=== PATIENT | male | born 1950 | race Caucasian/White ===

== ENCOUNTER 2017-02-26 09:41 | Inpatient (IN) | payer BC, OTHER ==
[2017-02-26] MEDS ORDERED: FAMOTIDINE 20 MG/50 ML IVPB 50 ML IVPB ONE ×2 (09:57→10:01)
[2017-02-26] MEDS ORDERED: methylPREDNISolone NA SUCC 125 MG/2 ML VIAL IVPB ONE (09:57)
[2017-02-26] MEDS ORDERED: SODIUM CHLORIDE 1,000 ML IV ONE (09:58)
--- NOTE | 2017-02-26 09:58 | PDOC ---
History of Present Illness - General Chief Complaint: Allergic Reaction Stated Complaint: ALLERGIC REACTION Time Seen by Provider: 02/26/17 09:50 History Source: Patient Exam Limitations: No Limitations - History of Present Illness Initial Comments: 02/26/17 10:07 66y M hx of afib on coumadin, htn, hl, cad s/p CABG, presents with angioedema. The pt states that on wednesday with abdominal pain, he started to have some swelling around his eyes during the week, went to urgent care and got some steroids from urgent care. Yetserday the pt started to have swelling around his mouth/lips and this morning when he woke up the pain worsened significantly. The pt denies any voice changes, sob, cp, palpitations, abd pain, n/v. no known alelrgies pt was formerly on lisinopril but stopped 3 months ago was started on entresta (Valsartan/sacubitril) and has been on 3 months Past History - Past Medical History Allergies/Adverse Reactions: Allergies Allergy/AdvReac Type Severity Reaction Status Date / Time lisinopril Allergy Severe Verified 03/05/17 17:03 sacubitril [From Entresto] Allergy Severe Angioedema Verified 03/05/17 17:03 valsartan [From Entresto] Allergy Severe angioedema Verified 03/05/17 17:04 No Known Drug Allergies Allergy Verified 04/24/15 13:19 HAYFEVER Allergy Uncoded 04/24/15 13:09 Home Medications: Ambulatory Orders Aspirin [ASA -] 81 mg PO DAILY 06/30/14 Carvedilol 6.25 mg PO BID 06/30/14 Lisinopril [Prinivil -] 10 mg PO DAILY 06/30/14 Simvastatin [Zocor -] 20 mg PO HS 06/30/14 Warfarin Sodium [Coumadin] 3 mg PO ASDIR 06/30/14 Amlodipine Besylate [Norvasc -] 5 mg PO DAILY 04/24/15 Fish Oil/Borage/Flax/Om3,6,9#1 [[place] 3-6-9 Complex Softgel] 1 each PO DAILY Multivitamins [Multivit ([facility] Formulary)] 1 tab PO DAILY 04/24/15 Warfarin Sodium [Coumadin] 1.5 mg PO ASDIR 07/15/15 Docusate Sodium [Colace -] 100 mg PO TID #21 capsule 05/01/15 Ferrous Sulfate [Feosol] 325 mg PO TIDCM #30 ud 05/01/15 Anemia: Yes (TAKES IRON PILL) Asthma: No Cancer: No Cardiac Disorders: Yes (afib) CVA: No COPD: No CHF: No Dementia: No Diabetes: No GI Disorders: No Disorders: No HTN: Yes Hypercholesterolemia: No Liver Disease: No Seizures: No Thyroid Disease: No - Surgical History Abdominal Surgery: No Appendectomy: No Cardiac Surgery: Yes (pppmd,DIFIBRILLATOR 04/2014) Cholecystectomy: No Lung Surgery: No (11/2013 TRIPLE BYPASS) Neurologic Surgery: (LAMINECTOMY 5 YRS AGO) Orthopedic Surgery: No - Psycho/Social/Smoking Cessation Hx Anxiety: No Suicidal Ideation: No Smoking History: Never smoked Have you smoked in the past 12 months: No Hx Alcohol Use: No Drug/Substance Use Hx: No Substance Use Type: None Hx Substance Use Treatment: No Review of Systems - Review of Systems Comments:: 02/26/17 10:18 Constitutional - no reported Fever, Chills, HEENT: +facial swelling no reported vision changes, sore throat Respiratory: no reported cough, sob, hemoptysis Cardiac: no reported chest pain, palpitations, light headedness, leg swelling Abd/GI: no reported abd pain, nausea, vomiting, blood per rectum, melena, diarrhea : no reported dysuria, frequency, discharge Musculskelatal - no reported back pain, joint swelling skin - no reported bruising, erythema, rash neurological: no reported headache, numbness, focal weakness, tingling, ataxia, hematologic: no reported anemia, easy bruising, easy bleeding *Physical Exam - Physical Exam Comments: 02/26/17 10:26 GENERAL: The patient is awake, alert, and fully oriented, Nontoxic - in no acute distress. HEAD: Normocephalic, atraumatic. EYES: extraocular movements intact, sclera anicteric, conjunctiva clear. ENT: +angioedema of cheek/lips, airway patent, no tongue swelilng, no stridor, no respiratory distress, Normal voice, NECK: Normal range of motion, supple LUNGS: Breath sounds equal, clear to auscultation bilaterally. No wheezes, no rhonchi, no rales. HEART: Regular rate and rhythm, normal S1 and S2 without murmur, rub or gallop. ABDOMEN: Soft, nontender, normoactive bowel sounds. No guarding, no rebound. . No CVA tenderness EXTREMITIES: Normal range of motion, no edema. No clubbing or cyanosis. No cords, erythema, or tenderness. NEUROLOGICAL: No facial assymetry, Normal speech, PSYCH: Normal mood, normal affect. SKIN: Warm, Dry, normal turgor, Heart Score/ECG Review - ECG Impressions Comment:: 02/26/17 12:16 Twelve-lead EKG was performed and reviewed by me. Irregularly irregarul rate of 87 PVCs present twi in inferolateral leads ED Treatment Course - LABORATORY CBC & Chemistry Diagram: 03/09/17 06:00 03/09/17 06:00 Medical Decision Making - Medical Decision Making 02/26/17 10:28 66y M hx of afib on coumadin, htn, hl, cad presents with severe angioedema to the lip, protectoing airway, toleraing oral secretions, no voice changes vitals normal. pt does have some drooling, but it is due to the pts large lips he cannot close his mouth, there is no problem with swallowing or in his posteior pharynx pt given solumedrol, pepcid/benadryl consider epi but concern due to CAD prptecting airway, but will intubate if any concern of airway compromise. mallimpati 2 airway 02/26/17 10:58 airway unchanged inr elevated pt states he recently had coumadin changed due to subtherpeutic INR 1 month ago from alternating 1.5 and 3mg to 3mg daily will admit to ICU for further management 02/26/17 12:08 02/26/17 12:39 02/26/17 12:40 case dw CHIROPRACTIC PHYSICIAN Bhumika agree with amnagement will also start FFP will place in icu for obs Case discussed in detail with admitting physician including history, physical exam and ancillary studies. Admitting physician has assumed care for the patient, will follow all pending diagnostics and will complete the evaluation and treatment. accepted to ICU by dr. best CRITICAL CARE DOCUMENTATION: I spent ~35 minutes of Critical Care time, excluding separately billable procedures, involving high complexity decision making to assess, manipulate and support vital system function(s) to treat single or multiple vital organ system failure and/or to prevent further life threatening deterioration of the patient' s condition. *DC/Admit/Observation/Transfer Diagnosis at time of Disposition: Elevated INR Angioedema Qualifiers: Encounter type: initial encounter Qualified Code(s): T78.3XXA - Angioneurotic edema, initial encounter - Discharge Dispostion Admit: Yes
[2017-02-26] MEDS ORDERED: methylPREDNISolone NA SUCC 125 MG/2 ML VIAL ONE (10:01)
[2017-02-26 10:30] LABS: PROTHROMBIN TIME (PATIENT) 62.8 SEC (9.98-11.88)
[2017-02-26 10:44] LABS: ALBUMIN 2.9 g/dl (3.4-5.0); BILIRUBIN,TOTAL 0.9 mg/dL (0.2-1.0); CALCIUM 8.5 mg/dL (8.5-10.1); CREATININE 1.6 mg/dL (0.7-1.3); MCH 31.3 pg (25.7-33.7); MCHC 33.4 g/dl (32.0-35.9); MEAN CELL VOLUME 93.6 fl (80-96); MEAN PLT VOLUME 10.7 fl (7.5-11.1); PLATELET COUNT 144 K/MM3 (134-434); RDW 13.5 % (11.9-15.9); TOT PROT 7.3 g/dl (6.4-8.2); WHITE BLOOD COUNT 22.6 K/mm3 (4.0-10.0)
[2017-02-26 10:51] LABS: INR 5.51 (0.82-1.09)
[2017-02-26 11:29] LABS: PLATELET ESTIMATE SLT DECREASED (NORMAL)
[2017-02-26 11:36] VITALS: BMI 29.5
[2017-02-26] MEDS ORDERED: ONDANSETRON 4 MG/2 ML VIAL IVPB PRN (12:37)
--- NOTE | 2017-02-26 13:07 | HP ---
CHIEF COMPLAINT: Lip swelling PCP: Dr. Bolivar Refrigeration Installer: Dr. Ma HISTORY OF PRESENT ILLNESS: This is a 66-year-old male with a history pf Afib ( on Coumadin, CAD s/p CABG, systolic CHF s/p AICD, HTN, dyslipidemia who presents to the ED with angioedema. He previously took Lisinopril, but was switched to Entresto about 3 months ago. He first noted some abdominal pain and swelling around his eyes on Wednesday. The eye swelling became progressively worse , prompting him to present to Urgent Care on Wednesday. There, he was treated with prednisone. Yesterday, he noted marked lip swelling, which worsened today. He is having difficulty swallowing and reports that he was only able to take some of his medications this morning. He specifies that this is not because of throat tightness, but because he can't open his mouth fully because of lip swelling. 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 Smoking: None Alcohol: None Drugs: None Family History: No history of angioedema Allergies lisinopril Allergy (Verified 02/26/17 10:22) No Known Drug Allergies Allergy (Verified 04/24/15 13:19) HAYFEVER Allergy (Uncoded 04/24/15 13:09) HOME MEDICATIONS: Home Medications Medication Instructions Recorded Aspirin [ASA -] 81 mg PO DAILY 06/30/14 Carvedilol 6.25 mg PO BID 06/30/14 Lisinopril [Prinivil -] 10 mg PO DAILY 06/30/14 Simvastatin [Zocor -] 20 mg PO HS 06/30/14 Warfarin Sodium [Coumadin] 3 mg PO ASDIR 06/30/14 Amlodipine Besylate [Norvasc -] 5 mg PO DAILY 04/24/15 Fish Oil/Borage/Flax/Om3,6,9#1 1 each PO DAILY 04/24/15 [[place] 3-6-9 Complex Softgel] Multivitamins [Multivit ([facility] 1 tab PO DAILY 04/24/15 Formulary)] Warfarin Sodium [Coumadin] 1.5 mg PO ASDIR 04/24/15 Docusate Sodium [Colace -] 100 mg PO TID #21 capsule 05/01/15 Ferrous Sulfate [Feosol] 325 mg PO TIDCM #30 ud 05/01/15 REVIEW OF SYSTEMS CONSTITUTIONAL: Absent: fever, chills, diaphoresis, generalized weakness, malaise, loss of appetite, weight change HEENT: Lip swelling, swelling around eyes, difficulty opening mouth Absent: throat pain, throat swelling CARDIOVASCULAR: Absent: chest pain, syncope, palpitations, irregular heart rate, lightheadedness , peripheral edema RESPIRATORY: Absent: cough, shortness of breath, dyspnea with exertion, orthopnea, wheezing, stridor, hemoptysis GASTROINTESTINAL: Generalized abdominal pain, diarrhea x 1 wk Absent: abdominal distension, nausea, vomiting, constipation, melena, hematochezia GENITOURINARY: Absent: dysuria, frequency, urgency, hesitancy, hematuria, flank pain, genital pain MUSCULOSKELETAL: Absent: myalgia, arthralgia, joint swelling, back pain, neck pain SKIN: Absent: rash, itching, pallor HEMATOLOGIC/IMMUNOLOGIC: Absent: easy bleeding, easy bruising, lymphadenopathy, frequent infections ENDOCRINE: Absent: unexplained weight gain, unexplained weight loss, heat intolerance, cold intolerance NEUROLOGIC: Absent: headache, focal weakness or paresthesias, dizziness, unsteady gait, seizure, mental status changes, bladder or bowel incontinence PSYCHIATRIC: Absent: anxiety, depression, suicidal or homicidal ideation, hallucinations. PHYSICAL EXAMINATION Vital Signs - 24 hr 02/26/17 10:18 Temperature 98.8 F Pulse Rate 90 Respiratory 20 Rate Blood Pressure 119/82 O2 Sat by Pulse 95 Oximetry (%) GENERAL: Awake, alert, and fully oriented, drooling, appears uncomfortable. EYES: Pupils equal, round and reactive to light, extraocular movements intact, sclera anicteric, right conjunctiva injected. No lid lag. Mild periorbital edema bilaterally. EARS, NOSE, THROAT: Trismus. Marked lip swelling. No uvular edema, tongue swelling, or stridor. NECK: Submandibular/upper neck fullness. No lymphadenopathy, JVD, or masses. LUNGS: Breath sounds equal, clear to auscultation bilaterally. No wheezes, and no crackles. No accessory muscle use. HEART: Regular rate and rhythm, normal S1 and S2 without murmur, rub or gallop. ABDOMEN: Soft, nontender, not distended, normoactive bowel sounds, no guarding, no rebound, no masses. No hepatomegaly or splenomegaly. MUSCULOSKELETAL: Normal range of motion at all joints. No bony deformities or tenderness. No CVA tenderness. UPPER EXTREMITIES: 2+ pulses, warm, well-perfused. No cyanosis. No clubbing. No peripheral edema. LOWER EXTREMITIES: 2+ pulses, warm, well-perfused. No calf tenderness. No peripheral edema. NEUROLOGICAL: Cranial nerves II-XII intact. Normal speech. PSYCHIATRIC: Cooperative. Good eye contact. Appropriate mood and affect. SKIN: Warm, dry, normal turgor, no rashes or lesions noted, normal capillary refill. Laboratory Results - last 24 hr 02/26/17 02/26/17 02/26/17 10:05 10:05 10:05 WBC 22.6 H D RBC 6.10 H D Hgb 19.1 H D Hct 57.1 H D MCV 93.6 MCHC 33.4 RDW 13.5 Plt Count 144 D MPV 10.7 D Neutrophils % 81.0 Lymphocytes % 10.0 D Monocytes % 8.0 Band Neutrophils 1.0 Differential Comment Manual diff done Platelet Estimate Slt decreased INR 5.51 H* D Sodium 136 Potassium 4.2 Chloride 95 L Carbon Dioxide 29 Anion Gap 12 BUN 44 H D Creatinine 1.6 H D Creat Clearance w eGFR 43.74 Random Glucose 159 H D Calcium 8.5 Total Bilirubin 0.9 D AST 24 D ALT 29 D Alkaline Phosphatase 109 D Total Protein 7.3 D Albumin 2.9 L ASSESSMENT/PLAN: 66 year old male with angioedema, suspect ARB-induced. Problem List - Problem (1) Angioedema Assessment/Plan: -NPO -Urgent ENT evaluation -discussed with Dr. Olson -Transfuse 2 units FFP now -Continue Solu-Medrol, Pepcid, Benadryl -Supplemental O2 as needed -Monitor in ICU Code(s): T78.3XXA - ANGIONEUROTIC EDEMA, INITIAL ENCOUNTER Qualifiers: Encounter type: initial encounter Qualified Code(s): T78.3XXA - Angioneurotic edema, initial encounter (2) Elevated INR Assessment/Plan: -No signs of bleeding -Hold warfarin -Monitor Code(s): R79.1 - ABNORMAL COAGULATION PROFILE (3) HTN (hypertension) Assessment/Plan: -At goal -Resume Norvasc, Carvedilol when taking PO -Re-evaluate regimen in light of likely ARB adverse reaction Code(s): I10 - ESSENTIAL (PRIMARY) HYPERTENSION (4) HLD (hyperlipidemia) Assessment/Plan: -Resume Zocor, [place] 3 when taking PO Code(s): E78.5 - HYPERLIPIDEMIA, UNSPECIFIED (5) CAD (coronary artery disease) Assessment/Plan: -Resume ASA, statin when taking PO Code(s): I25.10 - ATHSCL HEART DISEASE OF [place] CORONARY ARTERY W/O ANG PCTRS Qualifiers: Coronary Disease-Associated Artery/Lesion type: bypass graft [place] vs. transplanted heart: [place] heart Associated angina: without angina Qualified Code(s): I25.810 - Atherosclerosis of coronary artery bypass graft( s) without angina pectoris (6) Atrial fibrillation Assessment/Plan: -Rate-controlled -Supratherapeutic on Coumadin; monitor INR and start heparin gtt if below 2 and still unable to tolerate PO Code(s): I48.91 - UNSPECIFIED ATRIAL FIBRILLATION Qualifiers: Atrial fibrillation type: permanent Qualified Code(s): I48.2 - Chronic atrial fibrillation (7) Leukocytosis Assessment/Plan: -No symptoms of infection -Suspect secondary to dehydration/hemoconcentration (H/H also high) from poor intake + outpatient steroids -Monitor Code(s): D72.829 - ELEVATED WHITE BLOOD CELL COUNT, UNSPECIFIED Qualifiers: Leukocytosis type: unspecified Qualified Code(s): D72.829 - Elevated white blood cell count, unspecified (8) Acute kidney injury Assessment/Plan: -Suspect secondary to dehydration, +/- ARB use -Follow Code(s): N17.9 - ACUTE KIDNEY FAILURE, UNSPECIFIED (9) DVT prophylaxis Assessment/Plan: -Supratherapeutic INR Code(s): [id number] - Visit type - Emergency Visit Emergency Visit: Yes ED Registration Date: 02/26/17 Care time: The patient presented to the Emergency Department on the above date and was hospitalized for further evaluation of their emergent condition. - New Patient This patient is new to me today: Yes Date on this admission: 02/26/17 - Critical Care Critical Care patient: Yes Total Critical Care Time (in minutes): 35 Critical Care Statement: The care of this patient involved high complexity decision making to prevent further life threatening deterioration of the patient 's condition and/or to evalute & treat vital organ system(s) failure or risk of failure.
--- NOTE | 2017-02-26 14:18 | CON.CARD ---
Consult Consult Specialty:: Cardiology Referred by:: Dr. Solares Reason for Consultation:: New onset angioedema - History of Present Illness Chief Complaint: facial and perioral swelling History of Present Illness: 66M with permanent AF on coumadin, ischemic CMs/p CABG w/ history of severe LV systolic dysfx s/p ICD presents to ER with 2-3 days progressive periorbital and perioral edema, drooling and facial pruritis. Symptoms significantly worsened overnight. Denies wheezing or SOB beyond baseline. In ER, has had modest improvement with IV steroid and benadryl, now able to open eyes. Patient had been maintained for several years on Lisinopril without any side effect but was switched to Entresto about three months ago due to persistent exertional fatigue and dyspnea and LE edema. He tolerated the transition well, stopped Lisinopril for 48 hours prior to initiation of Entresto and had improved dyspnea over the last 3 months. Current sx began about 3 days ago. Denies CP, palps, fevers or chills. +Diarrhea for the last week. Denies exposure to any new chemicals, soaps or any new suppliments. Recently returned from a trip to [place] about 2 weeks ago. - History Source History Provided By: Patient Limitations to Obtaining History: No Limitations - Past Medical History Cardio/Vascular: Yes: AFIB (on coumadin), CAD (s/p CABG), CHF (s/p ICD), HTN, Hyperlipdemia, Other (Severe LV systolic dysfunction, s/p ICD implantation) Pulmonary: No: Asthma, Bronchitis, Cancer, COPD, O2 Dependent, Pneumonia, Previously Intubated, Pulmonary Embolus, Pulmonary Fibrosis, Sleep Apnea, Other Gastrointestinal: Yes: Other (recent onset of diarrhea x 1 week) Hepatobiliary: No: Cirrhosis, Cholelithiasis, Cholecystitis, Choledocholithiasis , Hepatitis A, Hepatitis B, Hepatitis C, Other Renal/: No: Renal Failure, Renal Inusuff, BPH, Cancer, Hematuria, Hemodialysis , Neurogenic Bladder, Renal Calculi, UTI, Other Heme/Onc: No: Anemia, B12 Deficiency, Bleeding Disorder, Cancer, Current Chemotherapy, Current Radiation Therapy, Hemochromatosis, Hypercoaguable State, Myeloproliferative Synd, Sickle Cell Disease, Sickle Cell Trait, Thrombocytopenia, Other Infectious Disease: No: AIDS, C-Diff, Herpes Zoster, HIV, MRSA, STD's, Tuberculosis, VREF, Other Psych: No: Addictions, Anxiety, Bipolar, Depression, Panic, Psychosis, Schizophrenia, Other Musculoskeletal: No: Bursitis, Chronic low back pain, Hemiparesis, Hemiplegia, Osteoarthritis, Paraplegia, Other Rheumatology: No: Fibromyalgia, Gout, Lupus, Rheumatoid Arthritis, Sarcoidosis, Vasculitis, Other Endocrine: No: [place]'s Disease, Isadora's Disease, Diabetes Insipidus, Diabetes Mellitus, Hyperparathyroidism, Hyperthyroidism, Hypothyroidism, Osteopenia, SIADH, Other - Past Surgical History Past Surgical History: Yes: CABG Additional Surgical History: s/p ICD. Knee surgery - Alcohol/Substance Use Hx Alcohol Use: No History of Substance Use: reports: None - Smoking History Smoking history: Never smoked Have you smoked in the past 12 months: No - Social History ADL: Independent History of Recent Travel: Yes ([place]) Home Medications - Allergies Allergies/Adverse Reactions: Allergies Allergy/AdvReac Type Severity Reaction Status Date / Time lisinopril Allergy Verified 02/26/17 10:22 No Known Drug Allergies Allergy Verified 04/24/15 13:19 HAYFEVER Allergy Uncoded 04/24/15 13:09 - Home Medications Home Medications: Ambulatory Orders Aspirin [ASA -] 81 mg PO DAILY 06/30/14 Carvedilol 6.25 mg PO BID 06/30/14 Lisinopril [Prinivil -] 10 mg PO DAILY 06/30/14 Simvastatin [Zocor -] 20 mg PO HS 06/30/14 Warfarin Sodium [Coumadin] 3 mg PO ASDIR 06/30/14 Amlodipine Besylate [Norvasc -] 5 mg PO DAILY 04/24/15 Fish Oil/Borage/Flax/Om3,6,9#1 [[place] 3-6-9 Complex Softgel] 1 each PO DAILY Multivitamins [Multivit ([facility] Formulary)] 1 tab PO DAILY 04/24/15 Warfarin Sodium [Coumadin] 1.5 mg PO ASDIR 04/24/15 Docusate Sodium [Colace -] 100 mg PO TID #21 capsule 05/01/15 Ferrous Sulfate [Feosol] 325 mg PO TIDCM #30 ud 05/01/15 Family Disease History - Family Disease History Family History: Unremarkable (non-contributory to this presentation) Review of Systems Findings/Remarks: See HPI- progressive facial edema, pruritis c/w new onset angioedema No new exposures, per patient. Transitioned from Lisinopril to Entresto 3 months ago - Review of Systems Constitutional: reports: Other (perioral and periorbital edema, pruritis) Eyes: reports: Other (see above) HENT: reports: Mouth Swelling Neck: reports: No Symptoms Cardiovascular: reports: No Symptoms Respiratory: reports: No Symptoms Gastrointestinal: reports: No Symptoms Genitourinary: reports: No Symptoms Breasts: reports: No Symptoms Reported Musculoskeletal: reports: No Symptoms Integumentary: reports: No Symptoms Neurological: reports: No Symptoms Endocrine: reports: No Symptoms Hematology/Lymphatic: reports: No Symptoms Psychiatric: reports: No Symptoms - Risk Factors Known Risk Factors: Yes: Hypercholesterolemia, Hypertension, Other (Known CAD s/ p CABG) Vital Signs: Vital Signs Temperature 98.8 F 02/26/17 10:18 Pulse Rate 90 02/26/17 10:18 Respiratory Rate 20 02/26/17 10:18 Blood Pressure 119/82 02/26/17 10:18 O2 Sat by Pulse Oximetry (%) 95 02/26/17 10:18 Eyes: Yes: Other (periorbital edema b/l) HENT: Yes: Other (perioral edema, lip swelling) Neck: Yes: Supple Respiratory: Yes: Other (clear withour stridor or wheezing) Gastrointestinal: Yes: Soft (non-tender) Renal/: Yes: WNL, Urethral Discharge JVD: No Carotid Bruit: No PMI: Non-Displaced Heart Sounds: Yes: S1, S2 (irregular, no murmurs) Extremities: Yes: WNL Edema: Yes (see above) Peripheral Pulses WNL: Yes Neurological: Yes: Alert, Oriented ...Motor Strength: WNL Psychiatric: Yes: WNL - Other Data Labs, Other Data: INR, PTT INR 5.51 (0.82-1.09) H* D 02/26/17 10:05 Laboratory Tests 02/26/17 02/26/17 02/26/17 10:05 10:05 10:05 WBC 22.6 H D Hgb 19.1 H D Hct 57.1 H D Plt Count 144 D Neutrophils % 81.0 Monocytes % 8.0 Band Neutrophils 1.0 INR 5.51 H* D Potassium 4.2 Creatinine 1.6 H D Calcium 8.5 Total Bilirubin 0.9 D AST 24 D ALT 29 D Alkaline Phosphatase 109 D Prior Cardiac Procedures: CABG, Other (ICD) Ejection Fraction %: LVEF < 40 % Imaging - Results X-ray: Image Reviewed EKG: Image Reviewed (AF, intermittent Pacing. IVCD c/w RBBB. NSST changes) Problem List - Problems (1) Angioedema Assessment/Plan: -new onset, suspected due to Entresto Code(s): T78.3XXA - ANGIONEUROTIC EDEMA, INITIAL ENCOUNTER Qualifiers: Encounter type: initial encounter Qualified Code(s): T78.3XXA - Angioneurotic edema, initial encounter (2) Atrial fibrillation Code(s): I48.91 - UNSPECIFIED ATRIAL FIBRILLATION Qualifiers: Atrial fibrillation type: permanent Qualified Code(s): I48.2 - Chronic atrial fibrillation (3) CAD (coronary artery disease) Code(s): I25.10 - ATHSCL HEART DISEASE OF [place] CORONARY ARTERY W/O ANG PCTRS Qualifiers: Coronary Disease-Associated Artery/Lesion type: bypass graft [place] vs. transplanted heart: [place] heart Associated angina: without angina Qualified Code(s): I25.810 - Atherosclerosis of coronary artery bypass graft( s) without angina pectoris (4) Elevated INR Code(s): R79.1 - ABNORMAL COAGULATION PROFILE (5) Leukocytosis Code(s): D72.829 - ELEVATED WHITE BLOOD CELL COUNT, UNSPECIFIED Qualifiers: Leukocytosis type: unspecified Qualified Code(s): D72.829 - Elevated white blood cell count, unspecified (6) Chronic systolic (congestive) heart failure Code(s): I50.22 - CHRONIC SYSTOLIC (CONGESTIVE) HEART FAILURE (7) ICD (implantable cardioverter-defibrillator) in place Code(s): Z95.810 - PRESENCE OF AUTOMATIC (IMPLANTABLE) CARDIAC DEFIBRILLATOR (8) Renal insufficiency Code(s): N28.9 - DISORDER OF KIDNEY AND URETER, UNSPECIFIED Assessment/Plan IMP: 1. New onset angioedema 2. Permanent AF with supratherapeutic INR 3. CAD s/p CABG 4. Ischemic cardiomyopathy s/p ICD 5. Renal insufficiency REC: 1. Angioedema: -in the absence of any new exposures to chemicals, foods or suppliments suspect secondary to Entresto Unusual as he started it 3 months ago with no symptoms and had previously tolerated Lisinopril well -Agree with ENT eval and monitoring in ICU -Continue steroids and Benadryl as per Critical Care team and ENT -Hold Entresto and all TUAN/ARB for now -Try to obtain further detailed history about any new exposures although on initial questioning denied any previous food allergies and does not seem to have any other recent exposures to allergens or new contacts with pets/soaps/ perfumes etc. 2. Permanent AF: -Supratherapeutic INR -Hold warfarin until INR falls within range 2-3 and then resume with adjusted dose -Check INR daily -Continue home beta britta 3. CAD s/p CABG: -Asymptomatic without anginal symptoms -Stress MPI performed in office within the last 2 years has shown scarring and reduced LV systolic function with no significant ischemia - ASA 81mg daily 4. Ischemic CM s/p ICD: -intermittently pacing appropriately on ECG -Compliant with routine office interrogations -Recent echos have shown slight improvement in LV function (previously severe, now moderate to severe) -Holding Entresto, TUAN/ARB -Continue home beta britta 5. Renal insufficiency: -unclear if acute or acute on chronic -Possible effect of ARB component of Entresto (Valsartan) -Holding Entresto -Follow renal function
--- NOTE | 2017-02-26 16:14 | EKG ---
Test Reason : Blood Pressure : / mmHG Vent. Rate : 087 BPM Atrial Rate : 104 BPM P-R Int : 000 ms QRS Dur : 108 ms QT Int : 390 ms P-R-T Axes : 000 -23 257 degrees QTc Int : 469 ms ATRIAL FIBRILLATION WITH OCCASIONAL ventricular-paced complexes AND WITH PREMATURE VENTRICULAR OR ABERRANTLY CONDUCTED COMPLEXES MINIMAL VOLTAGE CRITERIA FOR LVH, MAY BE NORMAL VARIANT INFERIOR INFARCT , AGE UNDETERMINED ANTEROSEPTAL INFARCT , AGE UNDETERMINED ABNORMAL ECG WHEN COMPARED WITH ECG OF 13-NOV-2014 17:05, ELECTRONIC VENTRICULAR PACEMAKER HAS REPLACED ELECTRONIC ATRIAL PACEMAKER Confirmed by CARLITOS SANCHEZ MD ([id number]) on 02/26/2017 4:13:38 PM Referred By: Confirmed By:CARLITOS SANCHEZ MD
--- NOTE | 2017-02-26 16:28 | CONSULT ---
Consult Consult Specialty:: PULM/CCM Referred by:: JULIETTE Reason for Consultation:: Angioedema - History of Present Illness Chief Complaint: swelling of the lips History of Present Illness: 66 M P. Afib (on Coumadin), CAD s/p CABG, systolic CHF s/p AICD, HTN, and dyslipidemia. Patient was started on Entresto about 3 months ago. Of note, he was an TUAN I prior. About 1 week ago he noted some mild non-specific abdominal discomfort. On Wednesday he developed swelling around his eyes. He was given Prednisone at an urgent care. Due to worsening edema he came to the ER. In the ER he was given Solumedrol, H1 & H2 blockers, and FFP was ordered. Patient is awake and alert and appears to be in no respiratory distress. There is no pooling of saliva and he can manage his secretions. CXR: Cardiomegaly / clear - History Source History Provided By: Patient Limitations to Obtaining History: No Limitations - Past Medical History Cardio/Vascular: Yes: AFIB (on coumadin), CAD (s/p CABG), CHF (s/p ICD), HTN, Hyperlipdemia, Other (Severe LV systolic dysfunction, s/p ICD implantation) Pulmonary: No: Asthma, Bronchitis, Cancer, COPD, O2 Dependent, Pneumonia, Previously Intubated, Pulmonary Embolus, Pulmonary Fibrosis, Sleep Apnea, Other Gastrointestinal: Yes: Other (recent onset of diarrhea x 1 week) Hepatobiliary: No: Cirrhosis, Cholelithiasis, Cholecystitis, Choledocholithiasis , Hepatitis A, Hepatitis B, Hepatitis C, Other Renal/: No: Renal Failure, Renal Inusuff, BPH, Cancer, Hematuria, Hemodialysis , Neurogenic Bladder, Renal Calculi, UTI, Other Infectious Disease: No: AIDS, C-Diff, Herpes Zoster, HIV, MRSA, STD's, Tuberculosis, VREF, Other Psych: No: Addictions, Anxiety, Bipolar, Depression, Panic, Psychosis, Schizophrenia, Other Musculoskeletal: No: Bursitis, Chronic low back pain, Hemiparesis, Hemiplegia, Osteoarthritis, Paraplegia, Other Rheumatology: No: Fibromyalgia, Gout, Lupus, Rheumatoid Arthritis, Sarcoidosis, Vasculitis, Other Endocrine: No: Isreal's Disease, Isadora's Disease, Diabetes Insipidus, Diabetes Mellitus, Hyperparathyroidism, Hyperthyroidism, Hypothyroidism, Osteopenia, SIADH, Other - Past Surgical History Past Surgical History: Yes: CABG Additional Surgical History: s/p ICD. Knee surgery - Alcohol/Substance Use Hx Alcohol Use: No History of Substance Use: reports: None - Smoking History Smoking history: Never smoked Have you smoked in the past 12 months: No - Social History ADL: Independent History of Recent Travel: Yes ([place]) Home Medications - Allergies Allergies/Adverse Reactions: Allergies Allergy/AdvReac Type Severity Reaction Status Date / Time lisinopril Allergy Verified 02/26/17 10:22 No Known Drug Allergies Allergy Verified 04/24/15 13:19 HAYFEVER Allergy Uncoded 04/24/15 13:09 - Home Medications Home Medications: Ambulatory Orders Aspirin [ASA -] 81 mg PO DAILY 06/30/14 Carvedilol 6.25 mg PO BID 06/30/14 Lisinopril [Prinivil -] 10 mg PO DAILY 06/30/14 Simvastatin [Zocor -] 20 mg PO HS 06/30/14 Warfarin Sodium [Coumadin] 3 mg PO ASDIR 06/30/14 Amlodipine Besylate [Norvasc -] 5 mg PO DAILY 04/24/15 Fish Oil/Borage/Flax/Om3,6,9#1 [[place] 3-6-9 Complex Softgel] 1 each PO DAILY Multivitamins [Multivit ([facility] Formulary)] 1 tab PO DAILY 04/24/15 Warfarin Sodium [Coumadin] 1.5 mg PO ASDIR 04/24/15 Docusate Sodium [Colace -] 100 mg PO TID #21 capsule 05/01/15 Ferrous Sulfate [Feosol] 325 mg PO TIDCM #30 ud 05/01/15 Physical Exam Vital Signs: Vital Signs Temperature 98.3 F 02/26/17 15:43 Pulse Rate 77 02/26/17 15:43 Respiratory Rate 20 02/26/17 15:43 Blood Pressure 120/60 02/26/17 15:43 O2 Sat by Pulse Oximetry (%) 98 02/26/17 15:43 Constitutional: Yes: No Distress Eyes: Yes: Other (edema) HENT: Yes: Other (significant external oral swelling). No: Drooling, Epistaxis , Hoarseness, Pharyngeal Erythema Neck: Yes: Supple, Trachea Midline Cardiovascular: Yes: Regular Rate and Rhythm Respiratory: Yes: CTA Bilaterally. No: Accessory Muscle Use, Rales, Rhonchi, SOB, Stridor, Wheezes Gastrointestinal: Yes: Normal Bowel Sounds, Soft ...Rectal Exam: Yes: Deferred Renal/: Yes: WNL Musculoskeletal: Yes: WNL Extremities: Yes: WNL Edema: Yes Peripheral Pulses WNL: Yes Integumentary: Yes: Erythema, Skin Tear Neurological: Yes: Alert, Oriented ...Motor Strength: WNL Psychiatric: Yes: WNL, Alert, Oriented Imaging - Results Chest X-ray: Report Reviewed, Image Reviewed Problem List - Problems (1) Angioedema Code(s): T78.3XXA - ANGIONEUROTIC EDEMA, INITIAL ENCOUNTER Qualifiers: Encounter type: initial encounter Qualified Code(s): T78.3XXA - Angioneurotic edema, initial encounter (2) Atrial fibrillation Code(s): I48.91 - UNSPECIFIED ATRIAL FIBRILLATION Qualifiers: Atrial fibrillation type: permanent Qualified Code(s): I48.2 - Chronic atrial fibrillation (3) CAD (coronary artery disease) Code(s): I25.10 - ATHSCL HEART DISEASE OF [place] CORONARY ARTERY W/O ANG PCTRS Qualifiers: Coronary Disease-Associated Artery/Lesion type: bypass graft [place] vs. transplanted heart: [place] heart Associated angina: without angina Qualified Code(s): I25.810 - Atherosclerosis of coronary artery bypass graft( s) without angina pectoris (4) Chronic systolic (congestive) heart failure Code(s): I50.22 - CHRONIC SYSTOLIC (CONGESTIVE) HEART FAILURE (5) Elevated INR Code(s): R79.1 - ABNORMAL COAGULATION PROFILE (6) HLD (hyperlipidemia) Code(s): E78.5 - HYPERLIPIDEMIA, UNSPECIFIED (7) HTN (hypertension) Code(s): I10 - ESSENTIAL (PRIMARY) HYPERTENSION (8) ICD (implantable cardioverter-defibrillator) in place Code(s): Z95.810 - PRESENCE OF AUTOMATIC (IMPLANTABLE) CARDIAC DEFIBRILLATOR (9) Leukocytosis Code(s): D72.829 - ELEVATED WHITE BLOOD CELL COUNT, UNSPECIFIED Qualifiers: Leukocytosis type: unspecified Qualified Code(s): D72.829 - Elevated white blood cell count, unspecified Assessment/Plan Solumedrol H1&H2 britta FFP as ordered NPO for now O2 as needed No indication for intubation at this time. ICU monitoring Dr Sherwood CCTime 35"
[2017-02-26] MEDS ORDERED: SODIUM CHLORIDE NASAL SPRAY 44 ML BOTTLE NS PRN (16:39)
[2017-02-26] MEDS: methylPREDNISolone NA SUCC 40 MG/1 ML VIAL IVPB SCH (18:00)
[2017-02-26] MEDS ORDERED: ACETAMINOPHEN 1000 MG/100 ML VIAL (NON FORMULARY) IVPB ONE (18:38)
--- NOTE | 2017-02-26 19:25 | CON.ENT ---
Consult Consult Specialty:: ENT Reason for Consultation:: angioedema - History of Present Illness Chief Complaint: severe facial swelling History of Present Illness: 66 yo M with hx A fib, HTN, CAD, allergic rhinitis on Entresto x several months (Dr. Ma) ~24 hours ago had sudden onset of facial swelling, began around eyes, then to midface, then lips, cheeks and neck did not have tongue swelling presented to [facility] ER dx angioedema felt secondary to Entresto, immediately discontinued, Dr. Ma has evaluated pt and alternate medical therapy in progress pt admitted, rx IV fluids, steroids, Benadryl and FFP he is reporting improvement since coming to ER no dyspnea PMD includes allergic rhinitis (perennial) occasional medications, no formal testing also right eye irritated prior nasal septoplasty years ago recent travel to [facility] ([place], [place], [place]) - History Source History Provided By: Patient, Medical Record Limitations to Obtaining History: No Limitations - Past Medical History Cardio/Vascular: Yes: AFIB (on coumadin), CAD (s/p CABG), CHF (s/p ICD), HTN, Hyperlipdemia, Other (Severe LV systolic dysfunction, s/p ICD implantation) Pulmonary: No: Asthma, Bronchitis, Cancer, COPD, O2 Dependent, Pneumonia, Previously Intubated, Pulmonary Embolus, Pulmonary Fibrosis, Sleep Apnea, Other Gastrointestinal: Yes: Other (recent onset of diarrhea x 1 week) Hepatobiliary: No: Cirrhosis, Cholelithiasis, Cholecystitis, Choledocholithiasis , Hepatitis A, Hepatitis B, Hepatitis C, Other Renal/: No: Renal Failure, Renal Inusuff, BPH, Cancer, Hematuria, Hemodialysis , Neurogenic Bladder, Renal Calculi, UTI, Other Infectious Disease: No: AIDS, C-Diff, Herpes Zoster, HIV, MRSA, STD's, Tuberculosis, VREF, Other Psych: No: Addictions, Anxiety, Bipolar, Depression, Panic, Psychosis, Schizophrenia, Other Musculoskeletal: No: Bursitis, Chronic low back pain, Hemiparesis, Hemiplegia, Osteoarthritis, Paraplegia, Other Rheumatology: No: Fibromyalgia, Gout, Lupus, Rheumatoid Arthritis, Sarcoidosis, Vasculitis, Other Endocrine: No: [place]'s Disease, [place]'s Disease, Diabetes Insipidus, Diabetes Mellitus, Hyperparathyroidism, Hyperthyroidism, Hypothyroidism, Osteopenia, SIADH, Other - Past Surgical History Past Surgical History: Yes: CABG Additional Surgical History: s/p ICD. Knee surgery - Alcohol/Substance Use Hx Alcohol Use: No History of Substance Use: reports: None - Smoking History Smoking history: Never smoked Have you smoked in the past 12 months: No - Social History ADL: Independent History of Recent Travel: Yes ([place]) Home Medications - Allergies Allergies/Adverse Reactions: Allergies Allergy/AdvReac Type Severity Reaction Status Date / Time lisinopril Allergy Verified 02/26/17 10:22 No Known Drug Allergies Allergy Verified 04/24/15 13:19 HAYFEVER Allergy Uncoded 04/24/15 13:09 - Home Medications Home Medications: Ambulatory Orders Aspirin [ASA -] 81 mg PO DAILY 06/30/14 Carvedilol 6.25 mg PO BID 06/30/14 Lisinopril [Prinivil -] 10 mg PO DAILY 06/30/14 Simvastatin [Zocor -] 20 mg PO HS 06/30/14 Warfarin Sodium [Coumadin] 3 mg PO ASDIR 06/30/14 Amlodipine Besylate [Norvasc -] 5 mg PO DAILY 04/24/15 Fish Oil/Borage/Flax/Om3,6,9#1 [[place] 3-6-9 Complex Softgel] 1 each PO DAILY Multivitamins [Multivit ([facility] Formulary)] 1 tab PO DAILY 04/24/15 Warfarin Sodium [Coumadin] 1.5 mg PO ASDIR 04/24/15 Docusate Sodium [Colace -] 100 mg PO TID #21 capsule 05/01/15 Ferrous Sulfate [Feosol] 325 mg PO TIDCM #30 ud 05/01/15 Physical Exam-ENT Vital Signs: Vital Signs Temperature 99.4 F 02/26/17 18:00 Pulse Rate 74 02/26/17 18:00 Respiratory Rate 12 02/26/17 18:00 Blood Pressure 159/80 02/26/17 18:00 O2 Sat by Pulse Oximetry (%) 99 02/26/17 18:15 Constitutional: Yes: Well Nourished, No Distress, Calm Head: Yes: WNL Face: Yes: Angioedema, Other (significant swellling especially upper and lower lips, midface and upper neck) Eyes: Yes: Other (periorbital swelling, right conjunctiva injected.) Nose: Yes: Septum Deviated Nasal Passage: Yes: Other (dry, no bleeding) Oral/Pharynx: Yes: WNL, Other (tongue normal, voice clear, (sl hyponasal) no stridor or respiratory distress. handling secretions well) Outer Ear: Yes: Edema Ear Canal: Yes: Cerumen (minimal dry cerumen) Neck: Yes: Other (firm swelling submandibular, sl tender, skin intact, no fluctuance) Respiratory: Yes: WNL Extremities: Yes: WNL Neurological: Yes: WNL Imaging - Results Chest X-ray: Report Reviewed, Image Reviewed (lungs clear PPM) Problem List - Problems (1) Allergic rhinitis Assessment/Plan: chronic perennial allergic rhinitis recommend: outpatient evaluation, suggest formal allergy consultation with testing . Code(s): J30.9 - ALLERGIC RHINITIS, UNSPECIFIED Qualifiers: Allergic rhinitis trigger: unspecified Allergic rhinitis seasonality: non-seasonal Qualified Code(s): J30.89 - Other allergic rhinitis (2) Conjunctivitis Assessment/Plan: ?allergic vs other etiology Recommend: ophthalmology consultation Code(s): H10.9 - UNSPECIFIED CONJUNCTIVITIS Qualifiers: Conjunctivitis type: acute Acute conjunctivitis type: unspecified Laterality: right Qualified Code(s): H10.31 - Unspecified acute conjunctivitis, right eye (3) Angioedema Assessment/Plan: acute severe angioedema, felt secondary to Entresto improving with medical therapy airway stable oral cavity and oropharynx clear most marked in lips and lower face Dr. Ma already changing his medications Recommend: continue medical therapy ok for full liquids as tolerated activity may be OOB to chair and more as tolerated. hope for continued improvement discharge when meets criteria as per medical team outpatient follow-up Thank you for consultation, Onofre Olson MD FACS Code(s): T78.3XXA - ANGIONEUROTIC EDEMA, INITIAL ENCOUNTER Qualifiers: Encounter type: initial encounter Qualified Code(s): T78.3XXA - Angioneurotic edema, initial encounter
--- NOTE | 2017-02-26 20:18 | CONSULT ---
Consultation: REQUESTING PROVIDER: CONSULT REQUEST: We have been asked to medically evaluate this patient for angioedema/ICU admission. HISTORY OF PRESENT ILLNESS: 66 yr old man BIBEMS for progressively worsening facial edema starting Wednesday around his eyes then down to his chin this morning. Edema was progressive, yesterday he was unable to swallow, this morning he has been constantly drooling. Was seen by urgent care on wednesday and given oral steriods which did not provide any relief. 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 He recently returned 02/05 from a one week trip to [place]. also c/o dry right eye, nasal congestion and mild left shoulder pain (12/18) with movement. denies bug bites, new foods, new lotions/creams/soaps/shampoo, contact with animals or plants to his face, previous episodes, previous allergy testing, nausea, vomiting, fever, changes in his vision/hearing, sob/difficulty breathing , chest pain. REVIEW OF SYSTEMS: CONSTITUTIONAL: Absent: fever, chills, diaphoresis, generalized weakness, malaise, loss of appetite, weight change HEENT: present: throat swelling, difficulty swallowing, mouth swelling, Absent: rhinorrhea, nasal congestion, throat pain, ear pain, eye pain, visual changes CARDIOVASCULAR: Absent: chest pain, syncope, palpitations, irregular heart rate, lightheadedness RESPIRATORY: Absent: cough, shortness of breath, dyspnea with exertion, orthopnea, wheezing, stridor, hemoptysis GASTROINTESTINAL: Absent: abdominal pain, abdominal distension, nausea, vomiting, diarrhea, constipation, melena, hematochezia GENITOURINARY: Absent: dysuria, frequency, urgency, hesitancy, hematuria, flank pain, genital pain MUSCULOSKELETAL: Absent: myalgia, arthralgia, joint swelling, back pain, neck pain SKIN: Absent: rash, itching, pallor HEMATOLOGIC/IMMUNOLOGIC: Absent: easy bleeding, easy bruising, lymphadenopathy, frequent infections ENDOCRINE: Absent: unexplained weight gain, unexplained weight loss, heat intolerance, cold intolerance NEUROLOGIC: Absent: headache, focal weakness or paresthesias, dizziness, unsteady gait, seizure, mental status changes, bladder or bowel incontinence PSYCHIATRIC: Absent: anxiety, depression, suicidal or homicidal ideation, hallucinations. PHYSICAL EXAMINATION Vital Signs - 24 hr 02/26/17 02/26/17 02/26/17 14:31 14:51 15:43 Temperature 98.3 F 98.3 F 98.3 F Pulse Rate Pulse Rate [ 62 80 77 Left Radial] Respiratory 20 20 20 Rate Blood Pressure Blood Pressure 132/90 131/70 120/60 [Left Arm] O2 Sat by Pulse 98 98 98 Oximetry (%) 02/26/17 02/26/17 02/26/17 16:00 17:15 17:25 Temperature 99.5 F 99.5 F Pulse Rate 75 75 Pulse Rate [ Left Radial] Respiratory 14 14 14 Rate Blood Pressure 150/83 150/83 Blood Pressure [Left Arm] O2 Sat by Pulse 98 Oximetry (%) 02/26/17 02/26/17 18:00 18:15 Temperature 99.4 F Pulse Rate 74 Pulse Rate [ Left Radial] Respiratory 12 Rate Blood Pressure 159/80 Blood Pressure [Left Arm] O2 Sat by Pulse 99 Oximetry (%) GENERAL: Awake, alert, and fully oriented, in no acute distress. HEAD: generalized facial edema. EYES: Pupils equal, round and reactive to light, right eye with conjuctival erythema, extraocular movements intact, sclera anicteric, conjunctiva clear. No lid lag. eyelids are edematous. EARS, NOSE, THROAT: Ears normal, nares patent with deviated septum, swelling of nose, oropharynx clear without exudates. no tongue swelling, uvula midline, upper and lower lips swollen with left lower lip with multiple 1mm serous fluid filled vesicles, Moist mucous membranes. NECK: Normal range of motion, supple without lymphadenopathy, JVD, or masses. ttp around throat., with edema. LUNGS: Breath sounds equal, clear to auscultation bilaterally. No wheezes, and no crackles. No accessory muscle use. HEART: afib, normal S1 and S2 without murmur, rub or gallop. ABDOMEN: Soft, nontender, not distended, normoactive bowel sounds, no guarding, no rebound, no masses. No hepatomegaly or splenomegaly. MUSCULOSKELETAL: Normal range of motion at all joints. No bony deformities or tenderness. No CVA tenderness. left shoulder without edema/erythema/skin intact/ from, nontender to palpation. UPPER EXTREMITIES: 2+ pulses, warm, well-perfused. No cyanosis. No clubbing. No peripheral edema. LOWER EXTREMITIES: 2+ pulses, warm, well-perfused. No calf tenderness. No peripheral edema. NEUROLOGICAL: Cranial nerves II-XII intact. facial sensation intact throughout , facial swelling mildly L>R. Normal speech, speaking in full sentences without difficulty. PSYCHIATRIC: Cooperative. Good eye contact. Appropriate mood and affect. Laboratory Results - last 24 hr 02/26/17 02/26/17 12:45 12:59 Blood Type A POSITIVE A POSITIVE Antibody Screen Negative Active Medications Generic Name Dose Route Start Last Admin Trade Name Freq PRN Reason Stop Dose Admin Chlorhexidine Gluconate 1 applic 02/26/17 22:00 Hibiclens For Decolonization - TP HS POLLY Diphenhydramine HCl 25 mg 02/26/17 13:30 02/26/17 13:34 Benadryl Injection - IVPUSH 25 mg Q8H POLLY Administration Famotidine/Sodium Chloride 50 mls @ 100 mls/hr 02/26/17 22:00 Pepcid 20 Mg Premixed Ivpb - IVPB BID POLLY Methylprednisolone Sodium Succinate 40 mg 02/26/17 18:00 02/26/17 18:00 Solu-Medrol - IVPB 40 mg Q8H-IV POLLY Administration Mupirocin 1 applic 02/26/17 22:00 Bactroban Ointment (For Decolonization) - NS 03/03/17 21:59 BID POLLY Ondansetron HCl 4 mg 02/26/17 12:37 Zofran Injection IVPB Q6H PRN NAUSEA Sodium Chloride 2 spray 02/26/17 16:39 [place]al [place] - NS BID PRN NASAL CONGESTION ASSESSMENT/PLAN: 66 yr old man with afib on coumadin, HTN, Afib, CAD s/p CABG admitted for angioedema to the lip. Immunological angioedema likely secondary to entresto currently protecting airway, pending ENT evaluation solumedrol 40mg IVpb q8hr benadryl 25 mg IVpush q8hr FFP 2 units pending low threshold for intubation nasal cannula o2, maintain sat >90% hold oral medications for now Cardiovascular afib; rate controlled, ICD intermittently paced HTN - controlled, consider Iv meds, as he is currently NPO Avoid all ACEI and ARB medications continue beta-britta systoic CHF - currently no signs of acute exacerbation consult: dr. abarca Hematological supratherapeutic INR - no overt signs of bleeding, hold coumadin for now. consider heparin if continued NPO status and AC is needed leucocytosis - likely due to acute reaction, pt afebrile, monitor for fevers and off abx for now. Renal JEREMY, suspected pre-renal cause due to poor po intake and ARB use monitor urine output GI pepcid for GI prophylaxis DVT: supratherpeutic INR diet: NPO for now Dispo: We will continue to follow the patient. Thank you for this consultative opportunity. Visit type - Emergency Visit Emergency Visit: No - New Patient This patient is new to me today: Yes Date on this admission: 02/26/17 - Critical Care Critical Care patient: Yes Total Critical Care Time (in minutes): 40 Critical Care Statement: The care of this patient involved high complexity decision making to prevent further life threatening deterioration of the patient 's condition and/or to evalute & treat vital organ system(s) failure or risk of failure.
[2017-02-26] MEDS ORDERED: ARTIFICIAL TEARS (POLYVINYL ALCOHOL 1.4%) OPTH DROPS OU PRN (20:20)
[2017-02-26] MEDS: FAMOTIDINE 20 MG/50 ML IVPB 50 ML IVPB SCH (21:52)
[2017-02-26] MEDS: MUPIROCIN 2% TOPICAL OINTMENT FOR DECOLONIZATION NS SCH (21:52)
[2017-02-26] MEDS ORDERED: CHLORHEXIDINE GLUCONATE 4% CLEANSER FOR DECOLONIZATION TP SCH (22:00)
[2017-02-26] MEDS ORDERED: morphine CARPU-JECT 2 MG/1 ML DISP.SYRIN IVPUSH ONE (22:42)
[2017-02-26] MEDS ORDERED: LIDOCAINE 5% TOPICAL PATCH TP ONE (23:21)
[2017-02-27] MEDS: methylPREDNISolone NA SUCC 40 MG/1 ML VIAL IVPB SCH ×3 (01:39→17:19)
[2017-02-27 06:11] LABS: BASOPHIL 0.1 % (0-2.0); MCH 30.9 pg (25.7-33.7); MCHC 32.7 g/dl (32.0-35.9); MEAN CELL VOLUME 94.5 fl (80-96); MEAN PLT VOLUME 10.6 fl (7.5-11.1); NEUTROPHILS 94.5 % (42.8-82.8); PLATELET COUNT 174 K/MM3 (134-434)
[2017-02-27 06:33] LABS: PROTHROMBIN TIME (PATIENT) 53.9 SEC (9.98-11.88)
[2017-02-27 06:35] LABS: ALBUMIN 2.8 g/dl (3.4-5.0); BILIRUBIN,TOTAL 0.8 mg/dL (0.2-1.0); CALCIUM 8.1 mg/dL (8.5-10.1); COCKROFT - GAULT 73.65; CREATININE 1.3 mg/dL (0.7-1.3); TOT PROT 7.1 g/dl (6.4-8.2)
[2017-02-27 07:43] LABS: INR 4.75 (0.82-1.09)
--- NOTE | 2017-02-27 09:34 | PN ---
Progress Note, Physician History of Present Illness: seen and examined today in nad. swelling improved. feeling better. no overnight events. no new complaints. - Current Medication List Current Medications: Active Medications Artificial Tears (Artificial Tears) 1 drop OU QID PRN PRN Reason: DRY EYES Last Admin: 02/26/17 21:52 Dose: 1 drop Chlorhexidine Gluconate (Hibiclens For Decolonization -) 1 applic TP HS POLLY Last Admin: 02/26/17 21:52 Dose: 1 applic Diphenhydramine HCl (Benadryl Injection -) 25 mg IVPUSH Q8H POLLY Last Admin: 02/27/17 06:36 Dose: 25 mg Famotidine/Sodium Chloride (Pepcid 20 Mg Premixed Ivpb -) 50 mls @ 100 mls/hr IVPB BID POLLY Last Admin: 02/26/17 21:52 Dose: 100 mls/hr Methylprednisolone Sodium Succinate (Solu-Medrol -) 40 mg IVPB Q8H-IV POLLY Last Admin: 02/27/17 01:39 Dose: 40 mg Mupirocin (Bactroban Ointment (For Decolonization) -) 1 applic NS BID [facility] Stop: 03/03/17 21:59 Last Admin: 02/26/17 21:52 Dose: 1 applic Ondansetron HCl (Zofran Injection) 4 mg IVPB Q6H PRN PRN Reason: NAUSEA Sodium Chloride ([place] Nasal [place] -) 2 spray NS BID PRN PRN Reason: NASAL CONGESTION Last Admin: 02/26/17 21:53 Dose: 2 spray - Objective Vital Signs: Vital Signs Temperature 98.6 F 02/27/17 02:00 Pulse Rate 81 02/27/17 06:00 Respiratory Rate 15 02/27/17 06:00 Blood Pressure 163/81 02/27/17 06:00 O2 Sat by Pulse Oximetry (%) 92 L 02/26/17 20:25 Constitutional: Yes: Well Nourished, No Distress, Calm Eyes: Yes: Conjunctiva Clear, EOM Intact, Other (angioedema) HENT: Yes: Other (angioedema of face and lips). No: Atraumatic, Normocephalic, Drooling, Epistaxis, Hoarseness, Nasal Congestion, Pharyngeal Erythema, Rhinnorhea, Thrush, Tonsillar Exudate Neck: Yes: WNL, Supple, Trachea Midline Cardiovascular: Yes: Pulse Irregular, S1, S2. No: Bradycardia, Tachycardia, Bruit, JVD, Gallop, Murmur, Rub, S3, S4, Varicosities Respiratory: Yes: WNL, Regular, CTA Bilaterally. No: Rales, Rhonchi, Wheezes Gastrointestinal: Yes: WNL, Normal Bowel Sounds, Soft. No: Distention, Tenderness Musculoskeletal: Yes: WNL Extremities: Yes: WNL Edema: No Peripheral Pulses WNL: Yes Peripheral Pulses: Left Doralis Pedis: 2+, Right Dorsalis Pedis: 2+ Integumentary: Yes: WNL Neurological: Yes: WNL, Alert, Oriented, Cran Nerves II-XII Intact ...Motor Strength: WNL Psychiatric: Yes: WNL, Alert, Oriented Labs: CBC, BMP 02/27/17 05:15 02/27/17 05:15 INR, PTT INR 4.75 (0.82-1.09) H* 02/27/17 05:15 - ....Imaging Chest X-ray: Report Reviewed, Image Reviewed EKG: Report Reviewed, Image Reviewed Other: Report Reviewed, Image Reviewed (tele-AFib, Vpaced) Assessment/Plan IMP: 1. New onset angioedema 2. Permanent AF with supratherapeutic INR 3. CAD s/p CABG 4. Ischemic cardiomyopathy s/p ICD 5. Renal insufficiency REC: 1. Angioedema:improving -suspect secondary to Entresto -ENT evaluation appreciated, airway clear -Cont steroids and Benadryl as per CCM -will need to avoid entresto and all TUAN-I/ARBs going forward given high risk of recurrent angioedema -does not appear to have any other new allergen exposures that may have precipitated this thus making entresto more likely 2. Permanent AF: HR adequately controlled -Supratherapeutic INR on admission -Hold warfarin until INR falls within range 2-3 and then resume with adjusted dose -Monitor INR daily, still supratherapeutic today -resume home bblocker 3. CAD s/p CABG: stable -resume ASA 81mg daily, home bblocker, and statin -outpatient follow up 4. Ischemic CM s/p ICD: improvement in LV function as on last echo, currently stable and euvolemic -intermittently pacing appropriately on tele -resume home bblocker -will need to avoid any TUAN-I/ARB including Entresto going forward 5.AILYN: improved -hydration as needed -Possible effect of ARB component of Entresto (Valsartan) vs dehydration -Holding Entresto -Monitor renal function
[2017-02-27] MEDS ORDERED: ENOXAPARIN NA (PORCINE) 40 MG/0.4 ML DISP.SYRIN SQ SCH (10:00)
--- NOTE | 2017-02-27 11:23 | PN ---
Progress Note (short form) - Note Progress Note: PULM/CCM Pt seen and examined in the ICU CC: angioedema/facial swelling 24HR: facial swelling improved INR still elevated, little oozing from lip no airway compromise/no new complaints wbc still elevated but suspect due to steroids rather than infectious process, afebrile Vital Signs Temp 98.6 F 02/27/17 02:00 Pulse 81 02/27/17 06:00 Resp 15 02/27/17 06:00 BP 163/81 02/27/17 06:00 Pulse Ox 92 L 02/26/17 20:25 Intake & Output 02/26/17 02/26/17 02/27/17 11:59 23:59 11:59 Intake Total 518 800 Output Total 400 500 Balance 118 300 Weight 90.718 kg 90.718 kg 98 kg Intake: IVPB 250 Oral 800 Fresh Frozen Plasma 268 Output: Urine 400 500 Void 400 500 Other: Voiding Method Urinal # Unmeasured Voids Void 2 Height 5 ft 9 in 5 ft 9 in Body Mass Index (BMI) 29.5 29.5 Weight Measurement Method Stated by Patient Built in [facility] Weight Measurement Method Est/Stated by Patient CBC, BMP 02/27/17 05:15 02/27/17 05:15 Active Medications Artificial Tears (Artificial Tears) 1 drop OU QID PRN PRN Reason: DRY EYES Last Admin: 02/26/17 21:52 Dose: 1 drop Chlorhexidine Gluconate (Hibiclens For Decolonization -) 1 applic TP HS POLLY Last Admin: 02/26/17 21:52 Dose: 1 applic Diphenhydramine HCl (Benadryl Injection -) 25 mg IVPUSH Q8H POLLY Last Admin: 02/27/17 06:36 Dose: 25 mg Famotidine/Sodium Chloride (Pepcid 20 Mg Premixed Ivpb -) 50 mls @ 100 mls/hr IVPB BID POLLY Last Admin: 02/26/17 21:52 Dose: 100 mls/hr Methylprednisolone Sodium Succinate (Solu-Medrol -) 40 mg IVPB Q8H-IV POLLY Last Admin: 02/27/17 01:39 Dose: 40 mg Mupirocin (Bactroban Ointment (For Decolonization) -) 1 applic NS BID POLLY Stop: 03/03/17 21:59 Last Admin: 02/26/17 21:52 Dose: 1 applic Ondansetron HCl (Zofran Injection) 4 mg IVPB Q6H PRN PRN Reason: NAUSEA Sodium Chloride ([place] Nasal [place] -) 2 spray NS BID PRN PRN Reason: NASAL CONGESTION Last Admin: 02/26/17 21:53 Dose: 2 spray Constitutional: Yes: No Distress, awake, eating Eyes: Yes: Other (edema) HENT: Yes: Other (significant external oral swelling) some oozing lower lip but minimal. No: Drooling, Epistaxis, Hoarseness, Pharyngeal Erythema, no stridor Neck: Yes: Supple, Trachea Midline Cardiovascular: Yes: Regular Rate and Rhythm Respiratory: Yes: CTA Bilaterally. No: Accessory Muscle Use, Rales, Rhonchi, SOB, Stridor, Wheezes Gastrointestinal: Yes: Normal Bowel Sounds, Soft ...Rectal Exam: Yes: Deferred Renal/: Yes: WNL Musculoskeletal: Yes: WNL Extremities: Yes: WNL Edema: Yes Peripheral Pulses WNL: Yes Integumentary: Yes: Erythema, Skin Tear Neurological: Yes: Alert, Oriented ...Motor Strength: WNL Psychiatric: Yes: WNL, Alert, Oriented, good spirits Imaging - Results Chest X-ray: no cxr today or indicated Problem List - Problems (1) Angioedema Code(s): T78.3XXA - ANGIONEUROTIC EDEMA, INITIAL ENCOUNTER Qualifiers: Encounter type: initial encounter Qualified Code(s): T78.3XXA - Angioneurotic edema, initial encounter (2) Atrial fibrillation Code(s): I48.91 - UNSPECIFIED ATRIAL FIBRILLATION Qualifiers: Atrial fibrillation type: permanent Qualified Code(s): I48.2 - Chronic atrial fibrillation (3) CAD (coronary artery disease) Code(s): I25.10 - ATHSCL HEART DISEASE OF [place] CORONARY ARTERY W/O ANG PCTRS Qualifiers: Coronary Disease-Associated Artery/Lesion type: bypass graft [place] vs. transplanted heart: [place] heart Associated angina: without angina Qualified Code(s): I25.810 - Atherosclerosis of coronary artery bypass graft( s) without angina pectoris (4) Chronic systolic (congestive) heart failure Code(s): I50.22 - CHRONIC SYSTOLIC (CONGESTIVE) HEART FAILURE (5) Elevated INR Code(s): R79.1 - ABNORMAL COAGULATION PROFILE (6) HLD (hyperlipidemia) Code(s): E78.5 - HYPERLIPIDEMIA, UNSPECIFIED (7) HTN (hypertension) Code(s): I10 - ESSENTIAL (PRIMARY) HYPERTENSION (8) ICD (implantable cardioverter-defibrillator) in place Code(s): Z95.810 - PRESENCE OF AUTOMATIC (IMPLANTABLE) CARDIAC DEFIBRILLATOR (9) Leukocytosis Code(s): D72.829 - ELEVATED WHITE BLOOD CELL COUNT, UNSPECIFIED Qualifiers: Leukocytosis type: unspecified Qualified Code(s): D72.829 - Elevated white blood cell count, unspecified Assessment/Plan Solumedrol , can begin to taper H1&H2 britta FFP as ordered clears and advance as tolerated O2 as needed ok for floor bed in med/surg Bert Colón ACNP [id number]
--- NOTE | 2017-02-27 12:06 | EKG ---
Test Reason : Blood Pressure : / mmHG Vent. Rate : 073 BPM Atrial Rate : 090 BPM P-R Int : 000 ms QRS Dur : 170 ms QT Int : 470 ms P-R-T Axes : 000 -65 106 degrees QTc Int : 517 ms Ventricular-paced rhythm WITH OCCASIONAL and consecutive sinus complexes AND WITH OCCASIONAL PREMATURE VENTRICULAR COMPLEXES ATRIAL FIBRILLATION ABNORMAL ECG Confirmed by MD PABLO, DENTON ([id number]) on 02/27/2017 12:05:51 PM Referred By: Confirmed By:DENTON SHAH MD
[2017-02-27] MEDS: MUPIROCIN 2% TOPICAL OINTMENT FOR DECOLONIZATION NS SCH (12:53)
[2017-02-27] MEDS: FAMOTIDINE 20 MG/50 ML IVPB 50 ML IVPB SCH (12:53)
[2017-02-27] MEDS ORDERED: oxyCODONE HCL 5 MG TABLET PO ONE ×2 (15:21→21:54)
[2017-02-27] MEDS ORDERED: SODIUM CHLORIDE NASAL SPRAY 44 ML BOTTLE NS PRN (16:06)
[2017-02-27] MEDS ORDERED: ARTIFICIAL TEARS (POLYVINYL ALCOHOL 1.4%) OPTH DROPS OU PRN (16:06)
[2017-02-27] MEDS ORDERED: ONDANSETRON 4 MG/2 ML VIAL IVPB PRN (16:06)
--- NOTE | 2017-02-27 17:04 | PN ---
Progress Note (short form) - Note Progress Note: Subjective: The patient was seen and examined at the bedside, he remains with lip and facial swelling. He is reporting right knee pain after sleeping "badly" on his knee. INR remains elevated Current Medications Generic Name Dose Route Start Last Admin Trade Name Freq PRN Reason Stop Dose Admin Artificial Tears 1 drop 02/27/17 16:06 Artificial Tears OU Q6H PRN DRY EYES Chlorhexidine Gluconate 1 applic 02/27/17 22:00 Hibiclens For Decolonization - TP HS POLLY Diphenhydramine HCl 25 mg 02/27/17 21:30 Benadryl Injection - IVPUSH Q8H POLLY Famotidine/Sodium Chloride 50 mls @ 100 mls/hr 02/27/17 22:00 Pepcid 20 Mg Premixed Ivpb - IVPB BID POLLY Methylprednisolone Sodium Succinate 40 mg 02/27/17 18:00 Solu-Medrol - IVPB Q8H-IV POLLY Mupirocin 1 applic 02/27/17 22:00 Bactroban Ointment (For Decolonization) - NS 03/03/17 21:59 BID POLLY Ondansetron HCl 4 mg 02/27/17 16:06 Zofran Injection IVPB Q6H PRN NAUSEA Sodium Chloride 2 spray 02/27/17 16:06 [place] Nasal [place] - NS BID PRN NASAL CONGESTION Objective: Vital Signs Period Temp Pulse Resp BP Sys/[place] Pulse Ox Last 24 Hr 97.8 F-99.5 F 70-96 12-24 148-171/65-94 92-99 Physical Exam: General: NAD, A&Ox3 HEENT: periorbital edema. significant external oral swelling, small amount of oozing from the lower lip. No drooling, hoarseness noted Lungs: CTA bilaterall, no stridor or wheezing noted Heart: RRR, S1S2 Abd: Soft, non-tender, non-distended. Normoactive bowel sounds Ext: Warm, well-perfused. 2+ DP/PT bilaterally Neuro: Unable to assess CN due to facial swelling CBCD WBC 23.0 K/mm3 (4.0-10.0) H 02/27/17 05:15 RBC 4.76 M/mm3 (4.00-5.60) D 02/27/17 05:15 Hgb 14.7 GM/dL (11.7-16.9) D 02/27/17 05:15 Hct 45.0 % (35.4-49) D 02/27/17 05:15 MCV 94.5 fl (80-96) 02/27/17 05:15 MCHC 32.7 g/dl (32.0-35.9) 02/27/17 05:15 RDW 14.0 % (11.9-15.9) 02/27/17 05:15 Plt Count 174 K/MM3 (134-434) D 02/27/17 05:15 MPV 10.6 fl (7.5-11.1) 02/27/17 05:15 CMP Sodium 138 mmol/L (136-145) 02/27/17 05:15 Potassium 3.9 mmol/L (3.5-5.1) 02/27/17 05:15 Chloride 96 mmol/L (98-107) L 02/27/17 05:15 Carbon Dioxide 29 mmol/L (21-32) 02/27/17 05:15 Anion Gap 13 (8-16) 02/27/17 05:15 BUN 32 mg/dL (7-18) H D 02/27/17 05:15 Creatinine 1.3 mg/dL (0.7-1.3) 02/27/17 05:15 Creat Clearance w eGFR 55.58 (>60) 02/27/17 05:15 Random Glucose 181 mg/dL (74-106) H 02/27/17 05:15 Calcium 8.1 mg/dL (8.5-10.1) L 02/27/17 05:15 Total Bilirubin 0.8 mg/dL (0.2-1.0) 02/27/17 05:15 AST 18 U/L (15-37) D 02/27/17 05:15 ALT 24 U/L (12-78) 02/27/17 05:15 Alkaline Phosphatase 103 U/L (45-117) 02/27/17 05:15 Total Protein 7.1 g/dl (6.4-8.2) 02/27/17 05:15 Albumin 2.8 g/dl (3.4-5.0) L 02/27/17 05:15 CARDIAC ENZYMES Troponin I < 0.02 ng/ml (0.00-0.05) 02/27/17 00:00 Laboratory Tests 02/27/17 05:15 INR 4.75 H* Assessment: This is a 66 year old male with PMHx of Afib (on Coumadin), CAD s/p CABG, systolic CHF s/p AICD, HTN, dyslipidemia who presents to the ED with angioedema. Plan: 1) Angioedema: - Likely 2/2 Entresto - S/p FFP - Continue Solu-medrol at current dose - Continue Benadryl - Continue Famotidine - Patent airway - Full liquid diet as tolerated - Appreciate ENT consult 2) Cardiology: A.fib - Supratherapeutic INR, continue to hold Coumadin CAD s/p CABG - Continue statin - Continue ASA HTN - Resume Norvasc - Resume Carvedilol Ischemic cardiomyopathy s/p ICD - Currently appears euvolemic - Will need to avoid all acei/arb - Appreciate cardiology consult 3) : JEREMY - Resolved 4) F/E/N: - Monitor electrolytes - Full liquid diet 5) Prophylaxis: - OOB ambulating - Hold all chemical DVT prophylaxis 2/2 supratherapeutic INR 6) Dispo: - Requires continued inpatient care - Will need referral to museum educator upon discharge CODE STATUS: FULL CODE Visit type - Emergency Visit Emergency Visit: Yes ED Registration Date: 02/26/17 Care time: The patient presented to the Emergency Department on the above date and was hospitalized for further evaluation of their emergent condition. - New Patient This patient is new to me today: Yes Date on this admission: 02/27/17 - Critical Care Critical Care patient: No
[2017-02-27] MEDS ORDERED: FERROUS SO4 325 MG TABLET (FP) PO SCH (17:30)
[2017-02-27] MEDS ORDERED: DOCUSATE SODIUM 100 MG CAPSULE (FP) PO SCH (22:00)
[2017-02-27] MEDS ORDERED: MUPIROCIN 2% TOPICAL OINTMENT FOR DECOLONIZATION NS SCH (22:00)
[2017-02-27] MEDS ORDERED: CHLORHEXIDINE GLUCONATE 4% CLEANSER FOR DECOLONIZATION TP SCH (22:00)
[2017-02-27] MEDS ORDERED: CARVEDILOL 6.25 MG TABLET (FP) PO SCH (22:00)
[2017-02-27] MEDS ORDERED: FAMOTIDINE 20 MG/50 ML IVPB 50 ML IVPB SCH (22:00)
[2017-02-27] MEDS ORDERED: ATORVASTATIN CA 10 MG TABLET (FP) PO SCH (22:00)
[2017-02-27] MEDS ORDERED: PATIENT'S OWN MEDICATION (NON-FORMULARY) (Simvastatin 20 MG) PO SCH (22:00)
[2017-02-27] MEDS ORDERED: PIPERACILLIN/TAZOB 2.25 GM 2.25 GM in DEXTROSE 5%-WATER - 50 ML IVPB ONE (23:44)
[2017-02-27] MEDS ORDERED: PIPERACILLIN/TAZOB 3.375 GM/50 ML PRE-DOCKED IVPB ONE (23:45)
[2017-02-27] MEDS ORDERED: VANCOMYCIN 1,250 MG in DEXTROSE 5%-WATER - 250 ML IVPB ONE (23:45)
[2017-02-27] MEDS ORDERED: morphine CARPU-JECT 2 MG/1 ML DISP.SYRIN IVPUSH ONE (23:45)
[2017-02-27] MEDS ORDERED: PIPERACILLIN/TAZOB 3.375 GM 3.375 GM in DEXTROSE 5%-WATER - 50 ML IVPB ONE (23:50)
[2017-02-27] MEDS ORDERED: morphine CARPU-JECT 2 MG/1 ML DISP.SYRIN IVPUSH PRN (23:51)
--- NOTE | 2017-02-27 23:55 | HOSP ---
Subjective - Review of Symptoms Events since last encounter: 1o/1o knee pain, rigors, fever 103.2 Subjective: patient was complaining of mild r knee pain and had low grade fever this am. asmitted for angioedema due to entresto w/o airway compromise. Now 10/10 pain in r Knee, unable to move it, fever 103.2, rigors. mild sob. R knee slightly warm, slightly edematous. BP 180 systolic, tachycardic, O2 sat 95 ra . beta britta was held tonight. General: Yes: Chills, Night Sweats, Malaise HEENT: No: Head Aches Pulmonary: Yes: Dyspnea. No: Cough Cardiovascular: No: Chest Pain, Palpitations, Orthopnea Gastrointestinal: No: Nausea, Vomiting, Abdominal Pain Genitourinary: No: Dysuria Musculoskeletal: Yes: Joint Pain (r knee). No: Extremity Pain (no calf pain ) Neurological: Yes: Weakness Physical Examination Vital Signs: Vital Signs Temperature 100.6 F H 02/27/17 17:05 Pulse Rate 96 H 02/27/17 17:05 Respiratory Rate 25 H 02/27/17 17:05 Blood Pressure 163/96 02/27/17 17:05 O2 Sat by Pulse Oximetry (%) 95 02/27/17 09:00 Constitutional: Yes: Severe Distress (rigors) Eyes: Yes: Conjunctiva Clear, EOM Intact, PERRL HENT: Yes: Atraumatic Neck: Yes: Supple Cardiovascular: Yes: Tachycardia (regular), S1, S2 Respiratory: Yes: CTA Bilaterally Gastrointestinal: Yes: Normal Bowel Sounds, Soft Extremities: Yes: Other (r knee slightly warm, 10/10 pain behind knee, no calf tenderness) Peripheral Pulses: Left Radial: 2+, Right Radial: 2+ Neurological: Yes: Alert, Oriented Labs: CBC, BMP 02/27/17 05:15 02/27/17 05:15 Hospitalist Encounter Assessment: sepsis -R knee source (knee replacement 2 yrs ago) -posterior R knee 10/10 pain, slight edema and warm, fever 103.2 -duplex RLE done, appears negatove for dvt but no official read. PE suspicion low -CXR no change -stat blood and urine cultures -zosyn, vanco, tylenol -ID consult -X ray R knee ordered -morphine given -ponce, strict i and o -stat cbc, bmp, lactic acid, esr, crp -after analgesia bp 130 systolic; lactic acid >2, NS@125 started, AM CXR ordered -patient xferred to tele -informed that patient is not periodically lethargic and O2 sat 88 on ventimask , still fever 103 -transfer to ICU Visit type - Emergency Visit Emergency Visit: Yes ED Registration Date: 02/26/17 Care time: The patient presented to the Emergency Department on the above date and was hospitalized for further evaluation of their emergent condition. - New Patient This patient is new to me today: Yes Date on this admission: 02/28/17 - Critical Care Critical Care patient: No
[2017-02-28 00:33] LABS: MCH 30.7 pg (25.7-33.7); MEAN CELL VOLUME 93.1 fl (80-96); MEAN PLT VOLUME 11.1 fl (7.5-11.1); PLATELET COUNT 172 K/MM3 (134-434); RDW 13.7 % (11.9-15.9); WHITE BLOOD COUNT 18.3 K/mm3 (4.0-10.0)
[2017-02-28] MEDS ORDERED: ACETAMINOPHEN 325 MG TABLET (FP) PO PRN ×2 (00:37→04:07)
[2017-02-28] MEDS ORDERED: SODIUM CHLORIDE 1,000 ML IV SCH (01:15)
[2017-02-28 02:32] LABS: URINE APPEARANCE CLEAR; URINE BILIRUBIN NEGATIVE (NEGATIVE); URINE COLOR YELLOW; URINE GLUCOSE (UA) 1+ (NEGATIVE); URINE KETONE NEGATIVE (NEGATIVE); URINE LEUK ESTERASE NEGATIVE (NEGATIVE); URINE NITRITE NEGATIVE (NEGATIVE); URINE UROBILINOGEN NEGATIVE E.U./dl (0.2-1.0)
[2017-02-28 03:01] LABS: URINE BLOOD 2+ (NEGATIVE); URINE PROTEIN 3+ (NEGATIVE)
[2017-02-28 03:02] LABS: GRANULAR CASTS 1 /lpf; URINE MUCUS RARE; URINE RBC 1 /hpf (0-3); URINE WBC 2 /hpf (3-5)
[2017-02-28] MEDS: SODIUM CHLORIDE 1,000 ML IV SCH (04:00)
[2017-02-28] MEDS ORDERED: ARTIFICIAL TEARS (POLYVINYL ALCOHOL 1.4%) OPTH DROPS OU PRN (04:07)
[2017-02-28] MEDS ORDERED: SODIUM CHLORIDE NASAL SPRAY 44 ML BOTTLE NS PRN (04:07)
[2017-02-28] MEDS ORDERED: ONDANSETRON 4 MG/2 ML VIAL IVPB PRN (04:07)
[2017-02-28] MEDS ORDERED: morphine CARPU-JECT 2 MG/1 ML DISP.SYRIN IVPUSH PRN (04:07)
[2017-02-28] MEDS ORDERED: VANCOMYCIN 1,250 MG in DEXTROSE 5%-WATER - 250 ML IVPB ONE (04:07)
[2017-02-28] MEDS: methylPREDNISolone NA SUCC 40 MG/1 ML VIAL IVPB SCH ×3 (04:13→21:40)
[2017-02-28 05:37] LABS: MCH 30.5 pg (25.7-33.7); MCHC 32.4 g/dl (32.0-35.9); MEAN CELL VOLUME 94.2 fl (80-96); PLATELET COUNT 160 K/MM3 (134-434); RDW 13.8 % (11.9-15.9)
--- NOTE | 2017-02-28 05:42 | PN ---
Progress Note (short form) - Note Progress Note: PULM/CCM PULM/CCM Pt seen and examined in the ICU CC: angioedema/facial swelling, now knee pain with fever 24HR: -left ICU yesterday with improving angioedema, no new active complaints, ambulating around unit -returns to ICU overnight with new fever to 102, and R knee pain (states slept with it hanging off bed railing yesterday) -given morphine overnight for new knee pain with occasional obstruction/ desating requiring ventimask -started on empiric abx (vanco/Piptaz), UA negative, blood cxl sent. Vital Signs Temp 102.1 F H 02/28/17 03:53 Pulse 81 02/28/17 03:53 Resp 21 02/28/17 03:53 BP 113/85 02/28/17 03:53 Pulse Ox 95 02/27/17 21:00 Intake & Output 02/27/17 02/27/17 02/28/17 11:59 23:59 11:59 Intake Total 800 1200 Output Total 500 Balance 300 1200 Weight 98 kg Intake: IVPB 250 Oral 800 950 Output: Urine 500 Void 500 Other: Voiding Method Urinal Incontinent # Unmeasured Voids Void 2 4 Weight Measurement Method Built in [facility] CBC, BMP 02/28/17 00:08 02/27/17 05:15 02/27/17 02/27/17 02/27/17 05:15 05:15 05:15 WBC 23.0 H RBC 4.76 D Hgb 14.7 D Hct 45.0 D MCV 94.5 MCHC 32.7 RDW 14.0 Plt Count 174 D Neutrophils % 94.5 H Lymphocytes % 3.0 L D Monocytes % 2.4 L Eosinophils % 0.0 D Basophils % 0.1 INR 4.75 H* Sodium 138 Potassium 3.9 Chloride 96 L Carbon Dioxide 29 Anion Gap 13 BUN 32 H D Creatinine 1.3 02/28/17 00:08 WBC 18.3 H RBC 4.76 Hgb 14.6 Hct 44.3 MCV 93.1 MCHC 33.0 RDW 13.7 Plt Count 172 Neutrophils % Lymphocytes % Monocytes % Eosinophils % Basophils % INR Sodium Potassium Chloride Carbon Dioxide Anion Gap BUN Creatinine 02/28/17 00:05 Blood Culture - Pending Blood - Peripheral Venous 02/28/17 00:05 Blood Culture - Pending Blood - Peripheral Venous Active Medications Acetaminophen (Tylenol -) 650 mg PO Q4H PRN PRN Reason: FEVER OR PAIN Artificial Tears (Artificial Tears) 1 drop OU Q6H PRN PRN Reason: DRY EYES Aspirin (Asa -) 81 mg PO DAILY [facility] Atorvastatin Calcium (Lipitor -) 10 mg PO HS [facility] Carvedilol (Coreg -) 6.25 mg PO BID [facility] Chlorhexidine Gluconate (Hibiclens For Decolonization -) 1 applic TP HS [facility] Chlorhexidine Gluconate (Hibiclens For Decolonization -) 1 applic TP HS [facility] Diphenhydramine HCl (Benadryl Injection -) 25 mg IVPUSH Q8H [facility] Docusate Sodium (Colace -) 100 mg PO TID [facility] Ferrous Sulfate (Feosol -) 325 mg PO TIDCM [facility] Famotidine/Sodium Chloride (Pepcid 20 Mg Premixed Ivpb -) 50 mls @ 100 mls/hr IVPB BID [facility] Sodium Chloride (Normal Saline -) 1,000 mls @ 125 mls/hr IV ASDIR [facility] Vancomycin HCl 1,250 mg/ (Dextrose) 250 mls @ 166.667 mls/hr IVPB ONCE ONE PRN Reason: Protocol Stop: 02/28/17 05:36 Last Admin: 02/28/17 04:12 Dose: Not Given Piperacillin Sod/Tazobactam (Sod 3.375 gm/ Dextrose) 50 mls @ 100 mls/hr IVPB ONCE ONE PRN Reason: Protocol Stop: 02/28/17 06:29 Methylprednisolone Sodium Succinate (Solu-Medrol -) 40 mg IVPB Q8H-IV [facility] Morphine Sulfate (Morphine Injection -) 2 mg IVPUSH Q4H PRN PRN Reason: PAIN Multivitamins/Minerals/Vitamin C (Tab-A-Vit -) 1 tab PO DAILY [facility] Mupirocin (Bactroban Ointment (For Decolonization) -) 1 applic NS BID [facility] Stop: 03/03/17 21:59 Mupirocin (Bactroban Ointment (For Decolonization) -) 1 applic NS BID [facility] Stop: 03/05/17 09:59 [id number] Ethyl Esters (Lovaza -) 1 gm PO DAILY [facility] Ondansetron HCl (Zofran Injection) 4 mg IVPB Q6H PRN PRN Reason: NAUSEA Sodium Chloride ([place] Nasal [place] -) 2 spray NS BID PRN PRN Reason: NASAL CONGESTION Tele: afib variable rate 80-100, no ectopy Constitutional: Yes: No Distress, awake, eating Eyes: Yes: Other (edema, improving) HENT: Yes: Other improving lip swelling, no stridor, phonates well Neck: Yes: Supple, Trachea Midline Cardiovascular: Yes: Regular Rate and Rhythm Respiratory: Yes: CTA Bilaterally. No: Accessory Muscle Use, Rales, Rhonchi, SOB, Stridor, Wheezes Gastrointestinal: Yes: Normal Bowel Sounds, Soft ...Rectal Exam: Yes: Deferred Renal/: Yes: WNL Musculoskeletal: Yes: R knee with new swelling, warm, mildly erythematous. no external trauma or skin break. painful with movement, distal sensation/pulses intact Extremities: as above, no other apparent injury Edema: Yes Peripheral Pulses WNL: Yes Integumentary: no rash Neurological: Yes: Alert, Oriented, non focal ...Motor Strength: WNL Psychiatric: Yes: WNL, Alert, Oriented, good spirits Imaging - Results Chest X-ray: pending R knee imaging pending Problem List - Problems (1) Angioedema Code(s): T78.3XXA - ANGIONEUROTIC EDEMA, INITIAL ENCOUNTER Qualifiers: Encounter type: initial encounter Qualified Code(s): T78.3XXA - Angioneurotic edema, initial encounter (2) Atrial fibrillation Code(s): I48.91 - UNSPECIFIED ATRIAL FIBRILLATION Qualifiers: Atrial fibrillation type: permanent Qualified Code(s): I48.2 - Chronic atrial fibrillation (3) CAD (coronary artery disease) Code(s): I25.10 - ATHSCL HEART DISEASE OF [place] CORONARY ARTERY W/O ANG PCTRS Qualifiers: Coronary Disease-Associated Artery/Lesion type: bypass graft [place] vs. transplanted heart: [place] heart Associated angina: without angina Qualified Code(s): I25.810 - Atherosclerosis of coronary artery bypass graft( s) without angina pectoris (4) Chronic systolic (congestive) heart failure Code(s): I50.22 - CHRONIC SYSTOLIC (CONGESTIVE) HEART FAILURE (5) Elevated INR Code(s): R79.1 - ABNORMAL COAGULATION PROFILE (6) HLD (hyperlipidemia) Code(s): E78.5 - HYPERLIPIDEMIA, UNSPECIFIED (7) HTN (hypertension) Code(s): I10 - ESSENTIAL (PRIMARY) HYPERTENSION (8) ICD (implantable cardioverter-defibrillator) in place Code(s): Z95.810 - PRESENCE OF AUTOMATIC (IMPLANTABLE) CARDIAC DEFIBRILLATOR (9) Leukocytosis Code(s): D72.829 - ELEVATED WHITE BLOOD CELL COUNT, UNSPECIFIED Qualifiers: Leukocytosis type: unspecified Qualified Code(s): D72.829 - Elevated white blood cell count, unspecified Assessment/Plan 66 y/o man with ARB induced angioedema, improving with medrol and famotidine, d/ c from ICU yesterday now returning with fever and R knee pain, increase lactate and hypoventilation after morphine Suspect R knee pain is from bleeding/hematoma in setting of supertherapeutic INR rather than infected joint space/hardware. -obtain plain film of R knee -monitor INR, vit K if not < 2.5 today -hold asa today -agree with empiric abx, recent JEREMY so Vanco by level -ortho consult if doesn't improve rapidly or evidence of infected hardware -taper steroids as angioedema improving -cont antihypertensives -pain control -monitor ICU today -scd, famotidine Bert Colón [facility] [id number] Problem List - Problems (1) Acute kidney injury Code(s): N17.9 - ACUTE KIDNEY FAILURE, UNSPECIFIED (2) Angioedema Code(s): T78.3XXA - ANGIONEUROTIC EDEMA, INITIAL ENCOUNTER Qualifiers: Encounter type: initial encounter Qualified Code(s): T78.3XXA - Angioneurotic edema, initial encounter (3) Atrial fibrillation Code(s): I48.91 - UNSPECIFIED ATRIAL FIBRILLATION Qualifiers: Atrial fibrillation type: permanent Qualified Code(s): I48.2 - Chronic atrial fibrillation (4) HTN (hypertension) Code(s): I10 - ESSENTIAL (PRIMARY) HYPERTENSION (5) Leukocytosis Code(s): D72.829 - ELEVATED WHITE BLOOD CELL COUNT, UNSPECIFIED Qualifiers: Leukocytosis type: unspecified Qualified Code(s): D72.829 - Elevated white blood cell count, unspecified (6) Knee pain, acute Code(s): M25.569 - PAIN IN UNSPECIFIED KNEE Qualifiers: Laterality: right Qualified Code(s): M25.561 - Pain in right knee
[2017-02-28 05:58] LABS: PROTHROMBIN TIME (PATIENT) 64.8 SEC (9.98-11.88)
[2017-02-28] MEDS ORDERED: PIPERACILLIN/TAZOB 3.375 GM 3.375 GM in DEXTROSE 5%-WATER - 50 ML IVPB ONE (06:00)
[2017-02-28 06:01] LABS: BILIRUBIN,TOTAL 1.4 mg/dL (0.2-1.0); CALCIUM 7.5 mg/dL (8.5-10.1); CREATININE 1.9 mg/dL (0.7-1.3); TOT PROT 5.6 g/dl (6.4-8.2)
[2017-02-28 06:23] LABS: ERYTHROCYTE SEDIMENTATION RATE 61 mm/hr (0-20)
[2017-02-28] MEDS ORDERED: PIPERACILLIN/TAZOB 3.375 GM/50 ML PRE-DOCKED IVPB ONE (07:00)
[2017-02-28 07:34] LABS: WHITE BLOOD COUNT 30.5 K/mm3 (4.0-10.0)
[2017-02-28] MEDS: DOCUSATE SODIUM 100 MG CAPSULE (FP) PO SCH ×3 (07:58→21:40)
[2017-02-28] MEDS ORDERED: PIPERACILLIN/TAZOB 3.375 GM 50 ML IVPB ONE (07:59)
--- NOTE | 2017-02-28 08:35 | PN ---
Progress Note (short form) - Note Progress Note: Subjective: The patient was seen and examined at the bedside, he has complaints of 10/10 posterior right knee pain and swelling that began yesterday evening. Tmax 103 overnight, with rigors Lactic acid 2.925-> 1.814 WBC 30.5 Given Vancomycin and Zosyn Ortho consult, f/u CT right knee to r/o bleed given supratherapeutic INR ID consult placed Current Medications Generic Name Dose Route Start Last Admin Trade Name Freq PRN Reason Stop Dose Admin Acetaminophen 650 mg 02/28/17 04:07 Tylenol - PO Q4H PRN FEVER OR PAIN Artificial Tears 1 drop 02/28/17 04:07 Artificial Tears OU Q6H PRN DRY EYES Atorvastatin Calcium 10 mg 02/28/17 22:00 Lipitor - PO HS [facility] Carvedilol 6.25 mg 02/28/17 10:00 Coreg - PO BID [facility] Chlorhexidine Gluconate 1 applic 02/28/17 22:00 Hibiclens For Decolonization - TP HS [facility] Diphenhydramine HCl 25 mg 02/28/17 05:30 02/28/17 08:11 Benadryl Injection - IVPUSH Not Given Q8H [facility] Docusate Sodium 100 mg 02/28/17 06:00 02/28/17 07:58 Colace - PO 100 mg TID POLLY Administration Ferrous Sulfate 325 mg 02/28/17 08:00 Feosol - PO TIDCM [facility] Famotidine/Sodium Chloride 50 mls @ 100 mls/hr 02/28/17 10:00 Pepcid 20 Mg Premixed Ivpb - IVPB BID [facility] Sodium Chloride 1,000 mls @ 125 mls/hr 02/28/17 04:07 02/28/17 04:00 Normal Saline - IV 125 mls/hr ASDIR POLLY Administration Methylprednisolone Sodium Succinate 40 mg 02/28/17 10:00 Solu-Medrol - IVPB Q12H [facility] Morphine Sulfate 2 mg 02/28/17 04:07 Morphine Injection - IVPUSH Q4H PRN PAIN Multivitamins/Minerals/Vitamin C 1 tab 02/28/17 10:00 Tab-A-Vit - PO DAILY [facility] Mupirocin 1 applic 02/28/17 10:00 Bactroban Ointment (For Decolonization) - NS 03/05/17 09:59 BID POLLY Wnhqq-2-Omlo Ethyl Esters 1 gm 02/28/17 10:00 Lovaza - PO DAILY [facility] Ondansetron HCl 4 mg 02/28/17 04:07 Zofran Injection IVPB Q6H PRN NAUSEA Sodium Chloride 2 spray 02/28/17 04:07 [place] Nasal [place] - NS BID PRN NASAL CONGESTION Objective: Vital Signs Period Temp Pulse Resp BP Sys/Juarez Pulse Ox Last 24 Hr 97.8 F-103 F 77-111 16-27 113-181/65-96 95-100 Physical Exam: General: NAD, A&Ox3 HEENT: periorbital edema. external oral swelling, small amount of oozing from the lower lip with crusting. No drooling, hoarseness noted Lungs: CTA bilaterall, no stridor or wheezing noted Heart: RRR, S1S2 Abd: Soft, non-tender, non-distended. Normoactive bowel sounds Ext: Warm, well-perfused. 2+ DP/PT bilaterally Neuro: Unable to assess CN due to facial swelling MSK: Right knee swelling with posterior tenderness. Limited ROM. Left shoulder lidocaine patch, limited ROM CBCD WBC 30.5 K/mm3 (4.0-10.0) H* D 02/28/17 05:10 RBC 4.45 M/mm3 (4.00-5.60) 02/28/17 05:10 Hgb 13.6 GM/dL (11.7-16.9) 02/28/17 05:10 Hct 41.9 % (35.4-49) 02/28/17 05:10 MCV 94.2 fl (80-96) 02/28/17 05:10 MCHC 32.4 g/dl (32.0-35.9) 02/28/17 05:10 RDW 13.8 % (11.9-15.9) 02/28/17 05:10 Plt Count 160 K/MM3 (134-434) 02/28/17 05:10 MPV 11.0 fl (7.5-11.1) 02/28/17 05:10 CMP Sodium 139 mmol/L (136-145) 02/28/17 05:10 Potassium 3.9 mmol/L (3.5-5.1) 02/28/17 05:10 Chloride 100 mmol/L (98-107) 02/28/17 05:10 Carbon Dioxide 28 mmol/L (21-32) 02/28/17 05:10 Anion Gap 11 (8-16) 02/28/17 05:10 BUN 42 mg/dL (7-18) H D 02/28/17 05:10 Creatinine 1.9 mg/dL (0.7-1.3) H D 02/28/17 05:10 Creat Clearance w eGFR 35.87 (>60) 02/28/17 05:10 Random Glucose 203 mg/dL (74-106) H 02/28/17 05:10 Calcium 7.5 mg/dL (8.5-10.1) L 02/28/17 05:10 Total Bilirubin 1.4 mg/dL (0.2-1.0) H D 02/28/17 05:10 AST 25 U/L (15-37) D 02/28/17 05:10 ALT 21 U/L (12-78) 02/28/17 05:10 Alkaline Phosphatase 92 U/L (45-117) 02/28/17 05:10 Total Protein 5.6 g/dl (6.4-8.2) L D 02/28/17 05:10 Albumin 2.0 g/dl (3.4-5.0) L D 02/28/17 05:10 CARDIAC ENZYMES Troponin I < 0.02 ng/ml (0.00-0.05) 02/27/17 00:00 Microbiology 02/28/17 00:05 Blood - Peripheral Venous Blood Culture - Preliminary Pending Organism- Gram Positive Cocci in Chains 02/28/17 00:05 Blood - Peripheral Venous Blood Culture - Preliminary Pending Organism- Gram Positive Cocci in Chains Assessment: This is a 66 year old male with PMHx of Afib (on Coumadin), CAD s/p CABG, systolic CHF s/p AICD, HTN, dyslipidemia who presents to the ED with angioedema. Plan: 1) ID: Severe sepsis 2/2 probable infected right knee joint/left shoulder joint , mouth source?, gram positive bacteremia - Tmax 103 - Lactic acidosis resolved - Blood culture 2/2 bottles positive for gram positive cocci in chains - Repeat blood cultures tomorrow - F/u ECHO to r/o vegetation - WBC trending up - Abx switched to Vancomyin and Ceftriaxone - Given supratherapeutic INR, could be blood in knee joint. F/u CT right knee and left shoulder - F/u ortho consult for right knee joint aspiration to r/o infectious process and possible left shoulder aspiration - F/u ID consult 2) Angioedema: - Likely 2/2 Entresto - S/p FFP on admission - Continue Solu-medrol - Continue Benadryl - Continue Famotidine - Patent airway - Full liquid diet as tolerated - Appreciate ENT consult 2) Cardiology: A.fib - Supratherapeutic INR (5.69), continue to hold Coumadin. Will give Vitamin K 5 mg po today CAD s/p CABG - Continue statin - Continue ASA HTN - Continue Norvasc - Continue Carvedilol Ischemic cardiomyopathy s/p ICD - Currently appears euvolemic - Will need to avoid all acei/arb - Appreciate cardiology consult 3) : JEREMY - Worsening likely 2/2 sepsis - Continue to monitor 4) F/E/N: - Monitor electrolytes - Full liquid diet 5) Prophylaxis: - OOB ambulating - Hold all chemical DVT prophylaxis 2/2 supratherapeutic INR 6) Dispo: - Requires continued inpatient care - Will need referral to aircraft [employer] upon discharge CODE STATUS: FULL CODE Visit type - Emergency Visit Emergency Visit: Yes ED Registration Date: 02/26/17 Care time: The patient presented to the Emergency Department on the above date and was hospitalized for further evaluation of their emergent condition. - New Patient This patient is new to me today: Yes Date on this admission: 02/28/17 - Critical Care Critical Care patient: Yes Total Critical Care Time (in minutes): 45 Critical Care Statement: The care of this patient involved high complexity decision making to prevent further life threatening deterioration of the patient 's condition and/or to evalute & treat vital organ system(s) failure or risk of failure.
[2017-02-28] MEDS ORDERED: PHYTONADIONE 5 MG TABLET PO ONE ×3 (08:42→09:30)
[2017-02-28 08:43] LABS: INR 5.69 (0.82-1.09)
--- NOTE | 2017-02-28 08:50 | PN ---
Progress Note, Physician History of Present Illness: seen and examined this am in nad. pt transferred to floor yesterday but then developed severe R knee pain, swelling, fever, tachycardia, sent back to ICU - Current Medication List Current Medications: Active Medications Acetaminophen (Tylenol -) 650 mg PO Q4H PRN PRN Reason: FEVER OR PAIN Artificial Tears (Artificial Tears) 1 drop OU Q6H PRN PRN Reason: DRY EYES Atorvastatin Calcium (Lipitor -) 10 mg PO HS [facility] Carvedilol (Coreg -) 6.25 mg PO BID [facility] Chlorhexidine Gluconate (Hibiclens For Decolonization -) 1 applic TP HS [facility] Diphenhydramine HCl (Benadryl Injection -) 25 mg IVPUSH Q8H [facility] Last Admin: 02/28/17 08:11 Dose: Not Given Docusate Sodium (Colace -) 100 mg PO TID [facility] Last Admin: 02/28/17 07:58 Dose: 100 mg Ferrous Sulfate (Feosol -) 325 mg PO TIDCM [facility] Famotidine/Sodium Chloride (Pepcid 20 Mg Premixed Ivpb -) 50 mls @ 100 mls/hr IVPB BID [facility] Sodium Chloride (Normal Saline -) 1,000 mls @ 125 mls/hr IV ASDIR [facility] Last Admin: 02/28/17 04:00 Dose: 125 mls/hr Methylprednisolone Sodium Succinate (Solu-Medrol -) 40 mg IVPB Q12H [facility] Morphine Sulfate (Morphine Injection -) 2 mg IVPUSH Q4H PRN PRN Reason: PAIN Multivitamins/Minerals/Vitamin C (Tab-A-Vit -) 1 tab PO DAILY [facility] Mupirocin (Bactroban Ointment (For Decolonization) -) 1 applic NS BID [facility] Stop: 03/05/17 09:59 Owaaj-3-Bbtn Ethyl Esters (Lovaza -) 1 gm PO DAILY [facility] Ondansetron HCl (Zofran Injection) 4 mg IVPB Q6H PRN PRN Reason: NAUSEA Phytonadione (Mephyton -) 2.5 mg PO ONCE ONE Stop: 02/28/17 09:31 Sodium Chloride ([place] Nasal [place] -) 2 spray NS BID PRN PRN Reason: NASAL CONGESTION - Objective Vital Signs: Vital Signs Temperature 99.8 F H 02/28/17 06:00 Pulse Rate 82 02/28/17 08:00 Respiratory Rate 22 02/28/17 08:00 Blood Pressure 122/78 02/28/17 08:00 O2 Sat by Pulse Oximetry (%) 100 02/28/17 03:45 Constitutional: Yes: Well Nourished, No Distress, Calm Eyes: Yes: Conjunctiva Clear, EOM Intact, PERRL HENT: Yes: Other (improving angioedema) Neck: Yes: Supple, Trachea Midline Cardiovascular: Yes: Pulse Irregular, S1, S2. No: Bradycardia, Tachycardia, Bruit, JVD, Gallop, Murmur, Rub, S3, S4, Varicosities Respiratory: Yes: Regular, Diminished, On Venti-Mask. No: Rales, Rhonchi, Wheezes Gastrointestinal: Yes: WNL, Normal Bowel Sounds, Soft. No: Distention, Tenderness Musculoskeletal: Yes: Other (R knee swollen, tender to palpation) Extremities: Yes: Other (R knee swollen, tender to palpation) Edema: No Peripheral Pulses WNL: Yes Peripheral Pulses: Left Doralis Pedis: 2+, Right Dorsalis Pedis: 2+ Integumentary: Yes: WNL Neurological: Yes: Alert, Oriented Psychiatric: Yes: Alert, Oriented Labs: CBC, BMP 02/28/17 05:10 02/28/17 05:10 INR, PTT INR 5.69 (0.82-1.09) H* 02/28/17 05:10 - ....Imaging Chest X-ray: Report Reviewed, Image Reviewed EKG: Report Reviewed, Image Reviewed Other: Report Reviewed, Image Reviewed (tele-Afib, HR controlled, PVCs, intermittent Vpaced, 8 beats nsvt, 3 beats nsvt) Assessment/Plan IMP: Angioedema Permanent AF with supratherapeutic INR CAD s/p CABG Ischemic cardiomyopathy s/p ICD Renal insufficiency R knee swelling, fever, elevated WBC, possible sepsis REC: Angioedema:improving -suspect secondary to Entresto but may also be related to infectious process involving R knee -ENT evaluation appreciated, airway clear -Cont steroids and Benadryl as per CCM -will need to avoid entresto and all TUAN-I/ARBs going forward given high risk of recurrent angioedema -infectious work up and treatment started R knee swelling/pain- h/o R TKR-fever and elevated WBC, being evaluated for septic joint -pt has noted swelling in R knee for past few days -also with supratherapeutic INR, could be blood in joint -ortho to evaluate, likely needs additional imaging -being given Vit K to reverse INR due to possible blood in joint Permanent AF: HR adequately controlled -Supratherapeutic INR on admission -Hold warfarin for now until INR drops and until further evaluation of R knee -Vit K being given as above -resume carvedilol 6.25mg bid NSVT-short episodes overnight -resume carvedilol 6.25mg bid -monitor on tele in ICU CAD s/p CABG: stable -resume ASA 81mg daily when INR improves and only after confirm no bleeding -resume Coreg -resume home simvastatin 20mg daily -outpatient follow up Ischemic CM s/p ICD: improvement in LV function as on last echo, currently stable and euvolemic -intermittently pacing appropriately on tele -resume coreg -will need to avoid any TUAN-I/ARB including Entresto going forward -plan to use likely hydralazine/isosorbide in place of TUAN-I/ARB AILYN: secondary to ARB effect vs sepsis vs dehydration -hydration as needed -Avoid all TUAN-I/ARB's -Monitor renal function
[2017-02-28 09:39] LABS: PLATELET ESTIMATE ADEQUATE (NORMAL)
[2017-02-28 09:40] LABS: TOXIC GRANULATION 2+
[2017-02-28] MEDS ORDERED: OMEGA-3 ACID ETHYL ESTERS (FATTY-ACIDS) 1 GM CAPSULE (FP) PO SCH (10:00)
[2017-02-28] MEDS ORDERED: ASPIRIN 81 MG CHEWABLE TABLETS PO SCH ×2 (10:00)
[2017-02-28] MEDS ORDERED: MUPIROCIN 2% TOPICAL OINTMENT FOR DECOLONIZATION NS SCH (10:00)
[2017-02-28] MEDS ORDERED: methylPREDNISolone NA SUCC 40 MG/1 ML VIAL IVPB SCH (10:00)
[2017-02-28] MEDS ORDERED: MULTIVITAMINS (DAILY MVI) TABLET (FP) PO SCH (10:00)
--- NOTE | 2017-02-28 10:11 | PN ---
Progress Note (short form) - Note Progress Note: ID consult
--- NOTE | 2017-02-28 10:27 | PN ---
Progress Note (short form) - Note Progress Note: ID consult dictated imp/reccd 66 year old man with PMH of CAD- s/p cabg 2013, aicd 2013, left TKR 2104, admitted with facial swellling and abdominal pain that started one week ago, "diarrhea"- one loose BM daily that has resolved seen in urgicenter on Wednesday and started on prednisone, swelling worsened and he came to ED on Wednesday he was continued on steroids and followed in ICU- seen by ENT he reports improvement in his swelling and swallowing last night he had sudden onset of fever and chills with left knee pain- now unable to stand up due to pain-reports he has had some pin in the knee last several days but now much worse (was ambulating yesterday) also notes left shoulder pain which is new as well received vancomycin and zosyn this am 2/4 blood cultures are growing GPC in chains ponce was placed for retention, UA is negative right knee is warm with +effusion left shoulder is painful to palpation anteriorly sepsis gram positive bacteremia-AICD/Right TKR vancomycin and rocephin ?source-possible infected knee worsening wells over last several days with swelling noted on exam (+warmth) ?mouth- poor oral hygeine no signs pneumonia, no abdominal pain repeat blood cultures in am repeat vanco trough now, redose less then 15 follow vanco level daily echo ct scan knee and shoulder (new shoulder pain) JEREMY- ponce placed, will need daily vanco levels with changing renal function andioedema- improving cad- s/p cabg/AICD s/p Right TKR elevated INR d/w patient and friend as bedside over 45 minutes spent in the care of this care of this critically ill patient reviewing chart/examining patient/speaking with family/hospitalist/food quality tester /micro lab Problem List - Problems (1) Sepsis Code(s): A41.9 - SEPSIS, UNSPECIFIED ORGANISM (2) Bacteremia Code(s): R78.81 - BACTEREMIA (3) Knee pain, acute Code(s): M25.569 - PAIN IN UNSPECIFIED KNEE Qualifiers: Laterality: right Qualified Code(s): M25.561 - Pain in right knee (4) ICD (implantable cardioverter-defibrillator) in place Code(s): Z95.810 - PRESENCE OF AUTOMATIC (IMPLANTABLE) CARDIAC DEFIBRILLATOR (5) Angioedema Code(s): T78.3XXA - ANGIONEUROTIC EDEMA, INITIAL ENCOUNTER Qualifiers: Encounter type: initial encounter Qualified Code(s): T78.3XXA - Angioneurotic edema, initial encounter (6) Elevated INR Code(s): R79.1 - ABNORMAL COAGULATION PROFILE
[2017-02-28] MEDS: FAMOTIDINE 20 MG/50 ML IVPB 50 ML IVPB SCH ×2 (10:29→21:46)
[2017-02-28] MEDS: CARVEDILOL 6.25 MG TABLET (FP) PO SCH ×2 (10:30→21:40)
[2017-02-28] MEDS: MULTIVITAMINS (DAILY MVI) TABLET (FP) PO SCH (10:30)
[2017-02-28] MEDS: MUPIROCIN 2% TOPICAL OINTMENT FOR DECOLONIZATION NS SCH ×2 (10:30→21:43)
[2017-02-28] MEDS: OMEGA-3 ACID ETHYL ESTERS (FATTY-ACIDS) 1 GM CAPSULE (FP) PO SCH (10:30)
[2017-02-28] MEDS: FERROUS SO4 325 MG TABLET (FP) PO SCH ×3 (10:30→18:09)
[2017-02-28] MEDS ORDERED: VANCOMYCIN 1 GRAM (PRE-DOCKED) 1,000 MG/250 ML BAG IVPB ONE (11:45)
[2017-02-28] MEDS ORDERED: cefTRIAXone 2 GM/100 ML BAG (PRE-DOCKED) IVPB SCH (12:00)
[2017-02-28] MEDS ORDERED: PT OWN MED DRAWER 7, Y5N ONE (16:50)
[2017-02-28 17:24] LABS: URINE MARIJUANA THC POSITIVE ng/ml (CUTOFF=50)
--- NOTE | 2017-02-28 18:46 | CONS ---
DATE OF CONSULTATION: DATE OF DICTATION: 02/28/2017 REQUESTED BY: Hospitalist service. This is a 66-year-old man who was originally admitted on the . He has a history of coronary artery disease and atrial fibrillation. He is status post CABG. He has an AICD as well. He presented on the to the emergency room. Since the previous Wednesday, he had had facial swelling and lip swelling that had progressively worsened. This was also accompanied by abdominal pain and what he reported as diarrhea which was actually a daily loose bowel movement that was dark and non-bloody. These symptoms started on Wednesday. On Wednesday he went to an urgi-center, where he was given steroids. On , he noted that he had continued lip swelling, which worsened. He was having difficulty swallowing and he came to the emergency room. He denied throat tightness but said he could not open his mouth. In the emergency room, he was noted to have a white count of 22.6, an INR of 5.5, and a BUN of and creatinine of 44 and 1.6. He was admitted to the ICU, where he was given steroids and he was felt to have angioedema and he was treated with Solu-Medrol, Pepcid and Benadryl, and he was evaluated by ENT, who felt that airway was intact. He was given FFP due to the elevated INR. His symptoms improved and yesterday on the he was transferred to the floor. Yesterday evening the hospitalist service was contacted because he developed fever of 103.2, with chills and rigors. He had some mild shortness of breath. He was now having severe pain in his right knee, where he had undergone a total knee replacement 2 years previously. Given his tachycardia and elevated lactic acid, he was transferred to the ICU for close monitoring. I am asked to see him because blood cultures that were drawn last night, 2 of 4 bottles are now positive with gram-positive cocci in chains. He was given vancomycin and Zosyn. He is currently awake and alert. He reports his swallowing is much improved. He is now able to drink juice. He does not have any trouble with medications. He notes that he has had been having some recent discomfort with his knee, which he states was going on prior to his admission in the hospital but markedly worsening yesterday. As well, he has new left-sided shoulder pain, which he reports he developed with this fever yesterday. His abdominal pain is completely resolved, as well as his diarrhea. He, prior to admission, has not been taking any antibiotics. His last admission to the hospital was 2 years ago for his knee replacement. His past medical history is notable for atrial fibrillation, coronary artery disease, congestive heart failure, hypertension, and dyslipidemia. Surgical history is notable for CABG, which was done in 2013, ICD, which was placed several months after the CABG, right total knee replacement that was done in April of 2015. Ten years ago he had laminectomy to his back and as a child he had a tonsillectomy. FAMILY HISTORY: There is no history of angioedema. He is allergic to LISINOPRIL. No known drug allergies. His medications at home prior to admission included aspirin Coreg, Prinivil, Zocor, Coumadin, amlodipine, Colace, iron. He apparently was switched to Entresto 3 months ago and is felt that perhaps his allergy is related to the ARB. SOCIAL HISTORY: He lives alone. He has a very close friend. 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 He recently traveled to [place] 2 weeks ago to visit family and look for a job. He was mainly in [place] and [place]. There is no history of any cigarette or substance use. REVIEW OF SYSTEMS: He is unable to stand up. He walked to the bathroom yesterday due to his knee pain. He denies any back pain whatsoever and he has pain on anterior palpation of his left shoulder. PHYSICAL EXAMINATION: General: He is a 66-year-old man in no distress. Vital Signs: His T-max is 103, current temperature is 99.8, pulse of 82, blood pressure is 122/78, respiratory rate is 22. He weighs 206 pounds. HEENT: He is normocephalic. He has conjunctivitis of his right eye. This was noted on the ENT consultation, which noted his lips are still somewhat swollen. He has some bleeding from the left side. As well, he has very poor oral hygiene. There is no notable thrush. His tongue is blackened. He has some fullness and swelling of the lower submandibular area. There is no fluctuance but he has palpable adenopathy. Neck: Supple. Lungs: Clear to auscultation. Heart: Regular rate and rhythm. Chest: He has a well-healed midline sternal incision. He has a well healed left AICD scar. There is no associated erythema or fluctuance. Abdomen: His abdomen is soft, nontender. Extremities: Without edema. He has swelling of his right knee, which is warmer than his left. He appears to have an effusion. There is no visible erythema but the knee is warm compared to the left side. As well, he had palpable pain anteriorly on his left shoulder and appears to have some diminished range of motion of the left shoulder. Labs are notable for a white count of 30,000, hemoglobin is 13.6, platelets 160, sedimentation rate is 61, INR is 5.6, BUN 42, creatinine 1.9. His lactic acid was 2.9, is now 1.8. LFTs are notable for a total bilirubin of 1.4, otherwise normal. CRP is 47, urinalysis had 2 white cells. Blood cultures, 2 of 4 bottles, are growing gram-positive cocci in chains. In summary, this is a 66-year-old man with high-grade gram-positive bacteremia, who has both an AICD and a right total knee replacement. He was given vancomycin and Zosyn. I would switch him to vancomycin and Rocephin at this time. Clearly the source may very well be his knee, which he does report he had some discomfort with prior to admission and he is now unable to stand; possibly as well his mouth: he has very poor oral hygiene at this time. There are no signs of pneumonia or intraabdominal process. He has no abdominal pain. Would repeat his blood cultures in the morning. Would repeat a vancomycin trough now, re-dose if less than 15. Would follow vancomycin levels daily. Would check an echo and an EKG. Would CT scan his knee and his shoulder. Given his acute kidney injury, would place a Stock. Will need daily vancomycin level for change in renal function. Angioedema appears to be improving. Coronary artery disease, status post CABG, AICD, status post right total knee replacement. An orthopedics evaluation has been called for his knee as well. As well, his INR is markedly elevated and needs to be monitored. All of this was discussed with the patient, with the family, the hospitalist service, as well as cardiology. I spoke with the Micro lab as well regarding his culture results. Over 45 minutes was spent in the care of this critically ill patient. Vinayak FARLEY/[id number]
[2017-02-28] MEDS ORDERED: CHLORHEXIDINE GLUCONATE 4% CLEANSER FOR DECOLONIZATION TP SCH ×2 (22:00)
[2017-02-28] MEDS ORDERED: ATORVASTATIN CA 10 MG TABLET (FP) PO SCH (22:00)
[2017-03-01] MEDS: SODIUM CHLORIDE 1,000 ML IV SCH ×2 (04:00→21:15)
[2017-03-01] MEDS: DOCUSATE SODIUM 100 MG CAPSULE (FP) PO SCH ×3 (06:25→21:14)
[2017-03-01 06:34] LABS: MCH 30.7 pg (25.7-33.7); MCHC 32.6 g/dl (32.0-35.9); MEAN CELL VOLUME 94.2 fl (80-96); MEAN PLT VOLUME 11.7 fl (7.5-11.1); PLATELET COUNT 140 K/MM3 (134-434); RDW 14.1 % (11.9-15.9)
[2017-03-01 06:45] LABS: PROTHROMBIN TIME (PATIENT) 76.6 SEC (9.98-11.88)
[2017-03-01 06:49] LABS: MAGNESIUM 2.4 mg/dL (1.8-2.4)
[2017-03-01 06:55] LABS: CALCIUM 7.3 mg/dL (8.5-10.1); COCKROFT - GAULT 66.07; CREATININE 1.5 mg/dL (0.7-1.3)
[2017-03-01 06:56] LABS: ALBUMIN 1.6 g/dl (3.4-5.0); BILIRUBIN,TOTAL 0.6 mg/dL (0.2-1.0); TOT PROT 4.9 g/dl (6.4-8.2)
[2017-03-01 07:03] LABS: INR 6.7 (0.82-1.09)
[2017-03-01] MEDS ORDERED: PHYTONADIONE 5 MG TABLET PO ONE ×3 (07:08→09:00)
--- NOTE | 2017-03-01 07:57 | PN ---
Progress Note, Physician Chief Complaint: ID ICU follow up for this this 66 year old man who presented with facial angiodema thought to be drug induced Entesto. During the evaluation he had fever 103. Notes that he describes onset of right knee pain while in [place] over a month ago which current is excruciating and he cannot move the knee. He has a right knee prosthesis in that knee 2 years old. Currently he has positive blood cultures gram positive cocci. He also notes dental extraction for "rotten " tooth many months ago and apparently was not given prophylaxis with antibiotics. He has defibrillator. No other recent procedures. In addition describes new left shoulder pain with some limitation of ROM. No pets HIV negative Travel to [facility] and [facility] not [place]" - Current Medication List Current Medications: Active Medications Acetaminophen (Tylenol -) 650 mg PO Q4H PRN PRN Reason: FEVER OR PAIN Artificial Tears (Artificial Tears) 1 drop OU Q6H PRN PRN Reason: DRY EYES Last Admin: 02/28/17 10:31 Dose: 1 drop Atorvastatin Calcium (Lipitor -) 10 mg PO HS [facility] Last Admin: 02/28/17 21:40 Dose: 10 mg Carvedilol (Coreg -) 6.25 mg PO BID [facility] Last Admin: 02/28/17 21:40 Dose: 6.25 mg Ceftriaxone Sodium (Rocephin 2gm Ivpb (Pre-Docked)) 2 gm IVPB DAILY [facility] PRN Reason: Protocol Last Admin: 02/28/17 12:06 Dose: 2 gm Chlorhexidine Gluconate (Hibiclens For Decolonization -) 1 applic TP HS [facility] Last Admin: 02/28/17 21:40 Dose: 1 applic Docusate Sodium (Colace -) 100 mg PO TID [facility] Last Admin: 03/01/17 06:25 Dose: 100 mg Ferrous Sulfate (Feosol -) 325 mg PO TIDCM [facility] Last Admin: 02/28/17 18:09 Dose: 325 mg Famotidine/Sodium Chloride (Pepcid 20 Mg Premixed Ivpb -) 50 mls @ 100 mls/hr IVPB BID [facility] Last Admin: 02/28/17 21:46 Dose: 100 mls/hr Sodium Chloride (Normal Saline -) 1,000 mls @ 125 mls/hr IV ASDIR [facility] Last Admin: 03/01/17 04:00 Dose: 125 mls/hr Methylprednisolone Sodium Succinate (Solu-Medrol -) 40 mg IVPB Q12H [facility] Last Admin: 02/28/17 21:40 Dose: 40 mg Morphine Sulfate (Morphine Injection -) 2 mg IVPUSH Q4H PRN PRN Reason: PAIN Multivitamins/Minerals/Vitamin C (Tab-A-Vit -) 1 tab PO DAILY [facility] Last Admin: 02/28/17 10:30 Dose: 1 tab Mupirocin (Bactroban Ointment (For Decolonization) -) 1 applic NS BID [facility] Stop: 03/05/17 09:59 Last Admin: 02/28/17 21:43 Dose: 1 applic Jhbna-6-Feno Ethyl Esters (Lovaza -) 1 gm PO DAILY [facility] Last Admin: 02/28/17 10:30 Dose: 1 gm Ondansetron HCl (Zofran Injection) 4 mg IVPB Q6H PRN PRN Reason: NAUSEA Sodium Chloride ([place]al [place] -) 2 spray NS BID PRN PRN Reason: NASAL CONGESTION - Objective Vital Signs: Vital Signs Temperature 98 F 03/01/17 06:00 Pulse Rate 77 03/01/17 06:00 Respiratory Rate 27 H 03/01/17 06:00 Blood Pressure 129/71 03/01/17 06:00 O2 Sat by Pulse Oximetry (%) 100 02/28/17 22:00 Constitutional: Yes: Well Nourished, No Distress Eyes: Yes: Other (Conjunctival hemmorages Injection of the right eye) HENT: Yes: Other (labial edema with some ulceration) Respiratory: Yes: WNL, Regular, CTA Bilaterally Gastrointestinal: Yes: WNL, Normal Bowel Sounds, Soft. No: Hepatomegaly, Splenomegaly, Tenderness, Tenderness, Rebound Extremities: Yes: Other (Right knee swollen tender unable to move it Warm to touch Left shoulder limited ROM) Labs: CBC, BMP 03/01/17 05:30 03/01/17 05:30 INR, PTT INR 6.70 (0.82-1.09) H* 03/01/17 05:30 Assessment/Plan Microbiology 02/28/17 00:05 Blood - Peripheral Venous Blood Culture - Preliminary Pending Organism Laboratory Tests 02/28/17 02/28/17 02/28/17 00:08 00:08 01:20 WBC Hgb Plt Count Neutrophils % Lymphocytes % Monocytes % Band Neutrophils ESR 61 H INR BUN Creatinine Creat Clearance w eGFR Lactic Acid 2.925 H* Total Bilirubin AST ALT Alkaline Phosphatase Total Protein Albumin Urine Protein 3+ H Urine Blood 2+ H Urine RBC 1 Urine WBC 2 Opiates Screen U Marijuana (THC) Screen 02/28/17 02/28/17 03/01/17 05:10 15:00 05:30 WBC Hgb Plt Count Neutrophils % 91.0 H Lymphocytes % 1.0 L D Monocytes % 4.0 Band Neutrophils 3.0 D ESR INR BUN 47 H Creatinine 1.5 H D Creat Clearance w eGFR 47.12 Lactic Acid Total Bilirubin 0.6 D AST 28 ALT 23 Alkaline Phosphatase 77 Total Protein 4.9 L Albumin 1.6 L Urine Protein Urine Blood Urine RBC Urine WBC Opiates Screen Positive U Marijuana (THC) Screen Positive 03/01/17 03/01/17 05:30 05:30 WBC 23.0 H Hgb 12.3 Plt Count 140 Neutrophils % Lymphocytes % Monocytes % Band Neutrophils ESR INR 6.70 H* BUN Creatinine Creat Clearance w eGFR Lactic Acid Total Bilirubin AST ALT Alkaline Phosphatase Total Protein Albumin Urine Protein Urine Blood Urine RBC Urine WBC Opiates Screen U Marijuana (THC) Screen ASSESSMENT This 66 year old 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 Clearly he has infection of the right knee with the aspirate this morning purulent. Blood cultures positive beta hemolytic strep to be identified. Addition concerns include knee prosthesis and endovascular device. Currently on Vancomycin. He also has renal insufficiency and I question glomerulonephritis from endocarditis. Tooth extraction months ago with no antibiotic prophylaxis. Angioedema ? drug induced. He denies IVDA but admits to other drug use. Plan Case discussed reviewed at length with Dr Madden Aspiration of knee performed pus ICD device ? endocarditis so will ECHO Repeat the blood cultures and await the final reports TO go to OR for washout procedure Vnacomycin Ampiciilin 40 minutes ICU critical care time spent today Mary BILLINGS
--- NOTE | 2017-03-01 08:25 | CONSULT ---
Consult - text type - Consultation Consultation Note: FULL CONSULTATION DICTATED IMP: SEPTIC RIGHT TOTAL KNEE REPLACEMENT PLAN: TAP--> 30 CC OF CLOUDY FLUID SENT TO LAB, IV ABX, --> LATER TODAY FOR WASHOUT
--- NOTE | 2017-03-01 08:29 | PN ---
Progress Note (short form) - Note Progress Note: Subjective: The patient was seen and examined at the bedside, his right knee was just tapped by ortho. To be taken to the OR today for arthroscopy/washout. INR remains supratherapeutic. For 2u FFP before on way to OR. Discussed with Dr. Teixeira who recommends Vitamin K 5 mg po Current Medications Generic Name Dose Route Start Last Admin Trade Name Freq PRN Reason Stop Dose Admin Acetaminophen 650 mg 02/28/17 04:07 Tylenol - PO Q4H PRN FEVER OR PAIN Artificial Tears 1 drop 02/28/17 04:07 02/28/17 10:31 Artificial Tears OU 1 drop Q6H PRN Administration DRY EYES Atorvastatin Calcium 10 mg 02/28/17 22:00 02/28/17 21:40 Lipitor - PO 10 mg HS POLLY Administration Carvedilol 6.25 mg 02/28/17 10:00 02/28/17 21:40 Coreg - PO 6.25 mg BID POLLY Administration Chlorhexidine Gluconate 1 applic 02/28/17 22:00 02/28/17 21:40 Hibiclens For Decolonization - TP 1 applic HS POLLY Administration Docusate Sodium 100 mg 02/28/17 06:00 03/01/17 06:25 Colace - PO 100 mg TID POLLY Administration Ferrous Sulfate 325 mg 02/28/17 08:00 02/28/17 18:09 Feosol - PO 325 mg TIDCM POLLY Administration Famotidine/Sodium Chloride 50 mls @ 100 mls/hr 02/28/17 10:00 02/28/17 21:46 Pepcid 20 Mg Premixed Ivpb - IVPB 100 mls/hr BID PO[facility] Administration Sodium Chloride 1,000 mls @ 125 mls/hr 02/28/17 04:07 03/01/17 04:00 Normal Saline - IV 125 mls/hr ASDIR POLLY Administration Vancomycin HCl 1,250 mg/ 250 mls @ 166.667 mls/hr 03/01/17 09:10 Dextrose IVPB 03/01/17 10:39 ONCE ONE Protocol Ampicillin Sodium 2 gm/ Sodium 100 mls @ 200 mls/hr 03/01/17 09:00 Chloride IVPB Q6H-IV POLLY Methylprednisolone Sodium Succinate 40 mg 02/28/17 10:00 02/28/17 21:40 Solu-Medrol - IVPB 40 mg Q12H POLLY Administration Morphine Sulfate 2 mg 02/28/17 04:07 Morphine Injection - IVPUSH Q4H PRN PAIN Multivitamins/Minerals/Vitamin C 1 tab 02/28/17 10:00 02/28/17 10:30 Tab-A-Vit - PO 1 tab DAILY PO[facility] Administration Mupirocin 1 applic 02/28/17 10:00 02/28/17 21:43 Bactroban Ointment (For Decolonization) - NS 03/05/17 09:59 1 applic BID POLLY Administration Xsqgc-0-Fawl Ethyl Esters 1 gm 02/28/17 10:00 02/28/17 10:30 Lovaza - PO 1 gm DAILY PO[facility] Administration Ondansetron HCl 4 mg 02/28/17 04:07 Zofran Injection IVPB Q6H PRN NAUSEA Phytonadione 5 mg 03/01/17 09:00 Mephyton - PO 03/01/17 09:01 ONCE ONE Sodium Chloride 2 spray 02/28/17 04:07 [place] Nasal [place] - NS BID PRN NASAL CONGESTION Objective: Vital Signs Period Temp Pulse Resp BP Sys/Juarez Pulse Ox Last 24 Hr 97.5 F-100 F 70-78 18-27 99-135/49-84 95-100 Physical Exam: General: NAD, A&Ox3 HEENT: Upper lip swelling resolved. Lower lip with left sided crusting and small amount of oozing. No drooling, hoarseness noted Lungs: CTA bilaterally, no stridor or wheezing noted Heart: RRR, S1S2 Abd: Soft, non-tender, non-distended. Normoactive bowel sounds Ext: Warm, well-perfused. 2+ DP/PT bilaterally Neuro: Unable to assess CN due to facial swelling MSK: Right knee swelling with posterior tenderness. Lateral bandaid present s/p tap. Limited ROM. Left shoulder lidocaine patch, limited ROM CBCD WBC 23.0 K/mm3 (4.0-10.0) H 03/01/17 05:30 RBC 4.00 M/mm3 (4.00-5.60) 03/01/17 05:30 Hgb 12.3 GM/dL (11.7-16.9) 03/01/17 05:30 Hct 37.7 % (35.4-49) 03/01/17 05:30 MCV 94.2 fl (80-96) 03/01/17 05:30 MCHC 32.6 g/dl (32.0-35.9) 03/01/17 05:30 RDW 14.1 % (11.9-15.9) 03/01/17 05:30 Plt Count 140 K/MM3 (134-434) 03/01/17 05:30 MPV 11.7 fl (7.5-11.1) H 03/01/17 05:30 CMP Sodium 142 mmol/L (136-145) 03/01/17 05:30 Potassium 4.0 mmol/L (3.5-5.1) 03/01/17 05:30 Chloride 104 mmol/L (98-107) 03/01/17 05:30 Carbon Dioxide 28 mmol/L (21-32) 03/01/17 05:30 Anion Gap 10 (8-16) 03/01/17 05:30 BUN 47 mg/dL (7-18) H 03/01/17 05:30 Creatinine 1.5 mg/dL (0.7-1.3) H D 03/01/17 05:30 Creat Clearance w eGFR 47.12 (>60) 03/01/17 05:30 Random Glucose 185 mg/dL (74-106) H 03/01/17 05:30 Calcium 7.3 mg/dL (8.5-10.1) L 03/01/17 05:30 Total Bilirubin 0.6 mg/dL (0.2-1.0) D 03/01/17 05:30 AST 28 U/L (15-37) 03/01/17 05:30 ALT 23 U/L (12-78) 03/01/17 05:30 Alkaline Phosphatase 77 U/L (45-117) 03/01/17 05:30 Total Protein 4.9 g/dl (6.4-8.2) L 03/01/17 05:30 Albumin 1.6 g/dl (3.4-5.0) L 03/01/17 05:30 CARDIAC ENZYMES Troponin I < 0.02 ng/ml (0.00-0.05) 02/27/17 00:00 Microbiology 02/28/17 00:05 Blood - Peripheral Venous Blood Culture - Preliminary Beta Hem Streptococcus Group C 02/28/17 00:05 Blood - Peripheral Venous Blood Culture - Preliminary Beta Hem Streptococcus Group C Assessment: This is a 66 year old male with PMHx of Afib (on Coumadin), CAD s/p CABG, systolic CHF s/p AICD, HTN, dyslipidemia who presents to the ED with angioedema. Plan: 1) ID: Severe sepsis 2/2 probable infected right knee joint/left shoulder joint , mouth source?, Group C strept bacteremia - Patient reports removal of tooth 6 months ago, he did not receive antibiotics at that time - S/p tap this AM with ortho, pus present. For washout today - F/u right knee fluid cultures - Repeat blood cultures today - Concern for endocarditis given blood cultures: ECHO to r/o vegetation, has AICD present - Continue Vancomyin (day 3) - Started on Ampicillin (Day 1) - Appreciate ortho consult - Appreciate ID consult 2) Angioedema: - Likely 2/2 Entresto - S/p FFP on admission - Continue Solu-medrol, taper - Continue Benadryl - Continue Famotidine - Patent airway - NPO for washout today - Appreciate ENT consult 2) Cardiology: A.fib - Supratherapeutic INR (6.7) after receiving Vitamin K 5mg po yesterday. Discussed with Dr. Teixeira. Will give 5mg vitamin K and FFP on way to OR CAD s/p CABG - Continue statin - Continue ASA HTN - Continue Norvasc - Continue Carvedilol Ischemic cardiomyopathy s/p ICD - Currently appears euvolemic - Will need to avoid all acei/arb - Appreciate cardiology consult 3) : JEREMY - Improving today - Continue to monitor 4) F/E/N: - Monitor electrolytes - NPO for washout today 5) Prophylaxis: - OOB ambulating - Hold all chemical DVT prophylaxis 2/2 supratherapeutic INR 6) Dispo: - Requires continued inpatient care - Will need referral to monotype caster upon discharge CODE STATUS: FULL CODE Visit type - Emergency Visit Emergency Visit: Yes ED Registration Date: 02/26/17 Care time: The patient presented to the Emergency Department on the above date and was hospitalized for further evaluation of their emergent condition. - New Patient This patient is new to me today: No - Critical Care Critical Care patient: Yes Total Critical Care Time (in minutes): 45 Critical Care Statement: The care of this patient involved high complexity decision making to prevent further life threatening deterioration of the patient 's condition and/or to evalute & treat vital organ system(s) failure or risk of failure.
[2017-03-01] MEDS ORDERED: VANCOMYCIN 1,250 MG in DEXTROSE 5%-WATER - 250 ML IVPB ONE (09:10)
[2017-03-01] MEDS: FERROUS SO4 325 MG TABLET (FP) PO SCH ×3 (09:58→18:50)
[2017-03-01] MEDS: FAMOTIDINE 20 MG/50 ML IVPB 50 ML IVPB SCH ×2 (09:58→21:15)
[2017-03-01] MEDS: MUPIROCIN 2% TOPICAL OINTMENT FOR DECOLONIZATION NS SCH ×2 (09:59→21:16)
[2017-03-01] MEDS: methylPREDNISolone NA SUCC 40 MG/1 ML VIAL IVPB SCH ×2 (10:00→21:41)
[2017-03-01] MEDS: AMPICILLIN - 2 GM in SODIUM CHLORIDE 100 ML IVPB SCH ×3 (10:00→22:15)
[2017-03-01] MEDS: CARVEDILOL 6.25 MG TABLET (FP) PO SCH ×2 (10:00→21:15)
[2017-03-01] MEDS: OMEGA-3 ACID ETHYL ESTERS (FATTY-ACIDS) 1 GM CAPSULE (FP) PO SCH (10:00)
[2017-03-01] MEDS: MULTIVITAMINS (DAILY MVI) TABLET (FP) PO SCH (10:00)
[2017-03-01] MEDS ORDERED: PT OWN MED DRAWER 7, Y5N ONE ×2 (10:17→18:46)
--- NOTE | 2017-03-01 10:28 | EKG ---
Test Reason : Blood Pressure : / mmHG Vent. Rate : 074 BPM Atrial Rate : 120 BPM P-R Int : 000 ms QRS Dur : 174 ms QT Int : 484 ms P-R-T Axes : 000 -69 095 degrees QTc Int : 537 ms Ventricular-paced rhythm WITH OCCASIONAL supraventricular complexes AND WITH OCCASIONAL PREMATURE VENTRICULAR COMPLEXES ABNORMAL ECG WHEN COMPARED WITH ECG OF 26-FEB-2017 23:37, NO SIGNIFICANT CHANGE WAS FOUND Confirmed by MD PABLO, DENTON ([id number]) on 03/01/2017 10:27:23 AM Referred By: MIGDALIA MCKNIGHT Confirmed By:DENTON SHAH MD
[2017-03-01 10:35] LABS: GLUCOSE,SYNOVIAL FLUID 63 mg/dL; TOTAL PROTEIN,SYNOVIAL FLUID 4 gm/dL
[2017-03-01 10:40] LABS: CRYSTALS,SYNOVIAL FLUID NEGATIVE
--- NOTE | 2017-03-01 10:51 | CONS ---
DATE OF CONSULTATION: 03/01/2017 TIME OF CONSULTATION: 7 a.m. HISTORY: The patient is a 66-year-old male status post right total knee replacement by Dr. Alvarez 2 years ago admitted to the hospital with swelling in his face and generalized malaise. He was found to have a white count of 22.6 upon admission and was having leg pain as well with "angioedema". His condition in his right knee going well necessitating orthopaedic consultation. The patient was also evaluated by Infectious Disease and was found to have positive blood cultures and was transferred to the ICU and placed on IV antibiotics. Orthopaedic consultation was called to evaluate his knee as his knee pain going well over this period of time during the day. He did not have any pain in his knee prior to 3 days ago. On admission, it was noted that the patient had an elevated INR greater than 6. The facial swelling was evaluated by ENT, and nothing further needed to be done for that condition. The patient was placed on vancomycin and Zosyn. The patient gives a questionable history of a teeth infection about 6 months ago that was extracted at [facility]. When questioned he does not remember being on any antibiotics at this time. PHYSICAL EXAMINATION: The patient has swelling in his right knee. It is held in 30 degrees of flexion. No erythema or increased warmth from the surrounding part of the extremity but very painful to range of motion. Good motion hip, ankle, and toes and, otherwise, neurovascularly intact. DIAGNOSTIC DATA: The patient underwent radiological studies with x-ray of his right knee revealing a well-seated right total knee replacement. No evidence of any osteolysis or loosening of the components. IMPRESSION: Probable infected right total knee, question of how long this has been infected in a patient who also has bacteremia and probably endocarditis now on IV antibiotics. An aspiration of the knee was performed under sterile conditions in the ICU, and 30 mL of cloudy fluid was obtained and was sent to the laboratory for cultures and sensitivity as well as for cell count. The patient will be booked for later this afternoon for a washout of his knee. The options are whether to do this arthroscopically or to formally open it and change his polyethylene. The patient's INR is 6. We are going to give him 2 units of FFP to help normalize that situation, and we will discuss the options with the patient this afternoon and decide on a final course prior to the operative intervention. As the infection may be only an acute prior as he has only had pain for 3-4 days, I would make every attempt to try to save the prosthesis and not to explant the entire total knee replacement, but the patient realizes that this may be a very distinct possibility. We will see what the organism is as well as its sensitivity before making any definitive recommendations in that regard. OMAR GREER M.D. CARLOS/[id number]
--- NOTE | 2017-03-01 10:52 | PN ---
Progress Note, Physician History of Present Illness: seen and examined today in nad. s/p R knee aspiration this am, planned for washout today. feeling better overall. - Current Medication List Current Medications: Active Medications Acetaminophen (Tylenol -) 650 mg PO Q4H PRN PRN Reason: FEVER OR PAIN Artificial Tears (Artificial Tears) 1 drop OU Q6H PRN PRN Reason: DRY EYES Last Admin: 02/28/17 10:31 Dose: 1 drop Atorvastatin Calcium (Lipitor -) 10 mg PO [facility] Last Admin: 02/28/17 21:40 Dose: 10 mg Carvedilol (Coreg -) 6.25 mg PO BID [facility] Last Admin: 03/01/17 10:00 Dose: 6.25 mg Chlorhexidine Gluconate (Hibiclens For Decolonization -) 1 applic TP [facility] Last Admin: 02/28/17 21:40 Dose: 1 applic Docusate Sodium (Colace -) 100 mg PO TID [facility] Last Admin: 03/01/17 06:25 Dose: 100 mg Ferrous Sulfate (Feosol -) 325 mg PO TIDCM [facility] Last Admin: 03/01/17 09:58 Dose: 325 mg Famotidine/Sodium Chloride (Pepcid 20 Mg Premixed Ivpb -) 50 mls @ 100 mls/hr IVPB BID [facility] Last Admin: 03/01/17 09:58 Dose: 100 mls/hr Sodium Chloride (Normal Saline -) 1,000 mls @ 125 mls/hr IV ASDIR [facility] Last Admin: 03/01/17 04:00 Dose: 125 mls/hr Ampicillin Sodium 2 gm/ Sodium (Chloride) 100 mls @ 200 mls/hr IVPB Q6H-IV [facility] Last Admin: 03/01/17 10:00 Dose: 200 mls/hr Methylprednisolone Sodium Succinate (Solu-Medrol -) 40 mg IVPB Q12H [facility] Last Admin: 03/01/17 10:00 Dose: 40 mg Morphine Sulfate (Morphine Injection -) 2 mg IVPUSH Q4H PRN PRN Reason: PAIN Multivitamins/Minerals/Vitamin C (Tab-A-Vit -) 1 tab PO DAILY [facility] Last Admin: 03/01/17 10:00 Dose: 1 tab Mupirocin (Bactroban Ointment (For Decolonization) -) 1 applic NS BID [facility] Stop: 03/05/17 09:59 Last Admin: 03/01/17 09:59 Dose: 1 applic [id number]-2-[id number] Ethyl Esters (Lovaza -) 1 gm PO DAILY [facility] Last Admin: 03/01/17 10:00 Dose: 1 gm Ondansetron HCl (Zofran Injection) 4 mg IVPB Q6H PRN PRN Reason: NAUSEA Sodium Chloride ([place] Nasal [place] -) 2 spray NS BID PRN PRN Reason: NASAL CONGESTION - Objective Vital Signs: Vital Signs Temperature 97.5 F L 03/01/17 08:00 Pulse Rate 78 03/01/17 08:00 Respiratory Rate 27 H 03/01/17 08:26 Blood Pressure 99/49 03/01/17 08:00 O2 Sat by Pulse Oximetry (%) 99 03/01/17 08:37 Constitutional: Yes: Well Nourished, No Distress, Calm Eyes: Yes: Conjunctiva Clear, EOM Intact, PERRL HENT: Yes: Other (angioedema improving daily) Neck: Yes: Supple, Trachea Midline Cardiovascular: Yes: Pulse Irregular, S1, S2. No: Bradycardia, Tachycardia, Bruit, JVD, Gallop, Murmur, Rub, S3, S4, Varicosities Respiratory: Yes: Regular, CTA Bilaterally. No: Rales, Rhonchi, Wheezes Gastrointestinal: Yes: Normal Bowel Sounds, Soft. No: Distention, Tenderness Musculoskeletal: Yes: Joint Stiffness, Joint Swelling Extremities: Yes: Other (R knee swollen, tender) Edema: No Peripheral Pulses WNL: Yes Neurological: Yes: Alert, Oriented Psychiatric: Yes: Alert, Oriented Labs: CBC, BMP 03/01/17 05:30 03/01/17 05:30 INR, PTT INR 6.70 (0.82-1.09) H* 03/01/17 05:30 - ....Imaging Chest X-ray: Report Reviewed, Image Reviewed EKG: Report Reviewed, Image Reviewed Other: Report Reviewed, Image Reviewed (tele-Afib, HR adequately controlled, PVCs, intermittently Vpaced) Assessment/Plan IMP: Angioedema Permanent AF with supratherapeutic INR CAD s/p CABG Ischemic cardiomyopathy s/p ICD Renal insufficiency R knee swelling, fever, elevated WBC, possible sepsis REC: Angioedema:improving significantly -suspect secondary to Entresto but may also be related to infectious process involving R knee -ENT evaluation appreciated, airway clear -Cont steroids and Benadryl as per CCM -will need to avoid entresto and all TUAN-I/ARBs going forward given high risk of recurrent angioedema -infectious work up and treatment started R knee swelling/pain- h/o R TKR-fever and elevated WBC, being evaluated for septic joint -knee aspiration done today, planned for washout -f/up cultures -cont Abxs -no cardiac contraindication to the planned urgent procedure Permanent AF: HR adequately controlled -Supratherapeutic INR on admission, likely secondary to sepsis -Holding warfarin -given Vit K and now planned for FFP prior to procedure -plan to resume warfarin after procedures completed and after confirm no bleeding -resume carvedilol 6.25mg bid NSVT-short episodes during admission, improved with bblocker -resume carvedilol 6.25mg bid -cont to monitor on tele in ICU CAD s/p CABG: stable -holding ASA for now, resume when possible -cont Coreg -resume home simvastatin 20mg daily before discharge -outpatient follow up Ischemic CM s/p ICD: improvement in LV function as on last echo, currently stable and euvolemic -intermittently pacing appropriately on tele -cont coreg -will need to avoid any TUAN-I/ARB including Entresto going forward -going forward plan to use likely hydralazine/isosorbide in place of TUAN-I/ARB, hold off for now AILYN: secondary to ARB effect vs sepsis vs dehydration -hydration as needed -Avoid all TUAN-I/ARB's -Monitor renal function
--- NOTE | 2017-03-01 11:20 | PN ---
Physical Exam: SUBJECTIVE: Patient seen and examined. angioedema improved. became febrile with right knee pain and difficulty breathing on Wednesday, found to have elevated wbc and fluid in the suprapatellar bursa. OBJECTIVE: Vital Signs Period Temp Pulse Resp BP Sys/Juarez Pulse Ox Last 24 Hr 97.5 F-100 F 70-78 18-27 99-135/49-84 95-100 GENERAL: Awake, alert, and fully oriented, in no acute distress. HEAD: generalized facial edema - improved since previous exam, not yet back to baseline. EYES: Pupils equal, round and reactive to light, extraocular movements intact, sclera anicteric, conjunctiva clear. No lid lag. eyelids are edematous. EARS, NOSE, THROAT: Ears normal, nares patent, swelling of nose, oropharynx clear without exudates. no tongue swelling, uvula midline, upper and lower lips swollen with left lower lip with ruptured vesicles now with dried ulcerations, Moist mucous membranes. NECK: Normal range of motion, supple without lymphadenopathy, JVD, or masses. decreased edema. LUNGS: Breath sounds equal, clear to auscultation bilaterally. No wheezes, and no crackles. No accessory muscle use. HEART: afib, normal S1 and S2 without murmur, rub or gallop. ABDOMEN: Soft, nontender, not distended, normoactive bowel sounds, no guarding, no rebound, no masses. MUSCULOSKELETAL: No CVA tenderness. Right lower extremity: decreased range of motion in right knee secondary to pain and edema. warm at knee. well healed scar. no erythema, skin intact. ttp at joint - not thigh or posada, no calf tenderness, ankle with FROM, + DP pulse, 5 /5 strength on dorsi/planter flexion. UPPER EXTREMITIES: 2+ radial pulses, warm, well-perfused. No cyanosis. No clubbing. No peripheral edema. LEFT LOWER EXTREMITY: 2+ dorsalis pulses, warm, well-perfused. No calf tenderness. No peripheral edema. NEUROLOGICAL: Cranial nerves II-XII intact. facial sensation intact throughout , facial swelling, Normal speech, speaking in full sentences without difficulty , was able to swallow without difficulty. Laboratory Results - last 24 hr 02/28/17 02/28/17 03/01/17 10:37 15:00 05:30 WBC RBC Hgb Hct MCV MCHC RDW Plt Count MPV Neutrophils % Lymphocytes % INR Sodium 142 Potassium 4.0 Chloride 104 Carbon Dioxide 28 Anion Gap 10 BUN 47 H Creatinine 1.5 H D Creat Clearance w eGFR 47.12 Random Glucose 185 H Hemoglobin A1c % Calcium 7.3 L Magnesium 2.4 Total Bilirubin 0.6 D AST 28 ALT 23 Alkaline Phosphatase 77 Total Protein 4.9 L Albumin 1.6 L Fluid Source Fluid WBC Fluid RBC Synovial Crystals Synovial Glucose Synovial Total Protein Synovial Albumin Synovial Uric Acid Synovial Amylase Synovial Cholesterol Random Vancomycin 11.049 9.155 Opiates Screen Positive Methadone Screen Negative Barbiturate Screen Negative Phencyclidine Screen Negative Ur Amphetamines Screen Negative MDMA (Ecstasy) Screen Negative Benzodiazepines Screen Negative Cocaine Screen Negative U Marijuana (THC) Screen Positive 03/01/17 03/01/17 03/01/17 05:30 05:30 05:30 WBC 23.0 H RBC 4.00 Hgb 12.3 Hct 37.7 MCV 94.2 MCHC 32.6 RDW 14.1 Plt Count 140 MPV 11.7 H Neutrophils % Y Lymphocytes % Y INR 6.70 H* Sodium Potassium Chloride Carbon Dioxide Anion Gap BUN Creatinine Creat Clearance w eGFR Random Glucose Hemoglobin A1c % 6.5 H Calcium Magnesium Total Bilirubin AST ALT Alkaline Phosphatase Total Protein Albumin Fluid Source Fluid WBC Fluid RBC Synovial Crystals Synovial Glucose Synovial Total Protein Synovial Albumin Synovial Uric Acid Synovial Amylase Synovial Cholesterol Random Vancomycin Opiates Screen Methadone Screen Barbiturate Screen Phencyclidine Screen Ur Amphetamines Screen MDMA (Ecstasy) Screen Benzodiazepines Screen Cocaine Screen U Marijuana (THC) Screen 03/01/17 07:56 WBC RBC Hgb Hct MCV MCHC RDW Plt Count MPV Neutrophils % Lymphocytes % INR Sodium Potassium Chloride Carbon Dioxide Anion Gap BUN Creatinine Creat Clearance w eGFR Random Glucose Hemoglobin A1c % Calcium Magnesium Total Bilirubin AST ALT Alkaline Phosphatase Total Protein Albumin Fluid Source Right knee Fluid WBC 325,717 Fluid RBC 44,306 Synovial Crystals Negative Synovial Glucose 63 Synovial Total Protein 4 Synovial Albumin 1 Synovial Uric Acid 4 Synovial Amylase 32 Synovial Cholesterol < 50 Random Vancomycin Opiates Screen Methadone Screen Barbiturate Screen Phencyclidine Screen Ur Amphetamines Screen MDMA (Ecstasy) Screen Benzodiazepines Screen Cocaine Screen U Marijuana (THC) Screen Active Medications Generic Name Dose Route Start Last Admin Trade Name Freq PRN Reason Stop Dose Admin Acetaminophen 650 mg 02/28/17 04:07 Tylenol - PO Q4H PRN FEVER OR PAIN Artificial Tears 1 drop 02/28/17 04:07 02/28/17 10:31 Artificial Tears OU 1 drop Q6H PRN Administration DRY EYES Atorvastatin Calcium 10 mg 02/28/17 22:00 02/28/17 21:40 Lipitor - PO 10 mg HS [facility] Administration Carvedilol 6.25 mg 02/28/17 10:00 03/01/17 10:00 Coreg - PO 6.25 mg BID [facility] Administration Chlorhexidine Gluconate 1 applic 02/28/17 22:00 02/28/17 21:40 Hibiclens For Decolonization - TP 1 applic HS [facility] Administration Docusate Sodium 100 mg 02/28/17 06:00 03/01/17 06:25 Colace - PO 100 mg TID [facility] Administration Ferrous Sulfate 325 mg 02/28/17 08:00 03/01/17 09:58 Feosol - PO 325 mg TIDCM [facility] Administration Famotidine/Sodium Chloride 50 mls @ 100 mls/hr 02/28/17 10:00 03/01/17 09:58 Pepcid 20 Mg Premixed Ivpb - IVPB 100 mls/hr BID [facility] Administration Sodium Chloride 1,000 mls @ 125 mls/hr 02/28/17 04:07 03/01/17 04:00 Normal Saline - IV 125 mls/hr ASDIR [facility] Administration Ampicillin Sodium 2 gm/ Sodium 100 mls @ 200 mls/hr 03/01/17 09:00 03/01/17 10: 00 Chloride IVPB 200 mls/hr Q6H-IV [facility] Administration Methylprednisolone Sodium Succinate 40 mg 02/28/17 10:00 03/01/17 10:00 Solu-Medrol - IVPB 40 mg Q12H [facility] Administration Morphine Sulfate 2 mg 02/28/17 04:07 Morphine Injection - IVPUSH Q4H PRN PAIN Multivitamins/Minerals/Vitamin C 1 tab 02/28/17 10:00 03/01/17 10:00 Tab-A-Vit - PO 1 tab DAILY [facility] Administration Mupirocin 1 applic 02/28/17 10:00 03/01/17 09:59 Bactroban Ointment (For Decolonization) - NS 03/05/17 09:59 1 applic BID [facility] Administration [id number]-4-[id number] Ethyl Esters 1 gm 02/28/17 10:00 03/01/17 10:00 Lovaza - PO 1 gm DAILY [facility] Administration Ondansetron HCl 4 mg 02/28/17 04:07 Zofran Injection IVPB Q6H PRN NAUSEA Sodium Chloride 2 spray 02/28/17 04:07 [place] Nasal [place] - NS BID PRN NASAL CONGESTION ASSESSMENT/PLAN: 66 yr old man with afib on coumadin, HTN, Afib, CAD s/p CABG admitted for angioedema to the lip which has improved, now in the ICU for sepsis secondary to gram + bacteremia and septic right knee. Infectious Disease - sepsis secondary to septic joint right knee joint aspirated revealing thick pus, fluid studies pending beta hemolytic group c strep in bld cx pending OR for wash out and insert replacement by Dr. Madden transfuse 2 units ffp and vitamin K 5mg po for INR reversal prior to OR vanc + zosyn IV echo to r/o endocarditis - no vegetations reported on TTE, will plan for SANGITA if blood cx do not clear or symptoms worsen. Ideally do not want to irritate airway with SANGITA in current septic state consult: Dr. Diehl Immunological angioedema likely secondary to entresto currently protecting airway solumedrol 40mg IVpb q12hr low threshold for intubation nasal cannula o2, maintain sat >90% hold oral medications for now Cardiovascular afib; rate controlled, ICD intermittently paced HTN - coreg 6.25 po BID Avoid all ACEI and ARB medications systoic CHF - currently no signs of acute exacerbation consult: dr. abarca Hematological supratherapeutic INR - reversal with po vitamin K yesterday, 2 units ffp + adidtional po vitamin K today consider heparin if continued NPO status and AC is needed leucocytosis from sepsis, trending down - afebrile today, monitor for fevers. Renal JEREMY, suspected pre-renal cause due to poor po intake and ARB use monitor urine output trend BMP GI pepcid for GI prophylaxis DVT: supratherpeutic INR diet: NPO for now pending OR Visit type - Emergency Visit Emergency Visit: No - New Patient This patient is new to me today: No - Critical Care Critical Care patient: Yes Total Critical Care Time (in minutes): 40 Critical Care Statement: The care of this patient involved high complexity decision making to prevent further life threatening deterioration of the patient 's condition and/or to evalute & treat vital organ system(s) failure or risk of failure.
[2017-03-01 11:21] LABS: GLUCOSE,BODY FLUID 63 mg/dl
[2017-03-01 11:42] LABS: PLATELET ESTIMATE ADEQUATE (NORMAL)
[2017-03-01 14:06] LABS: BODY FLUID LYMPHS 2 %; BODY FLUID NEUTROPHILS 98 %
--- NOTE | 2017-03-01 14:22 | PN ---
Teaching Attending Note Name of Resident: Nereyda Quiroz ATTENDING PHYSICIAN STATEMENT I saw and evaluated the patient. I reviewed the resident's note and discussed the case with the resident. I agree with the resident's findings and plan as documented. SUBJECTIVE: Patient seen and examined in the ICU. Awake and alert. Noted elevated INR. (+) bacteremia ECHO : no vegetation. Intake & Output 02/26/17 02/27/17 02/28/17 03/01/17 23:59 23:59 23:59 23:59 Intake Total 518 2000 3415 1120 Output Total 803 281 7640 500 Balance 118 1500 1665 620 Weight 200 lb 216 lb 0.848 oz 206 lb 9.6 oz 207 lb Last Vital Signs Temp Pulse Resp BP Pulse Ox 97.5 F L 78 27 H 99/49 99 03/01/17 08:00 03/01/17 08:00 03/01/17 08:26 03/01/17 08:00 03/01/17 08:37 Active Medications Acetaminophen (Tylenol -) 650 mg PO Q4H PRN PRN Reason: FEVER OR PAIN Artificial Tears (Artificial Tears) 1 drop OU Q6H PRN PRN Reason: DRY EYES Last Admin: 02/28/17 10:31 Dose: 1 drop Atorvastatin Calcium (Lipitor -) 10 mg PO HS [facility] Last Admin: 02/28/17 21:40 Dose: 10 mg Carvedilol (Coreg -) 6.25 mg PO BID [facility] Last Admin: 03/01/17 10:00 Dose: 6.25 mg Chlorhexidine Gluconate (Hibiclens For Decolonization -) 1 applic TP HS [facility] Last Admin: 02/28/17 21:40 Dose: 1 applic Docusate Sodium (Colace -) 100 mg PO TID [facility] Last Admin: 03/01/17 06:25 Dose: 100 mg Ferrous Sulfate (Feosol -) 325 mg PO TIDCM [facility] Last Admin: 03/01/17 09:58 Dose: 325 mg Famotidine/Sodium Chloride (Pepcid 20 Mg Premixed Ivpb -) 50 mls @ 100 mls/hr IVPB BID [facility] Last Admin: 03/01/17 09:58 Dose: 100 mls/hr Sodium Chloride (Normal Saline -) 1,000 mls @ 125 mls/hr IV ASDIR [facility] Last Admin: 03/01/17 04:00 Dose: 125 mls/hr Ampicillin Sodium 2 gm/ Sodium (Chloride) 100 mls @ 200 mls/hr IVPB Q6H-IV [facility] Last Admin: 03/01/17 10:00 Dose: 200 mls/hr Methylprednisolone Sodium Succinate (Solu-Medrol -) 40 mg IVPB Q12H [facility] Last Admin: 03/01/17 10:00 Dose: 40 mg Morphine Sulfate (Morphine Injection -) 2 mg IVPUSH Q4H PRN PRN Reason: PAIN Multivitamins/Minerals/Vitamin C (Tab-A-Vit -) 1 tab PO DAILY [facility] Last Admin: 03/01/17 10:00 Dose: 1 tab Mupirocin (Bactroban Ointment (For Decolonization) -) 1 applic NS BID [facility] Stop: 03/05/17 09:59 Last Admin: 03/01/17 09:59 Dose: 1 applic [id number] Ethyl Esters (Lovaza -) 1 gm PO DAILY [facility] Last Admin: 03/01/17 10:00 Dose: 1 gm Ondansetron HCl (Zofran Injection) 4 mg IVPB Q6H PRN PRN Reason: NAUSEA Sodium Chloride ([place] Nasal [place] -) 2 spray NS BID PRN PRN Reason: NASAL CONGESTION Constitutional: Yes: No Distress Eyes: Yes: Less edema HENT: Yes: Less external oral swelling. No: Drooling, Epistaxis, Hoarseness, Pharyngeal Erythema Neck: Yes: Supple, Trachea Midline Cardiovascular: Yes: Regular Rate and Rhythm Respiratory: Yes: CTA Bilaterally. No: Accessory Muscle Use, Rales, Rhonchi, SOB, Stridor, Wheezes Gastrointestinal: Yes: Normal Bowel Sounds, Soft ...Rectal Exam: Yes: Deferred Renal/: Yes: WNL Musculoskeletal: Yes: WNL Extremities: Yes: WNL Edema: Yes Peripheral Pulses WNL: Yes Integumentary: Yes: Erythema, Skin Tear Neurological: Yes: Alert, Oriented ...Motor Strength: WNL Psychiatric: Yes: WNL, Alert, Oriented Laboratory Results - last 24 hr 02/28/17 03/01/17 03/01/17 15:00 05:30 05:30 WBC RBC Hgb Hct MCV MCHC RDW Plt Count MPV Neutrophils % Lymphocytes % Band Neutrophils Differential Comment Platelet Estimate INR Sodium 142 Potassium 4.0 Chloride 104 Carbon Dioxide 28 Anion Gap 10 BUN 47 H Creatinine 1.5 H D Creat Clearance w eGFR 47.12 Random Glucose 185 H Hemoglobin A1c % 6.5 H Calcium 7.3 L Magnesium 2.4 Total Bilirubin 0.6 D AST 28 ALT 23 Alkaline Phosphatase 77 Total Protein 4.9 L Albumin 1.6 L Fluid Source Fluid WBC Fluid RBC Fluid Neutrophils Fluid Lymphocytes Fluid Other Cells Fluid Glucose Fluid Total Protein LDH Serum/Fluid Ratio Fluid Amylase Synovial Crystals Synovial Glucose Synovial Total Protein Synovial Albumin Synovial Uric Acid Synovial LDH Synovial Amylase Synovial Cholesterol Random Vancomycin 9.155 Opiates Screen Positive Methadone Screen Negative Barbiturate Screen Negative Phencyclidine Screen Negative Ur Amphetamines Screen Negative MDMA (Ecstasy) Screen Negative Benzodiazepines Screen Negative Cocaine Screen Negative U Marijuana (THC) Screen Positive 03/01/17 03/01/17 03/01/17 05:30 05:30 07:56 WBC 23.0 H RBC 4.00 Hgb 12.3 Hct 37.7 MCV 94.2 MCHC 32.6 RDW 14.1 Plt Count 140 MPV 11.7 H Neutrophils % Y Lymphocytes % 3.0 L D Band Neutrophils 3.0 Differential Comment Manual diff done Platelet Estimate Adequate INR 6.70 H* Sodium Potassium Chloride Carbon Dioxide Anion Gap BUN Creatinine Creat Clearance w eGFR Random Glucose Hemoglobin A1c % Calcium Magnesium Total Bilirubin AST ALT Alkaline Phosphatase Total Protein Albumin Fluid Source Right knee Fluid WBC 325,717 Fluid RBC 44,306 Fluid Neutrophils 98 Fluid Lymphocytes 2 Fluid Other Cells Many syn.lining cell Fluid Glucose 63 Fluid Total Protein 4.0 LDH Serum/Fluid Ratio 48647 Fluid Amylase 32 Synovial Crystals Negative Synovial Glucose 63 Synovial Total Protein 4 Synovial Albumin 1 Synovial Uric Acid 4 Synovial LDH 01714 Synovial Amylase 32 Synovial Cholesterol < 50 Random Vancomycin Opiates Screen Methadone Screen Barbiturate Screen Phencyclidine Screen Ur Amphetamines Screen MDMA (Ecstasy) Screen Benzodiazepines Screen Cocaine Screen U Marijuana (THC) Screen Problem List - Problems (1) Angioedema Code(s): T78.3XXA - ANGIONEUROTIC EDEMA, INITIAL ENCOUNTER Qualifiers: Encounter type: initial encounter Qualified Code(s): T78.3XXA - Angioneurotic edema, initial encounter (2) Atrial fibrillation Code(s): I48.91 - UNSPECIFIED ATRIAL FIBRILLATION Qualifiers: Atrial fibrillation type: permanent Qualified Code(s): I48.2 - Chronic atrial fibrillation (3) CAD (coronary artery disease) Code(s): I25.10 - ATHSCL HEART DISEASE OF [place] CORONARY ARTERY W/O ANG PCTRS Qualifiers: Coronary Disease-Associated Artery/Lesion type: bypass graft [place] vs. transplanted heart: [place] heart Associated angina: without angina Qualified Code(s): I25.810 - Atherosclerosis of coronary artery bypass graft( s) without angina pectoris (4) Chronic systolic (congestive) heart failure Code(s): I50.22 - CHRONIC SYSTOLIC (CONGESTIVE) HEART FAILURE (5) Elevated INR Code(s): R79.1 - ABNORMAL COAGULATION PROFILE (6) HLD (hyperlipidemia) Code(s): E78.5 - HYPERLIPIDEMIA, UNSPECIFIED (7) HTN (hypertension) Code(s): I10 - ESSENTIAL (PRIMARY) HYPERTENSION (8) ICD (implantable cardioverter-defibrillator) in place Code(s): Z95.810 - PRESENCE OF AUTOMATIC (IMPLANTABLE) CARDIAC DEFIBRILLATOR (9) Leukocytosis Code(s): D72.829 - ELEVATED WHITE BLOOD CELL COUNT, UNSPECIFIED Qualifiers: Leukocytosis type: unspecified Qualified Code(s): D72.829 - Elevated white blood cell count, unspecified Assessment/Plan Solumedrol taper NPO for now O2 as needed For OR Dr Sherwood critical care time spent in reviewing chart, evaluating patient and formulating plan 40 min Problem List - Problems (1) Angioedema Code(s): T78.3XXA - ANGIONEUROTIC EDEMA, INITIAL ENCOUNTER Qualifiers: Encounter type: initial encounter Qualified Code(s): T78.3XXA - Angioneurotic edema, initial encounter (2) Atrial fibrillation Code(s): I48.91 - UNSPECIFIED ATRIAL FIBRILLATION Qualifiers: Atrial fibrillation type: permanent Qualified Code(s): I48.2 - Chronic atrial fibrillation (3) CAD (coronary artery disease) Code(s): I25.10 - ATHSCL HEART DISEASE OF [place] CORONARY ARTERY W/O ANG PCTRS Qualifiers: Coronary Disease-Associated Artery/Lesion type: bypass graft [place] vs. transplanted heart: [place] heart Associated angina: without angina Qualified Code(s): I25.810 - Atherosclerosis of coronary artery bypass graft( s) without angina pectoris (4) Chronic systolic (congestive) heart failure Code(s): I50.22 - CHRONIC SYSTOLIC (CONGESTIVE) HEART FAILURE (5) Elevated INR Code(s): R79.1 - ABNORMAL COAGULATION PROFILE (6) HLD (hyperlipidemia) Code(s): E78.5 - HYPERLIPIDEMIA, UNSPECIFIED (7) HTN (hypertension) Code(s): I10 - ESSENTIAL (PRIMARY) HYPERTENSION (8) ICD (implantable cardioverter-defibrillator) in place Code(s): Z95.810 - PRESENCE OF AUTOMATIC (IMPLANTABLE) CARDIAC DEFIBRILLATOR (9) Leukocytosis Code(s): D72.829 - ELEVATED WHITE BLOOD CELL COUNT, UNSPECIFIED Qualifiers: Leukocytosis type: unspecified Qualified Code(s): D72.829 - Elevated white blood cell count, unspecified
[2017-03-01] MEDS ORDERED: PROPOFOL 20 ML ONE (14:45)
[2017-03-01] MEDS ORDERED: SUCCINYLCHOLINE CHLORIDE 200 MG/10 ML VIAL ONE (14:46)
[2017-03-01] MEDS ORDERED: VANCOMYCIN 1,000 MG VIAL (RESTRICTED TO ID ONLY) ONE (15:03)
[2017-03-01] MEDS ORDERED: HYDROmorphone HCL/PF 1 MG/ML VIAL (FOR PYXIS CHARGING ONLY) ONE ×2 (15:11→15:23)
[2017-03-01 15:15] LABS: INR 2.77 (0.82-1.09); PROTHROMBIN TIME (PATIENT) 31.1 SEC (9.98-11.88)
[2017-03-01] MEDS ORDERED: DEXAMETHASONE SOD PHOSPHATE 4 MG/1 ML VIAL ONE (15:20)
[2017-03-01] MEDS ORDERED: ONDANSETRON 4 MG/2 ML VIAL ONE (15:20)
[2017-03-01] MEDS ORDERED: BACITRACIN 50,000 UNITS VIAL TP ONE ×2 (15:22→15:38)
[2017-03-01] MEDS ORDERED: MINERAL OIL/PETROLATUM,WHITE 3.5 GM TUBE ONE (15:29)
--- NOTE | 2017-03-01 16:25 | OP ---
Operative Note - Note: Operative Date: 03/01/17 ([facility]) Pre-Operative Diagnosis: right knee septic TKR Operation: right knee I & D, poly exchange Post-Operative Diagnosis: Same as Pre-op Surgeon: Earle Madden Profiling Machine Setup Operator: Adam Burns Anesthesiologist/DRILL SHARPENER OPERATOR: Ana Amin Anesthesia: General Specimens Removed: poly Estimated Blood Loss (mls): 5 (tourniquet) Operative Report Dictated: Yes
--- NOTE | 2017-03-01 18:36 | PN ---
Progress Note (short form) - Note Progress Note: ENT facial swelling markedly improved, near resolved was able to eat yesterday had septic right TKR, just returned from OR this afternoon after surgical treatment awake alert eyes WNL, no lid swelling sl residual lower lip swelling but face almost normal voice clear. no stridor or respiratory distress right leg splint on Impression: angioedema, near resolved s/p right knee washout Recommend: continue present management diet as tolerated (check actual postop orders) Onofre Olson MD FACS Problem List - Problems (1) Allergic rhinitis Code(s): J30.9 - ALLERGIC RHINITIS, UNSPECIFIED Qualifiers: Allergic rhinitis trigger: unspecified Allergic rhinitis seasonality: non-seasonal Qualified Code(s): J30.89 - Other allergic rhinitis (2) Conjunctivitis Code(s): H10.9 - UNSPECIFIED CONJUNCTIVITIS Qualifiers: Conjunctivitis type: acute Acute conjunctivitis type: unspecified Laterality: right Qualified Code(s): H10.31 - Unspecified acute conjunctivitis, right eye (3) Angioedema Code(s): T78.3XXA - ANGIONEUROTIC EDEMA, INITIAL ENCOUNTER Qualifiers: Encounter type: initial encounter Qualified Code(s): T78.3XXA - Angioneurotic edema, initial encounter
[2017-03-01] MEDS ORDERED: ACETAMINOPHEN 325 MG TABLET (FP) PO PRN (19:31)
[2017-03-01] MEDS ORDERED: morphine CARPU-JECT 2 MG/1 ML DISP.SYRIN IVPUSH PRN (19:31)
[2017-03-01] MEDS ORDERED: SODIUM CHLORIDE NASAL SPRAY 44 ML BOTTLE NS PRN (19:31)
[2017-03-01] MEDS ORDERED: ARTIFICIAL TEARS (POLYVINYL ALCOHOL 1.4%) OPTH DROPS OU PRN (19:31)
[2017-03-01] MEDS ORDERED: ONDANSETRON 4 MG/2 ML VIAL IVPB PRN (19:31)
[2017-03-01] MEDS: ATORVASTATIN CA 10 MG TABLET (FP) PO SCH (21:12)
[2017-03-01] MEDS: CHLORHEXIDINE GLUCONATE 4% CLEANSER FOR DECOLONIZATION TP SCH (21:15)
[2017-03-02] MEDS: AMPICILLIN - 2 GM in SODIUM CHLORIDE 100 ML IVPB SCH ×6 (03:02→20:50)
[2017-03-02 06:01] LABS: BASOPHIL 0.1 % (0-2.0); MCH 30.8 pg (25.7-33.7); MCHC 32.7 g/dl (32.0-35.9); MEAN CELL VOLUME 94.2 fl (80-96); MEAN PLT VOLUME 11.8 fl (7.5-11.1); NEUTROPHILS 92.9 % (42.8-82.8); PLATELET COUNT 139 K/MM3 (134-434); RDW 14.1 % (11.9-15.9); WHITE BLOOD COUNT 17.8 K/mm3 (4.0-10.0)
[2017-03-02 06:21] LABS: PROTHROMBIN TIME (PATIENT) 48.4 SEC (9.98-11.88)
[2017-03-02 06:45] LABS: INR 4.27 (0.82-1.09)
[2017-03-02] MEDS: DOCUSATE SODIUM 100 MG CAPSULE (FP) PO SCH ×3 (07:09→21:17)
--- NOTE | 2017-03-02 07:54 | PN ---
Physical Exam: SUBJECTIVE: Patient seen and examined feels better today. has pain in his right knee with movement. c/o "gasy" stomach, and mild constipation since admission. tolerated OOB to chair and physical therapy today in bed. Denies abdominal pain, chest pain, palpitations, difficulty swallowing, fevers, sob. OBJECTIVE: Vital Signs Period Temp Pulse Resp BP Sys/Juarez Pulse Ox Last 24 Hr 97.5 F-98.8 F 70-83 13-27 99-159/49-98 99-99 GENERAL: Awake, alert, and fully oriented, in no acute distress. HEAD: generalized facial edema - improved since previous exam, not yet back to baseline. forehead back to baseline. EYES: Pupils equal, round and reactive to light, extraocular movements intact, sclera anicteric, conjunctiva clear. No lid lag. eyelids are edematous - decreased from yesterday. EARS, NOSE, THROAT: Ears normal, nares patent, swelling of nose, oropharynx clear without exudates. no tongue swelling, uvula midline, upper and lower lips swollen with left lower lip with ruptured vesicles now with demuted skin on inner mucosa of lip with thick saliva, left lip>right lip. Moist mucous membranes. NECK: Normal range of motion, supple without lymphadenopathy, JVD, or masses. decreased edema, mild ttp. LUNGS: Breath sounds equal, clear to auscultation bilaterally. No wheezes, and no crackles. No accessory muscle use. HEART: afib, normal S1 and S2 without murmur, rub or gallop. ABDOMEN: Soft, nontender, not distended, normoactive bowel sounds, no guarding, no rebound, no masses. MUSCULOSKELETAL: No CVA tenderness. Right lower extremity: in knee immobilizer. ankle with FROM, + DP pulse, 5/5 strength on dorsi/planter flexion. UPPER EXTREMITIES: 2+ radial pulses, warm, well-perfused. No cyanosis. No clubbing. No peripheral edema. LEFT LOWER EXTREMITY: 2+ dorsalis pulses, warm, well-perfused. No calf tenderness. No peripheral edema. NEUROLOGICAL: Cranial nerves II-XII intact. facial sensation intact throughout , facial swelling, Normal speech, speaking in full sentences without difficulty , was able to swallow/breathe without difficulty. Laboratory Results - last 24 hr 03/01/17 03/01/17 03/01/17 05:30 05:30 07:56 WBC RBC Hgb Hct MCV MCHC RDW Plt Count MPV Neutrophils % Lymphocytes % 3.0 L D Monocytes % Eosinophils % Basophils % Band Neutrophils 3.0 Differential Comment Manual diff done Platelet Estimate Adequate INR Hemoglobin A1c % 6.5 H Fluid Source Right knee Fluid WBC 325,717 Fluid RBC 44,306 Fluid Neutrophils 98 Fluid Lymphocytes 2 Fluid Other Cells Many syn.lining cell Fluid Glucose 63 Fluid Total Protein 4.0 LDH Serum/Fluid Ratio 77460 Fluid Amylase 32 Synovial Source Right knee Synovial WBC Synovial RBC Synovial Neutrophils Synovial Lymphocytes Synovial Monocytes Synovial Histocytes Synovial Plasma Cells Synovial LE Cells Synovial Macrophages Synovial Other Cells Synovial Diff Comment Synovial Crystals Negative Synovial Glucose 63 Synovial Total Protein 4 Synovial Albumin 1 Synovial Uric Acid 4 Synovial LDH 91410 Synovial Amylase 32 Synovial Cholesterol < 50 03/01/17 03/01/17 03/02/17 08:00 14:20 05:20 WBC 17.8 H RBC 3.52 L Hgb 10.8 L D Hct 33.2 L MCV 94.2 MCHC 32.7 RDW 14.1 Plt Count 139 MPV 11.8 H Neutrophils % 92.9 H Lymphocytes % 3.1 L Monocytes % 3.9 Eosinophils % 0.0 Basophils % 0.1 Band Neutrophils Differential Comment Platelet Estimate INR 2.77 H D Hemoglobin A1c % Fluid Source Fluid WBC Fluid RBC Fluid Neutrophils Fluid Lymphocytes Fluid Other Cells Fluid Glucose Fluid Total Protein LDH Serum/Fluid Ratio Fluid Amylase Synovial Source Cancelled Synovial WBC Cancelled Synovial RBC Cancelled Synovial Neutrophils Cancelled Synovial Lymphocytes Cancelled Synovial Monocytes Cancelled Synovial Histocytes Cancelled Synovial Plasma Cells Cancelled Synovial LE Cells Cancelled Synovial Macrophages Cancelled Synovial Other Cells Cancelled Synovial Diff Comment Cancelled Synovial Crystals Synovial Glucose Cancelled Synovial Total Protein Cancelled Synovial Albumin Synovial Uric Acid Synovial LDH Cancelled Synovial Amylase Cancelled Synovial Cholesterol 03/02/17 05:20 WBC RBC Hgb Hct MCV MCHC RDW Plt Count MPV Neutrophils % Lymphocytes % Monocytes % Eosinophils % Basophils % Band Neutrophils Differential Comment Platelet Estimate INR 4.27 H* D Hemoglobin A1c % Fluid Source Fluid WBC Fluid RBC Fluid Neutrophils Fluid Lymphocytes Fluid Other Cells Fluid Glucose Fluid Total Protein LDH Serum/Fluid Ratio Fluid Amylase Synovial Source Synovial WBC Synovial RBC Synovial Neutrophils Synovial Lymphocytes Synovial Monocytes Synovial Histocytes Synovial Plasma Cells Synovial LE Cells Synovial Macrophages Synovial Other Cells Synovial Diff Comment Synovial Crystals Synovial Glucose Synovial Total Protein Synovial Albumin Synovial Uric Acid Synovial LDH Synovial Amylase Synovial Cholesterol Active Medications Generic Name Dose Route Start Last Admin Trade Name Freshant PRN Reason Stop Dose Admin Acetaminophen 650 mg 03/01/17 19:31 Tylenol - PO Q4H PRN FEVER OR PAIN Artificial Tears 1 drop 03/01/17 19:31 Artificial Tears OU Q6H PRN DRY EYES Atorvastatin Calcium 10 mg 03/01/17 22:00 03/01/17 21:12 Lipitor - PO Not Given HS POLLY Carvedilol 6.25 mg 03/01/17 22:00 03/01/17 21:15 Coreg - PO 6.25 mg BID POLLY Administration Chlorhexidine Gluconate 1 applic 03/01/17 22:00 03/01/17 21:15 Hibiclens For Decolonization - TP 1 applic HS POLLY Administration Docusate Sodium 100 mg 03/01/17 22:00 03/02/17 07:09 Colace - PO 100 mg TID POLLY Administration Ferrous Sulfate 325 mg 03/02/17 08:00 Feosol - PO TIDCM POLLY Ampicillin Sodium 2 gm/ Sodium 100 mls @ 200 mls/hr 03/01/17 21:00 03/02/17 03: 02 Chloride IVPB 200 mls/hr Q6H-IV POLLY Administration Famotidine/Sodium Chloride 50 mls @ 100 mls/hr 03/01/17 22:00 03/01/17 21:15 Pepcid 20 Mg Premixed Ivpb - IVPB 100 mls/hr BID POLLY Administration Sodium Chloride 1,000 mls @ 125 mls/hr 03/01/17 19:31 03/01/17 21:15 Normal Saline - IV 125 mls/hr ASDIR POLLY Administration Methylprednisolone Sodium Succinate 40 mg 03/01/17 22:00 03/01/17 21:41 Solu-Medrol - IVPB 40 mg BID POLLY Administration Morphine Sulfate 2 mg 03/01/17 19:31 Morphine Injection - IVPUSH Q4H PRN PAIN Multivitamins/Minerals/Vitamin C 1 tab 03/02/17 10:00 Tab-A-Vit - PO DAILY PO[facility] Mupirocin 1 applic 03/01/17 22:00 03/01/17 21:16 Bactroban Ointment (For Decolonization) - NS 03/05/17 09:59 1 applic BID POLLY Administration Fgrfk-1-Yfri Ethyl Esters 1 gm 03/02/17 10:00 Lovaza - PO DAILY [facility] Ondansetron HCl 4 mg 03/01/17 19:31 Zofran Injection IVPB Q6H PRN NAUSEA Sodium Chloride 2 spray 03/01/17 19:31 [place] Nasal [place] - NS Q12H PRN NASAL CONGESTION ASSESSMENT/PLAN: 66 yr old man with afib on coumadin, HTN, Afib, CAD s/p CABG admitted for angioedema to the lip which has improved, now in the ICU for sepsis secondary to gram + bacteremia and septic right knee. - would like to go to [facility] for rehab at time of discharge Infectious Disease - sepsis secondary to septic joint beta hemolytic group c strep in bld cx and wound cx ampicillin 2gm q4h echo to r/o endocarditis -- no vegetations reported on TTE, plan for SANGITA tomorrow consult: Dr. Diehl Immunological angioedema likely secondary to entresto - improving currently protecting airway, tolerating po solumedrol 40mg IVpb q12hr nasal cannula o2, maintain sat >90% Cardiovascular afib; rate controlled, ICD intermittently paced HTN - coreg 6.25 po BID Avoid all ACEI and ARB medications systoic CHF - currently no signs of acute exacerbation plan for SANGITA tomorrow consult: dr. abarca Hematological supratherapeutic INR - hold coumadin consider heparin if continued NPO status and AC is needed leucocytosis from sepsis, trending down - afebrile today, monitor for fevers. Renal JEREMY, suspected pre-renal cause due to poor po intake and ARB use monitor urine output trend BMP GI pepcid for GI prophylaxis Endocrine HbA1c 6.5; new onset Diabetes mellitus BGM and NISS ACHS recommend outpatient f/u with pcp for repeat testing DVT: supratherpeutic INR diet: sodium controlled diabetic diet Visit type - Emergency Visit Emergency Visit: No - New Patient This patient is new to me today: No - Critical Care Critical Care patient: Yes Total Critical Care Time (in minutes): 40 Critical Care Statement: The care of this patient involved high complexity decision making to prevent further life threatening deterioration of the patient 's condition and/or to evalute & treat vital organ system(s) failure or risk of failure.
[2017-03-02 08:01] LABS: ALBUMIN 1.7 g/dl (3.4-5.0); BILIRUBIN,TOTAL 0.7 mg/dL (0.2-1.0); CALCIUM 7.1 mg/dL (8.5-10.1); COCKROFT - GAULT 76.23; CREATININE 1.3 mg/dL (0.7-1.3); MAGNESIUM 2.5 mg/dL (1.8-2.4); PHOSPHOROUS 3.3 mg/dL (2.5-4.9); TOT PROT 5.2 g/dl (6.4-8.2)
[2017-03-02] MEDS ORDERED: PT OWN MED DRAWER 7, Y5N ONE (08:06)
--- NOTE | 2017-03-02 08:41 | OP ---
DATE OF OPERATION: 03/01/2017 PREOPERATIVE DIAGNOSIS: Infected right total knee replacement. POSTOPERATIVE DIAGNOSIS: Infected right total knee replacement. PROCEDURE: Arthrotomy, right knee, irrigation and debridement, removal of polyethylene liner and replacement with new polyethylene liner. SURGICAL ATTENDING: Earle Madden MD BRANCH SERVICE LEADER: SHIRLENE Wellington ANESTHESIA: General with endotracheal intubation. CLOSURE: No. 1 Vicryl fascia, 0 and 2-0 subcutaneous, and emy for skin. ESTIMATED BLOOD LOSS: Negligible. TOURNIQUET TIME: Less than an hour. COMPLICATIONS: None. CONDITION: To recovery room in stable condition. INDICATIONS OF OPERATIVE PROCEDURE: Patient is a 66-year-old male who was admitted with angioedema and elevated white count. Upon his admission, patient began complaining of pain in his right knee. He said that had begun 2 days prior. Evaluation by the attending staff revealed swollen knee, and orthopedic consultation was requested. Patient also gives a history of an infected tooth about 6 months ago, which was excised at another institution and reportedly no antibiotics were given. Patient denies any pain in the interim 6 months. Patient also has an increased INR of greater than 6. Orthopedic evaluation revealed tapped knee and revealed greater than 300,000 white cells indicating sepsis. Patient also had positive blood cultures with beta hemolytic streptococcus as the organism. Risks, benefits, and alternatives were discussed with the patient, with family. At this time, we have elected to do a formal open irrigation and debridement, removal of polyethylene liner, further irrigation and debridement, exchange to a new polyethylene liner, and then antibiotic powder and enclosure over drains in an attempt to stem the infection. If this is a more acute infection than this course of action has the ability to eradicate the infection, patient realizes that if this is a more chronic infection, that ability is diminished, and patient may require explant of the components, but at this time, e family really requested that we try to save the components at all costs. DESCRIPTION OF PROCEDURE: Patient was taken to the operating room on March 01, 2017. General anesthesia with endotracheal intubation was administered by the anesthesiologist. IV antibiotics had already been administered by the infectious disease doctors prior to the procedure. A well-padded pneumatic tourniquet was placed on the right proximal femur. The right lower extremity was prepped and draped in the usual sterile fashion. The leg was exsanguinated with an Esmarch bandage. The tourniquet was inflated to 275 mmHg. Utilizing the previous incision, which was a curved longitudinal incision, the knee was incised down to the level of the extensor mechanism with sufficient flaps medialized to perform the procedure. A medial parapatellar arthrotomy was then performed. A large amount of cloudy fluid was encountered. This fluid was again sent to the laboratory for culture and sensitivity. The medial parapatellar arthrotomy was then carried all the way down into the knee. Any fibrinous material inside the knee was debrided. The rest of the fluid was suctioned out of the knee. Scar tissue around the knee was opened in order to mobilize the patella and extensor mechanism laterally to expose the component. The components both on the femoral and on the tibial sides appeared to be intact and stable as was the patella. The polyethylene liner clip was removed, and this allowed us to deliver the polyethylene liner out of the wound. Fibrinous material in and around the component was debrided using a rongeur and curette. The knee was pulse antibiotic irrigated with 9 L of antibiotic irrigation. When the knee was thoroughly irrigated and all fibrinous material in the knee was debrided, the knee was dried thoroughly. Gloves and suction were changed. The new component up to the polyethylene component of the identical size, which was a size 87/91 with a 10-mm thickness was chosen, which was exactly what was taken out. This was inserted and clipped into place. Stability revealed good stability to valgus to varus stress, did have some opening, but did come to a firm end-point with a few millimeters of opening. The vancomycin powder was placed in the knee. A medium Hemovac was placed exiting superolaterally. The medial parapatellar arthrotomy was then closed using No. 1 Vicryl interrupted suture, 0 and 2-0 subcutaneous, and emy for skin. A sterile pressure dressing was placed over the knee. Patient was placed in the knee immobilizer. Tourniquet was deflated. Total tourniquet time was approximately an hour. No complications. Vinayak [id number]
--- NOTE | 2017-03-02 08:55 | PN ---
Progress Note (short form) - Note Progress Note: s/p washout of knee with poly exchange yesterday swelling of face much improved no fevers eating breakfast Vital Signs Period Temp Pulse Resp BP Sys/Juarez Pulse Ox Last 24 Hr 97.8 F-98.8 F 70-83 13-26 135-159/82-98 99-99 cor-rrr lungs clear able to raise left arm today, has pain on palpation of left clavicle/ sternoclaviular joint +aicd nontender abd soft,nt ext immmobilizer left knee CBC, BMP 03/02/17 05:20 03/02/17 05:20 Microbiology 03/01/17 05:40 Blood - Peripheral Venous Blood Culture - Preliminary NO GROWTH OBTAINED AFTER 24 HOURS, INCUBATION TO CONTINUE FOR 4 DAYS. 03/01/17 05:30 Blood - Peripheral Venous Blood Culture - Preliminary NO GROWTH OBTAINED AFTER 24 HOURS, INCUBATION TO CONTINUE FOR 4 DAYS. 02/28/17 00:05 Blood - Peripheral Venous Blood Culture - Preliminary Beta Hem Streptococcus Group C 02/28/17 00:05 Blood - Peripheral Venous Blood Culture - Preliminary Beta Hem Streptococcus Group C 02/28/17 06:30 Urine - Urine Stock Urine Culture - Final NO GROWTH OBTAINED a/p sepsis group c strep bacteremia infected TKR- s/p surgery yesterday pod #1 r/o endocarditis/aicd infection f/u cultures, repeat so far negative continue ampicillin and vancomycin adjust levels for improved renal function echo unrevealing given left clavicular pain will get chest ct to evaluate (aicd present) JEREMY- improved andioedema- improving-steroid taper cad- s/p cabg/AICD d/w patient at bedside Problem List - Problems (1) Sepsis Code(s): A41.9 - SEPSIS, UNSPECIFIED ORGANISM (2) Bacteremia Code(s): R78.81 - BACTEREMIA (3) Knee pain, acute Code(s): M25.569 - PAIN IN UNSPECIFIED KNEE Qualifiers: Laterality: right Qualified Code(s): M25.561 - Pain in right knee (4) ICD (implantable cardioverter-defibrillator) in place Code(s): Z95.810 - PRESENCE OF AUTOMATIC (IMPLANTABLE) CARDIAC DEFIBRILLATOR (5) Angioedema Code(s): T78.3XXA - ANGIONEUROTIC EDEMA, INITIAL ENCOUNTER Qualifiers: Encounter type: initial encounter Qualified Code(s): T78.3XXA - Angioneurotic edema, initial encounter (6) Elevated INR Code(s): R79.1 - ABNORMAL COAGULATION PROFILE
[2017-03-02] MEDS: CARVEDILOL 6.25 MG TABLET (FP) PO SCH ×2 (08:59→21:17)
[2017-03-02] MEDS: FERROUS SO4 325 MG TABLET (FP) PO SCH ×3 (08:59→17:38)
[2017-03-02] MEDS: methylPREDNISolone NA SUCC 40 MG/1 ML VIAL IVPB SCH ×2 (09:01→21:18)
[2017-03-02] MEDS: MUPIROCIN 2% TOPICAL OINTMENT FOR DECOLONIZATION NS SCH ×2 (09:01→21:25)
[2017-03-02] MEDS: FAMOTIDINE 20 MG/50 ML IVPB 50 ML IVPB SCH ×2 (09:02→21:17)
[2017-03-02] MEDS: OMEGA-3 ACID ETHYL ESTERS (FATTY-ACIDS) 1 GM CAPSULE (FP) PO SCH (09:06)
[2017-03-02] MEDS: MULTIVITAMINS (DAILY MVI) TABLET (FP) PO SCH (09:06)
--- NOTE | 2017-03-02 09:24 | PN ---
Progress Note, Physician Chief Complaint: TELE: No sustained arrhythmias. AF w/ intermittent pacing. - Current Medication List Current Medications: Active Medications Acetaminophen (Tylenol -) 650 mg PO Q4H PRN PRN Reason: FEVER OR PAIN Artificial Tears (Artificial Tears) 1 drop OU Q6H PRN PRN Reason: DRY EYES Atorvastatin Calcium (Lipitor -) [address] [facility] Last Admin: 03/01/17 21:12 Dose: Not Given Carvedilol (Coreg -) 6.25 mg PO BID [facility] Last Admin: 03/02/17 08:59 Dose: 6.25 mg Chlorhexidine Gluconate (Hibiclens For Decolonization -) [address] [facility] Last Admin: 03/01/17 21:15 Dose: 1 applic Docusate Sodium (Colace -) 100 mg PO TID [facility] Last Admin: 03/02/17 07:09 Dose: 100 mg Ferrous Sulfate (Feosol -) 325 mg PO TIDCM [facility] Last Admin: 03/02/17 08:59 Dose: 325 mg Famotidine/Sodium Chloride (Pepcid 20 Mg Premixed Ivpb -) 50 mls @ 100 mls/hr IVPB BID [facility] Last Admin: 03/02/17 09:02 Dose: 100 mls/hr Sodium Chloride (Normal Saline -) 1,000 mls @ 125 mls/hr IV ASDIR [facility] Last Admin: 03/01/17 21:15 Dose: 125 mls/hr Ampicillin Sodium 2 gm/ Sodium (Chloride) 100 mls @ 200 mls/hr IVPB Q4H [facility] Last Admin: 03/02/17 09:01 Dose: 200 mls/hr Vancomycin HCl 1,250 mg/ (Dextrose) 250 mls @ 250 mls/hr IVPB BID [facility] PRN Reason: Protocol Methylprednisolone Sodium Succinate (Solu-Medrol -) 40 mg IVPB BID [facility] Last Admin: 03/02/17 09:01 Dose: 40 mg Morphine Sulfate (Morphine Injection -) 2 mg IVPUSH Q4H PRN PRN Reason: PAIN Multivitamins/Minerals/Vitamin C (Tab-A-Vit -) 1 tab PO DAILY [facility] Last Admin: 03/02/17 09:06 Dose: 1 tab Mupirocin (Bactroban Ointment (For Decolonization) -) 1 applic NS BID [facility] Stop: 03/05/17 09:59 Last Admin: 05/23/17 09:01 Dose: 1 applic Etekb-3-Faey Ethyl Esters (Lovaza -) 1 gm PO DAILY [facility] Last Admin: 03/02/17 09:06 Dose: 1 gm Ondansetron HCl (Zofran Injection) 4 mg IVPB Q6H PRN PRN Reason: NAUSEA Sodium Chloride ([place] Nasal [place] -) 2 spray NS Q12H PRN PRN Reason: NASAL CONGESTION - Objective Vital Signs: Vital Signs Temperature 98.6 F 03/02/17 06:00 Pulse Rate 72 03/02/17 08:00 Respiratory Rate 23 03/02/17 08:43 Blood Pressure 153/95 03/02/17 08:00 O2 Sat by Pulse Oximetry (%) 99 03/02/17 08:50 Constitutional: Yes: Calm HENT: Yes: Other (Angioedema much improved.) Cardiovascular: Yes: Pulse Irregular (no murmurs) Respiratory: Yes: CTA Bilaterally Gastrointestinal: Yes: Soft (non-tender.) Edema: (s/p R. knee I&D) Peripheral Pulses WNL: Yes Neurological: Yes: Alert, Oriented Labs: CBC, BMP 03/02/17 05:20 03/02/17 05:20 INR, PTT INR 4.27 (0.82-1.09) H* D 03/02/17 05:20 Microbiology 03/01/17 05:40 Blood - Peripheral Venous Blood Culture - Preliminary NO GROWTH OBTAINED AFTER 24 HOURS, INCUBATION TO CONTINUE FOR 4 DAYS. 03/01/17 05:30 Blood - Peripheral Venous Blood Culture - Preliminary NO GROWTH OBTAINED AFTER 24 HOURS, INCUBATION TO CONTINUE FOR 4 DAYS. 02/28/17 00:05 Blood - Peripheral Venous Blood Culture - Preliminary Beta Hem Streptococcus Group C 02/28/17 00:05 Blood - Peripheral Venous Blood Culture - Preliminary Beta Hem Streptococcus Group C Laboratory Tests 03/02/17 03/02/17 03/02/17 05:20 05:20 05:20 WBC 17.8 H Hgb 10.8 L D Plt Count 139 INR 4.27 H* D Sodium 144 Potassium 4.4 BUN 47 H Creatinine 1.3 Phosphorus 3.3 Magnesium 2.5 H Total Bilirubin 0.7 - ....Imaging EKG: Image Reviewed Other: Image Reviewed (TTE: Moderately reduced LV function No vegetations visualized.) Problem List - Problems (1) Angioedema Code(s): T78.3XXA - ANGIONEUROTIC EDEMA, INITIAL ENCOUNTER Qualifiers: Encounter type: initial encounter Qualified Code(s): T78.3XXA - Angioneurotic edema, initial encounter (2) Atrial fibrillation Code(s): I48.91 - UNSPECIFIED ATRIAL FIBRILLATION Qualifiers: Atrial fibrillation type: permanent Qualified Code(s): I48.2 - Chronic atrial fibrillation (3) CAD (coronary artery disease) Code(s): I25.10 - ATHSCL HEART DISEASE OF [place] CORONARY ARTERY W/O ANG PCTRS Qualifiers: Coronary Disease-Associated Artery/Lesion type: bypass graft [place] vs. transplanted heart: [place] heart Associated angina: without angina Qualified Code(s): I25.810 - Atherosclerosis of coronary artery bypass graft( s) without angina pectoris (4) Elevated INR Code(s): R79.1 - ABNORMAL COAGULATION PROFILE (5) Leukocytosis Code(s): D72.829 - ELEVATED WHITE BLOOD CELL COUNT, UNSPECIFIED Qualifiers: Leukocytosis type: unspecified Qualified Code(s): D72.829 - Elevated white blood cell count, unspecified (6) Chronic systolic (congestive) heart failure Code(s): I50.22 - CHRONIC SYSTOLIC (CONGESTIVE) HEART FAILURE (7) ICD (implantable cardioverter-defibrillator) in place Code(s): Z95.810 - PRESENCE OF AUTOMATIC (IMPLANTABLE) CARDIAC DEFIBRILLATOR (8) Renal insufficiency Code(s): N28.9 - DISORDER OF KIDNEY AND URETER, UNSPECIFIED Assessment/Plan IMP: Strep bacteremia with infected R. knee, s/p I&D Angioedema, improved- presumed secondary to Entresto Ischemic Cardiomyopathy s/p CABG and ICD REC: 1. Hemodynamically stable s/p R. knee I &D with serial blood cultures negative to date. TTE without gross vegetation. If blood cultures remain +, can perform SANGITA. 2. Angioedema much improved: would not resume Entresto nor any TUAN/ARB. In future, will transition to Imdur + Hydralazine. 3. Daily INR for goal 2-3 (AF).
[2017-03-02] MEDS ORDERED: VANCOMYCIN 1,250 MG in DEXTROSE 5%-WATER - 250 ML IVPB SCH (10:00)
--- NOTE | 2017-03-02 11:03 | PN ---
Progress Note (short form) - Note Progress Note: Subjective: The patient was seen and examined at the bedside, he states his right knee pain is 0 at rest and 10/10 with movement Current Medications Generic Name Dose Route Start Last Admin Trade Name Freq PRN Reason Stop Dose Admin Acetaminophen 650 mg 03/01/17 19:31 Tylenol - PO Q4H PRN FEVER OR PAIN Artificial Tears 1 drop 03/01/17 19:31 Artificial Tears OU Q6H PRN DRY EYES Atorvastatin Calcium 10 mg 03/01/17 22:00 03/01/17 21:12 Lipitor - PO Not Given HS POLLY Carvedilol 6.25 mg 03/01/17 22:00 03/02/17 08:59 Coreg - PO 6.25 mg BID POLLY Administration Chlorhexidine Gluconate 1 applic 03/01/17 22:00 03/01/17 21:15 Hibiclens For Decolonization - TP 1 applic HS POLLY Administration Docusate Sodium 100 mg 03/01/17 22:00 03/02/17 07:09 Colace - PO 100 mg TID POLLY Administration Ferrous Sulfate 325 mg 03/02/17 08:00 03/02/17 08:59 Feosol - PO 325 mg TIDCM POLLY Administration Famotidine/Sodium Chloride 50 mls @ 100 mls/hr 03/01/17 22:00 03/02/17 09:02 Pepcid 20 Mg Premixed Ivpb - IVPB 100 mls/hr BID POLLY Administration Sodium Chloride 1,000 mls @ 125 mls/hr 03/01/17 19:31 03/01/17 21:15 Normal Saline - IV 125 mls/hr ASDIR POLLY Administration Ampicillin Sodium 2 gm/ Sodium 100 mls @ 200 mls/hr 03/02/17 08:45 03/02/17 09: 01 Chloride IVPB 200 mls/hr Q4H POLLY Administration Vancomycin HCl 1,250 mg/ 250 mls @ 166.667 mls/hr 03/02/17 10:00 03/02/17 10:49 Dextrose IVPB 166.667 mls/hr BID POLLY Administration Protocol Insulin Aspart 1 vial 03/02/17 16:30 Novolog Vial Sliding Scale - SQ ACHS POLLY Protocol Methylprednisolone Sodium Succinate 40 mg 03/01/17 22:00 03/02/17 09:01 Solu-Medrol - IVPB 40 mg BID POLLY Administration Morphine Sulfate 2 mg 03/01/17 19:31 Morphine Injection - IVPUSH Q4H PRN PAIN Multivitamins/Minerals/Vitamin C 1 tab 03/02/17 10:00 03/02/17 09:06 Tab-A-Vit - PO 1 tab DAILY POLLY Administration Mupirocin 1 applic 03/01/17 22:00 03/02/17 09:01 Bactroban Ointment (For Decolonization) - NS 03/05/17 09:59 1 applic BID POLLY Administration Obpos-9-Hxnm Ethyl Esters 1 gm 03/02/17 10:00 03/02/17 09:06 Lovaza - PO 1 gm DAILY POLLY Administration Ondansetron HCl 4 mg 03/01/17 19:31 Zofran Injection IVPB Q6H PRN NAUSEA Sodium Chloride 2 spray 03/01/17 19:31 Olmitz Collison Nasal Collison - NS Q12H PRN NASAL CONGESTION Objective: Vital Signs Period Temp Pulse Resp BP Sys/Juarez Pulse Ox Last 24 Hr 97.8 F-98.6 F 70-83 13-26 135-159/82-98 99-99 Physical Exam: General: NAD, A&Ox3 HEENT: Upper lip swelling resolved. Lower lip with left sided crusting and small amount of oozing. No drooling, hoarseness noted Lungs: CTA bilaterally, no stridor or wheezing noted Heart: RRR, S1S2 Abd: Soft, non-tender, non-distended. Normoactive bowel sounds Ext: Warm, well-perfused. 2+ DP/PT bilaterally Neuro: Unable to assess CN due to facial swelling MSK: Right knee brace CBCD WBC 17.8 K/mm3 (4.0-10.0) H 03/02/17 05:20 RBC 3.52 M/mm3 (4.00-5.60) L 03/02/17 05:20 Hgb 10.8 GM/dL (11.7-16.9) L D 03/02/17 05:20 Hct 33.2 % (35.4-49) L 03/02/17 05:20 MCV 94.2 fl (80-96) 03/02/17 05:20 MCHC 32.7 g/dl (32.0-35.9) 03/02/17 05:20 RDW 14.1 % (11.9-15.9) 03/02/17 05:20 Plt Count 139 K/MM3 (134-434) 03/02/17 05:20 MPV 11.8 fl (7.5-11.1) H 03/02/17 05:20 CMP Sodium 144 mmol/L (136-145) 03/02/17 05:20 Potassium 4.4 mmol/L (3.5-5.1) 03/02/17 05:20 Chloride 106 mmol/L (98-107) 03/02/17 05:20 Carbon Dioxide 28 mmol/L (21-32) 03/02/17 05:20 Anion Gap 10 (8-16) 03/02/17 05:20 BUN 47 mg/dL (7-18) H 03/02/17 05:20 Creatinine 1.3 mg/dL (0.7-1.3) 03/02/17 05:20 Creat Clearance w eGFR 55.58 (>60) 03/02/17 05:20 Random Glucose 183 mg/dL (74-106) H 03/02/17 05:20 Calcium 7.1 mg/dL (8.5-10.1) L 03/02/17 05:20 Total Bilirubin 0.7 mg/dL (0.2-1.0) 03/02/17 05:20 AST 21 U/L (15-37) D 03/02/17 05:20 ALT 23 U/L (12-78) 03/02/17 05:20 Alkaline Phosphatase 78 U/L (45-117) 03/02/17 05:20 Total Protein 5.2 g/dl (6.4-8.2) L 03/02/17 05:20 Albumin 1.7 g/dl (3.4-5.0) L 03/02/17 05:20 CARDIAC ENZYMES Troponin I < 0.02 ng/ml (0.00-0.05) 02/27/17 00:00 Microbiology 02/28/17 00:05 Blood - Peripheral Venous Blood Culture - Preliminary Beta Hem Streptococcus Group C 03/01/17 07:56 Synovial Fluid - Knee Body Fluid Culture - Preliminary Beta Hem Streptococcus Group C 02/28/17 00:05 Blood - Peripheral Venous Blood Culture - Preliminary Beta Hem Streptococcus Group C 03/01/17 05:40 Blood - Peripheral Venous Blood Culture - Preliminary NO GROWTH OBTAINED AFTER 24 HOURS, INCUBATION TO CONTINUE FOR 4 DAYS. 03/01/17 05:30 Blood - Peripheral Venous Blood Culture - Preliminary NO GROWTH OBTAINED AFTER 24 HOURS, INCUBATION TO CONTINUE FOR 4 DAYS. 02/28/17 06:30 Urine - Urine Stock Urine Culture - Final NO GROWTH OBTAINED Assessment: This is a 66 year old male with PMHx of Afib (on Coumadin), CAD s/p CABG, systolic CHF s/p AICD, HTN, dyslipidemia who presents to the ED with angioedema. Plan: 1) ID: Severe sepsis 2/2 group C strept right knee joint, Group C strept bacteremia - Patient reports removal of tooth 6 months ago, he did not receive antibiotics at that time - S/p Right knee washout and poly exchange on 03/01 - Repeat blood cultures on 03/01 with NGTD - Concern for endocarditis given blood cultures: ECHO with no evidence of vegetation, for SANGITA tomorrow - Continue Vancomyin (day 4) - Started on Ampicillin (Day 2) - Appreciate ortho consult - Appreciate ID consult 2) Angioedema: - Likely 2/2 Entresto - S/p FFP on admission - Continue Solu-medrol, taper - Continue Benadryl - Continue Famotidine - Patent airway - Appreciate ENT consult 2) Cardiology: A.fib - Supratherapeutic INR CAD s/p CABG - Continue statin - Continue ASA HTN - Continue Norvasc - Continue Carvedilol Ischemic cardiomyopathy s/p ICD - Currently appears euvolemic - Will need to avoid all acei/arb - Appreciate cardiology consult 3) : JEREMY - Improving today - Continue to monitor 4) Endocrine: Steroid induced hyperglycemia - Hgb A1c 6.5. New onset diabetes? 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 - New Patient This patient is new to me today: No - Critical Care Critical Care patient: Yes Total Critical Care Time (in minutes): 55 Critical Care Statement: The care of this patient involved high complexity decision making to prevent further life threatening deterioration of the patient 's condition and/or to evalute & treat vital organ system(s) failure or risk of failure.
--- NOTE | 2017-03-02 12:16 | PN ---
Teaching Attending Note Name of Resident: Nereyda Quiroz ATTENDING PHYSICIAN STATEMENT I saw and evaluated the patient. I reviewed the resident's note and discussed the case with the resident. I agree with the resident's findings and plan as documented. SUBJECTIVE: Patient seen and examined in the ICU. Awake and alert. S/P arthroscopy with washout yesterday. Reports pain is better at rest but a 10 /10 with movement. Further improvement in angioedema. Intake & Output 02/27/17 02/28/17 03/01/17 03/02/17 23:59 23:59 23:59 23:59 Intake Total 1999 3415 1420 1600 Output Total 500 1750 1835 700 Balance 1500 1665 -415 900 Weight 216 lb 0.848 oz 206 lb 9.6 oz 207 lb 207 lb Last Vital Signs Temp Pulse Resp BP Pulse Ox 97.8 F 71 19 155/96 99 03/02/17 10:00 03/02/17 10:00 03/02/17 10:00 03/02/17 10:00 03/02/17 08:50 Active Medications Acetaminophen (Tylenol -) 650 mg PO Q4H PRN PRN Reason: FEVER OR PAIN Artificial Tears (Artificial Tears) 1 drop OU Q6H PRN PRN Reason: DRY EYES Atorvastatin Calcium (Lipitor -) 10 mg PO HS [facility] Last Admin: 03/01/17 21:12 Dose: Not Given Carvedilol (Coreg -) 6.25 mg PO BID [facility] Last Admin: 03/02/17 08:59 Dose: 6.25 mg Chlorhexidine Gluconate (Hibiclens For Decolonization -) 1 applic TP HS [facility] Last Admin: 03/01/17 21:15 Dose: 1 applic Docusate Sodium (Colace -) 100 mg PO TID [facility] Last Admin: 03/02/17 07:09 Dose: 100 mg Ferrous Sulfate (Feosol -) 325 mg PO TIDCM [facility] Last Admin: 03/02/17 08:59 Dose: 325 mg Famotidine/Sodium Chloride (Pepcid 20 Mg Premixed Ivpb -) 50 mls @ 100 mls/hr IVPB BID [facility] Last Admin: 03/02/17 09:02 Dose: 100 mls/hr Sodium Chloride (Normal Saline -) 1,000 mls @ 125 mls/hr IV ASDIR [facility] Last Admin: 03/01/17 21:15 Dose: 125 mls/hr Ampicillin Sodium 2 gm/ Sodium (Chloride) 100 mls @ 200 mls/hr IVPB Q4H [facility] Last Admin: 03/02/17 09:01 Dose: 200 mls/hr Vancomycin HCl 1,250 mg/ (Dextrose) 250 mls @ 166.667 mls/hr IVPB BID [facility] PRN Reason: Protocol Last Admin: 03/02/17 10:49 Dose: 166.667 mls/hr Methylprednisolone Sodium Succinate (Solu-Medrol -) 40 mg IVPB BID [facility] Last Admin: 03/02/17 09:01 Dose: 40 mg Morphine Sulfate (Morphine Injection -) 2 mg IVPUSH Q4H PRN PRN Reason: PAIN Multivitamins/Minerals/Vitamin C (Tab-A-Vit -) 1 tab PO DAILY [facility] Last Admin: 03/02/17 09:06 Dose: 1 tab Mupirocin (Bactroban Ointment (For Decolonization) -) 1 applic NS BID [facility] Stop: 03/05/17 09:59 Last Admin: 03/02/17 09:01 Dose: 1 applic Aaupt-1-Nefk Ethyl Esters (Lovaza -) 1 gm PO DAILY [facility] Last Admin: 03/02/17 09:06 Dose: 1 gm Ondansetron HCl (Zofran Injection) 4 mg IVPB Q6H PRN PRN Reason: NAUSEA Sodium Chloride ([place] Cornell Nasal Cornell -) 2 spray NS Q12H PRN PRN Reason: NASAL CONGESTION Constitutional: Yes: No Distress Eyes: Yes: Less edema HENT: Yes: Less external oral swelling. No: Drooling, Epistaxis, Hoarseness, Pharyngeal Erythema Neck: Yes: Supple, Trachea Midline Cardiovascular: Yes: Regular Rate and Rhythm Respiratory: Yes: CTA Bilaterally. No: Accessory Muscle Use, Rales, Rhonchi, SOB, Stridor, Wheezes Gastrointestinal: Yes: Normal Bowel Sounds, Soft ...Rectal Exam: Yes: Deferred Renal/: Yes: WNL Musculoskeletal: Yes: WNL Extremities: Yes: WNL Edema: Yes Peripheral Pulses WNL: Yes Integumentary: Yes: Erythema, Skin Tear Neurological: Yes: Alert, Oriented ...Motor Strength: WNL Psychiatric: Yes: WNL, Alert, Oriented Laboratory Results - last 24 hr 03/01/17 03/01/17 03/01/17 07:56 08:00 14:20 WBC RBC Hgb Hct MCV MCHC RDW Plt Count MPV Neutrophils % Lymphocytes % Monocytes % Eosinophils % Basophils % INR 2.77 H D Sodium Potassium Chloride Carbon Dioxide Anion Gap BUN Creatinine Creat Clearance w eGFR Random Glucose Calcium Phosphorus Magnesium Total Bilirubin AST ALT Alkaline Phosphatase Total Protein Albumin Fluid Neutrophils 98 Fluid Lymphocytes 2 Fluid Other Cells Many syn.lining cell Synovial Source Right knee Cancelled Synovial WBC Cancelled Synovial RBC Cancelled Synovial Neutrophils Cancelled Synovial Lymphocytes Cancelled Synovial Monocytes Cancelled Synovial Histocytes Cancelled Synovial Plasma Cells Cancelled Synovial LE Cells Cancelled Synovial Macrophages Cancelled Synovial Other Cells Cancelled Synovial Diff Comment Cancelled Synovial Glucose Cancelled Synovial Total Protein Cancelled Synovial LDH Cancelled Synovial Amylase Cancelled 03/02/17 03/02/17 03/02/17 05:20 05:20 05:20 WBC 17.8 H RBC 3.52 L Hgb 10.8 L D Hct 33.2 L MCV 94.2 MCHC 32.7 RDW 14.1 Plt Count 139 MPV 11.8 H Neutrophils % 92.9 H Lymphocytes % 3.1 L Monocytes % 3.9 Eosinophils % 0.0 Basophils % 0.1 INR 4.27 H* D Sodium 144 Potassium 4.4 Chloride 106 Carbon Dioxide 28 Anion Gap 10 BUN 47 H Creatinine 1.3 Creat Clearance w eGFR 55.58 Random Glucose 183 H Calcium 7.1 L Phosphorus 3.3 Magnesium 2.5 H Total Bilirubin 0.7 AST 21 D ALT 23 Alkaline Phosphatase 78 Total Protein 5.2 L Albumin 1.7 L Fluid Neutrophils Fluid Lymphocytes Fluid Other Cells Synovial Source Synovial WBC Synovial RBC Synovial Neutrophils Synovial Lymphocytes Synovial Monocytes Synovial Histocytes Synovial Plasma Cells Synovial LE Cells Synovial Macrophages Synovial Other Cells Synovial Diff Comment Synovial Glucose Synovial Total Protein Synovial LDH Synovial Amylase Problem List - Problems (1) Angioedema Code(s): T78.3XXA - ANGIONEUROTIC EDEMA, INITIAL ENCOUNTER Qualifiers: Encounter type: initial encounter Qualified Code(s): T78.3XXA - Angioneurotic edema, initial encounter (2) Atrial fibrillation Code(s): I48.91 - UNSPECIFIED ATRIAL FIBRILLATION Qualifiers: Atrial fibrillation type: permanent Qualified Code(s): I48.2 - Chronic atrial fibrillation (3) CAD (coronary artery disease) Code(s): I25.10 - ATHSCL HEART DISEASE OF [place] CORONARY ARTERY W/O ANG PCTRS Qualifiers: Coronary Disease-Associated Artery/Lesion type: bypass graft [place] vs. transplanted heart: [place] heart Associated angina: without angina Qualified Code(s): I25.810 - Atherosclerosis of coronary artery bypass graft( s) without angina pectoris (4) Chronic systolic (congestive) heart failure Code(s): I50.22 - CHRONIC SYSTOLIC (CONGESTIVE) HEART FAILURE (5) Elevated INR Code(s): R79.1 - ABNORMAL COAGULATION PROFILE (6) HLD (hyperlipidemia) Code(s): E78.5 - HYPERLIPIDEMIA, UNSPECIFIED (7) HTN (hypertension) Code(s): I10 - ESSENTIAL (PRIMARY) HYPERTENSION (8) ICD (implantable cardioverter-defibrillator) in place Code(s): Z95.810 - PRESENCE OF AUTOMATIC (IMPLANTABLE) CARDIAC DEFIBRILLATOR (9) Leukocytosis Code(s): D72.829 - ELEVATED WHITE BLOOD CELL COUNT, UNSPECIFIED Qualifiers: Leukocytosis type: unspecified Qualified Code(s): D72.829 - Elevated white blood cell count, unspecified Assessment/Plan Solumedrol taper PO as tolerated ABX per ID Agree with SANGITA O2 as needed Telemetry monitoring Dr Sherwood critical care time spent in reviewing chart, evaluating patient and formulating plan 40 min Problem List - Problems (1) Angioedema Code(s): T78.3XXA - ANGIONEUROTIC EDEMA, INITIAL ENCOUNTER Qualifiers: Encounter type: initial encounter Qualified Code(s): T78.3XXA - Angioneurotic edema, initial encounter (2) Atrial fibrillation Code(s): I48.91 - UNSPECIFIED ATRIAL FIBRILLATION Qualifiers: Atrial fibrillation type: permanent Qualified Code(s): I48.2 - Chronic atrial fibrillation (3) CAD (coronary artery disease) Code(s): I25.10 - ATHSCL HEART DISEASE OF [place] CORONARY ARTERY W/O ANG PCTRS Qualifiers: Coronary Disease-Associated Artery/Lesion type: bypass graft [place] vs. transplanted heart: [place] heart Associated angina: without angina Qualified Code(s): I25.810 - Atherosclerosis of coronary artery bypass graft( s) without angina pectoris (4) Chronic systolic (congestive) heart failure Code(s): I50.22 - CHRONIC SYSTOLIC (CONGESTIVE) HEART FAILURE (5) Elevated INR Code(s): R79.1 - ABNORMAL COAGULATION PROFILE (6) HLD (hyperlipidemia) Code(s): E78.5 - HYPERLIPIDEMIA, UNSPECIFIED (7) HTN (hypertension) Code(s): I10 - ESSENTIAL (PRIMARY) HYPERTENSION (8) ICD (implantable cardioverter-defibrillator) in place Code(s): Z95.810 - PRESENCE OF AUTOMATIC (IMPLANTABLE) CARDIAC DEFIBRILLATOR (9) Leukocytosis Code(s): D72.829 - ELEVATED WHITE BLOOD CELL COUNT, UNSPECIFIED Qualifiers: Leukocytosis type: unspecified Qualified Code(s): D72.829 - Elevated white blood cell count, unspecified
--- NOTE | 2017-03-02 13:24 | PN ---
Progress Note (short form) - Note Progress Note: Anesthesia postop note 66 y/o M s/p GA for right knee washout and replacement of spacer POD#1, vss, aaox3, feeling better than yesterday, still in ICU No anesthesia complications.
--- NOTE | 2017-03-02 16:06 | PN ---
Progress Note (short form) - Note Progress Note: AVSS COMFORTABLE CALF SOFT AND NT NVI MODERATE DRAINAGE FROM THE HEMOVAC IMP: ORTHOPEDICALLY STABLE PLAN: CONTINUE IV ABX PER ID, PIC LINE PATIENT WILL NEED 6 WEEKS ABX, WILL DC HEMOVAC TOMORROW
[2017-03-02] MEDS: INSULIN SLIDING SCALE (NOVOLOG) 1 VIAL SQ SCH ×2 (18:47→22:02)
[2017-03-02] MEDS: SODIUM CHLORIDE 1,000 ML IV SCH (19:27)
[2017-03-02] MEDS: CHLORHEXIDINE GLUCONATE 4% CLEANSER FOR DECOLONIZATION TP SCH (21:17)
[2017-03-02] MEDS: ATORVASTATIN CA 10 MG TABLET (FP) PO SCH ×2 (21:17→21:27)
[2017-03-03] MEDS ORDERED: PT OWN MED DRAWER 7, Y5N ONE ×4 (00:31→21:43)
[2017-03-03] MEDS: AMPICILLIN - 2 GM in SODIUM CHLORIDE 100 ML IVPB SCH ×6 (00:50→21:46)
[2017-03-03 05:48] LABS: BASOPHIL 0.2 % (0-2.0); MCH 31.1 pg (25.7-33.7); MCHC 33.1 g/dl (32.0-35.9); MEAN CELL VOLUME 93.9 fl (80-96); MEAN PLT VOLUME 11.6 fl (7.5-11.1); NEUTROPHILS 91.9 % (42.8-82.8); PLATELET COUNT 147 K/MM3 (134-434); RDW 13.7 % (11.9-15.9); WHITE BLOOD COUNT 13.4 K/mm3 (4.0-10.0)
[2017-03-03 05:59] LABS: PROTHROMBIN TIME (PATIENT) 47.3 SEC (9.98-11.88)
[2017-03-03 06:13] LABS: ALBUMIN 1.5 g/dl (3.4-5.0); ANION GAP 9 (8-16); CALCIUM 7.3 mg/dL (8.5-10.1); CO2 27 mmol/L (21-32); GLUCOSE,RANDOM 167 mg/dL (74-106); MAGNESIUM 2.3 mg/dL (1.8-2.4)
[2017-03-03 06:17] LABS: ALK PHOS 70 U/L (45-117); BILIRUBIN,TOTAL 0.7 mg/dL (0.2-1.0); CREATININE 1.1 mg/dL (0.7-1.3); PHOSPHOROUS 3.3 mg/dL (2.5-4.9); SGOT/AST 20 U/L (15-37); SGPT/ALT 21 U/L (12-78); TOT PROT 5.2 g/dl (6.4-8.2)
[2017-03-03 06:27] LABS: INR 4.18 (0.82-1.09)
[2017-03-03] MEDS: DOCUSATE SODIUM 100 MG CAPSULE (FP) PO SCH ×3 (06:40→21:46)
[2017-03-03] MEDS: INSULIN SLIDING SCALE (NOVOLOG) 1 VIAL SQ SCH ×4 (06:58→21:38)
--- NOTE | 2017-03-03 07:19 | PN ---
Physical Exam: SUBJECTIVE: Patient seen and examined lying comfortably in bed swelling of face decreased patient is afebrile drain in right knee in situ s/p washout of knee with poly exchange left shoulder pain improved but, complains of pain on abduction chest wall pain improved INR elevated Group C Strep bacteremia OBJECTIVE: Vital Signs Period Temp Pulse Resp BP Sys/Juarez Pulse Ox Last 24 Hr 97.7 F-98.6 F 69-81 17-30 136-155/78-97 99-100 GENERAL: The patient is awake, alert, and fully oriented, in no acute distress. HEAD: EYES: splinter haemorrhage present in right eye, Left eye improved ENT: lips swollen and ulcers present, LUNGS: Breath sounds equal, clear to auscultation bilaterally, HEART: Regular rate and rhythm, S1, S2 without murmur, EXTREMITIES: 2+ pulses, warm, no jeneva lesions, no osler lymphnodes, right knee drain in situ Laboratory Results - last 24 hr 03/02/17 03/02/17 03/02/17 05:20 16:55 18:39 WBC RBC Hgb Hct MCV MCHC RDW Plt Count MPV Neutrophils % Lymphocytes % Monocytes % Eosinophils % Basophils % INR Sodium 144 Potassium 4.4 Chloride 106 Carbon Dioxide 28 Anion Gap 10 BUN 47 H Creatinine 1.3 Creat Clearance w eGFR 55.58 POC Glucometer [phone] Random Glucose 183 H Calcium 7.1 L Phosphorus 3.3 Magnesium 2.5 H Total Bilirubin 0.7 AST 21 D ALT 23 Alkaline Phosphatase 78 Total Protein 5.2 L Albumin 1.7 L Stool Occult Blood Positive 03/02/17 03/03/17 03/03/17 22:01 05:05 05:05 WBC 13.4 H RBC 3.44 L Hgb 10.7 L Hct 32.3 L MCV 93.9 MCHC 33.1 RDW 13.7 Plt Count 147 MPV 11.6 H Neutrophils % 91.9 H Lymphocytes % 5.2 L D Monocytes % 2.7 L Eosinophils % 0.0 Basophils % 0.2 INR 4.18 H* Sodium Potassium Chloride Carbon Dioxide Anion Gap BUN Creatinine Creat Clearance w eGFR POC Glucometer [phone] Random Glucose Calcium Phosphorus Magnesium Total Bilirubin AST ALT Alkaline Phosphatase Total Protein Albumin Stool Occult Blood 03/03/17 03/03/17 05:05 06:57 WBC RBC Hgb Hct MCV MCHC RDW Plt Count MPV Neutrophils % Lymphocytes % Monocytes % Eosinophils % Basophils % INR Sodium 143 Potassium 4.6 Chloride 107 Carbon Dioxide 27 Anion Gap 9 BUN 46 H Creatinine 1.1 Creat Clearance w eGFR > 60 POC Glucometer [phone] Random Glucose 167 H Calcium 7.3 L Phosphorus 3.3 Magnesium 2.3 Total Bilirubin 0.7 AST 20 ALT 21 Alkaline Phosphatase 70 Total Protein 5.2 L Albumin 1.5 L Stool Occult Blood Active Medications Generic Name Dose Route Start Last Admin Trade Name Freq PRN Reason Stop Dose Admin Acetaminophen 650 mg 03/01/17 19:31 Tylenol - PO Q4H PRN FEVER OR PAIN Artificial Tears 1 drop 03/01/17 19:31 Artificial Tears OU Q6H PRN DRY EYES Atorvastatin Calcium 10 mg 03/01/17 22:00 03/02/17 21:27 Lipitor - PO Not Given HS POLLY Carvedilol 6.25 mg 03/01/17 22:00 03/02/17 21:17 Coreg - PO 6.25 mg BID PO[facility] Administration Chlorhexidine Gluconate 1 applic 03/01/17 22:00 03/02/17 21:17 Hibiclens For Decolonization - TP 1 applic HS PO[facility] Administration Docusate Sodium 100 mg 03/01/17 22:00 03/03/17 06:40 Colace - PO Not Given TID POLLY Ferrous Sulfate 325 mg 03/02/17 08:00 03/02/17 17:38 Feosol - PO 325 mg TIDCM PO[facility] Administration Famotidine/Sodium Chloride 50 mls @ 100 mls/hr 03/01/17 22:00 03/02/17 21:17 Pepcid 20 Mg Premixed Ivpb - IVPB 100 mls/hr BID PO[facility] Administration Sodium Chloride 1,000 mls @ 125 mls/hr 03/01/17 19:31 03/02/17 19:27 Normal Saline - IV 125 mls/hr ASDIR PO[facility] Administration Ampicillin Sodium 2 gm/ Sodium 100 mls @ 200 mls/hr 03/02/17 08:45 03/03/17 04: 50 Chloride IVPB 200 mls/hr Q4H PO[facility] Administration Insulin Aspart 1 vial 03/02/17 16:30 03/03/17 06:58 Novolog Vial Sliding Scale - SQ Not Given ACHS [facility] Protocol Methylprednisolone Sodium Succinate 40 mg 03/01/17 22:00 03/02/17 21:18 Solu-Medrol - IVPB 40 mg BID PO[facility] Administration Morphine Sulfate 2 mg 03/01/17 19:31 Morphine Injection - IVPUSH Q4H PRN PAIN Multivitamins/Minerals/Vitamin C 1 tab 03/02/17 10:00 03/02/17 09:06 Tab-A-Vit - PO 1 tab DAILY [facility] Administration Mupirocin 1 applic 03/01/17 22:00 03/02/17 21:25 Bactroban Ointment (For Decolonization) - NS 03/05/17 09:59 1 applic BID PO[facility] Administration Jwrrq-4-Ylll Ethyl Esters 1 gm 03/02/17 10:00 03/02/17 09:06 Lovaza - PO 1 gm DAILY [facility] Administration Ondansetron HCl 4 mg 03/01/17 19:31 Zofran Injection IVPB Q6H PRN NAUSEA Sodium Chloride 2 spray 03/01/17 19:31 [place] Nasal [place] - NS Q12H PRN NASAL CONGESTION ASSESSMENT/PLAN: Group C Strep bacteremia ? endocarditis Septic arthritis of right knee hematogenous in origin INR elevated, patient use to take coumadin Post CABG surgery ICD device ulcers on lips could be, Labial herpes infection Plan continue with ampicillin Follow ESR and CRP SANGITA today Add Valtrex 500mg bid need picline for half-way antibiotic correct INR nicole improved Visit type - Emergency Visit Emergency Visit: Yes ED Registration Date: 02/26/17 Care time: The patient presented to the Emergency Department on the above date and was hospitalized for further evaluation of their emergent condition. - New Patient This patient is new to me today: Yes Date on this admission: 03/03/17 - Critical Care Critical Care patient: Yes Total Critical Care Time (in minutes): 45 Critical Care Statement: The care of this patient involved high complexity decision making to prevent further life threatening deterioration of the patient 's condition and/or to evalute & treat vital organ system(s) failure or risk of failure.
--- NOTE | 2017-03-03 07:22 | PN ---
Progress Note, Physician Chief Complaint: ID ICU follow up for this 66 year old male with sepsis on admission related to Group C Strep bacteremia possible oral source from prior extraction. Course complicated by septic arthritis of the right knee. Now S/P partial removal of knee prosthesis. Feeling better overall Offers no complaints. Scheduled for SANGITA. Now on Ampicillin 2 grs q4H - Current Medication List Current Medications: Active Medications Acetaminophen (Tylenol -) 650 mg PO Q4H PRN PRN Reason: FEVER OR PAIN Artificial Tears (Artificial Tears) 1 drop OU Q6H PRN PRN Reason: DRY EYES Atorvastatin Calcium (Lipitor -) 10 mg PO HS [facility] Last Admin: 03/02/17 21:27 Dose: Not Given Carvedilol (Coreg -) 6.25 mg PO BID [facility] Last Admin: 03/02/17 21:17 Dose: 6.25 mg Chlorhexidine Gluconate (Hibiclens For Decolonization -) 1 applic TP [facility] Last Admin: 03/02/17 21:17 Dose: 1 applic Docusate Sodium (Colace -) 100 mg PO TID [facility] Last Admin: 03/03/17 06:40 Dose: Not Given Ferrous Sulfate (Feosol -) 325 mg PO TIDCM [facility] Last Admin: 03/02/17 17:38 Dose: 325 mg Famotidine/Sodium Chloride (Pepcid 20 Mg Premixed Ivpb -) 50 mls @ 100 mls/hr IVPB BID [facility] Last Admin: 03/02/17 21:17 Dose: 100 mls/hr Sodium Chloride (Normal Saline -) 1,000 mls @ 125 mls/hr IV ASDIR [facility] Last Admin: 03/02/17 19:27 Dose: 125 mls/hr Ampicillin Sodium 2 gm/ Sodium (Chloride) 100 mls @ 200 mls/hr IVPB Q4H [facility] Last Admin: 03/03/17 04:50 Dose: 200 mls/hr Insulin Aspart (Novolog Vial Sliding Scale -) 1 vial SQ ACHS [facility] PRN Reason: Protocol Last Admin: 03/03/17 06:58 Dose: Not Given Methylprednisolone Sodium Succinate (Solu-Medrol -) 40 mg IVPB BID [facility] Last Admin: 03/02/17 21:18 Dose: 40 mg Morphine Sulfate (Morphine Injection -) 2 mg IVPUSH Q4H PRN PRN Reason: PAIN Multivitamins/Minerals/Vitamin C (Tab-A-Vit -) 1 tab PO DAILY [facility] Last Admin: 03/02/17 09:06 Dose: 1 tab Mupirocin (Bactroban Ointment (For Decolonization) -) 1 applic NS BID [facility] Stop: 03/05/17 09:59 Last Admin: 03/02/17 21:25 Dose: 1 applic Ubsig-8-Okrh Ethyl Esters (Lovaza -) 1 gm PO DAILY [facility] Last Admin: 03/02/17 09:06 Dose: 1 gm Ondansetron HCl (Zofran Injection) 4 mg IVPB Q6H PRN PRN Reason: NAUSEA Sodium Chloride ([place] Nasal [place] -) 2 spray NS Q12H PRN PRN Reason: NASAL CONGESTION - Objective Vital Signs: Vital Signs Temperature 98.6 F 03/02/17 20:00 Pulse Rate 70 03/03/17 04:00 Respiratory Rate 17 03/03/17 04:00 Blood Pressure 146/88 03/03/17 04:00 O2 Sat by Pulse Oximetry (%) 100 03/02/17 22:00 Constitutional: Yes: Well Nourished, No Distress Eyes: Yes: Other (right hemorage conjuctiva) HENT: Yes: Other (swelling of lips better labial ulcerations) Cardiovascular: Yes: Regular Rate and Rhythm, S1. No: Gallop, Murmur Respiratory: Yes: WNL, Regular, CTA Bilaterally. No: Rales, Rhonchi Gastrointestinal: Yes: WNL, Normal Bowel Sounds, Soft. No: Splenomegaly, Tenderness, Tenderness, Rebound Extremities: No: Cold, Cool, Cyanosis Edema: No Labs: CBC, BMP 03/03/17 05:05 03/03/17 05:05 INR, PTT INR 4.18 (0.82-1.09) H* 03/03/17 05:05 Problem List - Problems (1) Bacteremia Code(s): R78.81 - BACTEREMIA (2) Septic arthritis Code(s): M00.9 - PYOGENIC ARTHRITIS, UNSPECIFIED (3) Endocarditis Code(s): I38 - ENDOCARDITIS, VALVE UNSPECIFIED Assessment/Plan Microbiology 03/01/17 07:56 Synovial Fluid - Knee Gram Stain - Final 02/28/17 06:30 Urine - Urine Stock Urine Culture - Final NO GROWTH OBTAINED 03/01/17 07:56 Synovial Fluid - Knee Body Fluid Culture - Preliminary Beta Hem Streptococcus Group C 03/01/17 05:40 Blood - Peripheral Venous Blood Culture - Preliminary NO GROWTH OBTAINED AFTER 48 HOURS, INCUBATION TO CONTINUE FOR 3 DAYS. 03/01/17 05:30 Blood - Peripheral Venous Blood Culture - Preliminary NO GROWTH OBTAINED AFTER 48 HOURS, INCUBATION TO CONTINUE FOR 3 DAYS. 02/28/17 00:05 Blood - Peripheral Venous Blood Culture - Preliminary Beta Hem Streptococcus Group C 02/28/17 00:05 Blood - Peripheral Venous Blood Culture - Preliminary Beta Hem Streptococcus Group C Laboratory Tests 02/28/17 03/02/17 03/03/17 00:08 05:20 05:05 WBC 17.8 H 13.4 H Hgb 10.7 L Hct 32.3 L Plt Count 147 ESR 61 H INR 03/03/17 05:05 WBC Hgb Hct Plt Count ESR INR 4.18 H* Assessment Sepsis syndrome Group C Strep bacteremia ruling ut endocarditis Septic arthritis of the knee hematogenous in origin CT scan showing some ant chest wall inflammation but he has no tenderness or findings so etiology of this unclear Coagulopathy Coumadin related Post CABG surgery ICD device Labial herpes simplex infection Plan Switch to Ampicillin for now Will need PICC line for home infusion possibly Ceftriaxone 2 grs daily Follow ESR and CRP SANGITA today Add Valtrex 500mg bid 40 minutes critical care time spent with patient Mary BILLINGS
[2017-03-03] MEDS ORDERED: PROPOFOL 20 ML ONE ×2 (07:53)
[2017-03-03] MEDS ORDERED: LIDOCAINE HCL/PF 2% SDV 5ML VIAL ONE (07:53)
[2017-03-03] MEDS ORDERED: PHENYLEPHRINE HCL 10 MG/1 ML SINGLE DOSE VIAL ONE (07:54)
--- NOTE | 2017-03-03 08:47 | PN ---
Progress Note (short form) - Note Progress Note: SANGITA performed this am. Pt tolerated procedure well without complications. Full report to follow. There is no echocardiographic evidence of vegetation or abscess to suggest endocarditis. The mitral, tricuspid, and aortic valves were well visualized. The pulmonic valve was not well visualized but grossly normal. The right atrial and right ventricular device wires were nearly completely visualized with no evidence of vegetation. -Keep pt NPO for 2 hours post procedure until 1030 at which time check gag reflex and if positive gag reflex can resume previous diet.
--- NOTE | 2017-03-03 08:57 | PN ---
Physical Exam: SUBJECTIVE: Patient seen and examined. s/p SANGITA - without vegetations. tired, easily arousable. c/o feeling thirsty. He has been on iron tablets since he was a child due to mild anemia his entire life. denies hx of GI bleed or gi ulcers. OBJECTIVE: Vital Signs Period Temp Pulse Resp BP Sys/Juarez Pulse Ox Last 24 Hr 97.7 F-98.8 F 69-81 17-30 123-155/78-99 100-100 HEAD: generalized facial edema - improved since previous exam, not yet back to baseline. forehead and orbital swelling signigicantly reduced. EYES: Pupils equal, round and reactive to light, extraocular movements intact, sclera anicteric, conjunctiva clear. No lid lag. eyelids without edema. EARS, NOSE, THROAT: Ears normal, nares patent, swelling of nose, oropharynx clear without exudates. no tongue swelling, uvula midline, upper and lower lips swollen with left lower lip with ruptured vesicles now with demuted skin on inner mucosa of lip with thick saliva, left lip>right lip. Moist mucous membranes. NECK: Normal range of motion, supple without lymphadenopathy, JVD, or masses. decreased edema, mild ttp. LUNGS: Breath sounds equal, clear to auscultation bilaterally. No wheezes, and no crackles. No accessory muscle use. HEART: afib, normal S1 and S2 without murmur, rub or gallop. ABDOMEN: Soft, nontender, not distended, normoactive bowel sounds, no guarding, no rebound, no masses. MUSCULOSKELETAL: No CVA tenderness. Right lower extremity: in knee immobilizer. UPPER EXTREMITIES: 2+ radial pulses, warm, well-perfused. No cyanosis. No clubbing. No peripheral edema. LEFT LOWER EXTREMITY: 2+ dorsalis pulses, warm, well-perfused. No calf tenderness. No peripheral edema. NEUROLOGICAL: Normal speech, speaking in full sentences without difficulty, able to swallow/breathe without difficulty. Laboratory Results - last 24 hr 03/02/17 03/02/17 03/02/17 16:55 18:39 22:01 WBC RBC Hgb Hct MCV MCHC RDW Plt Count MPV Neutrophils % Lymphocytes % Monocytes % Eosinophils % Basophils % INR Sodium Potassium Chloride Carbon Dioxide Anion Gap BUN Creatinine Creat Clearance w eGFR POC Glucometer [phone] Random Glucose Calcium Phosphorus Magnesium Total Bilirubin AST ALT Alkaline Phosphatase Total Protein Albumin Stool Occult Blood Positive 03/03/17 03/03/17 03/03/17 05:05 05:05 05:05 WBC 13.4 H RBC 3.44 L Hgb 10.7 L Hct 32.3 L MCV 93.9 MCHC 33.1 RDW 13.7 Plt Count 147 MPV 11.6 H Neutrophils % 91.9 H Lymphocytes % 5.2 L D Monocytes % 2.7 L Eosinophils % 0.0 Basophils % 0.2 INR 4.18 H* Sodium 143 Potassium 4.6 Chloride 107 Carbon Dioxide 27 Anion Gap 9 BUN 46 H Creatinine 1.1 Creat Clearance w eGFR > 60 POC Glucometer Random Glucose 167 H Calcium 7.3 L Phosphorus 3.3 Magnesium 2.3 Total Bilirubin 0.7 AST 20 ALT 21 Alkaline Phosphatase 70 Total Protein 5.2 L Albumin 1.5 L Stool Occult Blood 03/03/17 06:57 WBC RBC Hgb Hct MCV MCHC RDW Plt Count MPV Neutrophils % Lymphocytes % Monocytes % Eosinophils % Basophils % INR Sodium Potassium Chloride Carbon Dioxide Anion Gap BUN Creatinine Creat Clearance w eGFR POC Glucometer [phone] Random Glucose Calcium Phosphorus Magnesium Total Bilirubin AST ALT Alkaline Phosphatase Total Protein Albumin Stool Occult Blood Active Medications Generic Name Dose Route Start Last Admin Trade Name Freq PRN Reason Stop Dose Admin Acetaminophen 650 mg 03/01/17 19:31 Tylenol - PO Q4H PRN FEVER OR PAIN Artificial Tears 1 drop 03/01/17 19:31 Artificial Tears OU Q6H PRN DRY EYES Atorvastatin Calcium 10 mg 03/01/17 22:00 03/02/17 21:27 Lipitor - PO Not Given HS [facility] Carvedilol 6.25 mg 03/01/17 22:00 03/02/17 21:17 Coreg - PO 6.25 mg BID [facility] Administration Chlorhexidine Gluconate 1 applic 03/01/17 22:00 03/02/17 21:17 Hibiclens For Decolonization - TP 1 applic HS [facility] Administration Docusate Sodium 100 mg 03/01/17 22:00 03/03/17 06:40 Colace - PO Not Given TID [facility] Ferrous Sulfate 325 mg 03/02/17 08:00 03/02/17 17:38 Feosol - PO 325 mg TIDCM [facility] Administration Famotidine/Sodium Chloride 50 mls @ 100 mls/hr 03/01/17 22:00 03/02/17 21:17 Pepcid 20 Mg Premixed Ivpb - IVPB 100 mls/hr BID [facility] Administration Sodium Chloride 1,000 mls @ 125 mls/hr 03/01/17 19:31 03/02/17 19:27 Normal Saline - IV 125 mls/hr ASDIR [facility] Administration Ampicillin Sodium 2 gm/ Sodium 100 mls @ 200 mls/hr 03/02/17 08:45 03/03/17 04: 50 Chloride IVPB 200 mls/hr Q4H [facility] Administration Insulin Aspart 1 vial 03/02/17 16:30 03/03/17 06:58 Novolog Vial Sliding Scale - SQ Not Given ACHS [facility] Protocol Methylprednisolone Sodium Succinate 40 mg 03/01/17 22:00 03/02/17 21:18 Solu-Medrol - IVPB 40 mg BID [facility] Administration Morphine Sulfate 2 mg 03/01/17 19:31 Morphine Injection - IVPUSH Q4H PRN PAIN Multivitamins/Minerals/Vitamin C 1 tab 03/02/17 10:00 03/02/17 09:06 Tab-A-Vit - PO 1 tab DAILY [facility] Administration Mupirocin 1 applic 03/01/17 22:00 03/02/17 21:25 Bactroban Ointment (For Decolonization) - NS 03/05/17 09:59 1 applic BID [facility] Administration Piicd-2-Puhb Ethyl Esters 1 gm 03/02/17 10:00 03/02/17 09:06 Lovaza - PO 1 gm DAILY [facility] Administration Ondansetron HCl 4 mg 03/01/17 19:31 Zofran Injection IVPB Q6H PRN NAUSEA Sodium Chloride 2 spray 03/01/17 19:31 [place] Nasal [place] - NS Q12H PRN NASAL CONGESTION ASSESSMENT/PLAN: 66 yr old man with afib on coumadin, HTN, Afib, CAD s/p CABG admitted for angioedema to the lip which has improved, now in the ICU for sepsis secondary to gram + bacteremia and septic right knee. - would like to go to [facility] for rehab at time of discharge Infectious Disease - sepsis secondary to septic joint beta hemolytic group c strep in bld cx and wound cx ampicillin 2gm q4h echo to r/o endocarditis -- no vegetations reported on TTE, SANGITA without vegetations consult: Dr. Diehl Immunological angioedema likely secondary to entresto - improving currently protecting airway, tolerating po solumedrol 40mg IVpb daily starting 03/04 - steroid course: -- 40mg q8h 02/26- (3 days), 40mg q12hr 03/01- (3 days) nasal cannula o2, maintain sat >90% Cardiovascular afib; rate controlled, ICD intermittently paced HTN - coreg 6.25 po BID Avoid all ACEI and ARB medications systoic CHF - currently no signs of acute exacerbation consult: dr. abarca Hematological supratherapeutic INR - hold coumadin consider heparin if continued NPO status and AC is needed leucocytosis from sepsis, trending down - afebrile today, monitor for fevers. decrease in H/H, fobt positive yesterday afternoon. h/h stable today, repeat fobt today Renal JEREMY resolved, encourage oral intake dc ponce trend BMP GI pepcid for GI prophylaxis while on steroids Endocrine HbA1c 6.5; new onset Diabetes mellitus BGM and NISS ACHS recommend outpatient f/u with pcp for repeat testing Orthopedic - POD #2 from knee insert replacement - tolerated physical therapy and OOB to chair yesterday. - continue PT, encourage OOB to chair and baker souci due to patient's preference for rehab DVT: supratherpeutic INR diet: sodium controlled diabetic diet dispo: can be monitored on Telemetry Visit type - Emergency Visit Emergency Visit: No - New Patient This patient is new to me today: No - Critical Care Critical Care patient: Yes Total Critical Care Time (in minutes): 35 Critical Care Statement: The care of this patient involved high complexity decision making to prevent further life threatening deterioration of the patient 's condition and/or to evalute & treat vital organ system(s) failure or risk of failure.
[2017-03-03] MEDS: FERROUS SO4 325 MG TABLET (FP) PO SCH ×3 (09:19→18:42)
--- NOTE | 2017-03-03 09:21 | PN ---
Progress Note (short form) - Note Progress Note: Subjective: The patient was seen and examined at the bedside, he just arrived back in the ICU from [facility]. He reports feeling "groggy" SANGITA: no echocardiographic evidence of vegetation or abscess to suggest endocarditis Current Medications Generic Name Dose Route Start Last Admin Trade Name Freq PRN Reason Stop Dose Admin Acetaminophen 650 mg 03/01/17 19:31 Tylenol - PO Q4H PRN FEVER OR PAIN Artificial Tears 1 drop 03/01/17 19:31 Artificial Tears OU Q6H PRN DRY EYES Atorvastatin Calcium 10 mg 03/01/17 22:00 03/02/17 21:27 Lipitor - PO Not Given HS [facility] Carvedilol 6.25 mg 03/01/17 22:00 03/02/17 21:17 Coreg - PO 6.25 mg BID [facility] Administration Chlorhexidine Gluconate 1 applic 03/01/17 22:00 03/02/17 21:17 Hibiclens For Decolonization - TP 1 applic HS [facility] Administration Docusate Sodium 100 mg 03/01/17 22:00 03/03/17 06:40 Colace - PO Not Given TID [facility] Ferrous Sulfate 325 mg 03/02/17 08:00 03/02/17 17:38 Feosol - PO 325 mg TIDCM [facility] Administration Famotidine/Sodium Chloride 50 mls @ 100 mls/hr 03/01/17 22:00 03/02/17 21:17 Pepcid 20 Mg Premixed Ivpb - IVPB 100 mls/hr BID [facility] Administration Sodium Chloride 1,000 mls @ 125 mls/hr 03/01/17 19:31 03/02/17 19:27 Normal Saline - IV 125 mls/hr ASDIR [facility] Administration Ampicillin Sodium 2 gm/ Sodium 100 mls @ 200 mls/hr 03/02/17 08:45 03/03/17 04: 50 Chloride IVPB 200 mls/hr Q4H [facility] Administration Insulin Aspart 1 vial 03/02/17 16:30 03/03/17 06:58 Novolog Vial Sliding Scale - SQ Not Given ACHS [facility] Protocol Methylprednisolone Sodium Succinate 40 mg 03/01/17 22:00 03/02/17 21:18 Solu-Medrol - IVPB 40 mg BID [facility] Administration Morphine Sulfate 2 mg 03/01/17 19:31 Morphine Injection - IVPUSH Q4H PRN PAIN Multivitamins/Minerals/Vitamin C 1 tab 03/02/17 10:00 03/02/17 09:06 Tab-A-Vit - PO 1 tab DAILY [facility] Administration Mupirocin 1 applic 03/01/17 22:00 03/02/17 21:25 Bactroban Ointment (For Decolonization) - NS 03/05/17 09:59 1 applic BID [facility] Administration Ljkbu-8-Tcys Ethyl Esters 1 gm 03/02/17 10:00 03/02/17 09:06 Lovaza - PO 1 gm DAILY [facility] Administration Ondansetron HCl 4 mg 03/01/17 19:31 Zofran Injection IVPB Q6H PRN NAUSEA Sodium Chloride 2 spray 03/01/17 19:31 [place] Nasal [place] - NS Q12H PRN NASAL CONGESTION Objective: Vital Signs Period Temp Pulse Resp BP Sys/Juarez Pulse Ox Last 24 Hr 97.7 F-98.8 F 69-81 17-30 123-155/78-99 100-100 Physical Exam: General: NAD, A&Ox3 HEENT: Upper lip swelling resolved. Lower lip with left sided crusting and small amount of oozing. No drooling, hoarseness noted Lungs: CTA bilaterally, no stridor or wheezing noted Heart: RRR, S1S2 Abd: Soft, non-tender, non-distended. Normoactive bowel sounds Ext: Warm, well-perfused. 2+ DP/PT bilaterally Neuro: Unable to assess CN due to facial swelling MSK: Right knee brace, right knee drain CBCD WBC 13.4 K/mm3 (4.0-10.0) H 03/03/17 05:05 RBC 3.44 M/mm3 (4.00-5.60) L 03/03/17 05:05 Hgb 10.7 GM/dL (11.7-16.9) L 03/03/17 05:05 Hct 32.3 % (35.4-49) L 03/03/17 05:05 MCV 93.9 fl (80-96) 03/03/17 05:05 MCHC 33.1 g/dl (32.0-35.9) 03/03/17 05:05 RDW 13.7 % (11.9-15.9) 03/03/17 05:05 Plt Count 147 K/MM3 (134-434) 03/03/17 05:05 MPV 11.6 fl (7.5-11.1) H 03/03/17 05:05 CMP Sodium 143 mmol/L (136-145) 03/03/17 05:05 Potassium 4.6 mmol/L (3.5-5.1) 03/03/17 05:05 Chloride 107 mmol/L (98-107) 03/03/17 05:05 Carbon Dioxide 27 mmol/L (21-32) 03/03/17 05:05 Anion Gap 9 (8-16) 03/03/17 05:05 BUN 46 mg/dL (7-18) H 03/03/17 05:05 Creatinine 1.1 mg/dL (0.7-1.3) 03/03/17 05:05 Creat Clearance w eGFR > 60 (>60) 03/03/17 05:05 Random Glucose 167 mg/dL (74-106) H 03/03/17 05:05 Calcium 7.3 mg/dL (8.5-10.1) L 03/03/17 05:05 Total Bilirubin 0.7 mg/dL (0.2-1.0) 03/03/17 05:05 AST 20 U/L (15-37) 03/03/17 05:05 ALT 21 U/L (12-78) 03/03/17 05:05 Alkaline Phosphatase 70 U/L (45-117) 03/03/17 05:05 Total Protein 5.2 g/dl (6.4-8.2) L 03/03/17 05:05 Albumin 1.5 g/dl (3.4-5.0) L 03/03/17 05:05 CARDIAC ENZYMES Troponin I < 0.02 ng/ml (0.00-0.05) 02/27/17 00:00 Microbiology 03/01/17 05:40 Blood - Peripheral Venous Blood Culture - Preliminary NO GROWTH OBTAINED AFTER 48 HOURS, INCUBATION TO CONTINUE FOR 3 DAYS. 03/01/17 05:30 Blood - Peripheral Venous Blood Culture - Preliminary NO GROWTH OBTAINED AFTER 48 HOURS, INCUBATION TO CONTINUE FOR 3 DAYS. 03/01/17 07:56 Synovial Fluid - Knee Gram Stain - Final 03/01/17 07:56 Synovial Fluid - Knee Body Fluid Culture - Preliminary Beta Hem Streptococcus Group C 02/28/17 00:05 Blood - Peripheral Venous Blood Culture - Preliminary Beta Hem Streptococcus Group C 02/28/17 00:05 Blood - Peripheral Venous Blood Culture - Preliminary Beta Hem Streptococcus Group C 02/28/17 06:30 Urine - Urine Stock Urine Culture - Final NO GROWTH OBTAINED Assessment: This is a 66 year old male with PMHx of Afib (on Coumadin), CAD s/p CABG, systolic CHF s/p AICD, HTN, dyslipidemia who presents to the ED with angioedema. Plan: 1) ID: Severe sepsis 2/2 group C strept right knee joint, Group C strept bacteremia - Patient reports removal of tooth 6 months ago, he did not receive antibiotics at that time - S/p Right knee washout and poly exchange on 03/01 - Repeat blood cultures on 03/01 with NGTD - SANGITA with no echocardiographic evidence of vegetation or abscess to suggest endocarditis - Continue on Ampicillin (03/01- ) - Vancomyin (02/27-03/02) - Appreciate ortho consult - Appreciate ID consult 2) Angioedema: - Resolved - Likely 2/2 Entresto - S/p FFP on admission - Continue Solu-medrol, taper - Continue Famotidine - Appreciate ENT consult 2) Cardiology: A.fib - Supratherapeutic INR, continue to hold Coumadin CAD s/p CABG - Continue statin - Continue ASA HTN - Continue Norvasc - Continue Carvedilol Ischemic cardiomyopathy s/p ICD - Currently appears euvolemic - Will need to avoid all acei/arb - Appreciate cardiology consult 3) : JEREMY - Resolved - Continue to monitor 4) Endocrine: Steroid induced hyperglycemia - Hgb A1c 6.5. New onset diabetes? vs. steroid induced - BGM ACHS - ISS ACHS 5) F/E/N: - Monitor electrolytes - Sodium controlled, diabetic diet 6) Prophylaxis: - OOB ambulating - Hold all chemical DVT prophylaxis 2/2 supratherapeutic INR - PT: weight bearing as tolerated 7) Dispo: - Requires continued inpatient care - Will need referral to customs investigator upon discharge - Will need SNF placement CODE STATUS: FULL CODE Visit type - Emergency Visit Emergency Visit: Yes ED Registration Date: 02/26/17 Care time: The patient presented to the Emergency Department on the above date and was hospitalized for further evaluation of their emergent condition. - New Patient This patient is new to me today: No - Critical Care Critical Care patient: Yes Total Critical Care Time (in minutes): 38 Critical Care Statement: The care of this patient involved high complexity decision making to prevent further life threatening deterioration of the patient 's condition and/or to evalute & treat vital organ system(s) failure or risk of failure.
--- NOTE | 2017-03-03 09:40 | PN ---
Progress Note, Physician Chief Complaint: s/p SANGITA earlier this AM No vegetation seen History of Present Illness: alert and oriented No distress Angioedema much improved Blood cultures 03/01, follow up cultures, NGTD TELE: Underlying AF with intermittent V-pacing. - Current Medication List Current Medications: Active Medications Acetaminophen (Tylenol -) 650 mg PO Q4H PRN PRN Reason: FEVER OR PAIN Artificial Tears (Artificial Tears) 1 drop OU Q6H PRN PRN Reason: DRY EYES Atorvastatin Calcium (Lipitor -) 10 mg PO [facility] Last Admin: 03/02/17 21:27 Dose: Not Given Carvedilol (Coreg -) 6.25 mg PO BID [facility] Last Admin: 03/02/17 21:17 Dose: 6.25 mg Chlorhexidine Gluconate (Hibiclens For Decolonization -) 1 applic TP [facility] Last Admin: 03/02/17 21:17 Dose: 1 applic Docusate Sodium (Colace -) 100 mg PO TID [facility] Last Admin: 03/03/17 06:40 Dose: Not Given Ferrous Sulfate (Feosol -) 325 mg PO TIDCM [facility] Last Admin: 03/03/17 09:19 Dose: Not Given Famotidine/Sodium Chloride (Pepcid 20 Mg Premixed Ivpb -) 50 mls @ 100 mls/hr IVPB BID [facility] Last Admin: 03/02/17 21:17 Dose: 100 mls/hr Sodium Chloride (Normal Saline -) 1,000 mls @ 125 mls/hr IV ASDIR [facility] Last Admin: 03/02/17 19:27 Dose: 125 mls/hr Ampicillin Sodium 2 gm/ Sodium (Chloride) 100 mls @ 200 mls/hr IVPB Q4H [facility] Last Admin: 03/03/17 04:50 Dose: 200 mls/hr Insulin Aspart (Novolog Vial Sliding Scale -) 1 vial SQ ACHS [facility] PRN Reason: Protocol Last Admin: 03/03/17 06:58 Dose: Not Given Methylprednisolone Sodium Succinate (Solu-Medrol -) 40 mg IVPB BID [facility] Last Admin: 03/02/17 21:18 Dose: 40 mg Morphine Sulfate (Morphine Injection -) 2 mg IVPUSH Q4H PRN PRN Reason: PAIN Multivitamins/Minerals/Vitamin C (Tab-A-Vit -) 1 tab PO DAILY [facility] Last Admin: 03/02/17 09:06 Dose: 1 tab Mupirocin (Bactroban Ointment (For Decolonization) -) 1 applic NS BID [facility] Stop: 03/05/17 09:59 Last Admin: 03/02/17 21:25 Dose: 1 applic Zmqvb-2-Xuvw Ethyl Esters (Lovaza -) 1 gm PO DAILY [facility] Last Admin: 03/02/17 09:06 Dose: 1 gm Ondansetron HCl (Zofran Injection) 4 mg IVPB Q6H PRN PRN Reason: NAUSEA Sodium Chloride ([place] Nasal [place] -) 2 spray NS Q12H PRN PRN Reason: NASAL CONGESTION - Objective Vital Signs: Vital Signs Temperature 98.2 F 03/03/17 09:13 Pulse Rate 70 03/03/17 09:13 Respiratory Rate 26 H 03/03/17 09:13 Blood Pressure 145/79 03/03/17 09:13 O2 Sat by Pulse Oximetry (%) 100 03/03/17 09:00 Constitutional: Yes: No Distress HENT: Yes: Other (resolving angioedema) Cardiovascular: Yes: Pulse Irregular, Other (no murmurs) Respiratory: Yes: CTA Bilaterally (no rales or wheezing) Gastrointestinal: Yes: Soft (non-tender) Edema: No Neurological: Yes: Alert, Oriented ...Motor Strength: WNL Labs: CBC, BMP 03/03/17 05:05 03/03/17 05:05 INR, PTT INR 4.18 (0.82-1.09) H* 03/03/17 05:05 Laboratory Tests 03/03/17 03/03/17 03/03/17 05:05 05:05 05:05 WBC 13.4 H Hgb 10.7 L Hct 32.3 L Plt Count 147 INR 4.18 H* Sodium 143 Potassium 4.6 BUN 46 H Creatinine 1.1 - ....Imaging EKG: Image Reviewed Problem List - Problems (1) Angioedema Code(s): T78.3XXA - ANGIONEUROTIC EDEMA, INITIAL ENCOUNTER Qualifiers: Encounter type: initial encounter Qualified Code(s): T78.3XXA - Angioneurotic edema, initial encounter (2) Atrial fibrillation Code(s): I48.91 - UNSPECIFIED ATRIAL FIBRILLATION Qualifiers: Atrial fibrillation type: permanent Qualified Code(s): I48.2 - Chronic atrial fibrillation (3) CAD (coronary artery disease) Code(s): I25.10 - ATHSCL HEART DISEASE OF [place] CORONARY ARTERY W/O ANG PCTRS Qualifiers: Coronary Disease-Associated Artery/Lesion type: bypass graft [place] vs. transplanted heart: [place] heart Associated angina: without angina Qualified Code(s): I25.810 - Atherosclerosis of coronary artery bypass graft( s) without angina pectoris (4) Elevated INR Code(s): R79.1 - ABNORMAL COAGULATION PROFILE (5) Leukocytosis Code(s): D72.829 - ELEVATED WHITE BLOOD CELL COUNT, UNSPECIFIED Qualifiers: Leukocytosis type: unspecified Qualified Code(s): D72.829 - Elevated white blood cell count, unspecified (6) Chronic systolic (congestive) heart failure Code(s): I50.22 - CHRONIC SYSTOLIC (CONGESTIVE) HEART FAILURE (7) ICD (implantable cardioverter-defibrillator) in place Code(s): Z95.810 - PRESENCE OF AUTOMATIC (IMPLANTABLE) CARDIAC DEFIBRILLATOR (8) Renal insufficiency Code(s): N28.9 - DISORDER OF KIDNEY AND URETER, UNSPECIFIED Assessment/Plan IMP: Strep bacteremia with infected R. knee, s/p I&D Angioedema, improved- presumed secondary to Entresto Ischemic Cardiomyopathy s/p CABG and ICD REC: 1. Hemodynamically stable s/p R. knee I &D with serial blood cultures negative to date. SANGITA negative for vegetation. Antibiotics as per ID. 2. Angioedema resolving: would not resume Entresto nor any TUAN/ARB. In future, will transition to Imdur + Hydralazine. 3. Daily INR for goal 2-3 (AF). Hold coumadin as INR remains slightly supratherapeutic. Likely interaction with antibiotics/ effect of infection.
[2017-03-03] MEDS: FAMOTIDINE 20 MG/50 ML IVPB 50 ML IVPB SCH (10:02)
[2017-03-03] MEDS: methylPREDNISolone NA SUCC 40 MG/1 ML VIAL IVPB SCH ×2 (10:02→21:47)
--- NOTE | 2017-03-03 10:12 | PN ---
Progress Note (short form) - Note Progress Note: AVSS COMFORTABLE MINIMAL DRAINAGE FROM HEMOVAC ---> DCED CALF SOFT AND NT WBC=13 IMP: IMPROVING PLAN: IV ABX PER ID, PIC LINE, 6 WEEKS ABX
[2017-03-03] MEDS: MUPIROCIN 2% TOPICAL OINTMENT FOR DECOLONIZATION NS SCH (10:34)
--- NOTE | 2017-03-03 11:21 | PATH ---
Surgical Pathology Report Patient Name: MOO CARBONE Med. Rec. #: [id number] /Age/Gender: 1950 (Age: 66) / M Account: [id number] Location: ICU MANAGER REGULATORY Taken: 03/02/2017 Received: 03/02/2017 Reported: 03/03/2017 Physicians: Earle Madden M.D. Specimen(s) Received FOREIGN BODY REMOVED RIGHT KNEE POLYLINER Clinical History Right knee replacement section Final Diagnosis ORTHOPEDIC HARDWARE, RIGHT KNEE, REMOVAL: PORTION OF KNEE PROSTHESIS (GROSS ONLY). Electronically Signed Alvaro Torres M.D. Gross Description Received fresh labeled "removal right knee polyliner," is an 8.5 x 5.5 x 3.0 cm white, plastic device, consistent with hardware from the knee. Also received within the same container is a 5.0 x 2.1 x 0.3 cm [place] metallic portion of hardware. No soft tissue is present. No sections are submitted, gross only. /03/02[facility]2017 [facility]
--- NOTE | 2017-03-03 12:01 | PN ---
Teaching Attending Note Name of Resident: Nereyda Quiroz ATTENDING PHYSICIAN STATEMENT I saw and evaluated the patient. I reviewed the resident's note and discussed the case with the resident. I agree with the resident's findings and plan as documented. SUBJECTIVE: Pt seen and examined in the ICU. s/p SANGITA this AM which did not show evidence of vegetations. No fevers or chills. OBJECTIVE: Gen: somnolent but arousable Heart: RRR Lung: decreased breath sounds at the bases Abd: soft, nontender Ext: right leg in immobilizer CBC, BMP 03/03/17 05:05 03/03/17 05:05 Active Medications Acetaminophen (Tylenol -) 650 mg PO Q4H PRN PRN Reason: FEVER OR PAIN Artificial Tears (Artificial Tears) 1 drop OU Q6H PRN PRN Reason: DRY EYES Atorvastatin Calcium (Lipitor -) 10 mg PO HS [facility] Last Admin: 03/02/17 21:27 Dose: Not Given Carvedilol (Coreg -) 6.25 mg PO BID [facility] Last Admin: 03/02/17 21:17 Dose: 6.25 mg Chlorhexidine Gluconate (Hibiclens For Decolonization -) 1 applic TP HS [facility] Last Admin: 03/02/17 21:17 Dose: 1 applic Docusate Sodium (Colace -) 100 mg PO TID [facility] Last Admin: 03/03/17 06:40 Dose: Not Given Ferrous Sulfate (Feosol -) 325 mg PO TIDCM [facility] Last Admin: 03/03/17 09:19 Dose: Not Given Famotidine/Sodium Chloride (Pepcid 20 Mg Premixed Ivpb -) 50 mls @ 100 mls/hr IVPB BID [facility] Last Admin: 03/03/17 10:02 Dose: 100 mls/hr Sodium Chloride (Normal Saline -) 1,000 mls @ 125 mls/hr IV ASDIR [facility] Last Admin: 03/02/17 19:27 Dose: 125 mls/hr Ampicillin Sodium 2 gm/ Sodium (Chloride) 100 mls @ 200 mls/hr IVPB Q4H [facility] Last Admin: 03/03/17 11:07 Dose: 200 mls/hr Insulin Aspart (Novolog Vial Sliding Scale -) 1 vial SQ ACHS [facility] PRN Reason: Protocol Last Admin: 03/03/17 06:58 Dose: Not Given Methylprednisolone Sodium Succinate (Solu-Medrol -) 40 mg IVPB BID [facility] Last Admin: 03/03/17 10:02 Dose: 40 mg Morphine Sulfate (Morphine Injection -) 2 mg IVPUSH Q4H PRN PRN Reason: PAIN Multivitamins/Minerals/Vitamin C (Tab-A-Vit -) 1 tab PO DAILY [facility] Last Admin: 03/02/17 09:06 Dose: 1 tab Mupirocin (Bactroban Ointment (For Decolonization) -) 1 applic NS BID [facility] Stop: 03/05/17 09:59 Last Admin: 03/03/17 10:34 Dose: 1 applic [id number]-6-[id number] Ethyl Esters (Lovaza -) 1 gm PO DAILY [facility] Last Admin: 03/02/17 09:06 Dose: 1 gm Ondansetron HCl (Zofran Injection) 4 mg IVPB Q6H PRN PRN Reason: NAUSEA Sodium Chloride ([place] Nasal [place] -) 2 spray NS Q12H PRN PRN Reason: NASAL CONGESTION ASSESSMENT AND PLAN: Angioedema Septic Arthritis Strep Bacteremia Angioedema resolved Atrial Fibrillation LV Systolic Dysfunction CAD s/p CABG HTN Hyperlipidemia - continue antibiotics per ID - wound care - beta britta, statin - rate controlled - continue anticoagulation - taper medrol - rehab/PT - can monitor on telemetry critical care time spent in reviewing chart, evaluating patient and formulating plan 35 min
[2017-03-03] MEDS: OMEGA-3 ACID ETHYL ESTERS (FATTY-ACIDS) 1 GM CAPSULE (FP) PO SCH (14:23)
[2017-03-03] MEDS: MULTIVITAMINS (DAILY MVI) TABLET (FP) PO SCH (14:23)
[2017-03-03] MEDS: CARVEDILOL 6.25 MG TABLET (FP) PO SCH ×2 (14:24→21:46)
[2017-03-03] MEDS ORDERED: ONDANSETRON 4 MG/2 ML VIAL IVPB PRN (17:50)
[2017-03-03] MEDS ORDERED: ARTIFICIAL TEARS (POLYVINYL ALCOHOL 1.4%) OPTH DROPS OU PRN (17:50)
[2017-03-03] MEDS ORDERED: SODIUM CHLORIDE NASAL SPRAY 44 ML BOTTLE NS PRN (17:50)
[2017-03-03] MEDS ORDERED: morphine CARPU-JECT 2 MG/1 ML DISP.SYRIN IVPUSH PRN (17:50)
[2017-03-03] MEDS: ATORVASTATIN CA 10 MG TABLET (FP) PO SCH (21:46)
[2017-03-03] MEDS: SODIUM CHLORIDE 1,000 ML IV SCH (21:49)
[2017-03-03] MEDS ORDERED: methylPREDNISolone NA SUCC 40 MG/1 ML VIAL IVPB ONE (22:00)
[2017-03-04] MEDS ORDERED: PT OWN MED DRAWER 7, Y5N ONE (02:24)
[2017-03-04] MEDS: AMPICILLIN - 2 GM in SODIUM CHLORIDE 100 ML IVPB SCH ×3 (02:25→10:00)
[2017-03-04] MEDS: DOCUSATE SODIUM 100 MG CAPSULE (FP) PO SCH ×3 (05:38→21:23)
[2017-03-04] MEDS: SODIUM CHLORIDE 1,000 ML IV SCH ×2 (05:46→17:53)
[2017-03-04] MEDS: INSULIN SLIDING SCALE (NOVOLOG) 1 VIAL SQ SCH ×4 (06:03→21:25)
[2017-03-04 06:41] LABS: BASOPHIL 0.1 % (0-2.0); MCH 31.3 pg (25.7-33.7); MCHC 33.2 g/dl (32.0-35.9); MEAN CELL VOLUME 94.2 fl (80-96); MEAN PLT VOLUME 10.8 fl (7.5-11.1); NEUTROPHILS 89.5 % (42.8-82.8); PLATELET COUNT 188 K/MM3 (134-434); RDW 13.6 % (11.9-15.9); WHITE BLOOD COUNT 10.6 K/mm3 (4.0-10.0)
[2017-03-04 06:55] LABS: CALCIUM 7.3 mg/dL (8.5-10.1); COCKROFT - GAULT 90.18; CREATININE 1.1 mg/dL (0.7-1.3)
--- NOTE | 2017-03-04 09:05 | PN ---
Progress Note, Physician Chief Complaint: alert and oriented No chest pain or SOB TELE: AF, average rate controlled. Rare blips to 120s, self limited 3 beat run NSVT - Current Medication List Current Medications: Active Medications Acetaminophen (Tylenol -) 650 mg PO Q4H PRN PRN Reason: FEVER OR PAIN Artificial Tears (Artificial Tears) 1 drop OU Q6H PRN PRN Reason: DRY EYES Atorvastatin Calcium (Lipitor -) 10 mg PO HS [facility] Last Admin: 03/03/17 21:46 Dose: Not Given Carvedilol (Coreg -) 6.25 mg PO BID [facility] Last Admin: 03/03/17 21:46 Dose: 6.25 mg Docusate Sodium (Colace -) 100 mg PO TID [facility] Last Admin: 03/04/17 05:38 Dose: 100 mg Ferrous Sulfate (Feosol -) 325 mg PO TIDCM [facility] Ampicillin Sodium 2 gm/ Sodium (Chloride) 100 mls @ 200 mls/hr IVPB Q4H-IV [facility] Last Admin: 03/04/17 05:38 Dose: 200 mls/hr Sodium Chloride (Normal Saline -) 1,000 mls @ 125 mls/hr IV ASDIR [facility] Last Admin: 03/04/17 05:46 Dose: 125 mls/hr Insulin Aspart (Novolog Vial Sliding Scale -) 1 vial SQ ACHS [facility] PRN Reason: Protocol Last Admin: 03/04/17 06:03 Dose: Not Given Methylprednisolone Sodium Succinate (Solu-Medrol -) 40 mg IVPB DAILY [facility] Morphine Sulfate (Morphine Injection -) 2 mg IVPUSH Q4H PRN PRN Reason: PAIN Multivitamins/Minerals/Vitamin C (Tab-A-Vit -) 1 tab PO DAILY [facility] [id number] Ethyl Esters (Lovaza -) 1 gm PO DAILY [facility] Ondansetron HCl (Zofran Injection) 4 mg IVPB Q6H PRN PRN Reason: NAUSEA Sodium Chloride ([place] Nasal [place] -) 2 spray NS Q12H PRN PRN Reason: NASAL CONGESTION - Objective Vital Signs: Vital Signs Temperature 97.8 F 03/04/17 06:00 Pulse Rate 70 03/04/17 06:00 Respiratory Rate 20 03/04/17 06:00 Blood Pressure 154/93 03/04/17 06:00 O2 Sat by Pulse Oximetry (%) 96 03/03/17 21:00 Constitutional: Yes: Calm Eyes: Yes: Conjunctiva Clear Cardiovascular: Yes: Pulse Irregular Respiratory: Yes: CTA Bilaterally Gastrointestinal: Yes: Soft Edema: No Labs: CBC, BMP 03/04/17 05:35 03/04/17 05:35 INR, PTT INR 4.18 (0.82-1.09) H* 03/03/17 05:05 Laboratory Tests 03/04/17 03/04/17 03/04/17 05:35 05:35 05:35 WBC 10.6 H Hgb 10.4 L Plt Count 188 D INR Pending Sodium 142 Potassium 4.7 BUN 41 H Creatinine 1.1 Problem List - Problems (1) Angioedema Code(s): T78.3XXA - ANGIONEUROTIC EDEMA, INITIAL ENCOUNTER Qualifiers: Encounter type: initial encounter Qualified Code(s): T78.3XXA - Angioneurotic edema, initial encounter (2) Atrial fibrillation Code(s): I48.91 - UNSPECIFIED ATRIAL FIBRILLATION Qualifiers: Atrial fibrillation type: permanent Qualified Code(s): I48.2 - Chronic atrial fibrillation (3) CAD (coronary artery disease) Code(s): I25.10 - ATHSCL HEART DISEASE OF [place] CORONARY ARTERY W/O ANG PCTRS Qualifiers: Coronary Disease-Associated Artery/Lesion type: bypass graft [place] vs. transplanted heart: [place] heart Associated angina: without angina Qualified Code(s): I25.810 - Atherosclerosis of coronary artery bypass graft( s) without angina pectoris (4) Elevated INR Code(s): R79.1 - ABNORMAL COAGULATION PROFILE (5) Leukocytosis Code(s): D72.829 - ELEVATED WHITE BLOOD CELL COUNT, UNSPECIFIED Qualifiers: Leukocytosis type: unspecified Qualified Code(s): D72.829 - Elevated white blood cell count, unspecified (6) Chronic systolic (congestive) heart failure Code(s): I50.22 - CHRONIC SYSTOLIC (CONGESTIVE) HEART FAILURE (7) ICD (implantable cardioverter-defibrillator) in place Code(s): Z95.810 - PRESENCE OF AUTOMATIC (IMPLANTABLE) CARDIAC DEFIBRILLATOR (8) Renal insufficiency Code(s): N28.9 - DISORDER OF KIDNEY AND URETER, UNSPECIFIED Assessment/Plan IMP: Strep bacteremia with infected R. knee, s/p I&D Angioedema, improved- presumed secondary to Entresto Ischemic Cardiomyopathy s/p CABG and ICD REC: 1. Hemodynamically stable s/p R. knee I &D with serial blood cultures negative to date. SANGITA negative for vegetation. Antibiotics as per ID, will need PICC line. 2. Angioedema resolving: would not resume Entresto nor any TUAN/ARB. In future, will transition to Imdur + Hydralazine, as outpatient. 3. Daily INR for goal 2-3 (AF). -adjust dose as needed. -INR has been supratherapeutic last few days likely due to infxn and abx effect
--- NOTE | 2017-03-04 09:15 | PN ---
Physical Exam: SUBJECTIVE: Patient seen and examined at bedside. Denies nausea, vomiting, fevers, pain, cough, SOB, chest pain or dizziness. Patient is eager for PT session today to get OOB more frequently. OBJECTIVE: Vital Signs 3 Period Temp Pulse Resp BP Sys/[place] Pulse Ox Last 24 Hr 97.8 F-98.7 F 65-75 18-26 137-167/76-98 96 GENERAL: The patient is awake, alert, and fully oriented, in no acute distress. HEAD: Normal with no signs of trauma. EYES: PERRL, extraocular movements intact, sclera anicteric, conjunctiva clear. No ptosis. ENT: Ears normal, nares patent, oropharynx clear without exudates, moist mucous membranes. Minor swelling present to lower lip. NECK: Trachea midline, full range of motion, supple. LUNGS: Breath sounds equal, clear to auscultation bilaterally, no wheezes, no crackles, no accessory muscle use. HEART: Iregular rate and rhythm, S1, S2 without murmur, rub or gallop. ABDOMEN: Soft, nontender, nondistended, normoactive bowel sounds, no guarding, no rebound, no hepatosplenomegaly, no masses. EXTREMITIES: 2+ pulses, warm, well-perfused, no edema. RLE in immobilizer. Dressing with minimal serosanguinous drainage present. No calf tenderness present. Strength 5/5 and equal in BLE. NEUROLOGICAL: Cranial nerves II through XII grossly intact. Normal speech, gait not observed. PSYCH: Normal mood, normal affect. SKIN: Warm, dry, normal turgor, no rashes or lesions noted Laboratory Results - last 24 hr 3 03/03/17 03/03/17 03/03/17 11:39 17:04 21:37 WBC RBC Hgb Hct MCV MCHC RDW Plt Count MPV Neutrophils % Lymphocytes % Monocytes % Eosinophils % Basophils % Sodium Potassium Chloride Carbon Dioxide Anion Gap BUN Creatinine POC Glucometer 175.53790 203.27468 132 Random Glucose Calcium 3 03/04/17 03/04/17 03/04/17 05:31 05:35 05:35 WBC 10.6 H RBC 3.33 L Hgb 10.4 L Hct 31.4 L MCV 94.2 MCHC 33.2 RDW 13.6 Plt Count 188 D MPV 10.8 Neutrophils % 89.5 H Lymphocytes % 6.8 L D Monocytes % 3.6 L Eosinophils % 0.0 Basophils % 0.1 Sodium 142 Potassium 4.7 Chloride 106 Carbon Dioxide 28 Anion Gap 8 BUN 41 H Creatinine 1.1 POC Glucometer 161 Random Glucose 176 H Calcium 7.3 L Active Medications 3 Generic Name Dose Route Start Last Admin Trade Name Freq PRN Reason Stop Dose Admin Acetaminophen 650 mg 03/03/17 17:50 Tylenol - PO Q4H PRN FEVER OR PAIN Artificial Tears 1 drop 03/03/17 17:50 Artificial Tears OU Q6H PRN DRY EYES Atorvastatin Calcium 10 mg 03/03/17 22:00 03/03/17 21:46 Lipitor - PO Not Given HS [facility] Carvedilol 6.25 mg 03/03/17 22:00 03/03/17 21:46 Coreg - PO 6.25 mg BID [facility] Administration Docusate Sodium 100 mg 03/03/17 22:00 03/04/17 05:38 Colace - PO 100 mg TID [facility] Administration Ferrous Sulfate 325 mg 03/04/17 08:00 Feosol - PO TIDCM [facility] Ampicillin Sodium 2 gm/ Sodium 100 mls @ 200 mls/hr 03/03/17 22:00 03/04/17 05: 38 Chloride IVPB 200 mls/hr Q4H-IV [facility] Administration Sodium Chloride 1,000 mls @ 125 mls/hr 03/03/17 17:50 03/04/17 05:46 Normal Saline - IV 125 mls/hr ASDIR [facility] Administration Insulin Aspart 1 vial 03/03/17 22:00 03/04/17 06:03 Novolog Vial Sliding Scale - SQ Not Given ACHS [facility] Protocol Methylprednisolone Sodium Succinate 40 mg 03/04/17 10:00 Solu-Medrol - IVPB DAILY [facility] Morphine Sulfate 2 mg 03/03/17 17:50 Morphine Injection - IVPUSH Q4H PRN PAIN Multivitamins/Minerals/Vitamin C 1 tab 03/04/17 10:00 Tab-A-Vit - PO DAILY [facility] Qqmek-4-Uiaf Ethyl Esters 1 gm 03/04/17 10:00 Lovaza - PO DAILY [facility] Ondansetron HCl 4 mg 03/03/17 17:50 Zofran Injection IVPB Q6H PRN NAUSEA Sodium Chloride 2 spray 03/03/17 17:50 [place] Nasal [place] - NS Q12H PRN NASAL CONGESTION Microbiology 03/01/17 05:40 Blood - Peripheral Venous Blood Culture - Preliminary NO GROWTH OBTAINED AFTER 72 HOURS, INCUBATION TO CONTINUE FOR 2 DAYS. 03/01/17 05:30 Blood - Peripheral Venous Blood Culture - Preliminary NO GROWTH OBTAINED AFTER 72 HOURS, INCUBATION TO CONTINUE FOR 2 DAYS. 03/01/17 07:56 Synovial Fluid - Knee Gram Stain - Final 03/01/17 07:56 Synovial Fluid - Knee Body Fluid Culture - Final Beta Hem Streptococcus Group C 03/01/17 07:56 Synovial Fluid - Knee Anaerobic Culture - Final NO ANAEROBES WERE ISOLATED 02/28/17 00:05 Blood - Peripheral Venous Blood Culture - Final Beta Hem Streptococcus Group C 02/28/17 00:05 Blood - Peripheral Venous Blood Culture - Final Beta Hem Streptococcus Group C 03/01/17 17:00 Synovial Fluid - Knee Gram Stain - Final 03/01/17 17:00 Synovial Fluid - Knee Body Fluid Culture - Preliminary Beta Hem Streptococcus Group C 02/28/17 06:30 Urine - Urine Stock Urine Culture - Final NO GROWTH OBTAINED ASSESSMENT/PLAN: A: This is a 66 yo man with h/o ICM, AICD, afib, CAD, CABG, HTN who presented with angioedema and subsequent septic joint and bacteremia both cx positive for Beta Hem Strep C. P: Severe sepsis 2/2 group C strept right knee joint, Group C strept bacteremia - Patient reports removal of tooth 6 months ago, he did not receive antibiotics at that time - S/p Right knee washout and poly exchange on 03/01 - Repeat blood cultures on 03/01 with NGTD - SANGITA with no echocardiographic evidence of vegetation or abscess to suggest endocarditis - Ampicillin (03/01-03/04) - Vancomyin (02/27-03/02) - start Rocephin (03/04- ) - Appreciate ortho consult - Appreciate ID consult Angioedema - Resolved - Likely 2/2 Entresto - S/p FFP on admission - Continue Solu-medrol, taper - Continue Famotidine - Appreciate ENT consult Afib - Supratherapeutic INR, continue to hold Coumadin - Vit K if active bleeding CAD s/p CABG - Continue statin - Continue ASA HTN - Continue Norvasc - Continue Carvedilol Ischemic cardiomyopathy s/p ICD - avoid all jett/arb - Appreciate cardiology consult JEREMY - Resolved - Continue to monitor Endocrine: Steroid induced hyperglycemia - Hgb A1c 6.5. New onset diabetes? vs. steroid induced - BGM ACHS - ISS ACHS F/E/N: - Monitor electrolytes - Sodium controlled, diabetic diet Prophylaxis: - OOB ambulating with assistance - Hold all chemical DVT prophylaxis 2/2 supratherapeutic INR - PT: weight bearing as tolerated Dispo: - Requires continued inpatient care - Will need referral to digital media producer upon discharge - Will need SNF placement CODE STATUS: FULL CODE Visit type - Emergency Visit Emergency Visit: Yes ED Registration Date: 02/26/17 Care time: The patient presented to the Emergency Department on the above date and was hospitalized for further evaluation of their emergent condition. - New Patient This patient is new to me today: Yes Date on this admission: 03/05/17 - Critical Care Critical Care patient: No
[2017-03-04 09:51] LABS: PROTHROMBIN TIME (PATIENT) 59.8 SEC (9.98-11.88)
[2017-03-04] MEDS: CARVEDILOL 6.25 MG TABLET (FP) PO SCH ×2 (10:00→21:23)
[2017-03-04] MEDS: MULTIVITAMINS (DAILY MVI) TABLET (FP) PO SCH (10:00)
[2017-03-04] MEDS: OMEGA-3 ACID ETHYL ESTERS (FATTY-ACIDS) 1 GM CAPSULE (FP) PO SCH (10:00)
[2017-03-04] MEDS: FERROUS SO4 325 MG TABLET (FP) PO SCH ×3 (10:00→17:51)
[2017-03-04] MEDS: methylPREDNISolone NA SUCC 40 MG/1 ML VIAL IVPB SCH (10:00)
--- NOTE | 2017-03-04 10:04 | PN ---
Progress Note (short form) - Note Progress Note: Ortho Pt seen and examined s/p right knee I & D with poly exchange- improving Selected Entries 03/04/17 06:00 Temperature 97.8 F Pulse Rate 70 Respiratory 20 Rate Blood Pressure 154/93 Laboratory Tests 03/04/17 05:35 WBC 10.6 H Hgb 10.4 L Hct 31.4 L Plt Count 188 D dressing saturated, emy intact, calf soft, nt nvi a/p PT wbat IV abx as per ID PICC line d/c planning
[2017-03-04 10:13] LABS: INR 5.26 (0.82-1.09)
--- NOTE | 2017-03-04 12:52 | PN ---
Progress Note (short form) - Note Progress Note: PULMONARY Feeling much better today. No fevers or chills. No shortness of breath or chest pain. Last Vital Signs Temp Pulse Resp BP Pulse Ox 98.2 F 72 19 158/94 95 03/04/17 10:00 03/04/17 10:00 03/04/17 10:00 03/04/17 10:00 03/04/17 12:43 Gen: NAD at rest Heart: RRR Lung: decreased breath sounds at the bases Abd: soft, nontender Ext: no edema, right leg immobilized CBC, BMP 03/04/17 05:35 03/04/17 05:35 Active Medications Acetaminophen (Tylenol -) 650 mg PO Q4H PRN PRN Reason: FEVER OR PAIN Artificial Tears (Artificial Tears) 1 drop OU Q6H PRN PRN Reason: DRY EYES Atorvastatin Calcium (Lipitor -) 10 mg PO HS [facility] Last Admin: 03/03/17 21:46 Dose: Not Given Carvedilol (Coreg -) 6.25 mg PO BID [facility] Last Admin: 03/04/17 10:00 Dose: 6.25 mg Docusate Sodium (Colace -) 100 mg PO TID [facility] Last Admin: 03/04/17 05:38 Dose: 100 mg Ferrous Sulfate (Feosol -) 325 mg PO TIDCM [facility] Last Admin: 03/04/17 10:00 Dose: 325 mg Ampicillin Sodium 2 gm/ Sodium (Chloride) 100 mls @ 200 mls/hr IVPB Q4H-IV [facility] Last Admin: 03/04/17 10:00 Dose: 200 mls/hr Sodium Chloride (Normal Saline -) 1,000 mls @ 125 mls/hr IV ASDIR [facility] Last Admin: 03/04/17 05:46 Dose: 125 mls/hr Insulin Aspart (Novolog Vial Sliding Scale -) 1 vial SQ ACHS [facility] PRN Reason: Protocol Last Admin: 03/04/17 06:03 Dose: Not Given Methylprednisolone Sodium Succinate (Solu-Medrol -) 40 mg IVPB DAILY [facility] Last Admin: 03/04/17 10:00 Dose: 40 mg Morphine Sulfate (Morphine Injection -) 2 mg IVPUSH Q4H PRN PRN Reason: PAIN Multivitamins/Minerals/Vitamin C (Tab-A-Vit -) 1 tab PO DAILY [facility] Last Admin: 03/04/17 10:00 Dose: 1 tab Qgcfo-1-Cozq Ethyl Esters (Lovaza -) 1 gm PO DAILY [facility] Last Admin: 03/04/17 10:00 Dose: 1 gm Ondansetron HCl (Zofran Injection) 4 mg IVPB Q6H PRN PRN Reason: NAUSEA Sodium Chloride ([place] Nasal [place] -) 2 spray NS Q12H PRN PRN Reason: NASAL CONGESTION A/P Angioedema Septic Arthritis Strep Bacteremia Angioedema resolved Atrial Fibrillation LV Systolic Dysfunction CAD s/p CABG HTN Hyperlipidemia - continue antibiotics per ID - wound care - beta britta, statin - rate controlled - continue anticoagulation - taper medrol - rehab/PT
--- NOTE | 2017-03-04 13:34 | PN ---
Progress Note, Physician Chief Complaint: ID Ampicillin Doing well - Current Medication List Current Medications: Active Medications Acetaminophen (Tylenol -) 650 mg PO Q4H PRN PRN Reason: FEVER OR PAIN Artificial Tears (Artificial Tears) 1 drop OU Q6H PRN PRN Reason: DRY EYES Atorvastatin Calcium (Lipitor -) 10 mg PO HS [facility] Last Admin: 03/03/17 21:46 Dose: Not Given Carvedilol (Coreg -) 6.25 mg PO BID [facility] Last Admin: 03/04/17 10:00 Dose: 6.25 mg Docusate Sodium (Colace -) 100 mg PO TID [facility] Last Admin: 03/04/17 05:38 Dose: 100 mg Ferrous Sulfate (Feosol -) 325 mg PO TIDCM [facility] Last Admin: 03/04/17 10:00 Dose: 325 mg Ampicillin Sodium 2 gm/ Sodium (Chloride) 100 mls @ 200 mls/hr IVPB Q4H-IV [facility] Last Admin: 03/04/17 10:00 Dose: 200 mls/hr Sodium Chloride (Normal Saline -) 1,000 mls @ 125 mls/hr IV ASDIR [facility] Last Admin: 03/04/17 05:46 Dose: 125 mls/hr Insulin Aspart (Novolog Vial Sliding Scale -) 1 vial SQ ACHS [facility] PRN Reason: Protocol Last Admin: 03/04/17 06:03 Dose: Not Given Methylprednisolone Sodium Succinate (Solu-Medrol -) 40 mg IVPB DAILY [facility] Last Admin: 03/04/17 10:00 Dose: 40 mg Morphine Sulfate (Morphine Injection -) 2 mg IVPUSH Q4H PRN PRN Reason: PAIN Multivitamins/Minerals/Vitamin C (Tab-A-Vit -) 1 tab PO DAILY [facility] Last Admin: 03/04/17 10:00 Dose: 1 tab [id number]-[id number] Ethyl Esters (Lovaza -) 1 gm PO DAILY [facility] Last Admin: 03/04/17 10:00 Dose: 1 gm Ondansetron HCl (Zofran Injection) 4 mg IVPB Q6H PRN PRN Reason: NAUSEA Sodium Chloride ([place] Nasal [place] -) 2 spray NS Q12H PRN PRN Reason: NASAL CONGESTION - Objective Vital Signs: Vital Signs Temperature 98.2 F 03/04/17 10:00 Pulse Rate 72 03/04/17 10:00 Respiratory Rate 19 03/04/17 10:00 Blood Pressure 158/94 03/04/17 10:00 O2 Sat by Pulse Oximetry (%) 95 03/04/17 12:43 Constitutional: Yes: Well Nourished, No Distress HENT: Yes: WNL, Atraumatic Neck: Yes: WNL, Supple Cardiovascular: Yes: WNL, Regular Rate and Rhythm, S1, S2. No: Murmur Respiratory: Yes: WNL, Regular, CTA Bilaterally Gastrointestinal: Yes: WNL, Normal Bowel Sounds, Soft. No: Tenderness Extremities: Yes: Other (Right soft cast) Labs: CBC, BMP 03/04/17 05:35 03/04/17 05:35 INR, PTT INR 5.26 (0.82-1.09) H* 03/04/17 05:35 Problem List - Problems (1) Bacteremia Code(s): R78.81 - BACTEREMIA (2) Septic arthritis Code(s): M00.9 - PYOGENIC ARTHRITIS, UNSPECIFIED (3) Endocarditis Code(s): I38 - ENDOCARDITIS, VALVE UNSPECIFIED Assessment/Plan Microbiology 03/01/17 17:00 Synovial Fluid - Knee Gram Stain - Final 03/01/17 07:56 Synovial Fluid - Knee Gram Stain - Final 03/01/17 07:56 Synovial Fluid - Knee Anaerobic Culture - Final Beta Hem Streptococcus Group C NO ANAEROBES WERE ISOLATED 02/28/17 00:05 Blood - Peripheral Venous Blood Culture - Final Beta Hem Streptococcus Group C 02/28/17 00:05 Blood - Peripheral Venous Blood Culture - Final Beta Hem Streptococcus Group C 03/01/17 17:00 Synovial Fluid - Knee Body Fluid Culture - Preliminary Beta Hem Streptococcus Group C Laboratory Tests 03/04/17 03/04/17 05:35 05:35 WBC 10.6 H Hgb 10.4 L Hct 31.4 L Plt Count 188 D BUN 41 H Creatinine 1.1 Assessment Group C strep bacteremia septic knee Plan PICC line Ceftriaxone 2 grs daily Moniter ESR and CRP He should come to my office for follow up following discharge Mary Hernandez MD
[2017-03-04] MEDS: CEFTRIAXONE 100 ML IVPB SCH (15:10)
[2017-03-04] MEDS ORDERED: INSULIN (NOVOLOG) ASPART 100 UNITS/ML 10ML VIAL ONE (17:50)
[2017-03-04] MEDS: ATORVASTATIN CA 10 MG TABLET (FP) PO SCH (21:16)
[2017-03-04] MEDS: valACYclovir HCL 500 MG TABLET (FP) PO SCH (21:24)
[2017-03-05] MEDS: DOCUSATE SODIUM 100 MG CAPSULE (FP) PO SCH ×3 (05:34→22:26)
[2017-03-05] MEDS: INSULIN SLIDING SCALE (NOVOLOG) 1 VIAL SQ SCH ×4 (06:03→22:26)
[2017-03-05 07:09] LABS: BASOPHIL 0.3 % (0-2.0); EOSINOPHIL 0.5 % (0-4.5); MCH 31.5 pg (25.7-33.7); MCHC 33.2 g/dl (32.0-35.9); MEAN CELL VOLUME 94.9 fl (80-96); MEAN PLT VOLUME 10.3 fl (7.5-11.1); PLATELET COUNT 229 K/MM3 (134-434); RDW 13.6 % (11.9-15.9); WHITE BLOOD COUNT 12.8 K/mm3 (4.0-10.0)
[2017-03-05 07:19] LABS: PROTHROMBIN TIME (PATIENT) 46.5 SEC (9.98-11.88)
[2017-03-05 07:32] LABS: ALBUMIN 1.7 g/dl (3.4-5.0); ALK PHOS 65 U/L (45-117); ANION GAP 9 (8-16); BILIRUBIN,TOTAL 0.5 mg/dL (0.2-1.0); C-REACTIVE PROTEIN 5.4 MG/DL (0.00-0.3); CALCIUM 7.4 mg/dL (8.5-10.1); CO2 24 mmol/L (21-32); COCKROFT - GAULT 90.18; CREATININE 1.1 mg/dL (0.7-1.3); GLUCOSE,RANDOM 112 mg/dL (74-106); SGOT/AST 18 U/L (15-37); SGPT/ALT 21 U/L (12-78); TOT PROT 5.5 g/dl (6.4-8.2)
[2017-03-05 07:47] LABS: INR 4.11 (0.82-1.09)
--- NOTE | 2017-03-05 08:22 | PN ---
Progress Note (short form) - Note Progress Note: Ortho Pt seen and examined s/p right knee I & D with poly exchange- improving Selected Entries 03/05/17 05:47 Temperature 98.4 F Pulse Rate 70 Respiratory 20 Rate Blood Pressure 125/85 Laboratory Tests 03/05/17 06:00 WBC 12.8 H Hgb 10.3 L Hct 30.9 L Plt Count 229 D dressing c/d/i, emy intact, calf soft, nt nvi a/p PT wbat IV abx as per ID PICC line d/c planning
[2017-03-05] MEDS: FERROUS SO4 325 MG TABLET (FP) PO SCH ×3 (08:32→17:41)
--- NOTE | 2017-03-05 08:55 | PN ---
Progress Note, Physician Chief Complaint: Alert, no distress TELE: controlled AF with intermittent V-pacing - Current Medication List Current Medications: Active Medications Acetaminophen (Tylenol -) 650 mg PO Q4H PRN PRN Reason: FEVER OR PAIN Artificial Tears (Artificial Tears) 1 drop OU Q6H PRN PRN Reason: DRY EYES Atorvastatin Calcium (Lipitor -) 10 mg PO HS [facility] Last Admin: 03/04/17 21:16 Dose: Not Given Carvedilol (Coreg -) 6.25 mg PO BID [facility] Last Admin: 03/04/17 21:23 Dose: 6.25 mg Docusate Sodium (Colace -) 100 mg PO TID [facility] Last Admin: 03/05/17 05:34 Dose: Not Given Ferrous Sulfate (Feosol -) 325 mg PO TIDCM [facility] Last Admin: 03/05/17 08:32 Dose: 325 mg Sodium Chloride (Normal Saline -) 1,000 mls @ 125 mls/hr IV ASDIR [facility] Last Admin: 03/04/17 17:53 Dose: 125 mls/hr Ceftriaxone Sodium (Rocephin 2gm Ivpb (Pre-Docked)) 100 mls @ 200 mls/hr IVPB DAILY [facility] Last Admin: 03/04/17 15:10 Dose: 200 mls/hr Insulin Aspart (Novolog Vial Sliding Scale -) 1 vial SQ ACHS [facility] PRN Reason: Protocol Last Admin: 03/05/17 06:03 Dose: Not Given Methylprednisolone Sodium Succinate (Solu-Medrol -) 40 mg IVPB DAILY [facility] Last Admin: 03/04/17 10:00 Dose: 40 mg Morphine Sulfate (Morphine Injection -) 2 mg IVPUSH Q4H PRN PRN Reason: PAIN Multivitamins/Minerals/Vitamin C (Tab-A-Vit -) 1 tab PO DAILY [facility] Last Admin: 03/04/17 10:00 Dose: 1 tab [id number] Ethyl Esters (Lovaza -) 1 gm PO DAILY [facility] Last Admin: 03/04/17 10:00 Dose: 1 gm Ondansetron HCl (Zofran Injection) 4 mg IVPB Q6H PRN PRN Reason: NAUSEA Sodium Chloride ([place] Nasal [place] -) 2 spray NS Q12H PRN PRN Reason: NASAL CONGESTION Valacyclovir HCl (Valtrex -) 500 mg PO BID [facility] Last Admin: 03/04/17 21:24 Dose: 500 mg - Objective Vital Signs: Vital Signs Temperature 98.4 F 03/05/17 05:47 Pulse Rate 70 03/05/17 05:47 Respiratory Rate 20 03/05/17 05:47 Blood Pressure 125/85 03/05/17 05:47 O2 Sat by Pulse Oximetry (%) 99 03/04/17 21:00 Constitutional: Yes: No Distress, Calm Eyes: Yes: Conjunctiva Clear Cardiovascular: Yes: Pulse Irregular Respiratory: Yes: CTA Bilaterally Gastrointestinal: Yes: Soft (nontender) Edema: No Labs: CBC, BMP 03/05/17 06:00 03/05/17 06:00 INR, PTT INR 4.11 (0.82-1.09) H* 03/05/17 06:00 - ....Imaging EKG: Image Reviewed Problem List - Problems (1) Angioedema Code(s): T78.3XXA - ANGIONEUROTIC EDEMA, INITIAL ENCOUNTER Qualifiers: Encounter type: initial encounter Qualified Code(s): T78.3XXA - Angioneurotic edema, initial encounter (2) Atrial fibrillation Code(s): I48.91 - UNSPECIFIED ATRIAL FIBRILLATION Qualifiers: Atrial fibrillation type: permanent Qualified Code(s): I48.2 - Chronic atrial fibrillation (3) CAD (coronary artery disease) Code(s): I25.10 - ATHSCL HEART DISEASE OF [place] CORONARY ARTERY W/O ANG PCTRS Qualifiers: Coronary Disease-Associated Artery/Lesion type: bypass graft [place] vs. transplanted heart: [place] heart Associated angina: without angina Qualified Code(s): I25.810 - Atherosclerosis of coronary artery bypass graft( s) without angina pectoris (4) Elevated INR Code(s): R79.1 - ABNORMAL COAGULATION PROFILE (5) Leukocytosis Code(s): D72.829 - ELEVATED WHITE BLOOD CELL COUNT, UNSPECIFIED Qualifiers: Leukocytosis type: unspecified Qualified Code(s): D72.829 - Elevated white blood cell count, unspecified (6) Chronic systolic (congestive) heart failure Code(s): I50.22 - CHRONIC SYSTOLIC (CONGESTIVE) HEART FAILURE (7) ICD (implantable cardioverter-defibrillator) in place Code(s): Z95.810 - PRESENCE OF AUTOMATIC (IMPLANTABLE) CARDIAC DEFIBRILLATOR (8) Renal insufficiency Code(s): N28.9 - DISORDER OF KIDNEY AND URETER, UNSPECIFIED Assessment/Plan IMP: Strep bacteremia with infected R. knee, s/p I&D Angioedema, improved- presumed secondary to Entresto Ischemic Cardiomyopathy s/p CABG and ICD REC: 1. Hemodynamically stable s/p R. knee I &D with serial blood cultures negative. SANGITA negative for vegetation. Antibiotics as per ID, will need PICC line. 2. Angioedema resolved: would not resume Entresto nor any TUAN/ARB. In future, will transition to Imdur + Hydralazine, as outpatient. 3. Daily INR for goal 2-3 (AF). -adjust dose as needed. -INR has been supratherapeutic last few days likely due to infxn and abx effect
[2017-03-05] MEDS: MULTIVITAMINS (DAILY MVI) TABLET (FP) PO SCH (09:59)
[2017-03-05] MEDS: methylPREDNISolone NA SUCC 40 MG/1 ML VIAL IVPB SCH (09:59)
[2017-03-05] MEDS: CARVEDILOL 6.25 MG TABLET (FP) PO SCH ×2 (09:59→22:26)
[2017-03-05] MEDS: OMEGA-3 ACID ETHYL ESTERS (FATTY-ACIDS) 1 GM CAPSULE (FP) PO SCH (09:59)
[2017-03-05] MEDS: valACYclovir HCL 500 MG TABLET (FP) PO SCH ×2 (09:59→22:32)
[2017-03-05] MEDS: CEFTRIAXONE 100 ML IVPB SCH (09:59)
[2017-03-05 10:04] LABS: ERYTHROCYTE SEDIMENTATION RATE 87 mm/hr (0-20)
--- NOTE | 2017-03-05 16:46 | PN ---
Physical Exam: SUBJECTIVE: Patient seen and examined at bedside. OBJECTIVE: Vital Signs Period Temp Pulse Resp BP Sys/Juarez Pulse Ox Last 24 Hr 98.0 F-99.1 F 70-76 16-20 125-160/74-89 96-99 GENERAL: The patient is awake, alert, and fully oriented, in no acute distress. HEAD: Normal with no signs of trauma. EYES: PERRL, extraocular movements intact, sclera anicteric, conjunctiva clear. No ptosis. ENT: Ears normal, nares patent, oropharynx clear without exudates, moist mucous membranes. Peeling skin on lips which are swollen. NECK: Trachea midline, full range of motion, supple. LUNGS: Breath sounds equal, clear to auscultation bilaterally, no wheezes, no crackles, no accessory muscle use. HEART: Regular rate and rhythm, S1, S2 without murmur, rub or gallop. ABDOMEN: Soft, nontender, nondistended, normoactive bowel sounds, no guarding, no rebound, no hepatosplenomegaly, no masses. UPPER EXTREMITIES: 2+ pulses, warm, well-perfused, no edema. RIGHT LOWER EXTREMITY: Leg immobilizer removed, wound exposed; vertical incision , emy intact, edges well-approximated, no active bleeding, no exudate NEUROLOGICAL: Cranial nerves II through XII grossly intact. Normal speech, gait not observed. Laboratory Results - last 24 hr 03/04/17 03/04/17 03/05/17 16:45 21:22 04:45 WBC RBC Hgb Hct MCV MCHC RDW Plt Count MPV Neutrophils % Lymphocytes % Monocytes % Eosinophils % Basophils % ESR INR Sodium Potassium Chloride Carbon Dioxide Anion Gap BUN Creatinine Creat Clearance w eGFR POC Glucometer 188 174 112 Random Glucose Calcium Total Bilirubin AST ALT Alkaline Phosphatase C-Reactive Protein Total Protein Albumin 03/05/17 03/05/17 03/05/17 06:00 06:00 06:00 WBC 12.8 H RBC 3.25 L Hgb 10.3 L Hct 30.9 L MCV 94.9 MCHC 33.2 RDW 13.6 Plt Count 229 D MPV 10.3 Neutrophils % 81.0 Lymphocytes % 12.2 D Monocytes % 6.0 Eosinophils % 0.5 D Basophils % 0.3 ESR 87 H INR 4.11 H* Sodium 141 Potassium 4.5 Chloride 108 H Carbon Dioxide 24 Anion Gap 9 BUN 39 H Creatinine 1.1 Creat Clearance w eGFR > 60 POC Glucometer Random Glucose 112 H D Calcium 7.4 L Total Bilirubin 0.5 D AST 18 ALT 21 Alkaline Phosphatase 65 C-Reactive Protein 5.4 H D Total Protein 5.5 L Albumin 1.7 L 03/05/17 11:49 WBC RBC Hgb Hct MCV MCHC RDW Plt Count MPV Neutrophils % Lymphocytes % Monocytes % Eosinophils % Basophils % ESR INR Sodium Potassium Chloride Carbon Dioxide Anion Gap BUN Creatinine Creat Clearance w eGFR POC Glucometer 133 Random Glucose Calcium Total Bilirubin AST ALT Alkaline Phosphatase C-Reactive Protein Total Protein Albumin Active Medications Generic Name Dose Route Start Last Admin Trade Name Freq PRN Reason Stop Dose Admin Acetaminophen 650 mg 03/03/17 17:50 Tylenol - PO Q4H PRN FEVER OR PAIN Artificial Tears 1 drop 03/03/17 17:50 Artificial Tears OU Q6H PRN DRY EYES Atorvastatin Calcium 10 mg 03/03/17 22:00 03/04/17 21:16 Lipitor - PO Not Given HS [facility] Carvedilol 6.25 mg 03/03/17 22:00 03/05/17 09:59 Coreg - PO 6.25 mg BID [facility] Administration Docusate Sodium 100 mg 03/03/17 22:00 03/05/17 13:56 Colace - PO 100 mg TID [facility] Administration Ferrous Sulfate 325 mg 03/04/17 08:00 03/05/17 12:56 Feosol - PO 325 mg TIDCM [facility] Administration Ceftriaxone Sodium 100 mls @ 200 mls/hr 03/04/17 13:45 03/05/17 09:59 Rocephin 2gm Ivpb (Pre-Docked) IVPB 200 mls/hr DAILY [facility] Administration Insulin Aspart 1 vial 03/03/17 22:00 03/05/17 12:37 Novolog Vial Sliding Scale - SQ Not Given ACHS [facility] Protocol Methylprednisolone Sodium Succinate 40 mg 03/04/17 10:00 03/05/17 09:59 Solu-Medrol - IVPB 40 mg DAILY [facility] Administration Multivitamins/Minerals/Vitamin C 1 tab 03/04/17 10:00 03/05/17 09:59 Tab-A-Vit - PO 1 tab DAILY [facility] Administration Zazfj-8-[id number] Ethyl Esters 1 gm 03/04/17 10:00 03/05/17 09:59 Lovaza - PO 1 gm DAILY [facility] Administration Ondansetron HCl 4 mg 03/03/17 17:50 Zofran Injection IVPB Q6H PRN NAUSEA Sodium Chloride 2 spray 03/03/17 17:50 [place] Nasal [place] - NS Q12H PRN NASAL CONGESTION Valacyclovir HCl 500 mg 03/04/17 22:00 03/05/17 09:59 Valtrex - PO 500 mg BID [facility] Administration Microbiology 03/01/17 05:40 Blood - Peripheral Venous Blood Culture - Preliminary NO GROWTH OBTAINED AFTER 96 HOURS, INCUBATION TO CONTINUE FOR 1 DAYS. 03/01/17 05:30 Blood - Peripheral Venous Blood Culture - Preliminary NO GROWTH OBTAINED AFTER 96 HOURS, INCUBATION TO CONTINUE FOR 1 DAYS. 03/01/17 17:00 Synovial Fluid - Knee Gram Stain - Final 03/01/17 17:00 Synovial Fluid - Knee Body Fluid Culture - Final Beta Hem Streptococcus Group C 03/01/17 17:00 Synovial Fluid - Knee Anaerobic Culture - Final NO ANAEROBES WERE ISOLATED 03/01/17 07:56 Synovial Fluid - Knee Gram Stain - Final 03/01/17 07:56 Synovial Fluid - Knee Body Fluid Culture - Final Beta Hem Streptococcus Group C 03/01/17 07:56 Synovial Fluid - Knee Anaerobic Culture - Final NO ANAEROBES WERE ISOLATED 02/28/17 00:05 Blood - Peripheral Venous Blood Culture - Final Beta Hem Streptococcus Group C 02/28/17 00:05 Blood - Peripheral Venous Blood Culture - Final Beta Hem Streptococcus Group C 02/28/17 06:30 Urine - Urine Stock Urine Culture - Final NO GROWTH OBTAINED ASSESSMENT/PLAN 66 year-old male with a PMH of HTN, HLD, CAD s/p CABG, afib on coumdain, systolic heart failure s/p AICD, and s/p right TKR x 2 years. Admitted for angioedema secondary to Entresto. Hospital stay complicated by sepsis secondary to infected prosthetic right knee and bacteremia. 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 Strep Group C bacteremia --s/p open debridement, irrigation, and exchange of polyinsert liner 03/01 --continue ceftriaxone (day #2); ampicillin (03/01-->03/03); Vanco (02/27-->03/02 ) --will need PICC line (when INR drops) and long-term antibiotics --crp trending down 47-->5 Oral HSV infection -continue Valtrex PO (day #2) Hypertension --continue carvedilol Hyperlipidemia --continue Lipitor CAD s/p CABG --continue carvediolol Atrial fibrillation on coumadin --supratherapeutic INR @ 4.11; continue to hold coumadin Anemia --03/02 positive occult stool with supratherapeutic INR; will repeat --h/h stable --daily cbc's Systolic heart failure s/p AICD --03/04 SANGITA: mild to moderate LV dysfunction; RV normal; no vegetations seen; trace to mild MR, mild TR, trace AI, mild to moderate non-mobile atheroma in aortic arch and proximal descending aorta --euvolemic Newly diagnosed diabetes --HgbA1C 6.5 --Novolog sliding scale coverage --nutrition consult/diabetic teaching JEREMY, resolved F/E/N Fluids: PO intake adequate Electrolytes: replete as indicated Nutrition: diabetic, low sodium DVT prophylaxis: INR supratherapeutic, continue to hold coumadin; oob, ambulation Daily PT Dispo: continues to require inpatient care. Full Code. Visit type - Emergency Visit Emergency Visit: Yes ED Registration Date: 02/26/17 Care time: The patient presented to the Emergency Department on the above date and was hospitalized for further evaluation of their emergent condition. - New Patient This patient is new to me today: Yes Date on this admission: 03/05/17 - Critical Care Critical Care patient: No
[2017-03-05] MEDS ORDERED: PT OWN MED DRAWER 7, Y5N ONE (22:19)
[2017-03-05] MEDS: ATORVASTATIN CA 10 MG TABLET (FP) PO SCH (22:26)
[2017-03-06] MEDS: DOCUSATE SODIUM 100 MG CAPSULE (FP) PO SCH ×3 (07:12→21:51)
[2017-03-06] MEDS: INSULIN SLIDING SCALE (NOVOLOG) 1 VIAL SQ SCH ×4 (07:13→21:52)
[2017-03-06 07:19] LABS: BASOPHIL 0.2 % (0-2.0); EOSINOPHIL 0.3 % (0-4.5); MCH 31.8 pg (25.7-33.7); MEAN CELL VOLUME 93.7 fl (80-96); NEUTROPHILS 80.9 % (42.8-82.8); PLATELET COUNT 280 K/MM3 (134-434); RDW 13.4 % (11.9-15.9); WHITE BLOOD COUNT 10.9 K/mm3 (4.0-10.0)
[2017-03-06 07:32] LABS: INR 2.4 (0.82-1.09); PROTHROMBIN TIME (PATIENT) 26.9 SEC (9.98-11.88)
[2017-03-06 07:57] LABS: ALBUMIN 1.8 g/dl (3.4-5.0); ANION GAP 10 (8-16); CALCIUM 7.3 mg/dL (8.5-10.1); CO2 28 mmol/L (21-32); GLUCOSE,RANDOM 132 mg/dL (74-106)
[2017-03-06 08:00] LABS: ALK PHOS 63 U/L (45-117); BILIRUBIN,TOTAL 0.6 mg/dL (0.2-1.0); SGOT/AST 17 U/L (15-37); SGPT/ALT 22 U/L (12-78); TOT PROT 5.5 g/dl (6.4-8.2)
--- NOTE | 2017-03-06 08:44 | PN ---
Progress Note, Physician Chief Complaint: nad - Current Medication List Current Medications: Active Medications Acetaminophen (Tylenol -) 650 mg PO Q4H PRN PRN Reason: FEVER OR PAIN Artificial Tears (Artificial Tears) 1 drop OU Q6H PRN PRN Reason: DRY EYES Atorvastatin Calcium (Lipitor -) 10 mg PO HS [facility] Last Admin: 03/05/17 22:26 Dose: 10 mg Carvedilol (Coreg -) 6.25 mg PO BID [facility] Last Admin: 03/05/17 22:26 Dose: 6.25 mg Docusate Sodium (Colace -) 100 mg PO TID [facility] Last Admin: 03/06/17 07:12 Dose: Not Given Ferrous Sulfate (Feosol -) 325 mg PO TIDCM [facility] Last Admin: 03/05/17 17:41 Dose: 325 mg Ceftriaxone Sodium (Rocephin 2gm Ivpb (Pre-Docked)) 100 mls @ 200 mls/hr IVPB DAILY [facility] Last Admin: 03/05/17 09:59 Dose: 200 mls/hr Insulin Aspart (Novolog Vial Sliding Scale -) 1 vial SQ ACHS [facility] PRN Reason: Protocol Last Admin: 03/06/17 07:13 Dose: Not Given Multivitamins/Minerals/Vitamin C (Tab-A-Vit -) 1 tab PO DAILY [facility] Last Admin: 03/05/17 09:59 Dose: 1 tab Unwkc-0-Jylo Ethyl Esters (Lovaza -) 1 gm PO DAILY [facility] Last Admin: 03/05/17 09:59 Dose: 1 gm Ondansetron HCl (Zofran Injection) 4 mg IVPB Q6H PRN PRN Reason: NAUSEA Prednisone (Deltasone -) 20 mg PO DAILY [facility] Stop: 03/07/17 10:01 Prednisone (Deltasone -) 10 mg PO DAILY [facility] Stop: 03/09/17 10:01 Sodium Chloride ([place] Nasal [place] -) 2 spray NS Q12H PRN PRN Reason: NASAL CONGESTION Valacyclovir HCl (Valtrex -) 500 mg PO BID [facility] Last Admin: 03/05/17 22:32 Dose: 500 mg - Objective Vital Signs: Vital Signs Temperature 98.1 F 03/06/17 06:00 Pulse Rate 70 03/06/17 06:00 Respiratory Rate 16 03/06/17 06:00 Blood Pressure 133/72 03/06/17 06:00 O2 Sat by Pulse Oximetry (%) 96 03/05/17 21:00 Eyes: Yes: WNL, Conjunctiva Clear, EOM Intact HENT: Yes: WNL, Atraumatic, Normocephalic Neck: Yes: WNL, Supple, Trachea Midline Cardiovascular: Yes: Pulse Irregular, S1, S2 Respiratory: Yes: WNL, Regular, CTA Bilaterally Gastrointestinal: Yes: WNL, Normal Bowel Sounds Genitourinary: Yes: WNL Musculoskeletal: Yes: WNL Extremities: Yes: WNL Edema: No Integumentary: Yes: WNL Neurological: Yes: WNL, Alert, Oriented ...Motor Strength: WNL Psychiatric: Yes: WNL Labs: CBC, BMP 03/06/17 06:00 03/06/17 06:00 INR, PTT INR 2.40 (0.82-1.09) H D 03/06/17 06:00 Assessment/Plan - Problems (1) Angioedema Code(s): T78.3XXA - ANGIONEUROTIC EDEMA, INITIAL ENCOUNTER Qualifiers: Encounter type: initial encounter Qualified Code(s): T78.3XXA - Angioneurotic edema, initial encounter (2) Atrial fibrillation Code(s): I48.91 - UNSPECIFIED ATRIAL FIBRILLATION Qualifiers: Atrial fibrillation type: permanent Qualified Code(s): I48.2 - Chronic atrial fibrillation (3) CAD (coronary artery disease) Code(s): I25.10 - ATHSCL HEART DISEASE OF [place] CORONARY ARTERY W/O ANG PCTRS Qualifiers: Coronary Disease-Associated Artery/Lesion type: bypass graft [place] vs. transplanted heart: [place] heart Associated angina: without angina Qualified Code(s): I25.810 - Atherosclerosis of coronary artery bypass graft( s) without angina pectoris (4) Elevated INR Code(s): R79.1 - ABNORMAL COAGULATION PROFILE (5) Leukocytosis Code(s): D72.829 - ELEVATED WHITE BLOOD CELL COUNT, UNSPECIFIED Qualifiers: Leukocytosis type: unspecified Qualified Code(s): D72.829 - Elevated white blood cell count, unspecified (6) Chronic systolic (congestive) heart failure Code(s): I50.22 - CHRONIC SYSTOLIC (CONGESTIVE) HEART FAILURE (7) ICD (implantable cardioverter-defibrillator) in place Code(s): Z95.810 - PRESENCE OF AUTOMATIC (IMPLANTABLE) CARDIAC DEFIBRILLATOR (8) Renal insufficiency Code(s): N28.9 - DISORDER OF KIDNEY AND URETER, UNSPECIFIED Assessment/Plan IMP: Strep bacteremia with infected R. knee, s/p I&D Angioedema, improved- presumed secondary to Entresto Ischemic Cardiomyopathy s/p CABG and ICD REC: 1. Hemodynamically stable s/p R. knee I &D with serial blood cultures negative. SANGITA negative for vegetation. Antibiotics as per ID, will need PICC line. 2. Angioedema resolved: would not resume Entresto nor any TUAN/ARB. In future, will transition to Imdur + Hydralazine, as outpatient. 3. Daily INR for goal 2-3 (AF). -adjust dose as needed. -INR has been supratherapeutic last few days likely due to infxn and abx effect
[2017-03-06] MEDS ORDERED: PT OWN MED DRAWER 7, Y5N ONE (09:16)
[2017-03-06] MEDS: CEFTRIAXONE 100 ML IVPB SCH (09:27)
[2017-03-06] MEDS: FERROUS SO4 325 MG TABLET (FP) PO SCH ×3 (09:30→17:40)
[2017-03-06] MEDS: valACYclovir HCL 500 MG TABLET (FP) PO SCH ×2 (09:30→21:52)
[2017-03-06] MEDS: MULTIVITAMINS (DAILY MVI) TABLET (FP) PO SCH (09:30)
[2017-03-06] MEDS: predniSONE 20 MG TABLET (UD) PO SCH (09:30)
[2017-03-06] MEDS: CARVEDILOL 6.25 MG TABLET (FP) PO SCH ×2 (09:30→21:52)
[2017-03-06] MEDS: OMEGA-3 ACID ETHYL ESTERS (FATTY-ACIDS) 1 GM CAPSULE (FP) PO SCH (13:38)
--- NOTE | 2017-03-06 13:49 | PN ---
Progress Note (short form) - Note Progress Note: Overall better. No acute events overnight. Intake & Output 03/03/17 03/04/17 03/05/17 03/06/17 23:59 23:59 23:59 23:59 Intake Total 3938 3415 2795 150 Output Total 3895 2300 2175 200 Balance 43 1115 620 -50 Weight 207 lb 3.2 oz Last Vital Signs Temp Pulse Resp BP Pulse Ox 98.1 F 70 16 133/72 96 03/06/17 06:00 03/06/17 06:00 03/06/17 06:00 03/06/17 06:00 03/05/17 21:00 Active Medications Acetaminophen (Tylenol -) 650 mg PO Q4H PRN PRN Reason: FEVER OR PAIN Artificial Tears (Artificial Tears) 1 drop OU Q6H PRN PRN Reason: DRY EYES Atorvastatin Calcium (Lipitor -) 10 mg PO HS [facility] Last Admin: 03/05/17 22:26 Dose: 10 mg Carvedilol (Coreg -) 6.25 mg PO BID [facility] Last Admin: 03/06/17 09:30 Dose: 6.25 mg Docusate Sodium (Colace -) 100 mg PO TID [facility] Last Admin: 03/06/17 13:38 Dose: 100 mg Ferrous Sulfate (Feosol -) 325 mg PO TIDCM [facility] Last Admin: 03/06/17 13:38 Dose: 325 mg Ceftriaxone Sodium (Rocephin 2gm Ivpb (Pre-Docked)) 100 mls @ 200 mls/hr IVPB DAILY [facility] Last Admin: 03/06/17 09:27 Dose: 200 mls/hr Insulin Aspart (Novolog Vial Sliding Scale -) 1 vial SQ ACHS [facility] PRN Reason: Protocol Last Admin: 03/06/17 13:15 Dose: Not Given Multivitamins/Minerals/Vitamin C (Tab-A-Vit -) 1 tab PO DAILY [facility] Last Admin: 03/06/17 09:30 Dose: 1 tab Lfxby-6-Buan Ethyl Esters (Lovaza -) 1 gm PO DAILY [facility] Last Admin: 03/06/17 13:38 Dose: 1 gm Ondansetron HCl (Zofran Injection) 4 mg IVPB Q6H PRN PRN Reason: NAUSEA Prednisone (Deltasone -) 20 mg PO DAILY [facility] Stop: 03/07/17 10:01 Last Admin: 03/06/17 09:30 Dose: 20 mg Prednisone (Deltasone -) 10 mg PO DAILY [facility] Stop: 03/09/17 10:01 Sodium Chloride ([place] Nasal [place] -) 2 spray NS Q12H PRN PRN Reason: NASAL CONGESTION Valacyclovir HCl (Valtrex -) 500 mg PO BID [facility] Last Admin: 03/06/17 09:30 Dose: 500 mg Constitutional: Yes: No Distress Eyes: Yes: Less edema HENT: Yes: Overall less external oral swelling. Neck: Yes: Supple, Trachea Midline Cardiovascular: Yes: Regular Rate and Rhythm Respiratory: Yes: CTA Bilaterally. No: Accessory Muscle Use, Rales, Rhonchi, SOB, Stridor, Wheezes Gastrointestinal: Yes: Normal Bowel Sounds, Soft ...Rectal Exam: Yes: Deferred Renal/: Yes: WNL Musculoskeletal: Yes: WNL Extremities: Yes: WNL Edema: Yes Peripheral Pulses WNL: Yes Integumentary: Yes: Erythema, Skin Tear Neurological: Yes: Alert, Oriented ...Motor Strength: WNL Psychiatric: Yes: WNL, Alert, Oriented Laboratory Results - last 24 hr 03/05/17 03/05/17 03/06/17 17:37 22:22 06:00 WBC 10.9 H RBC 2.82 L Hgb 9.0 L D Hct 26.4 L MCV 93.7 MCHC 34.0 RDW 13.4 Plt Count 280 D MPV 10.0 Neutrophils % 80.9 Lymphocytes % 13.5 Monocytes % 5.1 Eosinophils % 0.3 Basophils % 0.2 INR Sodium Potassium Chloride Carbon Dioxide Anion Gap BUN Creatinine Creat Clearance w eGFR POC Glucometer 141 119 Random Glucose Calcium Magnesium Total Bilirubin AST ALT Alkaline Phosphatase Total Protein Albumin 03/06/17 03/06/17 03/06/17 06:00 06:00 07:10 WBC RBC Hgb Hct MCV MCHC RDW Plt Count MPV Neutrophils % Lymphocytes % Monocytes % Eosinophils % Basophils % INR 2.40 H D Sodium 141 Potassium 4.5 Chloride 103 Carbon Dioxide 28 Anion Gap 10 BUN 32 H Creatinine 1.0 Creat Clearance w eGFR > 60 POC Glucometer 140 Random Glucose 132 H Calcium 7.3 L Magnesium 2.0 Total Bilirubin 0.6 AST 17 ALT 22 Alkaline Phosphatase 63 Total Protein 5.5 L Albumin 1.8 L 03/06/17 12:58 WBC RBC Hgb Hct MCV MCHC RDW Plt Count MPV Neutrophils % Lymphocytes % Monocytes % Eosinophils % Basophils % INR Sodium Potassium Chloride Carbon Dioxide Anion Gap BUN Creatinine Creat Clearance w eGFR POC Glucometer 136 Random Glucose Calcium Magnesium Total Bilirubin AST ALT Alkaline Phosphatase Total Protein Albumin Problem List - Problems (1) Angioedema Code(s): T78.3XXA - ANGIONEUROTIC EDEMA, INITIAL ENCOUNTER Qualifiers: Encounter type: initial encounter Qualified Code(s): T78.3XXA - Angioneurotic edema, initial encounter (2) Atrial fibrillation Code(s): I48.91 - UNSPECIFIED ATRIAL FIBRILLATION Qualifiers: Atrial fibrillation type: permanent Qualified Code(s): I48.2 - Chronic atrial fibrillation (3) CAD (coronary artery disease) Code(s): I25.10 - ATHSCL HEART DISEASE OF [place] CORONARY ARTERY W/O ANG PCTRS Qualifiers: Coronary Disease-Associated Artery/Lesion type: bypass graft [place] vs. transplanted heart: [place] heart Associated angina: without angina Qualified Code(s): I25.810 - Atherosclerosis of coronary artery bypass graft( s) without angina pectoris (4) Chronic systolic (congestive) heart failure Code(s): I50.22 - CHRONIC SYSTOLIC (CONGESTIVE) HEART FAILURE (5) Elevated INR Code(s): R79.1 - ABNORMAL COAGULATION PROFILE (6) HLD (hyperlipidemia) Code(s): E78.5 - HYPERLIPIDEMIA, UNSPECIFIED (7) HTN (hypertension) Code(s): I10 - ESSENTIAL (PRIMARY) HYPERTENSION (8) ICD (implantable cardioverter-defibrillator) in place Code(s): Z95.810 - PRESENCE OF AUTOMATIC (IMPLANTABLE) CARDIAC DEFIBRILLATOR (9) Leukocytosis Code(s): D72.829 - ELEVATED WHITE BLOOD CELL COUNT, UNSPECIFIED Qualifiers: Leukocytosis type: unspecified Qualified Code(s): D72.829 - Elevated white blood cell count, unspecified Assessment/Plan ABX per ID Maintain off TUAN/ARB PO as tolerated O2 as needed Dr Sherwood Problem List - Problems (1) Angioedema Code(s): T78.3XXA - ANGIONEUROTIC EDEMA, INITIAL ENCOUNTER Qualifiers: Encounter type: initial encounter Qualified Code(s): T78.3XXA - Angioneurotic edema, initial encounter (2) Atrial fibrillation Code(s): I48.91 - UNSPECIFIED ATRIAL FIBRILLATION Qualifiers: Atrial fibrillation type: permanent Qualified Code(s): I48.2 - Chronic atrial fibrillation (3) CAD (coronary artery disease) Code(s): I25.10 - ATHSCL HEART DISEASE OF [place] CORONARY ARTERY W/O ANG PCTRS Qualifiers: Coronary Disease-Associated Artery/Lesion type: bypass graft [place] vs. transplanted heart: [place] heart Associated angina: without angina Qualified Code(s): I25.810 - Atherosclerosis of coronary artery bypass graft( s) without angina pectoris (4) Chronic systolic (congestive) heart failure Code(s): I50.22 - CHRONIC SYSTOLIC (CONGESTIVE) HEART FAILURE (5) Elevated INR Code(s): R79.1 - ABNORMAL COAGULATION PROFILE (6) HLD (hyperlipidemia) Code(s): E78.5 - HYPERLIPIDEMIA, UNSPECIFIED (7) HTN (hypertension) Code(s): I10 - ESSENTIAL (PRIMARY) HYPERTENSION (8) ICD (implantable cardioverter-defibrillator) in place Code(s): Z95.810 - PRESENCE OF AUTOMATIC (IMPLANTABLE) CARDIAC DEFIBRILLATOR (9) Leukocytosis Code(s): D72.829 - ELEVATED WHITE BLOOD CELL COUNT, UNSPECIFIED Qualifiers: Leukocytosis type: unspecified Qualified Code(s): D72.829 - Elevated white blood cell count, unspecified
--- NOTE | 2017-03-06 16:20 | PN ---
Physical Exam: SUBJECTIVE: Patient seen and examined oob to chair. OBJECTIVE: Vital Signs Period Temp Pulse Resp BP Sys/Juarez Pulse Ox Last 24 Hr 98.1 F-99.5 F 70-80 16-18 130-152/72-79 96 GENERAL: The patient is awake, alert, and fully oriented, in no acute distress. HEAD: Normal with no signs of trauma. EYES: PERRL, extraocular movements intact, sclera anicteric, conjunctiva clear. No ptosis. ENT: Ears normal, nares patent, oropharynx clear without exudates, moist mucous membranes. Peeling skin on lips, lower lip still quite swollen NECK: Trachea midline, full range of motion, supple. LUNGS: Breath sounds equal, clear to auscultation bilaterally, no wheezes, no crackles, no accessory muscle use. HEART: Regular rate and rhythm, S1, S2 without murmur, rub or gallop. ABDOMEN: Soft, nontender, nondistended, normoactive bowel sounds, no guarding, no rebound, no hepatosplenomegaly, no masses. UPPER EXTREMITIES: 2+ pulses, warm, well-perfused, no edema. RIGHT LOWER EXTREMITY: Leg immobilizer not removed, wound not visualized today NEUROLOGICAL: Cranial nerves II through XII grossly intact. Normal speech, gait not observed. Laboratory Results - last 24 hr 03/05/17 03/05/17 03/06/17 17:37 22:22 06:00 WBC 10.9 H RBC 2.82 L Hgb 9.0 L D Hct 26.4 L MCV 93.7 MCHC 34.0 RDW 13.4 Plt Count 280 D MPV 10.0 Neutrophils % 80.9 Lymphocytes % 13.5 Monocytes % 5.1 Eosinophils % 0.3 Basophils % 0.2 INR Sodium Potassium Chloride Carbon Dioxide Anion Gap BUN Creatinine Creat Clearance w eGFR POC Glucometer 141 119 Random Glucose Calcium Magnesium Total Bilirubin AST ALT Alkaline Phosphatase Total Protein Albumin 03/06/17 03/06/17 03/06/17 06:00 06:00 07:10 WBC RBC Hgb Hct MCV MCHC RDW Plt Count MPV Neutrophils % Lymphocytes % Monocytes % Eosinophils % Basophils % INR 2.40 H D Sodium 141 Potassium 4.5 Chloride 103 Carbon Dioxide 28 Anion Gap 10 BUN 32 H Creatinine 1.0 Creat Clearance w eGFR > 60 POC Glucometer 140 Random Glucose 132 H Calcium 7.3 L Magnesium 2.0 Total Bilirubin 0.6 AST 17 ALT 22 Alkaline Phosphatase 63 Total Protein 5.5 L Albumin 1.8 L 03/06/17 12:58 WBC RBC Hgb Hct MCV MCHC RDW Plt Count MPV Neutrophils % Lymphocytes % Monocytes % Eosinophils % Basophils % INR Sodium Potassium Chloride Carbon Dioxide Anion Gap BUN Creatinine Creat Clearance w eGFR POC Glucometer 136 Random Glucose Calcium Magnesium Total Bilirubin AST ALT Alkaline Phosphatase Total Protein Albumin Active Medications Generic Name Dose Route Start Last Admin Trade Name Freq PRN Reason Stop Dose Admin Acetaminophen 650 mg 03/03/17 17:50 Tylenol - PO Q4H PRN FEVER OR PAIN Artificial Tears 1 drop 03/03/17 17:50 Artificial Tears OU Q6H PRN DRY EYES Atorvastatin Calcium 10 mg 03/03/17 22:00 03/05/17 22:26 Lipitor - PO 10 mg HS [facility] Administration Carvedilol 6.25 mg 03/03/17 22:00 03/06/17 09:30 Coreg - PO 6.25 mg BID [facility] Administration Docusate Sodium 100 mg 03/03/17 22:00 03/06/17 13:38 Colace - PO 100 mg TID [facility] Administration Ferrous Sulfate 325 mg 03/04/17 08:00 03/06/17 13:38 Feosol - PO 325 mg TIDCM [facility] Administration Ceftriaxone Sodium 100 mls @ 200 mls/hr 03/04/17 13:45 03/06/17 09:27 Rocephin 2gm Ivpb (Pre-Docked) IVPB 200 mls/hr DAILY [facility] Administration Insulin Aspart 1 vial 03/03/17 22:00 03/06/17 13:15 Novolog Vial Sliding Scale - SQ Not Given ACHS [facility] Protocol Multivitamins/Minerals/Vitamin C 1 tab 03/04/17 10:00 03/06/17 09:30 Tab-A-Vit - PO 1 tab DAILY [facility] Administration [id number]-8-[id number] Ethyl Esters 1 gm 03/04/17 10:00 03/06/17 13:38 Lovaza - PO 1 gm DAILY [facility] Administration Ondansetron HCl 4 mg 03/03/17 17:50 Zofran Injection IVPB Q6H PRN NAUSEA Prednisone 20 mg 03/06/17 10:00 03/06/17 09:30 Deltasone - PO 03/07/17 10:01 20 mg DAILY [facility] Administration Prednisone 10 mg 03/08/17 10:00 Deltasone - PO 03/09/17 10:01 DAILY [facility] Sodium Chloride 2 spray 03/03/17 17:50 [place] Nas[place] - NS Q12H PRN NASAL CONGESTION Valacyclovir HCl 500 mg 03/04/17 22:00 03/06/17 09:30 Valtrex - PO 500 mg BID [facility] Administration ASSESSMENT/PLAN 66 year-old male with a PMH of HTN, HLD, CAD s/p CABG, afib on coumdain, systolic heart failure s/p AICD, and s/p right TKR x 2 years. Admitted for angioedema secondary to Entresto. Hospital stay complicated by sepsis secondary to infected prosthetic right knee and bacteremia. 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 Ma long-term anti-coagulation Anemia --03/02 positive occult stool with supratherapeutic INR; will repeat --h/h stable --daily cbc's Systolic heart failure s/p AICD --03/04 SANGITA: mild to moderate LV dysfunction; RV normal; no vegetations seen; trace to mild MR, mild TR, trace AI, mild to moderate non-mobile atheroma in aortic arch and proximal descending aorta --euvolemic Newly diagnosed diabetes --HgbA1C 6.5 --Novolog sliding scale coverage --nutrition consult/diabetic teaching JEREMY, resolved F/E/N Fluids: PO intake adequate Electrolytes: replete as indicated Nutrition: diabetic, low sodium DVT prophylaxis: start lovenox, hold night before PICC line procedure; oob, ambulation Daily PT Dispo: continues to require inpatient care. Full Code. Visit type - Emergency Visit Emergency Visit: Yes ED Registration Date: 02/26/17 Care time: The patient presented to the Emergency Department on the above date and was hospitalized for further evaluation of their emergent condition. - New Patient This patient is new to me today: No - Critical Care Critical Care patient: No
[2017-03-06] MEDS: ENOXAPARIN NA (PORCINE) 100 MG/1 ML DISP.SYRIN SQ SCH (17:39)
[2017-03-06] MEDS: ATORVASTATIN CA 10 MG TABLET (FP) PO SCH (21:49)
[2017-03-07] MEDS: ENOXAPARIN NA (PORCINE) 100 MG/1 ML DISP.SYRIN SQ SCH ×2 (05:26→17:24)
[2017-03-07] MEDS: DOCUSATE SODIUM 100 MG CAPSULE (FP) PO SCH ×4 (05:26→22:17)
[2017-03-07] MEDS: INSULIN SLIDING SCALE (NOVOLOG) 1 VIAL SQ SCH ×4 (06:38→22:00)
--- NOTE | 2017-03-07 08:28 | PN ---
Progress Note, Physician Chief Complaint: nad - Current Medication List Current Medications: Active Medications Acetaminophen (Tylenol -) 650 mg PO Q4H PRN PRN Reason: FEVER OR PAIN Artificial Tears (Artificial Tears) 1 drop OU Q6H PRN PRN Reason: DRY EYES Atorvastatin Calcium (Lipitor -) 10 mg PO HS [facility] Last Admin: 03/06/17 21:49 Dose: 10 mg Carvedilol (Coreg -) 6.25 mg PO BID [facility] Last Admin: 03/06/17 21:52 Dose: 6.25 mg Docusate Sodium (Colace -) 100 mg PO TID [facility] Last Admin: 03/07/17 05:52 Dose: Not Given Enoxaparin Sodium (Lovenox -) 100 mg SQ Q12H [facility] Last Admin: 03/07/17 05:26 Dose: 100 mg Ferrous Sulfate (Feosol -) 325 mg PO TIDCM [facility] Last Admin: 03/06/17 17:40 Dose: 325 mg Ceftriaxone Sodium (Rocephin 2gm Ivpb (Pre-Docked)) 100 mls @ 200 mls/hr IVPB DAILY [facility] Last Admin: 03/06/17 09:27 Dose: 200 mls/hr Insulin Aspart (Novolog Vial Sliding Scale -) 1 vial SQ ACHS [facility] PRN Reason: Protocol Last Admin: 03/07/17 06:38 Dose: Not Given Multivitamins/Minerals/Vitamin C (Tab-A-Vit -) 1 tab PO DAILY [facility] Last Admin: 03/06/17 09:30 Dose: 1 tab Wiqek-0-Spew Ethyl Esters (Lovaza -) 1 gm PO DAILY [facility] Last Admin: 03/06/17 13:38 Dose: 1 gm Ondansetron HCl (Zofran Injection) 4 mg IVPB Q6H PRN PRN Reason: NAUSEA Prednisone (Deltasone -) 20 mg PO DAILY [facility] Stop: 03/07/17 10:01 Last Admin: 03/06/17 09:30 Dose: 20 mg Prednisone (Deltasone -) 10 mg PO DAILY [facility] Stop: 03/09/17 10:01 Sodium Chloride ([place] Nasal [place] -) 2 spray NS Q12H PRN PRN Reason: NASAL CONGESTION Valacyclovir HCl (Valtrex -) 500 mg PO BID [facility] Last Admin: 03/06/17 21:52 Dose: 500 mg - Objective Vital Signs: Vital Signs Temperature 99.8 F H 03/07/17 05:53 Pulse Rate 70 03/07/17 05:53 Respiratory Rate 16 03/07/17 05:53 Blood Pressure 136/76 03/07/17 05:53 O2 Sat by Pulse Oximetry (%) 96 03/06/17 22:00 Eyes: Yes: WNL, Conjunctiva Clear, EOM Intact HENT: Yes: WNL, Atraumatic, Normocephalic Neck: Yes: WNL, Supple, Trachea Midline Cardiovascular: Yes: Pulse Irregular, S1, S2 Respiratory: Yes: WNL, Regular, CTA Bilaterally Gastrointestinal: Yes: WNL, Normal Bowel Sounds Genitourinary: Yes: WNL Musculoskeletal: Yes: WNL Extremities: Yes: WNL Edema: No Integumentary: Yes: WNL Neurological: Yes: WNL, Alert, Oriented ...Motor Strength: WNL Psychiatric: Yes: WNL Labs: CBC, BMP 03/06/17 06:00 03/06/17 06:00 INR, PTT INR 2.40 (0.82-1.09) H D 03/06/17 06:00 Assessment/Plan - Problems (1) Angioedema Code(s): T78.3XXA - ANGIONEUROTIC EDEMA, INITIAL ENCOUNTER Qualifiers: Encounter type: initial encounter Qualified Code(s): T78.3XXA - Angioneurotic edema, initial encounter (2) Atrial fibrillation Code(s): I48.91 - UNSPECIFIED ATRIAL FIBRILLATION Qualifiers: Atrial fibrillation type: permanent Qualified Code(s): I48.2 - Chronic atrial fibrillation (3) CAD (coronary artery disease) Code(s): I25.10 - ATHSCL HEART DISEASE OF [place] CORONARY ARTERY W/O ANG PCTRS Qualifiers: Coronary Disease-Associated Artery/Lesion type: bypass graft [place] vs. transplanted heart: [place] heart Associated angina: without angina Qualified Code(s): I25.810 - Atherosclerosis of coronary artery bypass graft( s) without angina pectoris (4) Elevated INR Code(s): R79.1 - ABNORMAL COAGULATION PROFILE (5) Leukocytosis Code(s): D72.829 - ELEVATED WHITE BLOOD CELL COUNT, UNSPECIFIED Qualifiers: Leukocytosis type: unspecified Qualified Code(s): D72.829 - Elevated white blood cell count, unspecified (6) Chronic systolic (congestive) heart failure Code(s): I50.22 - CHRONIC SYSTOLIC (CONGESTIVE) HEART FAILURE (7) ICD (implantable cardioverter-defibrillator) in place Code(s): Z95.810 - PRESENCE OF AUTOMATIC (IMPLANTABLE) CARDIAC DEFIBRILLATOR (8) Renal insufficiency Code(s): N28.9 - DISORDER OF KIDNEY AND URETER, UNSPECIFIED Assessment/Plan IMP: Strep bacteremia with infected R. knee, s/p I&D Angioedema, improved- presumed secondary to Entresto Ischemic Cardiomyopathy s/p CABG and ICD REC: 1. Hemodynamically stable s/p R. knee I &D with serial blood cultures negative. SANGITA negative for vegetation. Antibiotics as per ID, will need PICC line. 2. Angioedema resolving - still residual swelling: would not resume Entresto nor any TUAN/ARB. In future, will transition to Imdur + Hydralazine, as outpatient. 3. Daily INR for goal 2-3 (AF). -adjust dose as needed. -INR has been supratherapeutic last few days likely due to infxn and abx effect
[2017-03-07] MEDS: valACYclovir HCL 500 MG TABLET (FP) PO SCH ×2 (10:16→22:17)
[2017-03-07] MEDS: CARVEDILOL 6.25 MG TABLET (FP) PO SCH ×2 (10:16→22:16)
[2017-03-07] MEDS: OMEGA-3 ACID ETHYL ESTERS (FATTY-ACIDS) 1 GM CAPSULE (FP) PO SCH (10:16)
[2017-03-07] MEDS: predniSONE 20 MG TABLET (UD) PO SCH (10:16)
[2017-03-07] MEDS: FERROUS SO4 325 MG TABLET (FP) PO SCH ×3 (10:16→17:24)
[2017-03-07] MEDS: CEFTRIAXONE 100 ML IVPB SCH (10:16)
[2017-03-07] MEDS: MULTIVITAMINS (DAILY MVI) TABLET (FP) PO SCH (10:17)
[2017-03-07] MEDS ORDERED: ACETAMINOPHEN 325 MG TABLET (FP) PO ONE (11:55)
--- NOTE | 2017-03-07 12:28 | PN ---
Progress Note (short form) - Note Progress Note: Pt seen and examined, s/p right knee I&D. States right knee is feeling better. Didn't get PICC line yet. Right knee looks good. No swelling, erythema, nontender. Improved painless ROM WBC and Temp good Overall doing well. Can Transfer from an ortho pov F/U as out pt
[2017-03-07] MEDS ORDERED: PT OWN MED DRAWER 7, Y5N ONE (13:49)
--- NOTE | 2017-03-07 16:01 | PN ---
Progress Note (short form) - Note Progress Note: Overall better. No acute events overnight. No CP or SOB. Intake & Output 03/04/17 03/05/17 03/06/17 03/07/17 23:59 23:59 23:59 23:59 Intake Total 3415 2795 450 400 Output Total 2300 2175 1200 700 Balance 1115 620 -750 -300 Weight 214 lb Last Vital Signs Temp Pulse Resp BP Pulse Ox 99.0 F 71 18 114/92 96 03/07/17 13:55 03/07/17 13:55 03/07/17 13:55 03/07/17 13:55 03/06/17 22:00 Active Medications Acetaminophen (Tylenol -) 650 mg PO Q4H PRN PRN Reason: FEVER OR PAIN Artificial Tears (Artificial Tears) 1 drop OU Q6H PRN PRN Reason: DRY EYES Atorvastatin Calcium (Lipitor -) 10 mg PO HS [facility] Last Admin: 03/06/17 21:49 Dose: 10 mg Carvedilol (Coreg -) 6.25 mg PO BID [facility] Last Admin: 03/07/17 10:16 Dose: 6.25 mg Docusate Sodium (Colace -) 100 mg PO TID [facility] Last Admin: 03/07/17 15:04 Dose: 100 mg Enoxaparin Sodium (Lovenox -) 100 mg SQ Q12H [facility] Last Admin: 03/07/17 05:26 Dose: 100 mg Ferrous Sulfate (Feosol -) 325 mg PO TIDCM [facility] Last Admin: 03/07/17 15:04 Dose: 325 mg Ceftriaxone Sodium (Rocephin 2gm Ivpb (Pre-Docked)) 100 mls @ 200 mls/hr IVPB DAILY [facility] Last Admin: 03/07/17 10:16 Dose: 200 mls/hr Insulin Aspart (Novolog Vial Sliding Scale -) 1 vial SQ ACHS [facility] PRN Reason: Protocol Last Admin: 03/07/17 12:31 Dose: Not Given Multivitamins/Minerals/Vitamin C (Tab-A-Vit -) 1 tab PO DAILY [facility] Last Admin: 03/07/17 10:17 Dose: 1 tab Zjcgf-3-Kmzn Ethyl Esters (Lovaza -) 1 gm PO DAILY [facility] Last Admin: 03/07/17 10:16 Dose: 1 gm Ondansetron HCl (Zofran Injection) 4 mg IVPB Q6H PRN PRN Reason: NAUSEA Prednisone (Deltasone -) 10 mg PO DAILY [facility] Stop: 03/09/17 10:01 Sodium Chloride ([place] Nasal [place] -) 2 spray NS Q12H PRN PRN Reason: NASAL CONGESTION Valacyclovir HCl (Valtrex -) 500 mg PO BID [facility] Last Admin: 03/07/17 10:16 Dose: 500 mg Constitutional: Yes: No Distress Eyes: Yes: Less edema HENT: Yes: Overall less external oral swelling. Neck: Yes: Supple, Trachea Midline Cardiovascular: Yes: Regular Rate and Rhythm Respiratory: Yes: CTA Bilaterally. No: Accessory Muscle Use, Rales, Rhonchi, SOB, Stridor, Wheezes Gastrointestinal: Yes: Normal Bowel Sounds, Soft ...Rectal Exam: Yes: Deferred Renal/: Yes: WNL Musculoskeletal: Yes: WNL Extremities: Yes: WNL Edema: Yes Peripheral Pulses WNL: Yes Integumentary: Yes: Erythema, Skin Tear Neurological: Yes: Alert, Oriented ...Motor Strength: WNL Psychiatric: Yes: WNL, Alert, Oriented Laboratory Results - last 24 hr 03/06/17 03/06/17 03/07/17 17:39 21:49 05:56 POC Glucometer 159 118 120 03/07/17 12:29 POC Glucometer 134 Problem List - Problems (1) Angioedema Code(s): T78.3XXA - ANGIONEUROTIC EDEMA, INITIAL ENCOUNTER Qualifiers: Encounter type: initial encounter Qualified Code(s): T78.3XXA - Angioneurotic edema, initial encounter (2) Atrial fibrillation Code(s): I48.91 - UNSPECIFIED ATRIAL FIBRILLATION Qualifiers: Atrial fibrillation type: permanent Qualified Code(s): I48.2 - Chronic atrial fibrillation (3) CAD (coronary artery disease) Code(s): I25.10 - ATHSCL HEART DISEASE OF [place] CORONARY ARTERY W/O ANG PCTRS Qualifiers: Coronary Disease-Associated Artery/Lesion type: bypass graft [place] vs. transplanted heart: [place] heart Associated angina: without angina Qualified Code(s): I25.810 - Atherosclerosis of coronary artery bypass graft( s) without angina pectoris (4) Chronic systolic (congestive) heart failure Code(s): I50.22 - CHRONIC SYSTOLIC (CONGESTIVE) HEART FAILURE (5) Elevated INR Code(s): R79.1 - ABNORMAL COAGULATION PROFILE (6) HLD (hyperlipidemia) Code(s): E78.5 - HYPERLIPIDEMIA, UNSPECIFIED (7) HTN (hypertension) Code(s): I10 - ESSENTIAL (PRIMARY) HYPERTENSION (8) ICD (implantable cardioverter-defibrillator) in place Code(s): Z95.810 - PRESENCE OF AUTOMATIC (IMPLANTABLE) CARDIAC DEFIBRILLATOR (9) Leukocytosis Code(s): D72.829 - ELEVATED WHITE BLOOD CELL COUNT, UNSPECIFIED Qualifiers: Leukocytosis type: unspecified Qualified Code(s): D72.829 - Elevated white blood cell count, unspecified Assessment/Plan ABX per ID Maintain off TUAN/ARB PO as tolerated O2 as needed Dr Sherwood Problem List - Problems (1) Angioedema Code(s): T78.3XXA - ANGIONEUROTIC EDEMA, INITIAL ENCOUNTER Qualifiers: Encounter type: initial encounter Qualified Code(s): T78.3XXA - Angioneurotic edema, initial encounter (2) Atrial fibrillation Code(s): I48.91 - UNSPECIFIED ATRIAL FIBRILLATION Qualifiers: Atrial fibrillation type: permanent Qualified Code(s): I48.2 - Chronic atrial fibrillation (3) CAD (coronary artery disease) Code(s): I25.10 - ATHSCL HEART DISEASE OF [place] CORONARY ARTERY W/O ANG PCTRS Qualifiers: Coronary Disease-Associated Artery/Lesion type: bypass graft [place] vs. transplanted heart: [place] heart Associated angina: without angina Qualified Code(s): I25.810 - Atherosclerosis of coronary artery bypass graft( s) without angina pectoris (4) Chronic systolic (congestive) heart failure Code(s): I50.22 - CHRONIC SYSTOLIC (CONGESTIVE) HEART FAILURE (5) Elevated INR Code(s): R79.1 - ABNORMAL COAGULATION PROFILE (6) HLD (hyperlipidemia) Code(s): E78.5 - HYPERLIPIDEMIA, UNSPECIFIED (7) HTN (hypertension) Code(s): I10 - ESSENTIAL (PRIMARY) HYPERTENSION (8) ICD (implantable cardioverter-defibrillator) in place Code(s): Z95.810 - PRESENCE OF AUTOMATIC (IMPLANTABLE) CARDIAC DEFIBRILLATOR (9) Leukocytosis Code(s): D72.829 - ELEVATED WHITE BLOOD CELL COUNT, UNSPECIFIED Qualifiers: Leukocytosis type: unspecified Qualified Code(s): D72.829 - Elevated white blood cell count, unspecified
--- NOTE | 2017-03-07 16:05 | PN ---
Physical Exam: SUBJECTIVE: Patient seen and examined at bedside. Has pain in right leg. Also with slight headache, would like Tylenol. OBJECTIVE: Vital Signs Period Temp Pulse Resp BP Sys/Juarez Pulse Ox Last 24 Hr 98.3 F-99.8 F 70-75 16-20 114-136/68-92 96 GENERAL: The patient is awake, alert, and fully oriented, in no acute distress. HEAD: Normal with no signs of trauma. EYES: PERRL, extraocular movements intact, sclera anicteric, conjunctiva clear. No ptosis. ENT: Ears normal, nares patent, oropharynx clear without exudates, moist mucous membranes. Peeling skin on lips, lower lip still quite swollen NECK: Trachea midline, full range of motion, supple. LUNGS: Breath sounds equal, clear to auscultation bilaterally, no wheezes, no crackles, no accessory muscle use. HEART: Regular rate and rhythm, S1, S2 without murmur, rub or gallop. ABDOMEN: Soft, nontender, nondistended, normoactive bowel sounds, no guarding, no rebound, no hepatosplenomegaly, no masses. UPPER EXTREMITIES: 2+ pulses, warm, well-perfused, no edema. RIGHT LOWER EXTREMITY: Leg immobilizer not removed, wound not visualized today NEUROLOGICAL: Cranial nerves II through XII grossly intact. Normal speech, gait not observed. CBCD WBC 10.9 K/mm3 (4.0-10.0) H 03/06/17 06:00 RBC 2.82 M/mm3 (4.00-5.60) L 03/06/17 06:00 Hgb 9.0 GM/dL (11.7-16.9) L D 03/06/17 06:00 Hct 26.4 % (35.4-49) L 03/06/17 06:00 MCV 93.7 fl (80-96) 03/06/17 06:00 MCHC 34.0 g/dl (32.0-35.9) 03/06/17 06:00 RDW 13.4 % (11.9-15.9) 03/06/17 06:00 Plt Count 280 K/MM3 (134-434) D 03/06/17 06:00 MPV 10.0 fl (7.5-11.1) 03/06/17 06:00 CMP Sodium 141 mmol/L (136-145) 03/06/17 06:00 Potassium 4.5 mmol/L (3.5-5.1) 03/06/17 06:00 Chloride 103 mmol/L (98-107) 03/06/17 06:00 Carbon Dioxide 28 mmol/L (21-32) 03/06/17 06:00 Anion Gap 10 (8-16) 03/06/17 06:00 BUN 32 mg/dL (7-18) H 03/06/17 06:00 Creatinine 1.0 mg/dL (0.7-1.3) 03/06/17 06:00 Creat Clearance w eGFR > 60 (>60) 03/06/17 06:00 Calcium 7.3 mg/dL (8.5-10.1) L 03/06/17 06:00 Total Bilirubin 0.6 mg/dL (0.2-1.0) 03/06/17 06:00 AST 17 U/L (15-37) 03/06/17 06:00 ALT 22 U/L (12-78) 03/06/17 06:00 Alkaline Phosphatase 63 U/L (45-117) 03/06/17 06:00 Total Protein 5.5 g/dl (6.4-8.2) L 03/06/17 06:00 Albumin 1.8 g/dl (3.4-5.0) L 03/06/17 06:00 Active Medications Generic Name Dose Route Start Last Admin Trade Name Freq PRN Reason Stop Dose Admin Acetaminophen 650 mg 03/03/17 17:50 Tylenol - PO Q4H PRN FEVER OR PAIN Artificial Tears 1 drop 03/03/17 17:50 Artificial Tears OU Q6H PRN DRY EYES Atorvastatin Calcium 10 mg 03/03/17 22:00 03/06/17 21:49 Lipitor - PO 10 mg HS POLLY Administration Carvedilol 6.25 mg 03/03/17 22:00 03/07/17 10:16 Coreg - PO 6.25 mg BID POLLY Administration Docusate Sodium 100 mg 03/03/17 22:00 03/07/17 15:04 Colace - PO 100 mg TID POLLY Administration Enoxaparin Sodium 100 mg 03/06/17 16:30 03/07/17 05:26 Lovenox - SQ 100 mg Q12H POLLY Administration Ferrous Sulfate 325 mg 03/04/17 08:00 03/07/17 15:04 Feosol - PO 325 mg TIDCM POLLY Administration Ceftriaxone Sodium 100 mls @ 200 mls/hr 03/04/17 13:45 03/07/17 10:16 Rocephin 2gm Ivpb (Pre-Docked) IVPB 200 mls/hr DAILY POLLY Administration Insulin Aspart 1 vial 03/03/17 22:00 03/07/17 12:31 Novolog Vial Sliding Scale - SQ Not Given ACHS [facility] Protocol Multivitamins/Minerals/Vitamin C 1 tab 03/04/17 10:00 03/07/17 10:17 Tab-A-Vit - PO 1 tab DAILY POLLY Administration [id number]-6-[id number] Ethyl Esters 1 gm 03/04/17 10:00 03/07/17 10:16 Lovaza - PO 1 gm DAILY POLLY Administration Ondansetron HCl 4 mg 03/03/17 17:50 Zofran Injection IVPB Q6H PRN NAUSEA Prednisone 10 mg 03/08/17 10:00 Deltasone - PO 03/09/17 10:01 DAILY POLLY Sodium Chloride 2 spray 03/03/17 17:50 [place] Nasal [place] - NS Q12H PRN NASAL CONGESTION Valacyclovir HCl 500 mg 03/04/17 22:00 03/07/17 10:16 Valtrex - PO 500 mg BID POLLY Administration ASSESSMENT/PLAN 66 year-old male with a PMH of HTN, HLD, CAD s/p CABG, afib on coumdain, systolic heart failure s/p AICD, and s/p right TKR x 2 years. Admitted for angioedema secondary to Entresto. Hospital stay complicated by sepsis secondary to infected prosthetic right knee and bacteremia. 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 Ma Anemia --03/02 positive occult stool with supratherapeutic INR; repeat ordered --h/h stable --daily cbc's Systolic heart failure s/p AICD --03/04 SANGITA: mild to moderate LV dysfunction; RV normal; no vegetations seen; trace to mild MR, mild TR, trace AI, mild to moderate non-mobile atheroma in aortic arch and proximal descending aorta --euvolemic Newly diagnosed diabetes --HgbA1C 6.5 --Novolog sliding scale coverage --nutrition consult/diabetic teaching JEREMY, resolved F/E/N Fluids: PO intake adequate Electrolytes: replete as indicated Nutrition: diabetic, low sodium PT daily DVT prophylaxis: continue lovenox, hold Wednesday night for possible PICC on Wednesday; oob, ambulation Visit type - Emergency Visit Emergency Visit: Yes ED Registration Date: 02/26/17 Care time: The patient presented to the Emergency Department on the above date and was hospitalized for further evaluation of their emergent condition. - New Patient This patient is new to me today: No - Critical Care Critical Care patient: No
[2017-03-07] MEDS ORDERED: PICC LINE 8 ML FLUSH PROTOCOL IVPUSH PRN (17:52)
[2017-03-07] MEDS: ACETAMINOPHEN 325 MG TABLET (FP) PO PRN (22:17)
[2017-03-07] MEDS: ATORVASTATIN CA 10 MG TABLET (FP) PO SCH (22:17)
[2017-03-08] MEDS: ENOXAPARIN NA (PORCINE) 100 MG/1 ML DISP.SYRIN SQ SCH (05:54)
[2017-03-08] MEDS: DOCUSATE SODIUM 100 MG CAPSULE (FP) PO SCH ×3 (05:55→22:40)
[2017-03-08] MEDS: INSULIN SLIDING SCALE (NOVOLOG) 1 VIAL SQ SCH ×4 (07:18→22:45)
[2017-03-08 07:21] LABS: BASOPHIL 0.7 % (0-2.0); EOSINOPHIL 0.3 % (0-4.5); MCH 31.3 pg (25.7-33.7); MEAN CELL VOLUME 94.7 fl (80-96); MEAN PLT VOLUME 10.7 fl (7.5-11.1); NEUTROPHILS 80.9 % (42.8-82.8); PLATELET COUNT 273 K/MM3 (134-434); RDW 13.2 % (11.9-15.9); WHITE BLOOD COUNT 11.3 K/mm3 (4.0-10.0)
[2017-03-08 07:34] LABS: ALBUMIN 1.7 g/dl (3.4-5.0); ALK PHOS 55 U/L (45-117); ANION GAP 11 (8-16); BILIRUBIN,TOTAL 0.4 mg/dL (0.2-1.0); CALCIUM 7.3 mg/dL (8.5-10.1); CO2 25 mmol/L (21-32); COCKROFT - GAULT 98.8; GLUCOSE,RANDOM 122 mg/dL (74-106); MAGNESIUM 1.9 mg/dL (1.8-2.4); SGOT/AST 15 U/L (15-37); SGPT/ALT 18 U/L (12-78); TOT PROT 5.3 g/dl (6.4-8.2)
[2017-03-08] MEDS: ACETAMINOPHEN 325 MG TABLET (FP) PO PRN ×2 (08:23→14:17)
--- NOTE | 2017-03-08 08:50 | PN ---
Progress Note, Physician Chief Complaint: nad - Current Medication List Current Medications: Active Medications Acetaminophen (Tylenol -) 650 mg PO Q4H PRN PRN Reason: FEVER OR PAIN Last Admin: 03/08/17 08:23 Dose: 650 mg Artificial Tears (Artificial Tears) 1 drop OU Q6H PRN PRN Reason: DRY EYES Atorvastatin Calcium (Lipitor -) 10 mg PO HS [facility] Last Admin: 03/07/17 22:17 Dose: 10 mg Carvedilol (Coreg -) 6.25 mg PO BID [facility] Last Admin: 03/07/17 22:16 Dose: 6.25 mg Docusate Sodium (Colace -) 100 mg PO TID [facility] Last Admin: 03/08/17 05:55 Dose: 100 mg Enoxaparin Sodium (Lovenox -) 100 mg SQ Q12H [facility] Last Admin: 03/08/17 05:54 Dose: 100 mg Ferrous Sulfate (Feosol -) 325 mg PO TIDCM [facility] Last Admin: 03/07/17 17:24 Dose: 325 mg IV Flush (Picc Line Flush) 8 ml IVPUSH PRN PRN PRN Reason: Protocol Ceftriaxone Sodium (Rocephin 2gm Ivpb (Pre-Docked)) 100 mls @ 200 mls/hr IVPB DAILY [facility] Last Admin: 03/07/17 10:16 Dose: 200 mls/hr Insulin Aspart (Novolog Vial Sliding Scale -) 1 vial SQ ACHS [facility] PRN Reason: Protocol Last Admin: 03/08/17 07:18 Dose: Not Given Multivitamins/Minerals/Vitamin C (Tab-A-Vit -) 1 tab PO DAILY [facility] Last Admin: 03/07/17 10:17 Dose: 1 tab [id number]-9-[id number] Ethyl Esters (Lovaza -) 1 gm PO DAILY [facility] Last Admin: 03/07/17 10:16 Dose: 1 gm Ondansetron HCl (Zofran Injection) 4 mg IVPB Q6H PRN PRN Reason: NAUSEA Prednisone (Deltasone -) 10 mg PO DAILY [facility] Stop: 03/09/17 10:01 Sodium Chloride ([place] Nasal [place] -) 2 spray NS Q12H PRN PRN Reason: NASAL CONGESTION Valacyclovir HCl (Valtrex -) 500 mg PO BID [facility] Last Admin: 03/07/17 22:17 Dose: 500 mg - Objective Vital Signs: Vital Signs Temperature 98.2 F 03/08/17 08:26 Pulse Rate 70 03/08/17 08:26 Respiratory Rate 18 03/08/17 08:26 Blood Pressure 135/72 03/08/17 08:26 O2 Sat by Pulse Oximetry (%) 98 03/08/17 08:26 Eyes: Yes: WNL, Conjunctiva Clear, EOM Intact HENT: Yes: WNL, Atraumatic, Normocephalic Neck: Yes: WNL, Supple, Trachea Midline Cardiovascular: Yes: Pulse Irregular, S1, S2 Respiratory: Yes: WNL, Regular, CTA Bilaterally Gastrointestinal: Yes: WNL, Normal Bowel Sounds Genitourinary: Yes: WNL Musculoskeletal: Yes: WNL Extremities: Yes: WNL Edema: No Integumentary: Yes: WNL Neurological: Yes: WNL, Alert, Oriented ...Motor Strength: WNL Psychiatric: Yes: WNL Labs: CBC, BMP 03/08/17 06:00 INR, PTT INR 2.40 (0.82-1.09) H D 03/06/17 06:00 Assessment/Plan - Problems (1) Angioedema Code(s): T78.3XXA - ANGIONEUROTIC EDEMA, INITIAL ENCOUNTER Qualifiers: Encounter type: initial encounter Qualified Code(s): T78.3XXA - Angioneurotic edema, initial encounter (2) Atrial fibrillation Code(s): I48.91 - UNSPECIFIED ATRIAL FIBRILLATION Qualifiers: Atrial fibrillation type: permanent Qualified Code(s): I48.2 - Chronic atrial fibrillation (3) CAD (coronary artery disease) Code(s): I25.10 - ATHSCL HEART DISEASE OF [place] CORONARY ARTERY W/O ANG PCTRS Qualifiers: Coronary Disease-Associated Artery/Lesion type: bypass graft [place] vs. transplanted heart: [place] heart Associated angina: without angina Qualified Code(s): I25.810 - Atherosclerosis of coronary artery bypass graft( s) without angina pectoris (4) Elevated INR Code(s): R79.1 - ABNORMAL COAGULATION PROFILE (5) Leukocytosis Code(s): D72.829 - ELEVATED WHITE BLOOD CELL COUNT, UNSPECIFIED Qualifiers: Leukocytosis type: unspecified Qualified Code(s): D72.829 - Elevated white blood cell count, unspecified (6) Chronic systolic (congestive) heart failure Code(s): I50.22 - CHRONIC SYSTOLIC (CONGESTIVE) HEART FAILURE (7) ICD (implantable cardioverter-defibrillator) in place Code(s): Z95.810 - PRESENCE OF AUTOMATIC (IMPLANTABLE) CARDIAC DEFIBRILLATOR (8) Renal insufficiency Code(s): N28.9 - DISORDER OF KIDNEY AND URETER, UNSPECIFIED Assessment/Plan IMP: Strep bacteremia with infected R. knee, s/p I&D Angioedema, improved- presumed secondary to Entresto Ischemic Cardiomyopathy s/p CABG and ICD REC: 1. Hemodynamically stable s/p R. knee I &D with serial blood cultures negative. SANGITA negative for vegetation. Antibiotics as per ID, will need PICC line. 2. Angioedema resolving - still residual swelling: would not resume Entresto nor any TUAN/ARB. In future, will transition to Imdur + Hydralazine, as outpatient. 3. Daily INR for goal 2-3 (AF). -adjust dose as needed. -INR has been supratherapeutic last few days likely due to infxn and abx effect
[2017-03-08] MEDS ORDERED: HALOPERIDOL LACTATE 5 MG/ML IM ONE (10:00)
[2017-03-08 10:05] LABS: BASOPHIL 0.2 % (0-2.0); EOSINOPHIL 0.2 % (0-4.5); MCH 31.2 pg (25.7-33.7); MCHC 33.4 g/dl (32.0-35.9); MEAN CELL VOLUME 93.5 fl (80-96); MEAN PLT VOLUME 9.2 fl (7.5-11.1); NEUTROPHILS 83.4 % (42.8-82.8); PLATELET COUNT 342 K/MM3 (134-434); RDW 13.2 % (11.9-15.9)
[2017-03-08] MEDS: CEFTRIAXONE 100 ML IVPB SCH (10:12)
[2017-03-08] MEDS: predniSONE 10 MG TABLET (UD) PO SCH (10:12)
[2017-03-08] MEDS: FERROUS SO4 325 MG TABLET (FP) PO SCH ×3 (10:12→17:09)
[2017-03-08] MEDS: valACYclovir HCL 500 MG TABLET (FP) PO SCH ×2 (10:12→22:40)
[2017-03-08] MEDS: MULTIVITAMINS (DAILY MVI) TABLET (FP) PO SCH (10:12)
[2017-03-08] MEDS: OMEGA-3 ACID ETHYL ESTERS (FATTY-ACIDS) 1 GM CAPSULE (FP) PO SCH (10:12)
[2017-03-08] MEDS: CARVEDILOL 6.25 MG TABLET (FP) PO SCH ×2 (10:12→22:40)
--- NOTE | 2017-03-08 10:54 | PN ---
Progress Note, Physician History of Present Illness: PULMONARY ALERT,-SOB,-STRIDOR,SWELLING PERSIST,+DIFFICULTY SWALLOWING PILLS,. PT NOTED TO HAVE HGB 6.8. - Current Medication List Current Medications: Active Medications Acetaminophen (Tylenol -) 650 mg PO Q4H PRN PRN Reason: FEVER OR PAIN Last Admin: 03/08/17 08:23 Dose: 650 mg Artificial Tears (Artificial Tears) 1 drop OU Q6H PRN PRN Reason: DRY EYES Atorvastatin Calcium (Lipitor -) 10 mg PO HS [facility] Last Admin: 03/07/17 22:17 Dose: 10 mg Carvedilol (Coreg -) 6.25 mg PO BID [facility] Last Admin: 03/08/17 10:12 Dose: 6.25 mg Docusate Sodium (Colace -) 100 mg PO TID [facility] Last Admin: 03/08/17 05:55 Dose: 100 mg Ferrous Sulfate (Feosol -) 325 mg PO TIDCM [facility] Last Admin: 03/08/17 10:12 Dose: 325 mg IV Flush (Picc Line Flush) 8 ml IVPUSH PRN PRN PRN Reason: Protocol Ceftriaxone Sodium (Rocephin 2gm Ivpb (Pre-Docked)) 100 mls @ 200 mls/hr IVPB DAILY [facility] Last Admin: 03/08/17 10:12 Dose: 200 mls/hr Insulin Aspart (Novolog Vial Sliding Scale -) 1 vial SQ ACHS POLLY PRN Reason: Protocol Last Admin: 03/08/17 07:18 Dose: Not Given Multivitamins/Minerals/Vitamin C (Tab-A-Vit -) 1 tab PO DAILY [facility] Last Admin: 03/08/17 10:12 Dose: 1 tab Xjarb-4-Awrt Ethyl Esters (Lovaza -) 1 gm PO DAILY [facility] Last Admin: 03/08/17 10:12 Dose: 1 gm Ondansetron HCl (Zofran Injection) 4 mg IVPB Q6H PRN PRN Reason: NAUSEA Prednisone (Deltasone -) 10 mg PO DAILY [facility] Stop: 03/09/17 10:01 Last Admin: 03/08/17 10:12 Dose: 10 mg Sodium Chloride ([place] Nasal [place] -) 2 spray NS Q12H PRN PRN Reason: NASAL CONGESTION Valacyclovir HCl (Valtrex -) 500 mg PO BID [facility] Last Admin: 03/08/17 10:12 Dose: 500 mg - Objective Vital Signs: Vital Signs Temperature 98.2 F 03/08/17 08:26 Pulse Rate 70 03/08/17 08:26 Respiratory Rate 18 03/08/17 08:26 Blood Pressure 135/72 03/08/17 08:26 O2 Sat by Pulse Oximetry (%) 98 03/08/17 08:26 Constitutional: Yes: Well Nourished, Calm Eyes: Yes: WNL, Occular Prosthesis Neck: Yes: WNL Cardiovascular: Yes: Pulse Irregular, S1, S2 Respiratory: Yes: CTA Bilaterally Gastrointestinal: Yes: Normal Bowel Sounds, Soft, Distention (MILD DISTENTION) Extremities: Yes: WNL Edema: No Labs: CBC, BMP 03/08/17 09:45 03/08/17 06:00 INR, PTT INR 2.40 (0.82-1.09) H D 03/06/17 06:00 Problem List - Problems (1) Septic arthritis Code(s): M00.9 - PYOGENIC ARTHRITIS, UNSPECIFIED (2) Anemia Code(s): D64.9 - ANEMIA, UNSPECIFIED (3) Streptococcal bacteremia Code(s): R78.81 - BACTEREMIA Assessment/Plan Problem List - Problems (1) Angioedema Code(s): T78.3XXA - ANGIONEUROTIC EDEMA, INITIAL ENCOUNTER Qualifiers: Encounter type: initial encounter Qualified Code(s): T78.3XXA - Angioneurotic edema, initial encounter (2) Atrial fibrillation Code(s): I48.91 - UNSPECIFIED ATRIAL FIBRILLATION Qualifiers: Atrial fibrillation type: permanent Qualified Code(s): I48.2 - Chronic atrial fibrillation (3) CAD (coronary artery disease) Code(s): I25.10 - ATHSCL HEART DISEASE OF [place] CORONARY ARTERY W/O ANG PCTRS Qualifiers: Coronary Disease-Associated Artery/Lesion type: bypass graft [place] vs. transplanted heart: [place] heart Associated angina: without angina Qualified Code(s): I25.810 - Atherosclerosis of coronary artery bypass graft( s) without angina pectoris (4) Chronic systolic (congestive) heart failure Code(s): I50.22 - CHRONIC SYSTOLIC (CONGESTIVE) HEART FAILURE (5) Elevated INR Code(s): R79.1 - ABNORMAL COAGULATION PROFILE (6) HLD (hyperlipidemia) Code(s): E78.5 - HYPERLIPIDEMIA, UNSPECIFIED (7) HTN (hypertension) Code(s): I10 - ESSENTIAL (PRIMARY) HYPERTENSION (8) ICD (implantable cardioverter-defibrillator) in place Code(s): Z95.810 - PRESENCE OF AUTOMATIC (IMPLANTABLE) CARDIAC DEFIBRILLATOR (9) Leukocytosis Code(s): D72.829 - ELEVATED WHITE BLOOD CELL COUNT, UNSPECIFIED Qualifiers: Leukocytosis type: unspecified Qualified Code(s): D72.829 - Elevated white blood cell count, unspecified 10 ANEMIA 12 STREP BACTEREMIA Assessment/Plan ABX per ID monitor h+h tranfuse Maintain off TUAN/ARB PO as tolerated O2 as needed check stool guiac check INR DR MELGOZA Problem List - Problems (1) Angioedema Code(s): T78.3XXA - ANGIONEUROTIC EDEMA, INITIAL ENCOUNTER Qualifiers: Encounter type: initial encounter Qualified Code(s): T78.3XXA - Angioneurotic edema, initial encounter (2) Atrial fibrillation Code(s): I48.91 - UNSPECIFIED ATRIAL FIBRILLATION Qualifiers: Atrial fibrillation type: permanent Qualified Code(s): I48.2 - Chronic atrial fibrillation (3) CAD (coronary artery disease) Code(s): I25.10 - ATHSCL HEART DISEASE OF [place] CORONARY ARTERY W/O ANG PCTRS Qualifiers: Coronary Disease-Associated Artery/Lesion type: bypass graft [place] vs. transplanted heart: [place] heart Associated angina: without angina Qualified Code(s): I25.810 - Atherosclerosis of coronary artery bypass graft( s) without angina pectoris (4) Chronic systolic (congestive) heart failure Code(s): I50.22 - CHRONIC SYSTOLIC (CONGESTIVE) HEART FAILURE (5) Elevated INR Code(s): R79.1 - ABNORMAL COAGULATION PROFILE (6) HLD (hyperlipidemia) Code(s): E78.5 - HYPERLIPIDEMIA, UNSPECIFIED (7) HTN (hypertension) Code(s): I10 - ESSENTIAL (PRIMARY) HYPERTENSION (8) ICD (implantable cardioverter-defibrillator) in place Code(s): Z95.810 - PRESENCE OF AUTOMATIC (IMPLANTABLE) CARDIAC DEFIBRILLATOR (9) Leukocytosis Code(s): D72.829 - ELEVATED WHITE BLOOD CELL COUNT, UNSPECIFIED Qualifiers: Leukocytosis type: unspecified Qualified Code(s): D72.829 - Elevated white blood cell count, unspecified
--- NOTE | 2017-03-08 11:53 | PN ---
Progress Note, Physician History of Present Illness: No c/o R Knee pain Afebrile Tolerating antibiotics - Current Medication List Current Medications: Active Medications Acetaminophen (Tylenol -) 650 mg PO Q4H PRN PRN Reason: FEVER OR PAIN Last Admin: 03/08/17 08:23 Dose: 650 mg Artificial Tears (Artificial Tears) 1 drop OU Q6H PRN PRN Reason: DRY EYES Atorvastatin Calcium (Lipitor -) 10 mg PO HS [facility] Last Admin: 03/07/17 22:17 Dose: 10 mg Carvedilol (Coreg -) 6.25 mg PO BID [facility] Last Admin: 03/08/17 10:12 Dose: 6.25 mg Docusate Sodium (Colace -) 100 mg PO TID [facility] Last Admin: 03/08/17 05:55 Dose: 100 mg Ferrous Sulfate (Feosol -) 325 mg PO TIDCM [facility] Last Admin: 03/08/17 10:12 Dose: 325 mg IV Flush (Picc Line Flush) 8 ml IVPUSH PRN PRN PRN Reason: Protocol Ceftriaxone Sodium (Rocephin 2gm Ivpb (Pre-Docked)) 100 mls @ 200 mls/hr IVPB DAILY [facility] Last Admin: 03/08/17 10:12 Dose: 200 mls/hr Insulin Aspart (Novolog Vial Sliding Scale -) 1 vial SQ ACHS [facility] PRN Reason: Protocol Last Admin: 03/08/17 07:18 Dose: Not Given Multivitamins/Minerals/Vitamin C (Tab-A-Vit -) 1 tab PO DAILY [facility] Last Admin: 03/08/17 10:12 Dose: 1 tab Vhxtg-8-Esol Ethyl Esters (Lovaza -) 1 gm PO DAILY [facility] Last Admin: 03/08/17 10:12 Dose: 1 gm Ondansetron HCl (Zofran Injection) 4 mg IVPB Q6H PRN PRN Reason: NAUSEA Prednisone (Deltasone -) 10 mg PO DAILY [facility] Stop: 03/09/17 10:01 Last Admin: 03/08/17 10:12 Dose: 10 mg Sodium Chloride ([place] Nasal [place] -) 2 spray NS Q12H PRN PRN Reason: NASAL CONGESTION Valacyclovir HCl (Valtrex -) 500 mg PO BID [facility] Last Admin: 03/08/17 10:12 Dose: 500 mg - Objective Vital Signs: Vital Signs Temperature 98.4 F 03/08/17 10:00 Pulse Rate 70 03/08/17 10:00 Respiratory Rate 18 03/08/17 10:00 Blood Pressure 135/72 03/08/17 10:00 O2 Sat by Pulse Oximetry (%) 98 03/08/17 08:26 Constitutional: Yes: No Distress Eyes: Yes: Conjunctiva Clear HENT: Yes: Other (lip swelling, lower lip ulceration) Cardiovascular: Yes: Regular Rate and Rhythm, S1, S2 Respiratory: Yes: CTA Bilaterally Gastrointestinal: Yes: Normal Bowel Sounds, Soft. No: Tenderness Extremities: Yes: Other (R knee swelling Maur[place] intact) Labs: CBC, BMP 03/08/17 09:45 03/08/17 06:00 INR, PTT INR 2.40 (0.82-1.09) H D 03/06/17 06:00 Assessment/Plan Grp C Strep septic arthritis/ septicemia continue ceftriaxone For PICC line
[2017-03-08 12:04] LABS: INR 1.5 (0.82-1.09); PROTHROMBIN TIME (PATIENT) 16.6 SEC (9.98-11.88)
--- NOTE | 2017-03-08 12:34 | PN ---
Physical Exam: SUBJECTIVE: Patient seen and examined at bedside. Complaining of severe right leg pain at surgical site. Has not had BM in several days. OBJECTIVE: Vital Signs Period Temp Pulse Resp BP Sys/Juarez Pulse Ox Last 24 Hr 97.6 F-99.4 F 70-75 16-20 114-137/55-92 98-98 GENERAL: The patient is awake, alert, and fully oriented, in no acute distress. HEAD: Normal with no signs of trauma. EYES: PERRL, extraocular movements intact, sclera anicteric, conjunctiva clear. No ptosis. ENT: Ears normal, nares patent, oropharynx clear without exudates, moist mucous membranes. Peeling skin on lips, lower lip still quite swollen NECK: Trachea midline, full range of motion, supple. LUNGS: Breath sounds equal, clear to auscultation bilaterally, no wheezes, no crackles, no accessory muscle use. HEART: Regular rate and rhythm, S1, S2 without murmur, rub or gallop. ABDOMEN: Soft, nontender, nondistended, normoactive bowel sounds, no guarding, no rebound, no hepatosplenomegaly, no masses. UPPER EXTREMITIES: 2+ pulses, warm, well-perfused, no edema. RIGHT LOWER EXTREMITY: Wound exposed. [place] are intact but knee is swollen, mild erythema, ++tenderness NEUROLOGICAL: Cranial nerves II through XII grossly intact. Normal speech, gait not observed. Laboratory Results - last 24 hr 03/07/17 03/07/17 03/08/17 12:29 17:22 05:52 WBC RBC Hgb Hct MCV MCHC RDW Plt Count MPV Neutrophils % Lymphocytes % Monocytes % Eosinophils % Basophils % RBC Morphology INR Sodium Potassium Chloride Carbon Dioxide Anion Gap BUN Creatinine Creat Clearance w eGFR POC Glucometer 134 157 117 Random Glucose Calcium Magnesium Total Bilirubin AST ALT Alkaline Phosphatase Total Protein Albumin Blood Type Antibody Screen Crossmatch 03/08/17 03/08/17 03/08/17 06:00 06:00 09:45 WBC 11.3 H 12.0 H RBC 2.18 L D 2.18 L Hgb 6.8 L* D 6.8 L* Hct 20.6 L D 20.4 L MCV 94.7 93.5 MCHC 33.0 33.4 RDW 13.2 13.2 Plt Count 273 342 D MPV 10.7 9.2 D Neutrophils % 80.9 83.4 H Lymphocytes % 14.0 11.6 Monocytes % 4.1 4.6 Eosinophils % 0.3 0.2 Basophils % 0.7 D 0.2 RBC Morphology Appears normal INR Sodium 139 Potassium 4.1 Chloride 103 Carbon Dioxide 25 Anion Gap 11 BUN 30 H Creatinine 1.0 Creat Clearance w eGFR > 60 POC Glucometer Random Glucose 122 H Calcium 7.3 L Magnesium 1.9 Total Bilirubin 0.4 D AST 15 ALT 18 Alkaline Phosphatase 55 Total Protein 5.3 L Albumin 1.7 L Blood Type Antibody Screen Crossmatch 03/08/17 03/08/17 03/08/17 10:35 11:25 12:01 WBC RBC Hgb Hct MCV MCHC RDW Plt Count MPV Neutrophils % Lymphocytes % Monocytes % Eosinophils % Basophils % RBC Morphology INR 1.50 H D Sodium Potassium Chloride Carbon Dioxide Anion Gap BUN Creatinine Creat Clearance w eGFR POC Glucometer 139 Random Glucose Calcium Magnesium Total Bilirubin AST ALT Alkaline Phosphatase Total Protein Albumin Blood Type A POSITIVE Antibody Screen Negative Crossmatch See Detail Active Medications Generic Name Dose Route Start Last Admin Trade Name Freq PRN Reason Stop Dose Admin Acetaminophen 650 mg 03/03/17 17:50 03/08/17 08:23 Tylenol - PO 650 mg Q4H PRN Administration FEVER OR PAIN Artificial Tears 1 drop 03/03/17 17:50 Artificial Tears OU Q6H PRN DRY EYES Atorvastatin Calcium 10 mg 03/03/17 22:00 03/07/17 22:17 Lipitor - PO 10 mg HS POLLY Administration Carvedilol 6.25 mg 03/03/17 22:00 03/08/17 10:12 Coreg - PO 6.25 mg BID POLLY Administration Docusate Sodium 100 mg 03/03/17 22:00 03/08/17 05:55 Colace - PO 100 mg TID POLLY Administration Ferrous Sulfate 325 mg 03/04/17 08:00 03/08/17 10:12 Feosol - PO 325 mg TIDCM POLLY Administration IV Flush 8 ml 03/07/17 17:52 Picc Line Flush IVPUSH PRN PRN Protocol Ceftriaxone Sodium 100 mls @ 200 mls/hr 03/04/17 13:45 03/08/17 10:12 Rocephin 2gm Ivpb (Pre-Docked) IVPB 200 mls/hr DAILY POLLY Administration Insulin Aspart 1 vial 03/03/17 22:00 03/08/17 12:02 Novolog Vial Sliding Scale - SQ Not Given ACHS [facility] Protocol Multivitamins/Minerals/Vitamin C 1 tab 03/04/17 10:00 03/08/17 10:12 Tab-A-Vit - PO 1 tab DAILY POLLY Administration Wimzs-3-Kome Ethyl Esters 1 gm 03/04/17 10:00 03/08/17 10:12 Lovaza - PO 1 gm DAILY POLLY Administration Ondansetron HCl 4 mg 03/03/17 17:50 Zofran Injection IVPB Q6H PRN NAUSEA Prednisone 10 mg 03/08/17 10:00 03/08/17 10:12 Deltasone - PO 03/09/17 10:01 10 mg DAILY POLLY Administration Sodium Chloride 2 spray 03/03/17 17:50 Jerauld Clayton Nasal Clayton - NS Q12H PRN NASAL CONGESTION Valacyclovir HCl 500 mg 03/04/17 22:00 03/08/17 10:12 Valtrex - PO 500 mg BID POLLY Administration ASSESSMENT/PLAN 66 year-old male with a PMH of HTN, HLD, CAD s/p CABG, afib on coumdain, systolic heart failure s/p AICD, and s/p right TKR x 2 years. Admitted for angioedema secondary to Entresto. Hospital stay complicated by sepsis secondary to infected prosthetic right knee and bacteremia. Now with significant blood loss anemia. 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 Strep Group C bacteremia --s/p open debridement, irrigation, and exchange of polyinsert liner 03/01 --continue ceftriaxone (day #5) --right knee swollen and tender today, no exudate; elevation, ice packs, hibiclens wound twice daily --will need PICC line and long-term antibiotics Atrial fibrillation --rate well-controlled, continue carvedilol --hold all anti-coagulation due to drop in Hgb Blood loss Anemia --03/02 positive occult stool with supratherapeutic INR, h/h stable from 03/02 until today when dropped 9.0-->6.8 --last colonoscopy 8 years ago, reportedly normal; no h/o GI bleed, ulcers, GERD, hematuria, hematemesis, hematochezia --bedside guiaic positive --discussed with Dr. Peterson who will follow --transfuse 2 units PRBC Systolic heart failure s/p AICD --03/04 SANGITA: mild to moderate LV dysfunction; RV normal; no vegetations seen; trace to mild MR, mild TR, trace AI, mild to moderate non-mobile atheroma in aortic arch and proximal descending aorta --euvolemic Newly diagnosed diabetes --HgbA1C 6.5 --Novolog sliding scale coverage --nutrition consult/diabetic teaching Oral HSV infection -continue Valtrex PO (day #4) Hypertension --continue carvedilol Hyperlipidemia --continue Lipitor CAD s/p CABG --continue carvediolol JEREMY, resolved F/E/N Fluids: PO intake adequate Electrolytes: replete as indicated Nutrition: diabetic, low sodium PT daily DVT prophylaxis: no chemical prophylaxis due to bleeding issue; SCD right leg Visit type - Emergency Visit Emergency Visit: Yes ED Registration Date: 02/26/17 Care time: The patient presented to the Emergency Department on the above date and was hospitalized for further evaluation of their emergent condition. - New Patient This patient is new to me today: No - Critical Care Critical Care patient: No
--- NOTE | 2017-03-08 13:51 | CON.GI ---
Consult Consult Specialty:: GASTROENTEROLOGY Reason for Consultation:: BLOOD LOSS ANEMIA - History of Present Illness History of Present Illness: 66 YO MALE WITH HISTORY OF ISCHEMIC CARDIOMYOPATHY NOW WITH STREP BACTEREMIA FROM RIGHT KNEE INFECTION (KNEE REPLACEMENT SURGERY ON THAT KNEE) FOUND TO HAVE PROFOUND ANEMIA(ACUTE) AND BLACK STOOLS THAT ARE GUAIAC POSITIVE. HIS ORIGINAL ADMISSION DIAGNOSIS WAS FOR ANGIOEDEMA FROM ENTRESTO. CONSULT CALLED FOR ACUTE BLOOD LOSS ANEMIA. PATIENT WAS NOT ANEMIC ON ADMISSION. HE DID HAVE A DROP IN HIS HGB EARLY IN THE COURSE OF HIS STAY. HE STATES THAT AT THAT TIME THE MEDICAL STAFF PLACED HIM ON IRON. HE WAS WAS TAKING COUMADIN AND THEY ADDED LOVENOX. FOR 4 OR 5 DAYS HIS INR WAS SUPRATHERAPUETIC (RANGE 4 TO HIGH 5'S). SOON AFTER HIS HGB FELL TO 6.4 AND CONSULT WAS CALLED. LOVENOX AND COUMADIN HAVE BEEN HELD AND HE IS BEEN TRANSFUSED PRBC'S TODAY. HE DENIES ANY OTHER PRIOR BLEEDING. HE HAS NOT BEEN TAKING ANY NSAIDS OTHER THAN 81MG ASA. HE HAS HAD COLONOSCOPY EIGHT YEARS AGO THAT WAS NORMAL. HE DOES STATES THAT HE HAD DARK COLORED DIARRHEA FOR ABOUT A WEEK. HE HAD A SANGITA THIS ADMISSION (NEGATIVE FOR VEGETATIONS), HE WAS TREATED WITH PREDNISONE EARLY IN THE COURSE OF HIS ANGIOEDEMA. - History Source History Provided By: Patient Limitations to Obtaining History: No Limitations - Past Medical History Cardio/Vascular: Yes: AFIB (on coumadin), CAD (s/p CABG), CHF (s/p ICD), HTN, Hyperlipdemia, Other (Severe LV systolic dysfunction, s/p ICD implantation) Pulmonary: No: Asthma, Bronchitis, Cancer, COPD, O2 Dependent, Pneumonia, Previously Intubated, Pulmonary Embolus, Pulmonary Fibrosis, Sleep Apnea, Other Gastrointestinal: Yes: Other (recent onset of diarrhea x 1 week) Hepatobiliary: No: Cirrhosis, Cholelithiasis, Cholecystitis, Choledocholithiasis , Hepatitis A, Hepatitis B, Hepatitis C, Other Renal/: No: Renal Failure, Renal Inusuff, BPH, Cancer, Hematuria, Hemodialysis , Neurogenic Bladder, Renal Calculi, UTI, Other Infectious Disease: No: AIDS, C-Diff, Herpes Zoster, HIV, MRSA, STD's, Tuberculosis, VREF, Other Psych: No: Addictions, Anxiety, Bipolar, Depression, Panic, Psychosis, Schizophrenia, Other Musculoskeletal: No: Bursitis, Chronic low back pain, Hemiparesis, Hemiplegia, Osteoarthritis, Paraplegia, Other Rheumatology: No: Fibromyalgia, Gout, Lupus, Rheumatoid Arthritis, Sarcoidosis, Vasculitis, Other Endocrine: No: [place]'s Disease, [place]'s Disease, Diabetes Insipidus, Diabetes Mellitus, Hyperparathyroidism, Hyperthyroidism, Hypothyroidism, Osteopenia, SIADH, Other - Past Surgical History Past Surgical History: Yes: CABG, Colonoscopy, Joint Replacement, Permanent Pacemaker Additional Surgical History: s/p ICD. Knee surgery. LUMBAR SPINE SURGERY WITH FUSIION FOR STENOSIS - Alcohol/Substance Use Hx Alcohol Use: No History of Substance Use: reports: None - Smoking History Smoking history: Never smoked Have you smoked in the past 12 months: No - Social History ADL: Independent History of Recent Travel: Yes ([place]) Home Medications - Allergies Allergies/Adverse Reactions: Allergies Allergy/AdvReac Type Severity Reaction Status Date / Time lisinopril Allergy Severe Verified 03/05/17 17:03 sacubitril [From Entresto] Allergy Severe Angioedema Verified 03/05/17 17:03 valsartan [From Entresto] Allergy Severe angioedema Verified 03/05/17 17:04 No Known Drug Allergies Allergy Verified 04/24/15 13:19 HAYFEVER Allergy Uncoded 04/24/15 13:09 - Home Medications Home Medications: Ambulatory Orders Aspirin [ASA -] 81 mg PO DAILY 06/30/14 Carvedilol 6.25 mg PO BID 06/30/14 Lisinopril [Prinivil -] 10 mg PO DAILY 06/30/14 Simvastatin [Zocor -] 20 mg PO HS 06/30/14 Warfarin Sodium [Coumadin] 3 mg PO ASDIR 06/30/14 Amlodipine Besylate [Norvasc -] 5 mg PO DAILY 04/24/15 Fish Oil/Borage/Flax/Om3,6,9#1 [[place] 3-6-9 Complex Softgel] 1 each PO DAILY Multivitamins [Multivit ([facility] Formul[facility])] 1 tab PO DAILY 04/24/15 Warfarin Sodium [Coumadin] 1.5 mg PO ASDIR 04/24/15 Docusate Sodium [Colace -] 100 mg PO TID #21 capsule 05/01/15 Ferrous Sulfate [Feosol] 325 mg PO TIDCM #30 ud 05/01/15 Family Disease History - Family Disease History Family History: Unremarkable Review of Systems - Review of Systems Constitutional: reports: Lethargy, Weakness Eyes: reports: No Symptoms HENT: reports: No Symptoms Neck: reports: No Symptoms Cardiovascular: reports: No Symptoms Respiratory: reports: No Symptoms Gastrointestinal: reports: Diarrhea, Other (DARK STOOL) Genitourinary: reports: No Symptoms Musculoskeletal: reports: Joint Pain, Joint Swelling Integumentary: reports: Erythema, Other (ANGIOEDEMA (IMPROVING)) Neurological: reports: No Symptoms Endocrine: reports: No Symptoms Hematology/Lymphatic: reports: No Symptoms Physical Exam-GI Vital Signs: Vital Signs Temperature 98.4 F 03/08/17 10:00 Pulse Rate 70 03/08/17 10:00 Respiratory Rate 18 03/08/17 10:00 Blood Pressure 135/72 03/08/17 10:00 O2 Sat by Pulse Oximetry (%) 98 03/08/17 08:26 Constitutional: Yes: Calm Eyes: Yes: Conjunctiva Clear HENT: Yes: Other (MILD EDEMA, LIP SWELLING WITH SOME OOZING BLOOD FROM LIPS) Cardiovascular: Yes: Pulse Irregular Respiratory: Yes: Regular Gastrointestinal Inspection: Yes: WNL ...Auscultate: Yes: Hyperactive Bowel Sounds ...Palpate: Yes: Soft ...Rectal Exam: Yes: Guaiac Positive Genitourinary: Yes: WNL Musculoskeletal: Yes: WNL Extremities: Yes: Other (RIGHT KNEE TENDERNESS, DRESSING INTACT) Wound/Incision: Yes: Dressing Dry and Intact Neurological: Yes: WNL Psychiatric: Yes: WNL Labs: CBC, BMP 03/08/17 09:45 03/08/17 06:00 INR, PTT INR 1.50 (0.82-1.09) H D 03/08/17 11:25 Laboratory Tests 02/28/17 02/28/17 03/01/17 05:10 15:00 05:30 WBC 23.0 H RBC 4.00 Hgb 12.3 Hct 37.7 MCV 94.2 MCHC 32.6 RDW 14.1 Plt Count 140 MPV Neutrophils % Lymphocytes % Monocytes % Eosinophils % Basophils % INR Sodium Potassium Chloride Carbon Dioxide Anion Gap BUN 42 H D Creatinine 1.9 H D Creat Clearance w eGFR Random Glucose Calcium Magnesium Total Bilirubin AST ALT Alkaline Phosphatase Total Protein Albumin Stool Occult Blood U Marijuana (THC) Screen Positive 03/02/17 03/02/17 03/02/17 05:20 05:20 18:39 WBC 17.8 H RBC 3.52 L Hgb 10.8 L D Hct 33.2 L MCV 94.2 MCHC 32.7 RDW 14.1 Plt Count 139 MPV Neutrophils % Lymphocytes % Monocytes % Eosinophils % Basophils % INR 4.27 H* D Sodium Potassium Chloride Carbon Dioxide Anion Gap BUN Creatinine Creat Clearance w eGFR Random Glucose Calcium Magnesium Total Bilirubin AST ALT Alkaline Phosphatase Total Protein Albumin Stool Occult Blood Positive U Marijuana (THC) Screen 03/03/17 03/04/17 03/04/17 05:05 05:35 05:35 WBC RBC Hgb Hct MCV MCHC RDW Plt Count MPV Neutrophils % Lymphocytes % Monocytes % Eosinophils % Basophils % INR 4.18 H* 5.26 H* Sodium Potassium Chloride Carbon Dioxide Anion Gap BUN 41 H Creatinine 1.1 Creat Clearance w eGFR Random Glucose Calcium Magnesium Total Bilirubin AST ALT Alkaline Phosphatase Total Protein Albumin Stool Occult Blood U Marijuana (THC) Screen 03/05/17 03/05/17 03/06/17 06:00 06:00 06:00 WBC RBC Hgb Hct MCV MCHC RDW Plt Count MPV Neutrophils % Lymphocytes % Monocytes % Eosinophils % Basophils % INR 4.11 H* 2.40 H D Sodium Potassium Chloride Carbon Dioxide Anion Gap BUN 39 H Creatinine 1.1 Creat Clearance w eGFR Random Glucose Calcium Magnesium Total Bilirubin AST ALT Alkaline Phosphatase Total Protein Albumin Stool Occult Blood U Marijuana (THC) Screen 03/06/17 03/08/17 03/08/17 06:00 06:00 09:45 WBC 12.0 H RBC 2.18 L Hgb 6.8 L* Hct 20.4 L MCV 93.5 MCHC 33.4 RDW 13.2 Plt Count 342 D MPV 9.2 D Neutrophils % 83.4 H Lymphocytes % 11.6 Monocytes % 4.6 Eosinophils % 0.2 Basophils % 0.2 INR Sodium 139 Potassium 4.1 Chloride 103 Carbon Dioxide 25 Anion Gap 11 BUN 32 H 30 H Creatinine 1.0 1.0 Creat Clearance w eGFR > 60 Random Glucose 122 H Calcium 7.3 L Magnesium 1.9 Total Bilirubin 0.4 D AST 15 ALT 18 Alkaline Phosphatase 55 Total Protein 5.3 L Albumin 1.7 L Stool Occult Blood U Marijuana (THC) Screen 03/08/17 11:25 WBC RBC Hgb Hct MCV MCHC RDW Plt Count MPV Neutrophils % Lymphocytes % Monocytes % Eosinophils % Basophils % INR 1.50 H D Sodium Potassium Chloride Carbon Dioxide Anion Gap BUN Creatinine Creat Clearance w eGFR Random Glucose Calcium Magnesium Total Bilirubin AST ALT Alkaline Phosphatase Total Protein Albumin Stool Occult Blood U Marijuana (THC) Screen Problem List - Problems (1) Blood loss anemia Assessment/Plan: HIS BLEEDING NEEDS TO BE EVALUATED BY EGD AND COLONOSCOPY. OBVIOUSLY SOMETHING HAS BLEED FROM THE ELEVATED INR. HOLD ALL ANTICOAGULATION UNLESS ABSOLUTELY CONTRAINDICATED. TRANSFUSE NEED TO HGB EQUAL OR GREATER THAN HGB OF 9 ( SEVERE HEART DISEASE). FOLLOW INR IN AM. NPO P MN EGD AT LEAST IN THE AM, COLONOSCOPY TO FOLLOW. WILL INFORM DR MACK IN AM. Code(s): D50.0 - IRON DEFICIENCY ANEMIA SECONDARY TO BLOOD LOSS (CHRONIC) (2) Elevated INR Code(s): R79.1 - ABNORMAL COAGULATION PROFILE (3) Streptococcal bacteremia Code(s): R78.81 - BACTEREMIA (4) Infection of total right knee replacement Code(s): T84.53XA - INFECT/INFLM REACTION DUE TO INTERNAL R KNEE PROSTH, INIT Z96.651 - PRESENCE OF RIGHT ARTIFICIAL KNEE JOINT (5) Angioedema Code(s): T78.3XXA - ANGIONEUROTIC EDEMA, INITIAL ENCOUNTER Qualifiers: Encounter type: initial encounter Qualified Code(s): T78.3XXA - Angioneurotic edema, initial encounter (6) Atrial fibrillation Code(s): I48.91 - UNSPECIFIED ATRIAL FIBRILLATION Qualifiers: Atrial fibrillation type: permanent Qualified Code(s): I48.2 - Chronic atrial fibrillation (7) Bacteremia Code(s): R78.81 - BACTEREMIA (8) CAD (coronary artery disease) Code(s): I25.10 - ATHSCL HEART DISEASE OF [place] CORONARY ARTERY W/O ANG PCTRS Qualifiers: Coronary Disease-Associated Artery/Lesion type: bypass graft [place] vs. transplanted heart: [place] heart Associated angina: without angina Qualified Code(s): I25.810 - Atherosclerosis of coronary artery bypass graft( s) without angina pectoris (9) Chronic systolic (congestive) heart failure Code(s): I50.22 - CHRONIC SYSTOLIC (CONGESTIVE) HEART FAILURE
[2017-03-08] MEDS: CHLORHEXIDINE GLUCONATE 4% CLEANSER FOR DECOLONIZATION TP SCH ×2 (17:09→22:41)
[2017-03-08] MEDS ORDERED: FUROSEMIDE 40 MG/4 ML INJECTABLE VIAL IVPUSH ONE (18:00)
[2017-03-08] MEDS: PANTOPRAZOLE SODIUM 40MG/100 ML IVPB SCH (22:41)
[2017-03-08] MEDS: ATORVASTATIN CA 10 MG TABLET (FP) PO SCH (22:41)
[2017-03-09] MEDS: DOCUSATE SODIUM 100 MG CAPSULE (FP) PO SCH ×3 (05:56→22:34)
[2017-03-09] MEDS: INSULIN SLIDING SCALE (NOVOLOG) 1 VIAL SQ SCH ×4 (06:47→22:34)
[2017-03-09 07:10] LABS: BASOPHIL 0.2 % (0-2.0); EOSINOPHIL 0.2 % (0-4.5); MCH 31.7 pg (25.7-33.7); MCHC 34.7 g/dl (32.0-35.9); MEAN CELL VOLUME 91.2 fl (80-96); MEAN PLT VOLUME 9.4 fl (7.5-11.1); NEUTROPHILS 81.1 % (42.8-82.8); PLATELET COUNT 329 K/MM3 (134-434); RDW 13.3 % (11.9-15.9); WHITE BLOOD COUNT 12.7 K/mm3 (4.0-10.0)
[2017-03-09 07:29] LABS: ALBUMIN 1.8 g/dl (3.4-5.0); ALK PHOS 53 U/L (45-117); ANION GAP 5 (8-16); BILIRUBIN,TOTAL 0.6 mg/dL (0.2-1.0); CALCIUM 7.6 mg/dL (8.5-10.1); CO2 30 mmol/L (21-32); COCKROFT - GAULT 98.8; GLUCOSE,RANDOM 103 mg/dL (74-106); MAGNESIUM 1.9 mg/dL (1.8-2.4); SGOT/AST 18 U/L (15-37); SGPT/ALT 18 U/L (12-78); TOT PROT 5.3 g/dl (6.4-8.2)
[2017-03-09] MEDS: FERROUS SO4 325 MG TABLET (FP) PO SCH ×3 (08:10→18:09)
[2017-03-09] MEDS ORDERED: PT OWN MED DRAWER 7, Y5N ONE ×2 (08:53→12:28)
--- NOTE | 2017-03-09 09:03 | PN ---
Progress Note (short form) - Note Progress Note: Subjective: The patient was seen and examined at the bedside, he is NPO for upper endoscopy today. He has no complaints at this time. S/p 2u PRBC for Hgb 6.8. Repeat Hgb this AM 7.6. Will give 1u PRBC prior to endoscopy Objective: Vital Signs Period Temp Pulse Resp BP Sys/Juarez Pulse Ox Last 24 Hr 97.7 F-98.8 F 69-81 17-30 123-155/78-99 100-100 Physical Exam: General: NAD, A&Ox3 HEENT: Lower lip with crusting and small amount of oozing Lungs: CTA bilaterally, no stridor or wheezing noted Heart: RRR, S1S2 Abd: Soft, non-tender, non-distended. Normoactive bowel sounds Ext: Warm, well-perfused. 2+ DP/PT bilaterally Neuro: Unable to assess CN due to facial swelling MSK: Right knee with emy, c/d/i CBCD WBC 12.7 K/mm3 (4.0-10.0) H 03/09/17 06:00 RBC 2.40 M/mm3 (4.00-5.60) L 03/09/17 06:00 Hgb 7.6 GM/dL (11.7-16.9) L D 03/09/17 06:00 Hct 21.8 % (35.4-49) L 03/09/17 06:00 MCV 91.2 fl (80-96) 03/09/17 06:00 MCHC 34.7 g/dl (32.0-35.9) 03/09/17 06:00 RDW 13.3 % (11.9-15.9) 03/09/17 06:00 Plt Count 329 K/MM3 (134-434) 03/09/17 06:00 MPV 9.4 fl (7.5-11.1) 03/09/17 06:00 CMP Sodium 138 mmol/L (136-145) 03/09/17 06:00 Potassium 3.8 mmol/L (3.5-5.1) 03/09/17 06:00 Chloride 103 mmol/L (98-107) 03/09/17 06:00 Carbon Dioxide 30 mmol/L (21-32) 03/09/17 06:00 Anion Gap 5 (8-16) L 03/09/17 06:00 BUN 29 mg/dL (7-18) H 03/09/17 06:00 Creatinine 1.0 mg/dL (0.7-1.3) 03/09/17 06:00 Creat Clearance w eGFR > 60 (>60) 03/09/17 06:00 Random Glucose 103 mg/dL (74-106) 03/09/17 06:00 Calcium 7.6 mg/dL (8.5-10.1) L 03/09/17 06:00 Total Bilirubin 0.6 mg/dL (0.2-1.0) D 03/09/17 06:00 AST 18 U/L (15-37) 03/09/17 06:00 ALT 18 U/L (12-78) 03/09/17 06:00 Alkaline Phosphatase 53 U/L (45-117) 03/09/17 06:00 Total Protein 5.3 g/dl (6.4-8.2) L 03/09/17 06:00 Albumin 1.8 g/dl (3.4-5.0) L 03/09/17 06:00 CARDIAC ENZYMES Troponin I < 0.02 ng/ml (0.00-0.05) 02/27/17 00:00 Microbiology 03/01/17 05:40 Blood - Peripheral Venous Blood Culture - Final NO GROWTH AFTER 5 DAYS INCUBATION 03/01/17 05:30 Blood - Peripheral Venous Blood Culture - Final NO GROWTH AFTER 5 DAYS INCUBATION 03/01/17 17:00 Synovial Fluid - Knee Gram Stain - Final 03/01/17 17:00 Synovial Fluid - Knee Body Fluid Culture - Final Beta Hem Streptococcus Group C 03/01/17 17:00 Synovial Fluid - Knee Anaerobic Culture - Final NO ANAEROBES WERE ISOLATED 03/01/17 07:56 Synovial Fluid - Knee Gram Stain - Final 03/01/17 07:56 Synovial Fluid - Knee Body Fluid Culture - Final Beta Hem Streptococcus Group C 03/01/17 07:56 Synovial Fluid - Knee Anaerobic Culture - Final NO ANAEROBES WERE ISOLATED 02/28/17 00:05 Blood - Peripheral Venous Blood Culture - Final Beta Hem Streptococcus Group C 02/28/17 00:05 Blood - Peripheral Venous Blood Culture - Final Beta Hem Streptococcus Group C 02/28/17 06:30 Urine - Urine Stock Urine Culture - Final NO GROWTH OBTAINED Assessment: This is a 66 year old male with PMHx of Afib (on Coumadin), CAD s/p CABG, systolic CHF s/p AICD, HTN, dyslipidemia who presents to the ED with angioedema. Plan: 1) ID: Severe sepsis 2/2 group C strept right knee joint, Group C strept bacteremia - S/p Right knee washout and poly exchange on 03/01 - Repeat blood cultures on 03/01 with NGTD - SANGITA with no echocardiographic evidence of vegetation or abscess to suggest endocarditis - Continue Ceftriaxone 2gm daily (03/04- ) - Will need picc on discharge with mcfp abx - Appreciate ortho consult - Appreciate ID consult 2) GI: Acute blood loss anemia - Stool for occult positive - Likely GI bleed in setting of supratherapeutic INR - S/p 2u PRBC yesterday with Hgb 7.6 today, will order 1 u PRBC now and recheck cbc. Keep Hgb ~9 as the patient has a history of severe heart disease - Will hold all anticoagulation at this time - For endoscopy today and possible colonoscopy tomorrow - Appreciate GI consult 3) Angioedema: - Resolved - Likely 2/2 Entresto - Completed Prednisone taper 03/09 4) Cardiology: A.fib - Continue Coreg - Will need NOAC once cleared by GI to restart anticoagulation - Holding all anticoagulation 2/2 GI bleed CAD s/p CABG - Continue statin - Hold ASA HTN - Continue Carvedilol Ischemic cardiomyopathy s/p ICD - Currently appears euvolemic - Will need to avoid all acei/arb - Appreciate cardiology consult 5) Endocrine: Newly diagnosed diabetes - Hgb A1c 6.5 - BGM ACHS - ISS ACHS 6) : JEREMY - Resolved - Continue to monitor 7) F/E/N: - Monitor electrolytes - NPO for endoscopy today 8) Prophylaxis: - OOB ambulating - Hold all chemical DVT prophylaxis 2/2 possible GI bleed - PT: weight bearing as tolerated 9) Dispo: - Requires continued inpatient care - Will need SNF placement CODE STATUS: FULL CODE Visit type - Emergency Visit Emergency Visit: Yes ED Registration Date: 02/26/17 Care time: The patient presented to the Emergency Department on the above date and was hospitalized for further evaluation of their emergent condition. - New Patient This patient is new to me today: No - Critical Care Critical Care patient: No
[2017-03-09] MEDS: MULTIVITAMINS (DAILY MVI) TABLET (FP) PO SCH (09:13)
[2017-03-09] MEDS: predniSONE 10 MG TABLET (UD) PO SCH (09:13)
[2017-03-09] MEDS: valACYclovir HCL 500 MG TABLET (FP) PO SCH ×2 (09:13→22:34)
[2017-03-09] MEDS: OMEGA-3 ACID ETHYL ESTERS (FATTY-ACIDS) 1 GM CAPSULE (FP) PO SCH (09:13)
[2017-03-09] MEDS: CARVEDILOL 6.25 MG TABLET (FP) PO SCH ×2 (09:14→22:34)
[2017-03-09] MEDS: CEFTRIAXONE 100 ML IVPB SCH (09:14)
[2017-03-09] MEDS: PANTOPRAZOLE SODIUM 40MG/100 ML IVPB SCH (09:14)
[2017-03-09] MEDS: CHLORHEXIDINE GLUCONATE 4% CLEANSER FOR DECOLONIZATION TP SCH ×2 (10:14→22:34)
--- NOTE | 2017-03-09 10:23 | PN ---
Progress Note, Physician Chief Complaint: events of last few days reviewed Drop in H/H Seen by GI, EGD planned History of Present Illness: remains comfortable, no acute distress - Current Medication List Current Medications: Active Medications Acetaminophen (Tylenol -) 650 mg PO Q4H PRN PRN Reason: FEVER OR PAIN Last Admin: 03/08/17 14:17 Dose: 650 mg Artificial Tears (Artificial Tears) 1 drop OU Q6H PRN PRN Reason: DRY EYES Atorvastatin Calcium (Lipitor -) 10 mg PO HS [facility] Last Admin: 03/08/17 22:41 Dose: 10 mg Carvedilol (Coreg -) 6.25 mg PO BID [facility] Last Admin: 03/09/17 09:14 Dose: 6.25 mg Chlorhexidine Gluconate (Hibiclens For Decolonization -) 1 applic TP BID [facility] Last Admin: 03/09/17 10:14 Dose: 1 applic Docusate Sodium (Colace -) 100 mg PO TID [facility] Last Admin: 03/09/17 05:56 Dose: Not Given Ferrous Sulfate (Feosol -) 325 mg PO TIDCM [facility] Last Admin: 03/09/17 08:10 Dose: Not Given IV Flush (Picc Line Flush) 8 ml IVPUSH PRN PRN PRN Reason: Protocol Ceftriaxone Sodium (Rocephin 2gm Ivpb (Pre-Docked)) 100 mls @ 200 mls/hr IVPB DAILY [facility] Last Admin: 03/09/17 09:14 Dose: 200 mls/hr Pantoprazole Sodium (Protonix 40mg Ivpb (Pre-Docked)) 100 mls @ 200 mls/hr IVPB BID [facility] Last Admin: 03/09/17 09:14 Dose: 200 mls/hr Insulin Aspart (Novolog Vial Sliding Scale -) 1 vial SQ ACHS [facility] PRN Reason: Protocol Last Admin: 03/09/17 06:47 Dose: Not Given Multivitamins/Minerals/Vitamin C (Tab-A-Vit -) 1 tab PO DAILY [facility] Last Admin: 03/09/17 09:13 Dose: 1 tab [id number] Ethyl Esters (Lovaza -) 1 gm PO DAILY [facility] Last Admin: 03/09/17 09:13 Dose: 1 gm Ondansetron HCl (Zofran Injection) 4 mg IVPB Q6H PRN PRN Reason: NAUSEA Sodium Chloride ([place] Nasal [place] -) 2 spray NS Q12H PRN PRN Reason: NASAL CONGESTION Valacyclovir HCl (Valtrex -) 500 mg PO BID [facility] Last Admin: 03/09/17 09:13 Dose: 500 mg - Objective Vital Signs: Vital Signs Temperature 98.0 F 03/09/17 06:00 Pulse Rate 72 03/09/17 06:00 Respiratory Rate 20 03/09/17 06:00 Blood Pressure 119/70 03/09/17 06:00 O2 Sat by Pulse Oximetry (%) 98 03/08/17 22:15 Constitutional: Yes: No Distress Cardiovascular: Yes: Pulse Irregular Respiratory: Yes: CTA Bilaterally Gastrointestinal: Yes: Soft (non-tender) Edema: No Neurological: Yes: Alert, Oriented ...Motor Strength: WNL Psychiatric: Yes: WNL Labs: CBC, BMP 03/09/17 06:00 03/09/17 06:00 INR, PTT INR 1.50 (0.82-1.09) H D 03/08/17 11:25 Microbiology 03/01/17 05:40 Blood - Peripheral Venous Blood Culture - Final NO GROWTH AFTER 5 DAYS INCUBATION 03/01/17 05:30 Blood - Peripheral Venous Blood Culture - Final NO GROWTH AFTER 5 DAYS INCUBATION 03/01/17 05:40 Blood - Peripheral Venous Blood Culture - Preliminary NO GROWTH OBTAINED AFTER 96 HOURS, INCUBATION TO CONTINUE FOR 1 DAYS. 03/01/17 05:30 Blood - Peripheral Venous Blood Culture - Preliminary NO GROWTH OBTAINED AFTER 96 HOURS, INCUBATION TO CONTINUE FOR 1 DAYS. Laboratory Tests 03/05/17 03/05/17 03/05/17 06:00 06:00 06:00 WBC 12.8 H Hgb 10.3 L Plt Count 229 D INR 4.11 H* Sodium 141 Potassium 4.5 Creatinine 1.1 03/08/17 03/08/17 03/08/17 06:00 09:45 11:25 WBC Hgb 6.8 L* D 6.8 L* Plt Count INR 1.50 H D Sodium Potassium Creatinine 03/09/17 03/09/17 06:00 06:00 WBC 12.7 H Hgb 7.6 L D Plt Count 329 INR Sodium Potassium 3.8 Creatinine 1.0 - ....Imaging EKG: Image Reviewed (TELE: reviewed, AF, intermittent pacing with occasional PVCs) Problem List - Problems (1) Angioedema Code(s): T78.3XXA - ANGIONEUROTIC EDEMA, INITIAL ENCOUNTER Qualifiers: Encounter type: initial encounter Qualified Code(s): T78.3XXA - Angioneurotic edema, initial encounter (2) Atrial fibrillation Code(s): I48.91 - UNSPECIFIED ATRIAL FIBRILLATION Qualifiers: Atrial fibrillation type: permanent Qualified Code(s): I48.2 - Chronic atrial fibrillation (3) CAD (coronary artery disease) Code(s): I25.10 - ATHSCL HEART DISEASE OF [place] CORONARY ARTERY W/O ANG PCTRS Qualifiers: Coronary Disease-Associated Artery/Lesion type: bypass graft [place] vs. transplanted heart: [place] heart Associated angina: without angina Qualified Code(s): I25.810 - Atherosclerosis of coronary artery bypass graft( s) without angina pectoris (4) Elevated INR Code(s): R79.1 - ABNORMAL COAGULATION PROFILE (5) Leukocytosis Code(s): D72.829 - ELEVATED WHITE BLOOD CELL COUNT, UNSPECIFIED Qualifiers: Leukocytosis type: unspecified Qualified Code(s): D72.829 - Elevated white blood cell count, unspecified (6) Chronic systolic (congestive) heart failure Code(s): I50.22 - CHRONIC SYSTOLIC (CONGESTIVE) HEART FAILURE (7) ICD (implantable cardioverter-defibrillator) in place Code(s): Z95.810 - PRESENCE OF AUTOMATIC (IMPLANTABLE) CARDIAC DEFIBRILLATOR (8) Renal insufficiency Code(s): N28.9 - DISORDER OF KIDNEY AND URETER, UNSPECIFIED Assessment/Plan IMP: Strep bacteremia with infected R. knee, s/p I&D Angioedema, improved- presumed secondary to Entresto Ischemic Cardiomyopathy s/p CABG and ICD Anemia, probable GI bleed REC: 1. Hemodynamically stable s/p R. knee I &D with serial blood cultures negative. SANGITA negative for vegetation. Antibiotics as per ID 2. Angioedema resolved: would not resume Entresto nor any TUAN/ARB. In future, will transition to Imdur + Hydralazine, as outpatient. 3. Hold AC now in setting drop in H/H and probable GI bleed. -transfuse to maintain Hb >8 -EGD planned for later today. No cardiac contraindications to EGD or colonoscopy
--- NOTE | 2017-03-09 11:32 | PN ---
Progress Note, Physician History of Present Illness: pulmonary alert,-sob,feeling better,less swelling,tolerating po.pt for EGD today - Current Medication List Current Medications: Active Medications Acetaminophen (Tylenol -) 650 mg PO Q4H PRN PRN Reason: FEVER OR PAIN Last Admin: 03/08/17 14:17 Dose: 650 mg Artificial Tears (Artificial Tears) 1 drop OU Q6H PRN PRN Reason: DRY EYES Atorvastatin Calcium (Lipitor -) 10 mg PO HS [facility] Last Admin: 03/08/17 22:41 Dose: 10 mg Carvedilol (Coreg -) 6.25 mg PO BID [facility] Last Admin: 03/09/17 09:14 Dose: 6.25 mg Chlorhexidine Gluconate (Hibiclens For Decolonization -) 1 applic TP BID [facility] Last Admin: 03/09/17 10:14 Dose: 1 applic Docusate Sodium (Colace -) 100 mg PO TID [facility] Last Admin: 03/09/17 05:56 Dose: Not Given Ferrous Sulfate (Feosol -) 325 mg PO TIDCM [facility] Last Admin: 03/09/17 08:10 Dose: Not Given IV Flush (Picc Line Flush) 8 ml IVPUSH PRN PRN PRN Reason: Protocol Ceftriaxone Sodium (Rocephin 2gm Ivpb (Pre-Docked)) 100 mls @ 200 mls/hr IVPB DAILY [facility] Last Admin: 03/09/17 09:14 Dose: 200 mls/hr Pantoprazole Sodium (Protonix 40mg Ivpb (Pre-Docked)) 100 mls @ 200 mls/hr IVPB BID [facility] Last Admin: 03/09/17 09:14 Dose: 200 mls/hr Insulin Aspart (Novolog Vial Sliding Scale -) 1 vial SQ ACHS [facility] PRN Reason: Protocol Last Admin: 03/09/17 06:47 Dose: Not Given Multivitamins/Minerals/Vitamin C (Tab-A-Vit -) 1 tab PO DAILY [facility] Last Admin: 03/09/17 09:13 Dose: 1 tab [place]-[id number] Ethyl Esters (Lovaza -) 1 gm PO DAILY [facility] Last Admin: 03/09/17 09:13 Dose: 1 gm Ondansetron HCl (Zofran Injection) 4 mg IVPB Q6H PRN PRN Reason: NAUSEA Sodium Chloride ([place] Nasal [place] -) 2 spray NS Q12H PRN PRN Reason: NASAL CONGESTION Valacyclovir HCl (Valtrex -) 500 mg PO BID [facility] Last Admin: 03/09/17 09:13 Dose: 500 mg - Objective Vital Signs: Vital Signs Temperature 98.0 F 03/09/17 06:00 Pulse Rate 72 03/09/17 06:00 Respiratory Rate 20 03/09/17 06:00 Blood Pressure 119/70 03/09/17 06:00 O2 Sat by Pulse Oximetry (%) 98 03/08/17 22:15 Constitutional: Yes: Well Nourished, Calm Eyes: Yes: WNL HENT: Yes: WNL Neck: Yes: WNL Cardiovascular: Yes: Pulse Irregular, S1, S2 Respiratory: Yes: CTA Bilaterally Gastrointestinal: Yes: Normal Bowel Sounds, Soft Extremities: Yes: WNL Edema: No Labs: CBC, BMP 03/09/17 06:00 03/09/17 06:00 INR, PTT INR 1.50 (0.82-1.09) H D 03/08/17 11:25 Problem List - Problems (1) Septic arthritis Code(s): M00.9 - PYOGENIC ARTHRITIS, UNSPECIFIED (2) Anemia Code(s): D64.9 - ANEMIA, UNSPECIFIED (3) Streptococcal bacteremia Code(s): R78.81 - BACTEREMIA Assessment/Plan Problem List - Problems (1) Angioedema Code(s): T78.3XXA - ANGIONEUROTIC EDEMA, INITIAL ENCOUNTER Qualifiers: Encounter type: initial encounter Qualified Code(s): T78.3XXA - Angioneurotic edema, initial encounter (2) Atrial fibrillation Code(s): I48.91 - UNSPECIFIED ATRIAL FIBRILLATION Qualifiers: Atrial fibrillation type: permanent Qualified Code(s): I48.2 - Chronic atrial fibrillation (3) CAD (coronary artery disease) Code(s): I25.10 - ATHSCL HEART DISEASE OF [place] CORONARY ARTERY W/O ANG PCTRS Qualifiers: Coronary Disease-Associated Artery/Lesion type: bypass graft [place] vs. transplanted heart: [place] heart Associated angina: without angina Qualified Code(s): I25.810 - Atherosclerosis of coronary artery bypass graft( s) without angina pectoris (4) Chronic systolic (congestive) heart failure Code(s): I50.22 - CHRONIC SYSTOLIC (CONGESTIVE) HEART FAILURE (5) Elevated INR Code(s): R79.1 - ABNORMAL COAGULATION PROFILE (6) HLD (hyperlipidemia) Code(s): E78.5 - HYPERLIPIDEMIA, UNSPECIFIED (7) HTN (hypertension) Code(s): I10 - ESSENTIAL (PRIMARY) HYPERTENSION (8) ICD (implantable cardioverter-defibrillator) in place Code(s): Z95.810 - PRESENCE OF AUTOMATIC (IMPLANTABLE) CARDIAC DEFIBRILLATOR (9) Leukocytosis Code(s): D72.829 - ELEVATED WHITE BLOOD CELL COUNT, UNSPECIFIED Qualifiers: Leukocytosis type: unspecified Qualified Code(s): D72.829 - Elevated white blood cell count, unspecified 10 ANEMIA 12 STREP BACTEREMIA Assessment/Plan ABX per ID monitor h+h tranfuse PO as tolerated O2 as needed check INR EGD today DR MELGOZA Problem List - Problems (1) Angioedema Code(s): T78.3XXA - ANGIONEUROTIC EDEMA, INITIAL ENCOUNTER Qualifiers: Encounter type: initial encounter Qualified Code(s): T78.3XXA - Angioneurotic edema, initial encounter (2) Atrial fibrillation Code(s): I48.91 - UNSPECIFIED ATRIAL FIBRILLATION Qualifiers: Atrial fibrillation type: permanent Qualified Code(s): I48.2 - Chronic atrial fibrillation (3) CAD (coronary artery disease) Code(s): I25.10 - ATHSCL HEART DISEASE OF [place] CORONARY ARTERY W/O ANG PCTRS Qualifiers: Coronary Disease-Associated Artery/Lesion type: bypass graft [place] vs. transplanted heart: [place] heart Associated angina: without angina Qualified Code(s): I25.810 - Atherosclerosis of coronary artery bypass graft( s) without angina pectoris (4) Chronic systolic (congestive) heart failure Code(s): I50.22 - CHRONIC SYSTOLIC (CONGESTIVE) HEART FAILURE (5) Elevated INR Code(s): R79.1 - ABNORMAL COAGULATION PROFILE (6) HLD (hyperlipidemia) Code(s): E78.5 - HYPERLIPIDEMIA, UNSPECIFIED (7) HTN (hypertension) Code(s): I10 - ESSENTIAL (PRIMARY) HYPERTENSION (8) ICD (implantable cardioverter-defibrillator) in place Code(s): Z95.810 - PRESENCE OF AUTOMATIC (IMPLANTABLE) CARDIAC DEFIBRILLATOR (9) Leukocytosis Code(s): D72.829 - ELEVATED WHITE BLOOD CELL COUNT, UNSPECIFIED Qualifiers: Leukocytosis type: unspecified Qualified Code(s): D72.829 - Elevated white blood cell count, unspecified
--- NOTE | 2017-03-09 12:29 | PN ---
Progress Note, Physician History of Present Illness: No c/o R knee pain No fever / chills Scheduled for EGD today Tolerating antibiotics - Current Medication List Current Medications: Active Medications Acetaminophen (Tylenol -) 650 mg PO Q4H PRN PRN Reason: FEVER OR PAIN Last Admin: 03/08/17 14:17 Dose: 650 mg Artificial Tears (Artificial Tears) 1 drop OU Q6H PRN PRN Reason: DRY EYES Atorvastatin Calcium (Lipitor -) 10 mg PO HS [facility] Last Admin: 03/08/17 22:41 Dose: 10 mg Carvedilol (Coreg -) 6.25 mg PO BID [facility] Last Admin: 03/09/17 09:14 Dose: 6.25 mg Chlorhexidine Gluconate (Hibiclens For Decolonization -) 1 applic TP BID [facility] Last Admin: 03/09/17 10:14 Dose: 1 applic Docusate Sodium (Colace -) 100 mg PO TID [facility] Last Admin: 03/09/17 05:56 Dose: Not Given Ferrous Sulfate (Feosol -) 325 mg PO TIDCM [facility] Last Admin: 03/09/17 12:18 Dose: Not Given IV Flush (Picc Line Flush) 8 ml IVPUSH PRN PRN PRN Reason: Protocol Ceftriaxone Sodium (Rocephin 2gm Ivpb (Pre-Docked)) 100 mls @ 200 mls/hr IVPB DAILY [facility] Last Admin: 03/09/17 09:14 Dose: 200 mls/hr Pantoprazole Sodium (Protonix 40mg Ivpb (Pre-Docked)) 100 mls @ 200 mls/hr IVPB BID [facility] Last Admin: 03/09/17 09:14 Dose: 200 mls/hr Insulin Aspart (Novolog Vial Sliding Scale -) 1 vial SQ ACHS [facility] PRN Reason: Protocol Last Admin: 03/09/17 11:48 Dose: Not Given Multivitamins/Minerals/Vitamin C (Tab-A-Vit -) 1 tab PO DAILY [facility] Last Admin: 03/09/17 09:13 Dose: 1 tab [id number] Ethyl Esters (Lovaza -) 1 gm PO DAILY [facility] Last Admin: 03/09/17 09:13 Dose: 1 gm Ondansetron HCl (Zofran Injection) 4 mg IVPB Q6H PRN PRN Reason: NAUSEA Sodium Chloride ([place] Nasal [place] -) 2 spray NS Q12H PRN PRN Reason: NASAL CONGESTION Valacyclovir HCl (Valtrex -) 500 mg PO BID [facility] Last Admin: 03/09/17 09:13 Dose: 500 mg - Objective Vital Signs: Vital Signs Temperature 98.0 F 03/09/17 06:00 Pulse Rate 72 03/09/17 06:00 Respiratory Rate 20 03/09/17 06:00 Blood Pressure 119/70 03/09/17 06:00 O2 Sat by Pulse Oximetry (%) 98 03/08/17 22:15 Constitutional: Yes: No Distress Eyes: Yes: Conjunctiva Clear Cardiovascular: Yes: Regular Rate and Rhythm, S1, S2 Respiratory: Yes: CTA Bilaterally, Poor Air Entry Gastrointestinal: Yes: Normal Bowel Sounds, Soft. No: Tenderness Extremities: Yes: Other (+ R knee swelling; no erythema/ warmth Mauricio in place ) Labs: CBC, BMP 03/09/17 06:00 03/09/17 06:00 INR, PTT INR 1.50 (0.82-1.09) H D 03/08/17 11:25 Assessment/Plan Grp C Strep septic arthritis/ septicemia Aneimia Continue ceftriaxone For PICC line
--- NOTE | 2017-03-09 13:15 | PN ---
Progress Note (short form) - Note Progress Note: EGD complete. Report to be scanned into [employer] and copy placed in procedural section of physical chart
[2017-03-09 16:22] LABS: MCHC 33.8 g/dl (32.0-35.9); MEAN CELL VOLUME 91.8 fl (80-96); MEAN PLT VOLUME 9.7 fl (7.5-11.1); PLATELET COUNT 350 K/MM3 (134-434); RDW 14.1 % (11.9-15.9); WHITE BLOOD COUNT 12.7 K/mm3 (4.0-10.0)
[2017-03-09] MEDS: ACETAMINOPHEN 325 MG TABLET (FP) PO PRN (22:33)
[2017-03-09] MEDS: ATORVASTATIN CA 10 MG TABLET (FP) PO SCH (22:34)
[2017-03-10 07:24] LABS: BASOPHIL 0.7 % (0-2.0); EOSINOPHIL 0.4 % (0-4.5); MCH 32.1 pg (25.7-33.7); MCHC 34.8 g/dl (32.0-35.9); MEAN CELL VOLUME 92.1 fl (80-96); MEAN PLT VOLUME 9.2 fl (7.5-11.1); NEUTROPHILS 80.3 % (42.8-82.8); PLATELET COUNT 323 K/MM3 (134-434); RDW 14.1 % (11.9-15.9); WHITE BLOOD COUNT 10.4 K/mm3 (4.0-10.0)
[2017-03-10] MEDS: DOCUSATE SODIUM 100 MG CAPSULE (FP) PO SCH ×3 (07:27→21:58)
[2017-03-10] MEDS: INSULIN SLIDING SCALE (NOVOLOG) 1 VIAL SQ SCH ×4 (07:27→21:59)
[2017-03-10 07:48] LABS: ALBUMIN 1.9 g/dl (3.4-5.0); ANION GAP 8 (8-16); CALCIUM 7.7 mg/dL (8.5-10.1); CO2 27 mmol/L (21-32); GLUCOSE,RANDOM 102 mg/dL (74-106)
[2017-03-10 07:51] LABS: ALK PHOS 61 U/L (45-117); BILIRUBIN,TOTAL 0.8 mg/dL (0.2-1.0); COCKROFT - GAULT 98.8; SGOT/AST 23 U/L (15-37); SGPT/ALT 23 U/L (12-78); TOT PROT 5.7 g/dl (6.4-8.2)
[2017-03-10] MEDS ORDERED: PT OWN MED DRAWER 7, Y5N ONE ×2 (08:38→09:21)
--- NOTE | 2017-03-10 09:14 | PN ---
Progress Note, Physician Chief Complaint: walking around room EGD noted: multiple ulcerations, full report reviewed. Charted in EMR TELE: rate controlled AF with intermittent pacing - Current Medication List Current Medications: Active Medications Acetaminophen (Tylenol -) 650 mg PO Q4H PRN PRN Reason: FEVER OR PAIN Last Admin: 03/09/17 22:33 Dose: 650 mg Artificial Tears (Artificial Tears) 1 drop OU Q6H PRN PRN Reason: DRY EYES Atorvastatin Calcium (Lipitor -) 10 mg PO HS [facility] Last Admin: 03/09/17 22:34 Dose: 10 mg Carvedilol (Coreg -) 6.25 mg PO BID [facility] Last Admin: 03/09/17 22:34 Dose: 6.25 mg Chlorhexidine Gluconate (Hibiclens For Decolonization -) 1 applic TP BID [facility] Last Admin: 03/09/17 22:34 Dose: 1 applic Docusate Sodium (Colace -) 100 mg PO TID [facility] Last Admin: 03/10/17 07:27 Dose: Not Given Ferrous Sulfate (Feosol -) 325 mg PO TIDCM [facility] Last Admin: 03/09/17 18:09 Dose: 325 mg IV Flush (Picc Line Flush) 8 ml IVPUSH PRN PRN PRN Reason: Protocol Ceftriaxone Sodium (Rocephin 2gm Ivpb (Pre-Docked)) 100 mls @ 200 mls/hr IVPB DAILY [facility] Last Admin: 03/09/17 09:14 Dose: 200 mls/hr Insulin Aspart (Novolog Vial Sliding Scale -) 1 vial SQ ACHS [facility] PRN Reason: Protocol Last Admin: 03/10/17 07:27 Dose: Not Given Multivitamins/Minerals/Vitamin C (Tab-A-Vit -) 1 tab PO DAILY [facility] Last Admin: 03/09/17 09:13 Dose: 1 tab [id number] Ethyl Esters (Lovaza -) 1 gm PO DAILY [facility] Last Admin: 03/09/17 09:13 Dose: 1 gm Ondansetron HCl (Zofran Injection) 4 mg IVPB Q6H PRN PRN Reason: NAUSEA Pantoprazole Sodium (Protonix -) 40 mg PO DAILY [facility] Sodium Chloride ([place] Nasal [place] -) 2 spray NS Q12H PRN PRN Reason: NASAL CONGESTION Valacyclovir HCl (Valtrex -) 500 mg PO BID [facility] Last Admin: 05/30/17 22:34 Dose: 500 mg - Objective Vital Signs: Vital Signs Temperature 98.2 F 03/10/17 06:00 Pulse Rate 70 03/10/17 06:00 Respiratory Rate 18 03/10/17 06:00 Blood Pressure 135/72 03/10/17 06:00 O2 Sat by Pulse Oximetry (%) 100 03/09/17 22:00 Constitutional: Yes: No Distress Cardiovascular: Yes: Pulse Irregular Respiratory: Yes: CTA Bilaterally Gastrointestinal: Yes: Soft Edema: No Neurological: Yes: Alert, Oriented ...Motor Strength: WNL Labs: CBC, BMP 03/10/17 06:20 03/10/17 06:20 INR, PTT INR 1.50 (0.82-1.09) H D 03/08/17 11:25 Microbiology 03/01/17 05:40 Blood - Peripheral Venous Blood Culture - Final NO GROWTH AFTER 5 DAYS INCUBATION 03/01/17 05:30 Blood - Peripheral Venous Blood Culture - Final NO GROWTH AFTER 5 DAYS INCUBATION Laboratory Tests 03/08/17 03/10/17 03/10/17 11:25 06:20 06:20 WBC 10.4 H Hgb 8.6 L Plt Count 323 INR 1.50 H D Sodium 140 Potassium 3.9 BUN 24 H Creatinine 1.0 - ....Imaging EKG: Image Reviewed Problem List - Problems (1) Angioedema Code(s): T78.3XXA - ANGIONEUROTIC EDEMA, INITIAL ENCOUNTER Qualifiers: Encounter type: initial encounter Qualified Code(s): T78.3XXA - Angioneurotic edema, initial encounter (2) Atrial fibrillation Code(s): I48.91 - UNSPECIFIED ATRIAL FIBRILLATION Qualifiers: Atrial fibrillation type: permanent Qualified Code(s): I48.2 - Chronic atrial fibrillation (3) CAD (coronary artery disease) Code(s): I25.10 - ATHSCL HEART DISEASE OF [place] CORONARY ARTERY W/O ANG PCTRS Qualifiers: Coronary Disease-Associated Artery/Lesion type: bypass graft [place] vs. transplanted heart: [place] heart Associated angina: without angina Qualified Code(s): I25.810 - Atherosclerosis of coronary artery bypass graft( s) without angina pectoris (4) Elevated INR Code(s): R79.1 - ABNORMAL COAGULATION PROFILE (5) Leukocytosis Code(s): D72.829 - ELEVATED WHITE BLOOD CELL COUNT, UNSPECIFIED Qualifiers: Leukocytosis type: unspecified Qualified Code(s): D72.829 - Elevated white blood cell count, unspecified (6) Chronic systolic (congestive) heart failure Code(s): I50.22 - CHRONIC SYSTOLIC (CONGESTIVE) HEART FAILURE (7) ICD (implantable cardioverter-defibrillator) in place Code(s): Z95.810 - PRESENCE OF AUTOMATIC (IMPLANTABLE) CARDIAC DEFIBRILLATOR (8) Renal insufficiency Code(s): N28.9 - DISORDER OF KIDNEY AND URETER, UNSPECIFIED Assessment/Plan IMP: Strep bacteremia with infected R. knee, s/p I&D Angioedema, improved- presumed secondary to Entresto Ischemic Cardiomyopathy s/p CABG and ICD Anemia, GI bleed with ulcers on EGD REC: 1. Hemodynamically stable s/p R. knee I &D with serial blood cultures negative. SANGITA negative for vegetation. Antibiotics as per ID, awaits PICC line. 2. Angioedema resolved: would not resume Entresto nor any TUAN/ARB. In future, will transition to Imdur + Hydralazine, as outpatient. 3. GI bleed requiring transfusions: multiple small ulcers in gastric body and also in duodenum on EGD yesterday. -Hold AC as per GI. -Resume when considered safe from GI standpoint
[2017-03-10] MEDS: MULTIVITAMINS (DAILY MVI) TABLET (FP) PO SCH (09:31)
[2017-03-10] MEDS: CARVEDILOL 6.25 MG TABLET (FP) PO SCH ×2 (09:31→22:00)
[2017-03-10] MEDS: valACYclovir HCL 500 MG TABLET (FP) PO SCH ×2 (09:31→21:59)
[2017-03-10] MEDS: CEFTRIAXONE 100 ML IVPB SCH (09:31)
[2017-03-10] MEDS: FERROUS SO4 325 MG TABLET (FP) PO SCH ×3 (09:31→17:08)
[2017-03-10] MEDS: OMEGA-3 ACID ETHYL ESTERS (FATTY-ACIDS) 1 GM CAPSULE (FP) PO SCH (09:31)
[2017-03-10] MEDS: PANTOPRAZOLE 40 MG TABLET (FP) PO SCH (09:31)
[2017-03-10] MEDS: CHLORHEXIDINE GLUCONATE 4% CLEANSER FOR DECOLONIZATION TP SCH ×2 (09:32→22:00)
--- NOTE | 2017-03-10 10:24 | PN ---
Progress Note (short form) - Note Progress Note: Pt seen, right knee looks good, and pt states it is feeling much better. Less pain, less erythematous, less tender, better ROM. Overall the right knee looks good. No other orthopedic intervention necessary at this time. Pt can be DC'd from an ortho pov, f/u as an out pt.
--- NOTE | 2017-03-10 13:29 | PATH ---
Surgical Pathology Report Patient Name: MOO CARBONE Med. Rec. #: [id number] /Age/Gender: 1950 (Age: 66) / M Account: [id number] Location: [facility]OL Taken: 03/09/2017 Received: 03/09/2017 Reported: 03/10/2017 Physicians: Burton Gutiérrez D.O. Specimen(s) Received A: BX DUODENAL ULCERS B: BX ANTRUM/BODY C: BX OF FUNDUS Clinical History GI bleed Multiple duodenal ulcers, r/o amyloid, gastric ulcers, Schatzki's ring Final Diagnosis A. 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 NO HISTOLOGIC EVIDENCE OF GLUTEN SENSITIVE ENTEROPATHY (CELIAC DISEASE). Comment: Special stain for amyloid is pending; results will be reported in an addendum. B. STOMACH, ANTRUM/BODY, BIOPSY: GASTRIC ANTRAL AND OXYNTIC MUCOSA WITH MODERATE CHRONIC GASTRITIS AND REACTIVE GASTROPATHY. IMMUNOSTAIN FOR H. PYLORI IS NEGATIVE FOR ORGANISMS. C. STOMACH, FUNDUS, BIOPSY: GASTRIC OXYNTIC MUCOSA WITH MODERATE CHRONIC GASTRITIS WITH FOCAL SURFACE EROSION. IMMUNOSTAIN FOR H. PYLORI IS NEGATIVE FOR ORGANISMS. Electronically Signed Devin Liu M.D. Addendum Reported: 03/12/2017 Addendum Diagnosis Part A: No amyloid deposits are identified with Congo red stain (performed and interpreted at [facility], [place], [place], [id number]). Devin Liu M.D. Gross Description A. Received in formalin, labeled "biopsy duodenal ulcers" are 3 ar[place], irregular portions of soft tissue ranging from 0.1-0.3 cm in greatest dimension. The specimens are submitted in toto in one cassette. B. Received in formalin, labeled "biopsy antrum/body" are 2 arreola, irregular portions of soft tissue measuring 0.1 and 0.4 cm in greatest dimension. The specimens are submitted in toto in one cassette. C. Received in formalin, labeled "biopsy fundus" is a arreola, irregular portion of soft tissue measuring 0.2 cm in greatest dimension. The specimen is submitted in toto in one cassette. /03/09/2017 [place]/03/09/2017
--- NOTE | 2017-03-10 13:38 | PN ---
Progress Note, Physician History of Present Illness: pulmonary alert,doing well,-sob,cough, edema resolving. EGD findings noted - Current Medication List Current Medications: Active Medications Acetaminophen (Tylenol -) 650 mg PO Q4H PRN PRN Reason: FEVER OR PAIN Last Admin: 03/09/17 22:33 Dose: 650 mg Artificial Tears (Artificial Tears) 1 drop OU Q6H PRN PRN Reason: DRY EYES Atorvastatin Calcium (Lipitor -) 10 mg PO HS [facility] Last Admin: 03/09/17 22:34 Dose: 10 mg Carvedilol (Coreg -) 6.25 mg PO BID [facility] Last Admin: 03/10/17 09:31 Dose: 6.25 mg Chlorhexidine Gluconate (Hibiclens For Decolonization -) 1 applic TP BID [facility] Last Admin: 03/10/17 09:32 Dose: 1 applic Docusate Sodium (Colace -) 100 mg PO TID [facility] Last Admin: 03/10/17 07:27 Dose: Not Given Ferrous Sulfate (Feosol -) 325 mg PO TIDCM [facility] Last Admin: 03/10/17 11:49 Dose: 325 mg IV Flush (Picc Line Flush) 8 ml IVPUSH PRN PRN PRN Reason: Protocol Ceftriaxone Sodium (Rocephin 2gm Ivpb (Pre-Docked)) 100 mls @ 200 mls/hr IVPB DAILY [facility] Last Admin: 03/10/17 09:31 Dose: 200 mls/hr Insulin Aspart (Novolog Vial Sliding Scale -) 1 vial SQ ACHS POLLY PRN Reason: Protocol Last Admin: 03/10/17 11:50 Dose: Not Given Multivitamins/Minerals/Vitamin C (Tab-A-Vit -) 1 tab PO DAILY [facility] Last Admin: 03/10/17 09:31 Dose: 1 tab Nqbtq-6-Igqt Ethyl Esters (Lovaza -) 1 gm PO DAILY [facility] Last Admin: 03/10/17 09:31 Dose: 1 gm Ondansetron HCl (Zofran Injection) 4 mg IVPB Q6H PRN PRN Reason: NAUSEA Pantoprazole Sodium (Protonix -) 40 mg PO DAILY [facility] Last Admin: 03/10/17 09:31 Dose: 40 mg Sodium Chloride ([place]al [place] -) 2 spray NS Q12H PRN PRN Reason: NASAL CONGESTION Valacyclovir HCl (Valtrex -) 500 mg PO BID [facility] Last Admin: 03/10/17 09:31 Dose: 500 mg - Objective Vital Signs: Vital Signs Temperature 98.2 F 03/10/17 10:00 Pulse Rate 71 03/10/17 10:30 Respiratory Rate 18 03/10/17 10:00 Blood Pressure 130/71 03/10/17 10:00 O2 Sat by Pulse Oximetry (%) 99 03/10/17 10:30 Constitutional: Yes: Well Nourished, Calm Eyes: Yes: WNL HENT: Yes: WNL Neck: Yes: WNL Cardiovascular: Yes: Pulse Irregular, S1, S2 Respiratory: Yes: CTA Bilaterally Gastrointestinal: Yes: Normal Bowel Sounds, Soft Extremities: Yes: Other (r kneee swelling) Labs: CBC, BMP 03/10/17 06:20 03/10/17 06:20 INR, PTT INR 1.50 (0.82-1.09) H D 03/08/17 11:25 Problem List - Problems (1) Septic arthritis Code(s): M00.9 - PYOGENIC ARTHRITIS, UNSPECIFIED (2) Anemia Code(s): D64.9 - ANEMIA, UNSPECIFIED (3) Streptococcal bacteremia Code(s): R78.81 - BACTEREMIA Assessment/Plan Problem List - Problems (1) Angioedema Code(s): T78.3XXA - ANGIONEUROTIC EDEMA, INITIAL ENCOUNTER Qualifiers: Encounter type: initial encounter Qualified Code(s): T78.3XXA - Angioneurotic edema, initial encounter (2) Atrial fibrillation Code(s): I48.91 - UNSPECIFIED ATRIAL FIBRILLATION Qualifiers: Atrial fibrillation type: permanent Qualified Code(s): I48.2 - Chronic atrial fibrillation (3) CAD (coronary artery disease) Code(s): I25.10 - ATHSCL HEART DISEASE OF [place] CORONARY ARTERY W/O ANG PCTRS Qualifiers: Coronary Disease-Associated Artery/Lesion type: bypass graft [place] vs. transplanted heart: [place] heart Associated angina: without angina Qualified Code(s): I25.810 - Atherosclerosis of coronary artery bypass graft( s) without angina pectoris (4) Chronic systolic (congestive) heart failure Code(s): I50.22 - CHRONIC SYSTOLIC (CONGESTIVE) HEART FAILURE (5) Elevated INR Code(s): R79.1 - ABNORMAL COAGULATION PROFILE (6) HLD (hyperlipidemia) Code(s): E78.5 - HYPERLIPIDEMIA, UNSPECIFIED (7) HTN (hypertension) Code(s): I10 - ESSENTIAL (PRIMARY) HYPERTENSION (8) ICD (implantable cardioverter-defibrillator) in place Code(s): Z95.810 - PRESENCE OF AUTOMATIC (IMPLANTABLE) CARDIAC DEFIBRILLATOR (9) Leukocytosis Code(s): D72.829 - ELEVATED WHITE BLOOD CELL COUNT, UNSPECIFIED Qualifiers: Leukocytosis type: unspecified Qualified Code(s): D72.829 - Elevated white blood cell count, unspecified 10 ANEMIA 12 STREP BACTEREMIA Assessment/Plan ABX per ID monitor h+h tranfuse prn PO as tolerated O2 as needed Protonix DR MELGOZA Problem List - Problems (1) Angioedema Code(s): T78.3XXA - ANGIONEUROTIC EDEMA, INITIAL ENCOUNTER Qualifiers: Encounter type: initial encounter Qualified Code(s): T78.3XXA - Angioneurotic edema, initial encounter (2) Atrial fibrillation Code(s): I48.91 - UNSPECIFIED ATRIAL FIBRILLATION Qualifiers: Atrial fibrillation type: permanent Qualified Code(s): I48.2 - Chronic atrial fibrillation (3) CAD (coronary artery disease) Code(s): I25.10 - ATHSCL HEART DISEASE OF [place] CORONARY ARTERY W/O ANG PCTRS Qualifiers: Coronary Disease-Associated Artery/Lesion type: bypass graft [place] vs. transplanted heart: [place] heart Associated angina: without angina Qualified Code(s): I25.810 - Atherosclerosis of coronary artery bypass graft( s) without angina pectoris (4) Chronic systolic (congestive) heart failure Code(s): I50.22 - CHRONIC SYSTOLIC (CONGESTIVE) HEART FAILURE (5) Elevated INR Code(s): R79.1 - ABNORMAL COAGULATION PROFILE (6) HLD (hyperlipidemia) Code(s): E78.5 - HYPERLIPIDEMIA, UNSPECIFIED (7) HTN (hypertension) Code(s): I10 - ESSENTIAL (PRIMARY) HYPERTENSION (8) ICD (implantable cardioverter-defibrillator) in place Code(s): Z95.810 - PRESENCE OF AUTOMATIC (IMPLANTABLE) CARDIAC DEFIBRILLATOR (9) Leukocytosis Code(s): D72.829 - ELEVATED WHITE BLOOD CELL COUNT, UNSPECIFIED Qualifiers: Leukocytosis type: unspecified Qualified Code(s): D72.829 - Elevated white blood cell count, unspecified
--- NOTE | 2017-03-10 18:24 | PN ---
Progress Note (short form) - Note Progress Note: Subjective: The patient was seen and examined at the bedside, he has no complaints at this time Current Medications Generic Name Dose Route Start Last Admin Trade Name Gal PRN Reason Stop Dose Admin Acetaminophen 650 mg 03/03/17 17:50 03/09/17 22:33 Tylenol - PO 650 mg Q4H PRN Administration FEVER OR PAIN Artificial Tears 1 drop 03/03/17 17:50 Artificial Tears OU Q6H PRN DRY EYES Atorvastatin Calcium 10 mg 03/03/17 22:00 03/09/17 22:34 Lipitor - PO 10 mg HS POLLY Administration Carvedilol 6.25 mg 03/03/17 22:00 03/10/17 09:31 Coreg - PO 6.25 mg BID POLLY Administration Chlorhexidine Gluconate 1 applic 03/08/17 13:45 03/10/17 09:32 Hibiclens For Decolonization - TP 1 applic BID POLLY Administration Docusate Sodium 100 mg 03/03/17 22:00 03/10/17 15:19 Colace - PO Not Given TID POLLY Ferrous Sulfate 325 mg 03/04/17 08:00 03/10/17 17:08 Feosol - PO 325 mg TIDCM POLLY Administration IV Flush 8 ml 03/07/17 17:52 Picc Line Flush IVPUSH PRN PRN Protocol Ceftriaxone Sodium 100 mls @ 200 mls/hr 03/04/17 13:45 03/10/17 09:31 Rocephin 2gm Ivpb (Pre-Docked) IVPB 200 mls/hr DAILY [facility] Administration Insulin Aspart 1 vial 03/03/17 22:00 03/10/17 17:07 Novolog Vial Sliding Scale - SQ Not Given ACHS POLLY Protocol Multivitamins/Minerals/Vitamin C 1 tab 03/04/17 10:00 03/10/17 09:31 Tab-A-Vit - PO 1 tab DAILY [facility] Administration Egcdw-3-Sdzx Ethyl Esters 1 gm 03/04/17 10:00 03/10/17 09:31 Lovaza - PO 1 gm DAILY [facility] Administration Ondansetron HCl 4 mg 03/03/17 17:50 Zofran Injection IVPB Q6H PRN NAUSEA Pantoprazole Sodium 40 mg 03/10/17 10:00 03/10/17 09:31 Protonix - PO 40 mg DAILY [facility] Administration Sodium Chloride 2 spray 03/03/17 17:50 [place] Nasal [place] - NS Q12H PRN NASAL CONGESTION Valacyclovir HCl 500 mg 03/04/17 22:00 03/10/17 09:31 Valtrex - PO 500 mg BID PO[facility] Administration Objective: Vital Signs Period Temp Pulse Resp BP Sys/[place]arez Pulse Ox Last 24 Hr 98.2 F-100.0 F 70-79 18-20 121-138/60-74 99-100 Physical Exam: General: NAD, A&Ox3 HEENT: Lower lip with crusting and small amount of oozing Lungs: CTA bilaterally, no stridor or wheezing noted Heart: RRR, S1S2 Abd: Soft, non-tender, non-distended. Normoactive bowel sounds Ext: Warm, well-perfused. 2+ DP/PT bilaterally Neuro: Unable to assess CN due to facial swelling MSK: Right knee with emy, c/d/i CBCD WBC 10.4 K/mm3 (4.0-10.0) H 03/10/17 06:20 RBC 2.68 M/mm3 (4.00-5.60) L 03/10/17 06:20 Hgb 8.6 GM/dL (11.7-16.9) L 03/10/17 06:20 Hct 24.7 % (35.4-49) L 03/10/17 06:20 MCV 92.1 fl (80-96) 03/10/17 06:20 MCHC 34.8 g/dl (32.0-35.9) 03/10/17 06:20 RDW 14.1 % (11.9-15.9) 03/10/17 06:20 Plt Count 323 K/MM3 (134-434) 03/10/17 06:20 MPV 9.2 fl (7.5-11.1) 03/10/17 06:20 CMP Sodium 140 mmol/L (136-145) 03/10/17 06:20 Potassium 3.9 mmol/L (3.5-5.1) 03/10/17 06:20 Chloride 105 mmol/L (98-107) 03/10/17 06:20 Carbon Dioxide 27 mmol/L (21-32) 03/10/17 06:20 Anion Gap 8 (8-16) 03/10/17 06:20 BUN 24 mg/dL (7-18) H 03/10/17 06:20 Creatinine 1.0 mg/dL (0.7-1.3) 03/10/17 06:20 Creat Clearance w eGFR > 60 (>60) 03/10/17 06:20 Random Glucose 102 mg/dL (74-106) 03/10/17 06:20 Calcium 7.7 mg/dL (8.5-10.1) L 03/10/17 06:20 Total Bilirubin 0.8 mg/dL (0.2-1.0) D 03/10/17 06:20 AST 23 U/L (15-37) D 03/10/17 06:20 ALT 23 U/L (12-78) D 03/10/17 06:20 Alkaline Phosphatase 61 U/L (45-117) 03/10/17 06:20 Total Protein 5.7 g/dl (6.4-8.2) L 03/10/17 06:20 Albumin 1.9 g/dl (3.4-5.0) L 03/10/17 06:20 CARDIAC ENZYMES Troponin I < 0.02 ng/ml (0.00-0.05) 02/27/17 00:00 Microbiology 03/01/17 05:40 Blood - Peripheral Venous Blood Culture - Final NO GROWTH AFTER 5 DAYS INCUBATION 03/01/17 05:30 Blood - Peripheral Venous Blood Culture - Final NO GROWTH AFTER 5 DAYS INCUBATION 03/01/17 17:00 Synovial Fluid - Knee Gram Stain - Final 03/01/17 17:00 Synovial Fluid - Knee Body Fluid Culture - Final Beta Hem Streptococcus Group C 03/01/17 17:00 Synovial Fluid - Knee Anaerobic Culture - Final NO ANAEROBES WERE ISOLATED 03/01/17 07:56 Synovial Fluid - Knee Gram Stain - Final 03/01/17 07:56 Synovial Fluid - Knee Body Fluid Culture - Final Beta Hem Streptococcus Group C 03/01/17 07:56 Synovial Fluid - Knee Anaerobic Culture - Final NO ANAEROBES WERE ISOLATED 02/28/17 00:05 Blood - Peripheral Venous Blood Culture - Final Beta Hem Streptococcus Group C 02/28/17 00:05 Blood - Peripheral Venous Blood Culture - Final Beta Hem Streptococcus Group C 02/28/17 06:30 Urine - Urine Stock Urine Culture - Final NO GROWTH OBTAINED Assessment: This is a 66 year old male with PMHx of Afib (on Coumadin), CAD s/p CABG, systolic CHF s/p AICD, HTN, dyslipidemia who presents to the ED with angioedema. 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 - Appreciate ortho consult - Appreciate ID consult 2) GI: Acute blood loss anemia - Stool for occult positive - Likely GI bleed in setting of supratherapeutic INR - Hgb stable - Will hold all anticoagulation at this time - Endoscopy report reviewed - Continue protonix - Appreciate GI consult 3) Angioedema: - Resolved - Likely 2/2 Entresto - Completed Prednisone taper 03/09 4) Cardiology: A.fib - Continue Coreg - Will need NOAC once cleared by GI to restart anticoagulation - Holding all anticoagulation until cleared by GI CAD s/p CABG - Continue statin - Hold ASA HTN - Continue Carvedilol Ischemic cardiomyopathy s/p ICD - Currently appears euvolemic - Will need to avoid all acei/arb - Appreciate cardiology consult 5) Endocrine: Newly diagnosed diabetes - Hgb A1c 6.5 - BGM ACHS - ISS ACHS 6) : JEREMY - Resolved - Continue to monitor 7) F/E/N: - Monitor electrolytes - Fat/sodium controlled diet 8) Prophylaxis: - OOB ambulating - Hold all chemical DVT prophylaxis 2/2 possible GI bleed - PT: weight bearing as tolerated 9) Dispo: - Requires continued inpatient care - Will need SNF placement CODE STATUS: FULL CODE Visit type - Emergency Visit Emergency Visit: Yes ED Registration Date: 02/26/17 Care time: The patient presented to the Emergency Department on the above date and was hospitalized for further evaluation of their emergent condition. - New Patient This patient is new to me today: No - Critical Care Critical Care patient: No
[2017-03-10] MEDS: ACETAMINOPHEN 325 MG TABLET (FP) PO PRN (19:12)
--- NOTE | 2017-03-10 21:20 | PN ---
Progress Note (short form) - Note Progress Note: Monitor H/H. If dwindling cbc, will offer inpoatient Colonoscopy
--- NOTE | 2017-03-10 21:40 | PN ---
Progress Note, Physician History of Present Illness: No c/o knee pain + low grade fever, leukocytosis Tolerating antibiotics - Current Medication List Current Medications: Active Medications Acetaminophen (Tylenol -) 650 mg PO Q4H PRN PRN Reason: FEVER OR PAIN Last Admin: 03/10/17 19:12 Dose: 650 mg Artificial Tears (Artificial Tears) 1 drop OU Q6H PRN PRN Reason: DRY EYES Atorvastatin Calcium (Lipitor -) 10 mg PO HS [facility] Last Admin: 03/09/17 22:34 Dose: 10 mg Carvedilol (Coreg -) 6.25 mg PO BID [facility] Last Admin: 03/10/17 09:31 Dose: 6.25 mg Chlorhexidine Gluconate (Hibiclens For Decolonization -) 1 applic TP BID [facility] Last Admin: 03/10/17 09:32 Dose: 1 applic Docusate Sodium (Colace -) 100 mg PO TID [facility] Last Admin: 03/10/17 15:19 Dose: Not Given Ferrous Sulfate (Feosol -) 325 mg PO TIDCM [facility] Last Admin: 03/10/17 17:08 Dose: 325 mg IV Flush (Picc Line Flush) 8 ml IVPUSH PRN PRN PRN Reason: Protocol Ceftriaxone Sodium (Rocephin 2gm Ivpb (Pre-Docked)) 100 mls @ 200 mls/hr IVPB DAILY [facility] Last Admin: 03/10/17 09:31 Dose: 200 mls/hr Insulin Aspart (Novolog Vial Sliding Scale -) 1 vial SQ ACHS POLLY PRN Reason: Protocol Last Admin: 03/10/17 17:07 Dose: Not Given Multivitamins/Minerals/Vitamin C (Tab-A-Vit -) 1 tab PO DAILY [facility] Last Admin: 03/10/17 09:31 Dose: 1 tab Qbqjl-9-Wqmb Ethyl Esters (Lovaza -) 1 gm PO DAILY [facility] Last Admin: 03/10/17 09:31 Dose: 1 gm Ondansetron HCl (Zofran Injection) 4 mg IVPB Q6H PRN PRN Reason: NAUSEA Pantoprazole Sodium (Protonix -) 40 mg PO DAILY [facility] Last Admin: 03/10/17 09:31 Dose: 40 mg Sodium Chloride ([place] Nasal [place] -) 2 spray NS Q12H PRN PRN Reason: NASAL CONGESTION Valacyclovir HCl (Valtrex -) 500 mg PO BID [facility] Last Admin: 03/10/17 09:31 Dose: 500 mg - Objective Vital Signs: Vital Signs Temperature 99.9 F H 03/10/17 17:00 Pulse Rate 70 03/10/17 17:00 Respiratory Rate 20 03/10/17 17:00 Blood Pressure 126/74 03/10/17 17:00 O2 Sat by Pulse Oximetry (%) 99 03/10/17 10:30 Constitutional: Yes: No Distress Cardiovascular: Yes: Regular Rate and Rhythm, S1, S2 Respiratory: Yes: CTA Bilaterally Gastrointestinal: Yes: Normal Bowel Sounds, Soft Extremities: Yes: Other (knee wound with emy in place no erythema/ drainage) Labs: CBC, BMP 03/10/17 06:20 03/10/17 06:20 INR, PTT INR 1.50 (0.82-1.09) H D 03/08/17 11:25 Assessment/Plan Grp C Strep septic arthritis/ septicemia Anemia/ Petic ulcer disease Continue ceftriaxone For PICC line
[2017-03-10] MEDS: ATORVASTATIN CA 10 MG TABLET (FP) PO SCH (21:58)
[2017-03-11] MEDS: INSULIN SLIDING SCALE (NOVOLOG) 1 VIAL SQ SCH ×4 (06:33→21:33)
[2017-03-11] MEDS: DOCUSATE SODIUM 100 MG CAPSULE (FP) PO SCH ×3 (06:33→21:27)
[2017-03-11 07:13] LABS: BASOPHIL 0.4 % (0-2.0); EOSINOPHIL 0.4 % (0-4.5); MCHC 34.4 g/dl (32.0-35.9); MEAN CELL VOLUME 92.8 fl (80-96); NEUTROPHILS 79.9 % (42.8-82.8); PLATELET COUNT 296 K/MM3 (134-434); RDW 14.1 % (11.9-15.9); WHITE BLOOD COUNT 10.4 K/mm3 (4.0-10.0)
[2017-03-11] MEDS: FERROUS SO4 325 MG TABLET (FP) PO SCH ×3 (08:30→17:07)
--- NOTE | 2017-03-11 08:34 | PN ---
Progress Note, Physician Chief Complaint: Seen and examined, no acute distress Plan for PICC line and d/c to SNF - Current Medication List Current Medications: Active Medications Acetaminophen (Tylenol -) 650 mg PO Q4H PRN PRN Reason: FEVER OR PAIN Last Admin: 03/10/17 19:12 Dose: 650 mg Artificial Tears (Artificial Tears) 1 drop OU Q6H PRN PRN Reason: DRY EYES Atorvastatin Calcium (Lipitor -) 10 mg PO HS [facility] Last Admin: 03/10/17 21:58 Dose: 10 mg Carvedilol (Coreg -) 6.25 mg PO BID [facility] Last Admin: 03/10/17 22:00 Dose: 6.25 mg Chlorhexidine Gluconate (Hibiclens For Decolonization -) 1 applic TP BID [facility] Last Admin: 03/10/17 22:00 Dose: 1 applic Docusate Sodium (Colace -) 100 mg PO TID [facility] Last Admin: 03/11/17 06:33 Dose: Not Given Ferrous Sulfate (Feosol -) 325 mg PO TIDCM [facility] Last Admin: 03/10/17 17:08 Dose: 325 mg IV Flush (Picc Line Flush) 8 ml IVPUSH PRN PRN PRN Reason: Protocol Ceftriaxone Sodium (Rocephin 2gm Ivpb (Pre-Docked)) 100 mls @ 200 mls/hr IVPB DAILY [facility] Last Admin: 03/10/17 09:31 Dose: 200 mls/hr Insulin Aspart (Novolog Vial Sliding Scale -) 1 vial SQ ACHS POLLY PRN Reason: Protocol Last Admin: 03/11/17 06:33 Dose: Not Given Multivitamins/Minerals/Vitamin C (Tab-A-Vit -) 1 tab PO DAILY [facility] Last Admin: 03/10/17 09:31 Dose: 1 tab Cdbha-9-Dbie Ethyl Esters (Lovaza -) 1 gm PO DAILY [facility] Last Admin: 03/10/17 09:31 Dose: 1 gm Ondansetron HCl (Zofran Injection) 4 mg IVPB Q6H PRN PRN Reason: NAUSEA Pantoprazole Sodium (Protonix -) 40 mg PO DAILY [facility] Last Admin: 03/10/17 09:31 Dose: 40 mg Sodium Chloride ([place] Nasal [place] -) 2 spray NS Q12H PRN PRN Reason: NASAL CONGESTION Valacyclovir HCl (Valtrex -) 500 mg PO BID [facility] Last Admin: 03/10/17 21:59 Dose: 500 mg - Objective Vital Signs: Vital Signs Temperature 99.5 F 03/11/17 05:58 Pulse Rate 70 03/11/17 05:58 Respiratory Rate 20 03/11/17 05:58 Blood Pressure 115/62 03/11/17 05:58 O2 Sat by Pulse Oximetry (%) 99 03/10/17 21:00 Constitutional: Yes: No Distress Cardiovascular: Yes: Pulse Irregular Respiratory: Yes: CTA Bilaterally Gastrointestinal: Yes: Soft (non-tender) Edema: No Neurological: Yes: Alert Labs: CBC, BMP 03/11/17 05:35 03/10/17 06:20 INR, PTT INR 1.50 (0.82-1.09) H D 03/08/17 11:25 Laboratory Tests 03/08/17 03/11/17 11:25 05:35 WBC 10.4 H Hgb 8.3 L Plt Count 296 INR 1.50 H D Problem List - Problems (1) Angioedema Code(s): T78.3XXA - ANGIONEUROTIC EDEMA, INITIAL ENCOUNTER Qualifiers: Encounter type: initial encounter Qualified Code(s): T78.3XXA - Angioneurotic edema, initial encounter (2) Atrial fibrillation Code(s): I48.91 - UNSPECIFIED ATRIAL FIBRILLATION Qualifiers: Atrial fibrillation type: permanent Qualified Code(s): I48.2 - Chronic atrial fibrillation (3) CAD (coronary artery disease) Code(s): I25.10 - ATHSCL HEART DISEASE OF [place] CORONARY ARTERY W/O ANG PCTRS Qualifiers: Coronary Disease-Associated Artery/Lesion type: bypass graft [place] vs. transplanted heart: [place] heart Associated angina: without angina Qualified Code(s): I25.810 - Atherosclerosis of coronary artery bypass graft( s) without angina pectoris (4) Elevated INR Code(s): R79.1 - ABNORMAL COAGULATION PROFILE (5) Leukocytosis Code(s): D72.829 - ELEVATED WHITE BLOOD CELL COUNT, UNSPECIFIED Qualifiers: Leukocytosis type: unspecified Qualified Code(s): D72.829 - Elevated white blood cell count, unspecified (6) Chronic systolic (congestive) heart failure Code(s): I50.22 - CHRONIC SYSTOLIC (CONGESTIVE) HEART FAILURE (7) ICD (implantable cardioverter-defibrillator) in place Code(s): Z95.810 - PRESENCE OF AUTOMATIC (IMPLANTABLE) CARDIAC DEFIBRILLATOR (8) Renal insufficiency Code(s): N28.9 - DISORDER OF KIDNEY AND URETER, UNSPECIFIED Assessment/Plan IMP: Strep bacteremia with infected R. knee, s/p I&D. Bacteremia cleared. Angioedema, resolved- presumed secondary to Entresto Ischemic Cardiomyopathy s/p CABG and ICD Anemia, GI bleed with ulcers on EGD REC: 1. Hemodynamically stable s/p R. knee I &D with serial blood cultures negative. SANGITA negative for vegetation this admission. Antibiotics as per ID, awaits PICC line today and discharge to SNF for rehab 2. Angioedema resolved: would not resume Entresto nor any TUAN/ARB. In future, will transition to Imdur + Hydralazine, as outpatient; discussed with patient. 3. GI bleed requiring transfusions: multiple small ulcers in gastric body and also in duodenum on EGD yesterday. -Hold AC as per GI. -Resume when considered safe from GI standpoint -Would resume Coumadin as it is easily reversible in the case of recurrent bleed.
--- NOTE | 2017-03-11 09:07 | PN ---
Progress Note (short form) - Note Progress Note: Subjective: The patient was seen and examined at the bedside, he has no complaints at this time Hgb trending down slightly. Spoke to Dr. Gutiérrez, will likely schedule for colonoscopy tomorrow. Clear liquid diet for now Current Medications Generic Name Dose Route Start Last Admin Trade Name Freq PRN Reason Stop Dose Admin Acetaminophen 650 mg 03/03/17 17:50 03/10/17 19:12 Tylenol - PO 650 mg Q4H PRN Administration FEVER OR PAIN Artificial Tears 1 drop 03/03/17 17:50 Artificial Tears OU Q6H PRN DRY EYES Atorvastatin Calcium 10 mg 03/03/17 22:00 03/10/17 21:58 Lipitor - PO 10 mg HS POLLY Administration Carvedilol 6.25 mg 03/03/17 22:00 03/10/17 22:00 Coreg - PO 6.25 mg BID POLLY Administration Chlorhexidine Gluconate 1 applic 03/08/17 13:45 03/10/17 22:00 Hibiclens For Decolonization - TP 1 applic BID POLLY Administration Docusate Sodium 100 mg 03/03/17 22:00 03/11/17 06:33 Colace - PO Not Given TID POLLY Ferrous Sulfate 325 mg 03/04/17 08:00 03/10/17 17:08 Feosol - PO 325 mg TIDCM POLLY Administration IV Flush 8 ml 03/07/17 17:52 Picc Line Flush IVPUSH PRN PRN Protocol Ceftriaxone Sodium 100 mls @ 200 mls/hr 03/04/17 13:45 03/10/17 09:31 Rocephin 2gm Ivpb (Pre-Docked) IVPB 200 mls/hr DAILY POLLY Administration Insulin Aspart 1 vial 03/03/17 22:00 03/11/17 06:33 Novolog Vial Sliding Scale - SQ Not Given ACHS POLLY Protocol Multivitamins/Minerals/Vitamin C 1 tab 03/04/17 10:00 03/10/17 09:31 Tab-A-Vit - PO 1 tab DAILY POLLY Administration [id number]-5-Hjjv Ethyl Esters 1 gm 03/04/17 10:00 03/10/17 09:31 Lovaza - PO 1 gm DAILY POLLY Administration Ondansetron HCl 4 mg 03/03/17 17:50 Zofran Injection IVPB Q6H PRN NAUSEA Pantoprazole Sodium 40 mg 03/10/17 10:00 03/10/17 09:31 Protonix - PO 40 mg DAILY POLLY Administration Sodium Chloride 2 spray 03/03/17 17:50 [place] Nasal [place] - NS Q12H PRN NASAL CONGESTION Valacyclovir HCl 500 mg 03/04/17 22:00 03/10/17 21:59 Valtrex - PO 500 mg BID POLLY Administration Objective: Vital Signs Period Temp Pulse Resp BP Sys/Juarez Pulse Ox Last 24 Hr 98.2 F-100.8 F 70-79 18-20 106-130/56-74 99-99 Physical Exam: General: NAD, A&Ox3 HEENT: Lower lip with crusting, improving Lungs: CTA bilaterally, no stridor or wheezing noted Heart: RRR, S1S2 Abd: Soft, non-tender, non-distended. Normoactive bowel sounds Ext: Warm, well-perfused. 2+ DP/PT bilaterally Neuro: Unable to assess CN due to facial swelling MSK: Right knee with emy, c/d/i CBCD WBC 10.4 K/mm3 (4.0-10.0) H 03/11/17 05:35 RBC 2.59 M/mm3 (4.00-5.60) L 03/11/17 05:35 Hgb 8.3 GM/dL (11.7-16.9) L 03/11/17 05:35 Hct 24.1 % (35.4-49) L 03/11/17 05:35 MCV 92.8 fl (80-96) 03/11/17 05:35 MCHC 34.4 g/dl (32.0-35.9) 03/11/17 05:35 RDW 14.1 % (11.9-15.9) 03/11/17 05:35 Plt Count 296 K/MM3 (134-434) 03/11/17 05:35 MPV 9.0 fl (7.5-11.1) 03/11/17 05:35 CMP Sodium 140 mmol/L (136-145) 03/10/17 06:20 Potassium 3.9 mmol/L (3.5-5.1) 03/10/17 06:20 Chloride 105 mmol/L (98-107) 03/10/17 06:20 Carbon Dioxide 27 mmol/L (21-32) 03/10/17 06:20 Anion Gap 8 (8-16) 03/10/17 06:20 BUN 24 mg/dL (7-18) H 03/10/17 06:20 Creatinine 1.0 mg/dL (0.7-1.3) 03/10/17 06:20 Creat Clearance w eGFR > 60 (>60) 03/10/17 06:20 Random Glucose 102 mg/dL (74-106) 03/10/17 06:20 Calcium 7.7 mg/dL (8.5-10.1) L 03/10/17 06:20 Total Bilirubin 0.8 mg/dL (0.2-1.0) D 03/10/17 06:20 AST 23 U/L (15-37) D 03/10/17 06:20 ALT 23 U/L (12-78) D 03/10/17 06:20 Alkaline Phosphatase 61 U/L (45-117) 03/10/17 06:20 Total Protein 5.7 g/dl (6.4-8.2) L 03/10/17 06:20 Albumin 1.9 g/dl (3.4-5.0) L 03/10/17 06:20 CARDIAC ENZYMES Troponin I < 0.02 ng/ml (0.00-0.05) 02/27/17 00:00 Microbiology 03/01/17 05:40 Blood - Peripheral Venous Blood Culture - Final NO GROWTH AFTER 5 DAYS INCUBATION 03/01/17 05:30 Blood - Peripheral Venous Blood Culture - Final NO GROWTH AFTER 5 DAYS INCUBATION 03/01/17 17:00 Synovial Fluid - Knee Gram Stain - Final 03/01/17 17:00 Synovial Fluid - Knee Body Fluid Culture - Final Beta Hem Streptococcus Group C 03/01/17 17:00 Synovial Fluid - Knee Anaerobic Culture - Final NO ANAEROBES WERE ISOLATED 03/01/17 07:56 Synovial Fluid - Knee Gram Stain - Final 03/01/17 07:56 Synovial Fluid - Knee Body Fluid Culture - Final Beta Hem Streptococcus Group C 03/01/17 07:56 Synovial Fluid - Knee Anaerobic Culture - Final NO ANAEROBES WERE ISOLATED 02/28/17 00:05 Blood - Peripheral Venous Blood Culture - Final Beta Hem Streptococcus Group C 02/28/17 00:05 Blood - Peripheral Venous Blood Culture - Final Beta Hem Streptococcus Group C 02/28/17 06:30 Urine - Urine Stock Urine Culture - Final NO GROWTH OBTAINED Assessment: This is a 66 year old male with PMHx of Afib (on Coumadin), CAD s/p CABG, systolic CHF s/p AICD, HTN, dyslipidemia who presents to the ED with angioedema. Plan: 1) ID: Severe sepsis 2/2 group C strept right knee joint, Group C strept bacteremia - S/p Right knee washout and poly exchange on 03/01 - Continue Ceftriaxone 2gm daily (03/04- ) - Will need picc on discharge with ocean transportation intermediary abx - Appreciate ortho consult - Appreciate ID consult 2) GI: Acute blood loss anemia - Likely GI bleed in setting of supratherapeutic INR - Hgb stable - Endoscopy report reviewed - For possible colonoscopy tomorrow - Continue protonix - Appreciate GI consult 3) Angioedema: - Resolved - Likely 2/2 Entresto - Completed Prednisone taper 03/09 4) Cardiology: A.fib - Continue Coreg - Holding all anticoagulation until cleared by GI CAD s/p CABG - Continue statin - Hold ASA HTN - Continue Carvedilol Ischemic cardiomyopathy s/p ICD - Currently appears euvolemic - Will need to avoid all acei/arb - Appreciate cardiology consult 5) Endocrine: Newly diagnosed diabetes - Hgb A1c 6.5 - BGM ACHS - ISS ACHS 6) : JEREMY - Resolved - Continue to monitor 7) F/E/N: - Monitor electrolytes - Fat/sodium controlled diet 8) Prophylaxis: - OOB ambulating - Hold all chemical DVT prophylaxis 2/2 GI bleed - PT: weight bearing as tolerated 9) Dispo: - Requires continued inpatient care - Will need SNF placement CODE STATUS: FULL CODE Visit type - Emergency Visit Emergency Visit: Yes ED Registration Date: 02/26/17 Care time: The patient presented to the Emergency Department on the above date and was hospitalized for further evaluation of their emergent condition. - New Patient This patient is new to me today: No - Critical Care Critical Care patient: No
[2017-03-11] MEDS: CHLORHEXIDINE GLUCONATE 4% CLEANSER FOR DECOLONIZATION TP SCH ×2 (11:31→21:32)
[2017-03-11] MEDS: MULTIVITAMINS (DAILY MVI) TABLET (FP) PO SCH (11:31)
[2017-03-11] MEDS: valACYclovir HCL 500 MG TABLET (FP) PO SCH ×2 (11:31→21:32)
[2017-03-11] MEDS: CARVEDILOL 6.25 MG TABLET (FP) PO SCH ×2 (11:31→21:32)
[2017-03-11] MEDS: PANTOPRAZOLE 40 MG TABLET (FP) PO SCH (11:31)
[2017-03-11] MEDS: CEFTRIAXONE 100 ML IVPB SCH (11:32)
[2017-03-11] MEDS: OMEGA-3 ACID ETHYL ESTERS (FATTY-ACIDS) 1 GM CAPSULE (FP) PO SCH (12:22)
--- NOTE | 2017-03-11 13:20 | PN ---
Progress Note, Physician History of Present Illness: Low grade temp noted No c/o chills No R knee pain at present - Current Medication List Current Medications: Active Medications Acetaminophen (Tylenol -) 650 mg PO Q4H PRN PRN Reason: FEVER OR PAIN Last Admin: 03/10/17 19:12 Dose: 650 mg Artificial Tears (Artificial Tears) 1 drop OU Q6H PRN PRN Reason: DRY EYES Atorvastatin Calcium (Lipitor -) 10 mg PO HS [facility] Last Admin: 03/10/17 21:58 Dose: 10 mg Carvedilol (Coreg -) 6.25 mg PO BID [facility] Last Admin: 03/11/17 11:31 Dose: 6.25 mg Chlorhexidine Gluconate (Hibiclens For Decolonization -) 1 applic TP BID [facility] Last Admin: 03/11/17 11:31 Dose: 1 applic Docusate Sodium (Colace -) 100 mg PO TID [facility] Last Admin: 03/11/17 06:33 Dose: Not Given Ferrous Sulfate (Feosol -) 325 mg PO TIDCM [facility] Last Admin: 03/11/17 12:22 Dose: 325 mg IV Flush (Picc Line Flush) 8 ml IVPUSH PRN PRN PRN Reason: Protocol Ceftriaxone Sodium (Rocephin 2gm Ivpb (Pre-Docked)) 100 mls @ 200 mls/hr IVPB DAILY [facility] Last Admin: 03/11/17 11:32 Dose: 200 mls/hr Insulin Aspart (Novolog Vial Sliding Scale -) 1 vial SQ ACHS POLLY PRN Reason: Protocol Last Admin: 03/11/17 11:48 Dose: Not Given Multivitamins/Minerals/Vitamin C (Tab-A-Vit -) 1 tab PO DAILY [facility] Last Admin: 03/11/17 11:31 Dose: 1 tab Zmjop-[id number] Ethyl Esters (Lovaza -) 1 gm PO DAILY [facility] Last Admin: 03/11/17 12:22 Dose: 1 gm Ondansetron HCl (Zofran Injection) 4 mg IVPB Q6H PRN PRN Reason: NAUSEA Pantoprazole Sodium (Protonix -) 40 mg PO DAILY [facility] Last Admin: 03/11/17 11:31 Dose: 40 mg Sodium Chloride ([place] Nasal [place] -) 2 spray NS Q12H PRN PRN Reason: NASAL CONGESTION Valacyclovir HCl (Valtrex -) 500 mg PO BID POLLY Last Admin: 03/11/17 11:31 Dose: 500 mg - Objective Vital Signs: Vital Signs Temperature 98.1 F 03/11/17 10:00 Pulse Rate 70 03/11/17 10:00 Respiratory Rate 20 03/11/17 10:00 Blood Pressure 120/69 03/11/17 10:00 O2 Sat by Pulse Oximetry (%) 98 03/11/17 09:00 Constitutional: Yes: No Distress Eyes: Yes: Conjunctiva Clear Cardiovascular: Yes: Regular Rate and Rhythm, S1, S2 Respiratory: Yes: CTA Bilaterally Gastrointestinal: Yes: Normal Bowel Sounds, Soft. No: Tenderness Extremities: Yes: Other (R knee swelling No erythema [place] in place) Labs: CBC, BMP 03/11/17 05:35 03/10/17 06:20 INR, PTT INR 1.50 (0.82-1.09) H D 03/08/17 11:25 Assessment/Plan Grp C Strep septic arthritis/ septicemia Day 10 post washout Anemia/ Petic ulcer disease Continue ceftriaxone. Will need 6w course of IV therapy post washout, followed by prolonged oral suppressive therapy (e.g. dicloxacillin 500mg po bid) For PICC line Will see in office post-discharge
--- NOTE | 2017-03-11 14:35 | PN ---
Progress Note (short form) - Note Progress Note: H/H has come down slightly. Mr. Victor says that his stool has become less black. Give that he is off anticoagulation currently we discussed colonoscopy to exclude pathology within the colon. We discussed potential risks of the procedure like but not limited to bleeding, perforation requiring surgery to repair, infection, sedation medication effects all of which could be ptoentially life threatening. We also discussed that he could decline having the procedure performed. he has agreed to the procedure. He felt the miralax prep gave him bad cramping the last time he had one done. Will attempt golytely prep without dulcolax
[2017-03-11] MEDS ORDERED: PEG3350/SOD SULF,BICARB,CL/KCL 4,000 ML SOLN.RECON PO ONE (17:00)
[2017-03-11] MEDS: ATORVASTATIN CA 10 MG TABLET (FP) PO SCH (21:32)
[2017-03-12 06:06] LABS: BASOPHIL 0.5 % (0-2.0); EOSINOPHIL 0.4 % (0-4.5); MCH 31.5 pg (25.7-33.7); MCHC 33.8 g/dl (32.0-35.9); MEAN CELL VOLUME 93.3 fl (80-96); NEUTROPHILS 79.1 % (42.8-82.8); PLATELET COUNT 301 K/MM3 (134-434); RDW 14.6 % (11.9-15.9); WHITE BLOOD COUNT 8.5 K/mm3 (4.0-10.0)
[2017-03-12] MEDS: INSULIN SLIDING SCALE (NOVOLOG) 1 VIAL SQ SCH ×3 (06:33→17:59)
[2017-03-12] MEDS: DOCUSATE SODIUM 100 MG CAPSULE (FP) PO SCH ×2 (06:33→13:11)
[2017-03-12 06:37] LABS: CALCIUM 7.6 mg/dL (8.5-10.1); COCKROFT - GAULT 88.35; CREATININE 1.1 mg/dL (0.7-1.3)
--- NOTE | 2017-03-12 08:36 | PN ---
Progress Note, Physician Chief Complaint: no distress C-scope planned for today - Current Medication List Current Medications: Active Medications Acetaminophen (Tylenol -) 650 mg PO Q4H PRN PRN Reason: FEVER OR PAIN Last Admin: 03/10/17 19:12 Dose: 650 mg Artificial Tears (Artificial Tears) 1 drop OU Q6H PRN PRN Reason: DRY EYES Atorvastatin Calcium (Lipitor -) 10 mg PO HS [facility] Last Admin: 03/11/17 21:32 Dose: 10 mg Carvedilol (Coreg -) 6.25 mg PO BID [facility] Last Admin: 03/11/17 21:32 Dose: 6.25 mg Chlorhexidine Gluconate (Hibiclens For Decolonization -) 1 applic TP BID [facility] Last Admin: 03/11/17 21:32 Dose: 1 applic Docusate Sodium (Colace -) 100 mg PO TID [facility] Last Admin: 03/12/17 06:33 Dose: Not Given Ferrous Sulfate (Feosol -) 325 mg PO TIDCM [facility] Last Admin: 03/11/17 17:07 Dose: 325 mg IV Flush (Picc Line Flush) 8 ml IVPUSH PRN PRN PRN Reason: Protocol Ceftriaxone Sodium (Rocephin 2gm Ivpb (Pre-Docked)) 100 mls @ 200 mls/hr IVPB DAILY [facility] Last Admin: 03/11/17 11:32 Dose: 200 mls/hr Insulin Aspart (Novolog Vial Sliding Scale -) 1 vial SQ ACHS POLLY PRN Reason: Protocol Last Admin: 03/12/17 06:33 Dose: Not Given Multivitamins/Minerals/Vitamin C (Tab-A-Vit -) 1 tab PO DAILY [facility] Last Admin: 03/11/17 11:31 Dose: 1 tab Jlprn-2-[id number] Ethyl Esters (Lovaza -) 1 gm PO DAILY [facility] Last Admin: 03/11/17 12:22 Dose: 1 gm Ondansetron HCl (Zofran Injection) 4 mg IVPB Q6H PRN PRN Reason: NAUSEA Pantoprazole Sodium (Protonix -) 40 mg PO DAILY [facility] Last Admin: 03/11/17 11:31 Dose: 40 mg Sodium Chloride ([place] -) 2 spray NS Q12H PRN PRN Reason: NASAL CONGESTION Valacyclovir HCl (Valtrex -) 500 mg PO BID [facility] Last Admin: 03/11/17 21:32 Dose: 500 mg - Objective Vital Signs: Vital Signs Temperature 98.2 F 03/12/17 05:53 Pulse Rate 70 03/12/17 05:53 Respiratory Rate 20 03/12/17 05:53 Blood Pressure 128/69 03/12/17 05:53 O2 Sat by Pulse Oximetry (%) 97 03/11/17 21:00 Constitutional: Yes: No Distress Eyes: Yes: Conjunctiva Clear Cardiovascular: Yes: Pulse Irregular Respiratory: Yes: CTA Bilaterally Gastrointestinal: Yes: Soft Edema: No Neurological: Yes: Alert Labs: CBC, BMP 03/12/17 05:35 03/12/17 05:35 INR, PTT INR 1.50 (0.82-1.09) H D 03/08/17 11:25 Laboratory Tests 03/08/17 03/12/17 03/12/17 11:25 05:35 05:35 WBC 8.5 Hgb 8.2 L Plt Count 301 INR 1.50 H D Sodium 141 Potassium 4.0 BUN 14 D Creatinine 1.1 Problem List - Problems (1) Angioedema Code(s): T78.3XXA - ANGIONEUROTIC EDEMA, INITIAL ENCOUNTER Qualifiers: Encounter type: initial encounter Qualified Code(s): T78.3XXA - Angioneurotic edema, initial encounter (2) Atrial fibrillation Code(s): I48.91 - UNSPECIFIED ATRIAL FIBRILLATION Qualifiers: Atrial fibrillation type: permanent Qualified Code(s): I48.2 - Chronic atrial fibrillation (3) CAD (coronary artery disease) Code(s): I25.10 - ATHSCL HEART DISEASE OF [place] CORONARY ARTERY W/O ANG PCTRS Qualifiers: Coronary Disease-Associated Artery/Lesion type: bypass graft [place] vs. transplanted heart: [place] heart Associated angina: without angina Qualified Code(s): I25.810 - Atherosclerosis of coronary artery bypass graft( s) without angina pectoris (4) Elevated INR Code(s): R79.1 - ABNORMAL COAGULATION PROFILE (5) Leukocytosis Code(s): D72.829 - ELEVATED WHITE BLOOD CELL COUNT, UNSPECIFIED Qualifiers: Leukocytosis type: unspecified Qualified Code(s): D72.829 - Elevated white blood cell count, unspecified (6) Chronic systolic (congestive) heart failure Code(s): I50.22 - CHRONIC SYSTOLIC (CONGESTIVE) HEART FAILURE (7) ICD (implantable cardioverter-defibrillator) in place Code(s): Z95.810 - PRESENCE OF AUTOMATIC (IMPLANTABLE) CARDIAC DEFIBRILLATOR (8) Renal insufficiency Code(s): N28.9 - DISORDER OF KIDNEY AND URETER, UNSPECIFIED Assessment/Plan IMP: Strep bacteremia with infected R. knee, s/p I&D. Bacteremia cleared. Angioedema, resolved- presumed secondary to Entresto Ischemic Cardiomyopathy s/p CABG and ICD Anemia, GI bleed with ulcers on EGD REC: 1. Hemodynamically stable s/p R. knee I &D with serial blood cultures negative. SANGITA negative for vegetation this admission. Antibiotics as per ID, awaits PICC line today and discharge to SNF for rehab 2. Angioedema resolved: would not resume Entresto nor any TUAN/ARB. In future, will transition to Imdur + Hydralazine, as outpatient; discussed with patient. 3. GI bleed requiring transfusions: multiple small ulcers in gastric body and also in duodenum on EGD -Colonoscopy planned for today -Hold AC as per GI. -Resume when considered safe from GI standpoint -Would resume Coumadin as it is easily reversible in the case of recurrent bleed.
--- NOTE | 2017-03-12 08:54 | PN ---
Progress Note (short form) - Note Progress Note: Ortho Pt seen and examined s/p right knee I & D with poly exchange- doing well. Awaiting colonoscopy and PICC line prior to d/c Selected Entries 03/05/17 05:47 Temperature 98.4 F Pulse Rate 70 Respiratory 20 Rate Blood Pressure 125/85 Laboratory Tests 03/05/17 06:00 WBC 12.8 H Hgb 10.3 L Hct 30.9 L Plt Count 229 D incision c/d/i, emy intact, calf soft, nt nvi a/p PT wbat IV abx as per ID PICC line d/c planning
[2017-03-12] MEDS ORDERED: PT OWN MED DRAWER 7, Y5N ONE (09:34)
[2017-03-12] MEDS: FERROUS SO4 325 MG TABLET (FP) PO SCH ×4 (09:37→18:01)
[2017-03-12] MEDS: OMEGA-3 ACID ETHYL ESTERS (FATTY-ACIDS) 1 GM CAPSULE (FP) PO SCH (09:37)
[2017-03-12] MEDS: PANTOPRAZOLE 40 MG TABLET (FP) PO SCH (09:37)
[2017-03-12] MEDS: MULTIVITAMINS (DAILY MVI) TABLET (FP) PO SCH (09:37)
[2017-03-12] MEDS: CARVEDILOL 6.25 MG TABLET (FP) PO SCH (09:37)
[2017-03-12] MEDS: CEFTRIAXONE 100 ML IVPB SCH (09:37)
[2017-03-12] MEDS: CHLORHEXIDINE GLUCONATE 4% CLEANSER FOR DECOLONIZATION TP SCH (09:58)
[2017-03-12] MEDS: valACYclovir HCL 500 MG TABLET (FP) PO SCH (09:58)
--- NOTE | 2017-03-12 11:05 | PN ---
Progress Note (short form) - Note Progress Note: Subjective: The patient was seen and examined at the bedside, he has no complaints at this time For colonoscopy today Current Medications Generic Name Dose Route Start Last Admin Trade Name Freq PRN Reason Stop Dose Admin Acetaminophen 650 mg 03/03/17 17:50 03/10/17 19:12 Tylenol - PO 650 mg Q4H PRN Administration FEVER OR PAIN Artificial Tears 1 drop 03/03/17 17:50 Artificial Tears OU Q6H PRN DRY EYES Atorvastatin Calcium 10 mg 03/03/17 22:00 03/10/17 21:58 Lipitor - PO 10 mg HS POLLY Administration Carvedilol 6.25 mg 03/03/17 22:00 03/10/17 22:00 Coreg - PO 6.25 mg BID POLLY Administration Chlorhexidine Gluconate 1 applic 03/08/17 13:45 03/10/17 22:00 Hibiclens For Decolonization - TP 1 applic BID POLLY Administration Docusate Sodium 100 mg 03/03/17 22:00 03/11/17 06:33 Colace - PO Not Given TID POLLY Ferrous Sulfate 325 mg 03/04/17 08:00 03/10/17 17:08 Feosol - PO 325 mg TIDCM POLLY Administration IV Flush 8 ml 03/07/17 17:52 Picc Line Flush IVPUSH PRN PRN Protocol Ceftriaxone Sodium 100 mls @ 200 mls/hr 03/04/17 13:45 03/10/17 09:31 Rocephin 2gm Ivpb (Pre-Docked) IVPB 200 mls/hr DAILY POLLY Administration Insulin Aspart 1 vial 03/03/17 22:00 03/11/17 06:33 Novolog Vial Sliding Scale - SQ Not Given ACHS POLLY Protocol Multivitamins/Minerals/Vitamin C 1 tab 03/04/17 10:00 03/10/17 09:31 Tab-A-Vit - PO 1 tab DAILY POLLY Administration Txxwr-5-Svts Ethyl Esters 1 gm 03/04/17 10:00 03/10/17 09:31 Lovaza - PO 1 gm DAILY POLLY Administration Ondansetron HCl 4 mg 03/03/17 17:50 Zofran Injection IVPB Q6H PRN NAUSEA Pantoprazole Sodium 40 mg 03/10/17 10:00 03/10/17 09:31 Protonix - PO 40 mg DAILY POLLY Administration Sodium Chloride 2 spray 03/03/17 17:50 [place] Nasal [place] - NS Q12H PRN NASAL CONGESTION Valacyclovir HCl 500 mg 03/04/17 22:00 03/10/17 21:59 Valtrex - PO 500 mg BID POLLY Administration Objective: Vital Signs Period Temp Pulse Resp BP Sys/Juarez Pulse Ox Last 24 Hr 98.2 F-100.8 F 70-79 18-20 106-130/56-74 99-99 Physical Exam: General: NAD, A&Ox3 HEENT: Lower lip with crusting, improving Lungs: CTA bilaterally, no stridor or wheezing noted Heart: RRR, S1S2 Abd: Soft, non-tender, non-distended. Normoactive bowel sounds Ext: Warm, well-perfused. 2+ DP/PT bilaterally NEuro: CN 2-12 intact MSK: Right knee with emy, c/d/i CBCD WBC 10.4 K/mm3 (4.0-10.0) H 03/11/17 05:35 RBC 2.59 M/mm3 (4.00-5.60) L 03/11/17 05:35 Hgb 8.3 GM/dL (11.7-16.9) L 03/11/17 05:35 Hct 24.1 % (35.4-49) L 03/11/17 05:35 MCV 92.8 fl (80-96) 03/11/17 05:35 MCHC 34.4 g/dl (32.0-35.9) 03/11/17 05:35 RDW 14.1 % (11.9-15.9) 03/11/17 05:35 Plt Count 296 K/MM3 (134-434) 03/11/17 05:35 MPV 9.0 fl (7.5-11.1) 03/11/17 05:35 CMP Sodium 140 mmol/L (136-145) 03/10/17 06:20 Potassium 3.9 mmol/L (3.5-5.1) 03/10/17 06:20 Chloride 105 mmol/L (98-107) 03/10/17 06:20 Carbon Dioxide 27 mmol/L (21-32) 03/10/17 06:20 Anion Gap 8 (8-16) 03/10/17 06:20 BUN 24 mg/dL (7-18) H 03/10/17 06:20 Creatinine 1.0 mg/dL (0.7-1.3) 03/10/17 06:20 Creat Clearance w eGFR > 60 (>60) 03/10/17 06:20 Random Glucose 102 mg/dL (74-106) 03/10/17 06:20 Calcium 7.7 mg/dL (8.5-10.1) L 03/10/17 06:20 Total Bilirubin 0.8 mg/dL (0.2-1.0) D 03/10/17 06:20 AST 23 U/L (15-37) D 03/10/17 06:20 ALT 23 U/L (12-78) D 03/10/17 06:20 Alkaline Phosphatase 61 U/L (45-117) 03/10/17 06:20 Total Protein 5.7 g/dl (6.4-8.2) L 03/10/17 06:20 Albumin 1.9 g/dl (3.4-5.0) L 03/10/17 06:20 CARDIAC ENZYMES Troponin I < 0.02 ng/ml (0.00-0.05) 02/27/17 00:00 Microbiology 03/01/17 05:40 Blood - Peripheral Venous Blood Culture - Final NO GROWTH AFTER 5 DAYS INCUBATION 03/01/17 05:30 Blood - Peripheral Venous Blood Culture - Final NO GROWTH AFTER 5 DAYS INCUBATION 03/01/17 17:00 Synovial Fluid - Knee Gram Stain - Final 03/01/17 17:00 Synovial Fluid - Knee Body Fluid Culture - Final Beta Hem Streptococcus Group C 03/01/17 17:00 Synovial Fluid - Knee Anaerobic Culture - Final NO ANAEROBES WERE ISOLATED 03/01/17 07:56 Synovial Fluid - Knee Gram Stain - Final 03/01/17 07:56 Synovial Fluid - Knee Body Fluid Culture - Final Beta Hem Streptococcus Group C 03/01/17 07:56 Synovial Fluid - Knee Anaerobic Culture - Final NO ANAEROBES WERE ISOLATED 02/28/17 00:05 Blood - Peripheral Venous Blood Culture - Final Beta Hem Streptococcus Group C 02/28/17 00:05 Blood - Peripheral Venous Blood Culture - Final Beta Hem Streptococcus Group C 02/28/17 06:30 Urine - Urine Stock Urine Culture - Final NO GROWTH OBTAINED Assessment: This is a 66 year old male with PMHx of Afib (on Coumadin), CAD s/p CABG, systolic CHF s/p AICD, HTN, dyslipidemia who presents to the ED with angioedema. Plan: 1) ID: Severe sepsis 2/2 group C strept right knee joint, Group C strept bacteremia - S/p Right knee washout and poly exchange on 03/01 - Continue Ceftriaxone 2gm daily (03/04- ) - Will need picc on discharge with six weeks of IV ceftriaxone (through 04/12/17) followed by Dicloxacillin 500mg po bid - Appreciate ortho consult - Appreciate ID consult 2) GI: Acute blood loss anemia - Likely GI bleed in setting of supratherapeutic INR - Hgb stable - Endoscopy report reviewed - For colonoscopy today - Continue protonix - Appreciate GI consult 3) Angioedema: - Resolved - Likely 2/2 Entresto - Completed Prednisone taper 03/09 4) Cardiology: A.fib - Continue Coreg - Holding all anticoagulation until cleared by GI CAD s/p CABG - Continue statin - Hold ASA HTN - Continue Carvedilol Ischemic cardiomyopathy s/p ICD - Currently appears euvolemic - Will need to avoid all acei/arb - Appreciate cardiology consult 5) Endocrine: Newly diagnosed diabetes - Hgb A1c 6.5 - BGM ACHS - ISS ACHS 6) : JEREMY - Resolved - Continue to monitor 7) F/E/N: - Monitor electrolytes - Fat/sodium controlled diet 8) Prophylaxis: - OOB ambulating - Hold all chemical DVT prophylaxis 2/2 GI bleed - PT: weight bearing as tolerated 9) Dispo: - Requires continued inpatient care - Colonoscopy planned for 5pm today. Will need PICC line placement prior to discharge. Awaiting auth from insurance. Called and spoke to Joel in IR re : PICC line placement. Explained that the patient may be discharged tomorrow to SNF and will need PICC line placement. Awaiting call back to see if the patient can get the picc placed today. CODE STATUS: FULL CODE Visit type - Emergency Visit Emergency Visit: Yes ED Registration Date: 02/26/17 Care time: The patient presented to the Emergency Department on the above date and was hospitalized for further evaluation of their emergent condition. - New Patient This patient is new to me today: No - Critical Care Critical Care patient: No
[2017-03-12] MEDS ORDERED: PROPOFOL 20 ML ONE ×5 (11:18)
--- NOTE | 2017-03-12 11:55 | PN ---
Progress Note (short form) - Note Progress Note: GI Procedure NOte: Please see colonoscopy report. No bleeding source found. Lipomatous appearing ileocecal valve polyps removed. NO GI objections to discharge and followup in our office.
[2017-03-12] MEDS: ACETAMINOPHEN 325 MG TABLET (FP) PO PRN (13:06)
--- NOTE | 2017-03-12 13:23 | PN ---
Progress Note, Physician History of Present Illness: pulmonary alert,oob-chair ,-sob,edema continues to improved - Current Medication List Current Medications: Active Medications Acetaminophen (Tylenol -) 650 mg PO Q4H PRN PRN Reason: FEVER OR PAIN Last Admin: 03/12/17 13:06 Dose: 650 mg Artificial Tears (Artificial Tears) 1 drop OU Q6H PRN PRN Reason: DRY EYES Atorvastatin Calcium (Lipitor -) 10 mg PO HS [facility] Last Admin: 03/11/17 21:32 Dose: 10 mg Carvedilol (Coreg -) 6.25 mg PO BID [facility] Last Admin: 03/12/17 09:37 Dose: 6.25 mg Chlorhexidine Gluconate (Hibiclens For Decolonization -) 1 applic TP BID [facility] Last Admin: 03/12/17 09:58 Dose: 1 applic Docusate Sodium (Colace -) 100 mg PO TID [facility] Last Admin: 03/12/17 13:11 Dose: Not Given Ferrous Sulfate (Feosol -) 325 mg PO TIDCM [facility] Last Admin: 03/12/17 13:07 Dose: 325 mg IV Flush (Picc Line Flush) 8 ml IVPUSH PRN PRN PRN Reason: Protocol Ceftriaxone Sodium (Rocephin 2gm Ivpb (Pre-Docked)) 100 mls @ 200 mls/hr IVPB DAILY [facility] Last Admin: 03/12/17 09:37 Dose: 200 mls/hr Insulin Aspart (Novolog Vial Sliding Scale -) 1 vial SQ ACHS [facility] PRN Reason: Protocol Last Admin: 03/12/17 11:29 Dose: Not Given Multivitamins/Minerals/Vitamin C (Tab-A-Vit -) 1 tab PO DAILY [facility] Last Admin: 03/12/17 09:37 Dose: 1 tab Vceki-0-Rlzn Ethyl Esters (Lovaza -) 1 gm PO DAILY [facility] Last Admin: 03/12/17 09:37 Dose: 1 gm Ondansetron HCl (Zofran Injection) 4 mg IVPB Q6H PRN PRN Reason: NAUSEA Pantoprazole Sodium (Protonix -) 40 mg PO DAILY [facility] Last Admin: 03/12/17 09:37 Dose: 40 mg Sodium Chloride ([place] Nasal [place] -) 2 spray NS Q12H PRN PRN Reason: NASAL CONGESTION Valacyclovir HCl (Valtrex -) 500 mg PO BID [facility] Last Admin: 03/12/17 09:58 Dose: 500 mg - Objective Vital Signs: Vital Signs Temperature 97.7 F 03/12/17 12:31 Pulse Rate 72 03/12/17 12:31 Respiratory Rate 20 03/12/17 12:31 Blood Pressure 124/60 03/12/17 12:31 O2 Sat by Pulse Oximetry (%) 97 03/12/17 12:31 Constitutional: Yes: Well Nourished, Calm Eyes: Yes: WNL HENT: Yes: WNL Neck: Yes: WNL Cardiovascular: Yes: Pulse Irregular, S1, S2 Respiratory: Yes: CTA Bilaterally Extremities: Yes: WNL Edema: No Labs: CBC, BMP 03/12/17 05:35 03/12/17 05:35 INR, PTT INR 1.50 (0.82-1.09) H D 03/08/17 11:25 Problem List - Problems (1) Septic arthritis Code(s): M00.9 - PYOGENIC ARTHRITIS, UNSPECIFIED (2) Anemia Code(s): D64.9 - ANEMIA, UNSPECIFIED (3) Streptococcal bacteremia Code(s): R78.81 - BACTEREMIA Assessment/Plan Problem List - Problems (1) Angioedema Code(s): T78.3XXA - ANGIONEUROTIC EDEMA, INITIAL ENCOUNTER Qualifiers: Encounter type: initial encounter Qualified Code(s): T78.3XXA - Angioneurotic edema, initial encounter resolved (2) Atrial fibrillation Code(s): I48.91 - UNSPECIFIED ATRIAL FIBRILLATION Qualifiers: Atrial fibrillation type: permanent Qualified Code(s): I48.2 - Chronic atrial fibrillation (3) CAD (coronary artery disease) Code(s): I25.10 - ATHSCL HEART DISEASE OF [place] CORONARY ARTERY W/O ANG PCTRS Qualifiers: Coronary Disease-Associated Artery/Lesion type: bypass graft [place] vs. transplanted heart: [place] heart Associated angina: without angina Qualified Code(s): I25.810 - Atherosclerosis of coronary artery bypass graft( s) without angina pectoris (4) Chronic systolic (congestive) heart failure Code(s): I50.22 - CHRONIC SYSTOLIC (CONGESTIVE) HEART FAILURE (5) Elevated INR Code(s): R79.1 - ABNORMAL COAGULATION PROFILE (6) HLD (hyperlipidemia) Code(s): E78.5 - HYPERLIPIDEMIA, UNSPECIFIED (7) HTN (hypertension) Code(s): I10 - ESSENTIAL (PRIMARY) HYPERTENSION (8) ICD (implantable cardioverter-defibrillator) in place Code(s): Z95.810 - PRESENCE OF AUTOMATIC (IMPLANTABLE) CARDIAC DEFIBRILLATOR (9) Leukocytosis Code(s): D72.829 - ELEVATED WHITE BLOOD CELL COUNT, UNSPECIFIED Qualifiers: Leukocytosis type: unspecified Qualified Code(s): D72.829 - Elevated white blood cell count, unspecified 10 ANEMIA 12 STREP BACTEREMIA Assessment/Plan ABX per ID monitor h+h tranfuse prn O2 as needed Protonix DR MELGOZA Problem List - Problems (1) Angioedema Code(s): T78.3XXA - ANGIONEUROTIC EDEMA, INITIAL ENCOUNTER Qualifiers: Encounter type: initial encounter Qualified Code(s): T78.3XXA - Angioneurotic edema, initial encounter (2) Atrial fibrillation Code(s): I48.91 - UNSPECIFIED ATRIAL FIBRILLATION Qualifiers: Atrial fibrillation type: permanent Qualified Code(s): I48.2 - Chronic atrial fibrillation (3) CAD (coronary artery disease) Code(s): I25.10 - ATHSCL HEART DISEASE OF [place] CORONARY ARTERY W/O ANG PCTRS Qualifiers: Coronary Disease-Associated Artery/Lesion type: bypass graft [place] vs. transplanted heart: [place] heart Associated angina: without angina Qualified Code(s): I25.810 - Atherosclerosis of coronary artery bypass graft( s) without angina pectoris (4) Chronic systolic (congestive) heart failure Code(s): I50.22 - CHRONIC SYSTOLIC (CONGESTIVE) HEART FAILURE (5) Elevated INR Code(s): R79.1 - ABNORMAL COAGULATION PROFILE (6) HLD (hyperlipidemia) Code(s): E78.5 - HYPERLIPIDEMIA, UNSPECIFIED (7) HTN (hypertension) Code(s): I10 - ESSENTIAL (PRIMARY) HYPERTENSION (8) ICD (implantable cardioverter-defibrillator) in place Code(s): Z95.810 - PRESENCE OF AUTOMATIC (IMPLANTABLE) CARDIAC DEFIBRILLATOR (9) Leukocytosis Code(s): D72.829 - ELEVATED WHITE BLOOD CELL COUNT, UNSPECIFIED Qualifiers: Leukocytosis type: unspecified Qualified Code(s): D72.829 - Elevated white blood cell count, unspecified
[2017-03-12 15:19] VITALS: BP 116/67; PULSE 70; TEMP 99
--- NOTE | 2017-03-12 16:17 | DS ---
Physical Examination Vital Signs: Vital Signs Temperature 99.0 F 03/12/17 14:00 Pulse Rate 70 03/12/17 14:00 Respiratory Rate 20 03/12/17 14:00 Blood Pressure 116/67 03/12/17 14:00 O2 Sat by Pulse Oximetry (%) 97 03/12/17 12:31 Findings/Remarks: Physical Exam: General: NAD, A&Ox3 HEENT: Lower lip with crusting, improving Lungs: CTA bilaterally, no stridor or wheezing noted Heart: RRR, S1S2 Abd: Soft, non-tender, non-distended. Normoactive bowel sounds Ext: Warm, well-perfused. 2+ DP/PT bilaterally NEuro: CN 2-12 intact MSK: Right knee with emy, c/d/i Labs: CBC, BMP 03/12/17 05:35 03/12/17 05:35 Discharge Summary Reason For Visit: ANGIOEDEMA Current Active Problems Acute kidney injury (Acute) Allergic rhinitis (Acute) Anemia (Acute) Angioedema (Acute) Atrial fibrillation (Acute) Bacteremia (Acute) Blood loss anemia (Acute) CAD (coronary artery disease) (Acute) Chronic systolic (congestive) heart failure (Acute) Conjunctivitis (Acute) DVT prophylaxis (Acute) Elevated INR (Acute) Endocarditis (Acute) HLD (hyperlipidemia) (Acute) HTN (hypertension) (Acute) ICD (implantable cardioverter-defibrillator) in place (Acute) Infection of total right knee replacement (Acute) Knee pain, acute (Acute) Leukocytosis (Acute) Renal insufficiency (Acute) Sepsis (Acute) Septic arthritis (Acute) Streptococcal bacteremia (Acute) Hospital Course: This is a 66 year old male with PMHx of Afib (on Coumadin), CAD s/p CABG, systolic CHF s/p AICD, HTN, dyslipidemia who presents to the ED with angioedema. Plan: 1) ID: Severe sepsis 2/2 group C strept right knee joint, Group C strept bacteremia - S/p Right knee washout and poly exchange on 03/01 - Continue Ceftriaxone 2gm daily (03/04- ) - Will need picc on discharge with six weeks of IV ceftriaxone (through 04/12/17) followed by Dicloxacillin 500mg po bid - Appreciate ortho consult - Appreciate ID consult 2) GI: Acute blood loss anemia - Likely GI bleed in setting of supratherapeutic INR - Hgb stable - Endoscopy report reviewed - For colonoscopy today - Continue protonix - Appreciate GI consult 3) Angioedema: - Resolved - Likely 2/2 Entresto - Completed Prednisone taper 03/09 4) Cardiology: A.fib - Continue Coreg - Holding all anticoagulation until cleared by GI CAD s/p CABG - Continue statin - Hold ASA HTN - Continue Carvedilol Ischemic cardiomyopathy s/p ICD - Currently appears euvolemic - Will need to avoid all acei/arb - Appreciate cardiology consult 5) Endocrine: Newly diagnosed diabetes - Hgb A1c 6.5 - BGM ACHS - ISS ACHS 6) : JEREMY - Resolved - Continue to monitor The patient was discharged and instructed to follow-up with ortho, ID, GI, and cardiology within 1 week. Please return to the ED with new, persistent or worsening symptoms. This discharge took me 60 minutes to complete. Condition: Improved - Instructions Diet, Activity, Other Instructions: Please return to the ED with new, persistent, or worsening symptoms. Please follow-up with providers as indicated. Avoid NSAIDS Continue Protonix 40mg orally daily and schedule a repeat endoscopy for 8 weeks Referrals: Wes Corrales MD [Staff Physician] - (Please follow-up with infectious disease within 1 week for further management of your antibiotics. ) Earle Madden MD [Staff Physician] - (Please follow-up with ortho within 2-3 days for staple removal and for a post-op follow-up) Wes Ma MD [Staff Physician] - (Please follow-up with cardiology within 2-3 days for further management of your a.fib and to discuss when to restart anticoagulation) Ryan Gutiérrez DO [Staff Physician] - (Please follow-up with GI for a repeat endoscopy within 1 week to receive pathology results and to schedule a repeat endoscopy in 8 weeks. ) Disposition: [facility] - Home Medications Comprehensive Discharge Medication List: Ambulatory Orders Carvedilol 6.25 mg PO BID 06/30/14 Simvastatin [Zocor -] 20 mg PO HS 06/30/14 Docusate Sodium [Colace -] 100 mg PO TID #21 capsule 05/01/15 Ferrous Sulfate [Feosol] 325 mg PO TIDCM #30 ud 05/01/15 Acetaminophen [Tylenol .Regular Strength -] 650 mg PO Q4H PRN #0 tablet Ceftriaxone [Rocephin 2Gm Ivpb (Pre-Docked)] 100 ml IVPB DAILY #31 bag 03/12/17 Fish Oil/Borage/Flax/Om3,6,9#1 [[place] 3-6-9 Complex Softgel] 1 each PO DAILY #0 tab 03/12/17 Multivitamins [Multivit ([facility] Formulary)] 1 tab PO DAILY #0 tab 03/12/17 Pantoprazole Sodium [Protonix -] 40 mg PO DAILY tab 03/12/17 Picc Line Flush [Picc Line Flush -] 8 ml IVPUSH PRN PRN #0 ml 03/12/17 Polyvinyl Alcohol [Artificial Tears] 1 drop OU Q6H PRN #0 bot 03/12/17 Sodium Chloride Nasal [place] [[place] Nasal [place] -] 2 spray NS Q12H PRN #0 spray 03/12/17 This patient is new to me today: No Emergency Visit: Yes ED Registration Date: 02/26/17 Care time: The patient presented to the Emergency Department on the above date and was hospitalized for further evaluation of their emergent condition. Critical Care patient: No - Discharge Referral Referred to [facility] Med P.C.: No
--- NOTE | 2017-03-15 12:03 | PATH ---
Surgical Pathology Report Patient Name: MOO CARBONE Med. Rec. #: [id number] /Age/Gender: 1950 (Age: 66) / M Account: [id number] Location: 4 PEDS/ADOL Taken: 03/12/2017 Received: 03/12/2017 Reported: 03/15/2017 Physicians: Elvin Villavicencio M.D. Specimen(s) Received ILEOCECAL VALVE POLYPS Clinical History GI bleed Diverticulosis, ileocecal valve polyps Final Diagnosis ILEOCECAL VALVE, POLYPS, BIOPSY/POLYPECTOMY: MULTIPLE FRAGMENTS OF TUBULAR ADENOMA. Electronically Signed Devin Liu M.D. Gross Description Received in formalin, labeled "biopsy ileocecal valve polyps" are 8 arreola, irregular portions of soft tissue ranging from 0.2-0.4 cm in greatest dimension. The specimens are submitted in toto in one cassette. /03/12/201703/12/2017
== END 2017-03-12 19:00 | DRG 907 ==
LOC: JER 09:41 → JERBED 12:40 → JICU 16:05 → J5S 02-27 16:56 → J4W 02-28 02:54 → JICU 02-28 03:25 → J4S 03-03 18:30
PROVIDERS: ADMIT Internal Medicine; ATTEND Registered Nurse
PROC: 0SPC09Z Removal of Liner from Right Knee Joint, Open Approach (ICD-10-PCS; 2017-03-01)
PROC: 0SUC09Z Supplement Right Knee Joint with Liner, Open Approach (ICD-10-PCS; 2017-03-01)
PROC: 0S9C0ZX Drainage of Right Knee Joint, Open Approach, Diagnostic (ICD-10-PCS; 2017-03-01)
PROC: 30233N1 Transfusion of Nonautologous Red Blood Cells into Peripheral Vein, Percutaneous Approach (ICD-10-PCS; 2017-03-01)
PROC: 30233K1 Transfusion of Nonautologous Frozen Plasma into Peripheral Vein, Percutaneous Approach (ICD-10-PCS; 2017-03-01)
PROC: 0S9C3ZX Drainage of Right Knee Joint, Percutaneous Approach, Diagnostic (ICD-10-PCS; principal; 2017-03-01 17:00)
PROC: B246ZZ4 Ultrasonography of Right and Left Heart, Transesophageal (ICD-10-PCS; 2017-03-04)
PROC: 0DB98ZX Excision of Duodenum, Via Natural or Artificial Opening Endoscopic, Diagnostic (ICD-10-PCS; 2017-03-09)
PROC: 0DB68ZX Excision of Stomach, Via Natural or Artificial Opening Endoscopic, Diagnostic (ICD-10-PCS; 2017-03-09)
PROC: 02HV33Z Insertion of Infusion Device into Superior Vena Cava, Percutaneous Approach (ICD-10-PCS; 2017-03-12)
PROC: 0DBC8ZX Excision of Ileocecal Valve, Via Natural or Artificial Opening Endoscopic, Diagnostic (ICD-10-PCS; 2017-03-12)
DX: T78.3XXA Angioneurotic edema, initial encounter (principal); A40.8 Other streptococcal sepsis; R65.20 Severe sepsis without septic shock; T84.53XA Infection and inflammatory reaction due to internal right knee prosthesis, initial encounter; I50.22 Chronic systolic (congestive) heart failure; N17.9 Acute kidney failure, unspecified; M00.9 Pyogenic arthritis, unspecified; I47.2 Ventricular tachycardia; D62 Acute posthemorrhagic anemia; M00.861 Arthritis due to other bacteria, right knee; I25.10 Atherosclerotic heart disease of native coronary artery without angina pectoris; E78.5 Hyperlipidemia, unspecified; I48.2 Chronic atrial fibrillation; R79.1 Abnormal coagulation profile; I11.0 Hypertensive heart disease with heart failure; I25.5 Ischemic cardiomyopathy; J30.9 Allergic rhinitis, unspecified; H10.89 Other conjunctivitis; T50.995A Adverse effect of other drugs, medicaments and biological substances, initial encounter; R50.9 Fever, unspecified; E86.0 Dehydration; Y83.8 Other surgical procedures as the cause of abnormal reaction of the patient, or of later complication, without mention of misadventure at the time of the procedure; Y92.89 Other specified places as the place of occurrence of the external cause; E09.9 Drug or chemical induced diabetes mellitus without complications; K44.9 Diaphragmatic hernia without obstruction or gangrene; K22.2 Esophageal obstruction; K64.8 Other hemorrhoids; K57.90 Diverticulosis of intestine, part unspecified, without perforation or abscess without bleeding; K25.9 Gastric ulcer, unspecified as acute or chronic, without hemorrhage or perforation; K26.9 Duodenal ulcer, unspecified as acute or chronic, without hemorrhage or perforation; Z95.810 Presence of automatic (implantable) cardiac defibrillator; Z95.1 Presence of aortocoronary bypass graft; Z96.651 Presence of right artificial knee joint; Z79.01 Long term (current) use of anticoagulants
CPT/HCPCS: 36415; 36430; 36569; 71010-TC; 71250-TC; 73200-TC-RT; 73560-TC-RT; 73700-TC-RT; 77001-TC; 80048; 80053; 80307; 81003; 81015; 82042; 82150; 82272; 82465; 82945; 83036; 83605; 83615; 83735; 84100; 84157; 84484; 84560; 85025; 85027; 85610; 85651; 86140; 86850; 86900; 86901; 86922; 87040; 87070; 87075; 87077; 87086; 87186; 87205; 88300-TC; 88305-TC; 89050; 89051; 89060; 93005; 93010; 93306-TC; 93312; 93325; 93971-TC; 97116-GP; 97162; 99284-25; C1751; G0480; P9017; P9038; P9058

== ENCOUNTER 2019-10-16 08:19 | Emergency (ER) | payer BC, OTHER ==
[2019-10-16 08:30] VITALS: BP 152/92; PULSE 69; TEMP 97.9; BMI 29.5
[2019-10-16] MEDS ORDERED: ACETAMINOPHEN 500 MG TABLET (FP) PO ONE (08:57)
[2019-10-16] MEDS ORDERED: ACETAMINOPHEN 325 MG TABLET (FP) ONE (08:57)
--- NOTE | 2019-10-16 09:02 | PDOC ---
History of Present Illness - General Chief Complaint: Pain, Acute Stated Complaint: LT KNEE PAIN Time Seen by Provider: 10/16/19 08:33 Past History - Past Medical History Allergies/Adverse Reactions: Allergies Allergy/AdvReac Type Severity Reaction Status Date / Time lisinopril Allergy Severe Verified 10/16/19 08:30 sacubitril [From Entresto] Allergy Severe Angioedema Verified 10/16/19 08:30 valsartan [From Entresto] Allergy Severe angioedema Verified 10/16/19 08:30 No Known Drug Allergies Allergy Verified 10/16/19 08:30 HAYFEVER Allergy Uncoded 10/16/19 08:30 Home Medications: Ambulatory Orders Carvedilol 6.25 mg PO BID 06/30/14 Simvastatin [Zocor -] 20 mg PO HS 06/30/14 Docusate Sodium [Colace -] 100 mg PO TID #21 capsule 05/01/15 Ferrous Sulfate [Feosol] 325 mg PO TIDCM #30 ud 05/01/15 Acetaminophen [Tylenol .Regular Strength -] 650 mg PO Q4H PRN #0 tablet Ceftriaxone [Rocephin 2Gm Ivpb (Pre-Docked)] 100 ml IVPB DAILY #31 bag 03/12/17 Fish Oil/Borage/Flax/Om3,6,9 1 [[place] 3-6-9 Complex Softgel] 1 each PO DAILY #0 tab 03/12/17 Multivitamins [Multivit ([facility] Formulary)] 1 tab PO DAILY #0 tab 03/12/17 Pantoprazole Sodium [Protonix -] 40 mg PO DAILY tab 03/12/17 Picc Line Flush [Picc Line Flush -] 8 ml IVPUSH PRN PRN #0 ml 03/12/17 Polyvinyl Alcohol [Artificial Tears] 1 drop OU Q6H PRN #0 bot 03/12/17 Sodium Chloride Nasal [place] [[place] Nasal [place] -] 2 spray NS Q12H PRN #0 spray 03/12/17 Anemia: Yes (TAKES IRON PILL) Asthma: No Cancer: No Cardiac Disorders: Yes (afib) CVA: No COPD: No CHF: No Dementia: No Diabetes: No GI Disorders: No Disorders: No HTN: Yes Hypercholesterolemia: No Liver Disease: No Seizures: No Thyroid Disease: No - Surgical History Abdominal Surgery: No Appendectomy: No Cardiac Surgery: Yes (pppmd,DIFIBRILLATOR 04/2014) Cholecystectomy: No Lung Surgery: No (11/2013 TRIPLE BYPASS) Neurologic Surgery: (LAMINECTOMY 5 YRS AGO) Orthopedic Surgery: No - Immunization History Immunization Up to Date: Yes - Psycho Social/Smoking Cessation Hx Smoking History: Never smoked Have you smoked in the past 12 months: No Hx Alcohol Use: No Drug/Substance Use Hx: No Substance Use Type: None Hx Substance Use Treatment: No Review of Systems - Review of Systems Able to Perform ROS?: Yes Comments:: 10/16/19 09:03 CONSTITUTIONAL: Absent: fever, chills, diaphoresis, generalized weakness, malaise, loss of appetite MUSCULOSKELETAL: Present: L knee pain Absent: myalgia, arthralgia, joint swelling SKIN: Absent: rash, itching, pallor NEUROLOGIC: Absent: headache, focal weakness or paresthesias, dizziness, unsteady gait, seizure, mental status changes, bladder or bowel incontinence PSYCHIATRIC: Absent: anxiety, depression, suicidal or homicidal ideation, hallucinations. Is the patient limited [place] proficient: No *Physical Exam - Vital Signs Last Vital Signs Temp Pulse Resp BP Pulse Ox 97.9 F 69 18 152/92 96 10/16/19 08:28 10/16/19 08:28 10/16/19 08:28 10/16/19 08:28 10/16/19 08:28 - Physical Exam 10/16/19 09:04 GENERAL: The patient is awake, alert, and fully oriented, in no acute distress. HEAD: Normal with no signs of trauma. EYES: Pupils equal, round and reactive to light, extraocular movements intact, sclera anicteric, conjunctiva clear. EXTREMITIES: Pain with straight leg raise on the L. Normal range of motion, no edema in the L leg. PMS intact. (-) anterior draw/posterior draw, varus valgus stressing, and Maria Guadalupe's testing. NEUROLOGICAL: Normal speech, normal gait. PSYCH: Normal mood, normal affect. SKIN: Warm, Dry, normal turgor, no rashes or lesions noted. Medical Decision Making - Medical Decision Making 10/16/19 09:02 The patient is a 68-year-old male with past medical history of A. fib on Coumadin, CAD status post CABG, systolic CHF status post AICD, hypertension, dyslipidemia presents to the ER with left knee pain for 3 days. He denies trauma, falling. He states that he does not know what started the pain. He states the pain is worse when he stands and it is located on the inside of his knee. He has history of R knee replacement. Denies fevers, chills, numbness, tingling and weakness to the affected extremity. A/P: L knee pain On exam pain with a straight leg raise noted. No pain with varus or valgus stressing. Negative Nuvia's test. Skin color and temperature normal of the left leg. No calf pain or tenderness. Unlikely DVT, pt already on blood thinners. Patient sent for x-ray. No fractures noted on wet read, calcifications noted of the vasculature behind the knee Suspect a possible quadriceps strain, given patient has pain with a straight leg raise. Tylenol given for pain x-ray shows Will refer to orthopedics I discussed the physical exam findings, ancillary test results and final diagnoses with the patient. I answered all of the patient's questions. The patient was satisfied with the care received and felt comfortable with the discharge plan and treatment plan. The Patient agrees to follow up with the primary care physician/specialist within 24-72 hours. Return precautions were given. Discharge - Discharge Information Problems reviewed: Yes Clinical Impression/Diagnosis: Knee pain Qualifiers: Chronicity: acute Laterality: left Qualified Code(s): M25.562 - Pain in left knee Condition: Stable Disposition: HOME - Admission No - Follow up/Referral Referrals: Milton Mcmahon DO [Staff Physician] - - Patient Discharge Instructions Patient Printed Discharge Instructions: DI for Knee Pain Additional Instructions: You were evaluated for your knee pain today. You do have some arthritis where you have tenderness. You may also have strained your quadriceps tendon given the pain you have with certain movements. Please take Tylenol 650 mg every 4 hours for pain. Keep the leg elevated while resting. You may apply warm packs to the area to help with the pain. Please follow-up with orthopedics this week. A referral for a new orthopedist has been provided to you. Return to the ER for worsening pain, fever, numbness and tingling to the extremity or if you have any changes in your symptoms. - Post Discharge Activity Work/Back to School Note: Back to Work
== END 2019-10-16 10:23 | disposition home or self-care (01) ==
LOC: JERFT 08:19
DX: M25.562 Pain in left knee (principal); I25.10 Atherosclerotic heart disease of native coronary artery without angina pectoris; I11.0 Hypertensive heart disease with heart failure; Z95.1 Presence of aortocoronary bypass graft; I50.20 Unspecified systolic (congestive) heart failure; Z95.810 Presence of automatic (implantable) cardiac defibrillator; I48.91 Unspecified atrial fibrillation; Z79.01 Long term (current) use of anticoagulants; E78.5 Hyperlipidemia, unspecified; Z88.8 Allergy status to other drugs, medicaments and biological substances
CPT/HCPCS: 73562-TC-LT-FY; 99282-25